=== PATIENT | male | born 1960 | race Caucasian/White ===

== ENCOUNTER 2020-10-23 13:40 | Inpatient (IN) | payer OTHER, SELFPAY ==
[2020-10-23 14:45] VITALS: BP 131/77; PULSE 84; RESP 18; TEMP 36.9; O2SAT 99
[2020-10-23 15:11] VITALS: BMI 52.6
[2020-10-23 16:04] LABS: International Normalized Ratio 1.7; Prothrombin Time (Protime)PT. 19.7 SECONDS (11.7-14.9)
--- NOTE | 2020-10-23 16:30 | PCM.HP.STD ---
Problem List (1) Hypertension Status: Chronic Qualifiers: Hypertension type: essential hypertension Qualified Code(s): I10 - Essential (primary) hypertension (2) HLD (hyperlipidemia) Status: Chronic (3) Super obese Status: Chronic (4) Uncontrolled type II diabetes mellitus Status: Chronic Qualifiers: Glycemic state: with hyperglycemia Qualified Code(s): E11.65 - Type 2 diabetes mellitus with hyperglycemia (5) Prostate disorder Status: Chronic (6) Status post tracheostomy Status: Acute (7) S/P percutaneous endoscopic gastrostomy (PEG) tube placement Status: Acute (8) Gram-negative pneumonia Status: Resolved (9) CAD (coronary artery disease) Status: Chronic (10) Hemorrhagic cerebrovascular accident (CVA) Status: Acute Comment: Posterior left temporal lobe (11) Mastoiditis Status: Acute Qualifiers: Laterality: bilateral Qualified Code(s): H70.93 - Unspecified mastoiditis, bilateral (12) Sinusitis Status: Acute Qualifiers: Sinusitis location: sphenoidal (13) Subarachnoid hemorrhage Status: Acute Comment: Bilateral (14) Deep vein thrombosis (DVT) of left upper extremity Status: Acute (15) Hx of deep venous thrombosis Status: Chronic Comment: was on warfarin at the time of the intracerebral bleed with an INR of 4.2. (16) Cognitive dysfunction Status: Acute (17) Pharyngeal dysphagia Status: Acute Comment: severe. Pt NPO at presentation to the rehab unit (18) Subtherapeutic international normalized ratio (INR) Status: Acute (19) Tobacco dependence in remission Status: Chronic Comment: Quit at 34 years of age and also quit alcohol at the same time. (20) Presence of cerebrospinal fluid drainage device Status: Acute Comment: Right frontal area (21) Seizure disorder as sequela of cerebrovascular accident Status: Acute (22) Delirium Status: Acute (23) Cellulitis Status: Acute Qualifiers: Site of cellulitis of trunk: abdominal wall (24) Acute bronchitis Status: Acute Qualifiers: Bronchitis organism: Streptococcus Qualified Code(s): J20.2 - Acute bronchitis due to streptococcus Comment: Group B strep (25) Infection of PEG site Status: Acute Comment: Pseudomonas aeruginosa History of Present Illness Date of Admission: 10/23/20 Chief Complaint: Post hemorrhagic stroke disability with severe pharyngeal dysphagia, cognitive dysfunction, tracheostomy, PEG tube insertion Daniel Sanchez is a 60 year old M with a past medical history of hypertension, hyperlipidemia, super obesity, coronary artery disease, prostate disorder, recurrent DVTs, chronic anticoagulation with warfarin, uncontrolled diabetes mellitus type 2 and venous insufficiency who presented to [facility] emergency department on 09/22/2020 complaining of difficulty walking and confusion. His stated that he had been complaining of left side pain for [address] brain showed an intracranial hemorrhage and the patient was given vitamin K and transferred to [facility] via med flight. At [facility] he was intubated and started on a Cardene drip for malignant hypertension. INR was 4.2 and he received Kcentra on arrival to [facility]. While at [facility] he had a CSF shunt placed in the right frontal area. He had gram-negative pneumonia and failed extubation on 10/02/2020. He was reintubated on 10/04/2020 and eventually had a tracheostomy. He has mild oral dysphagia and severe pharyngeal dysphagia and aspirated pur?ed food. He has silent aspiration. A PEG tube was inserted. He was started on Keppra for new onset seizures. He received PT/OT/ST at [facility] and when he was ready for discharge he was transferred to [facility] acute inpatient rehab unit on 10/23/2020. He will have greater than 3 hours of therapy daily to restore him at or near his prior level of function. He lives in a private two-story home and his bedroom is on the second floor. There is a full bathroom with a walk-in shower on the first floor and accommodations can be made for him to sleep on the first floor. He has a few steps to enter his house. All paperwork from [facility] was reviewed.] He has never been to [facility] in the past. Past Medical History Past Medical History (Chronic Problems): Chronic Problems Hypertension (Chronic) HLD (hyperlipidemia) (Chronic) Super obese (Chronic) Uncontrolled type II diabetes mellitus (Chronic) Prostate disorder (Chronic) CAD (coronary artery disease) (Chronic) Hx of deep venous thrombosis (Chronic) was on warfarin at the time of the intracerebral bleed with an INR of 4.2. Tobacco dependence in remission (Chronic) Quit at 34 years of age and also quit alcohol at the same time. Allergies No Known Allergies Allergy (Verified 10/23/20 15:12) Home Medications: Ambulatory Orders Medication Instructions Recorded Atorvastatin Calcium [Lipitor] 80 mg GT QHS 10/23/20 Doxazosin Mesylate [Cardura] 2 mg GT DAILY 10/23/20 Hydrochlorothiazide [Hctz] 25 mg PO DAILY 10/23/20 Loperamide [Imodium] 2 mg GT Q4H PRN PRN 10/23/20 Metoprolol Tartrate 50 mg GT BID 10/23/20 Warfarin [Coumadin] 12.5 mg GT DAILY 10/23/20 Warfarin [Coumadin] 15 mg GT DAILY 10/23/20 levETIRAcetam oral solution 1,000 mg GT BID 10/23/20 [Keppra Solution] metFORMIN HCl [Glucophage] 1,000 mg GT BIDCM 10/23/20 Surgical History: - - Tracheostomy, PEG tube insertion Psychiatric History: No pertinent psych hx Lives: Spouse/ Significant Other Smoking Status: Former smoker - quit at the age of 34 and also quit ETOH at the same time Tobacco Use: Cigarettes Alcohol: None Drugs: None - *Family History Maternal History Items: Heart Disease, Renal Disease Paternal History Items: Diabetes, Heart Disease Sibling History Items: Cancer - Review of an H&P done at [facility] states his brother had cancer but does not specify the patient is unable to tell me., Diabetes - Sister and brother, Heart Disease - Brother, - - Positive history of psychosis and his sister Review of Systems HEENT: Reports: Difficulty Swallowing Respiratory: Reports: Shortness of Breath - he said he was SOB but he can lie nearly flat in bed with no tachypnea, no conversational dyspnea, no accessory muscle use and his lungs are clear to auscultation. Gastrointestinal: Reports: - - PEG tube site was examined and is free of discharge or erythema Skin: Denies: Jaundice Neurological: Reports: Confusion, Difficulty swallowing, Seizures. Denies: Tremor Hematologic/ Lymphatic: Reports: Hx of blood clot Unable to obtain accurate/complete ROS d/t: Patient has encephalopathy secondary to recent hemorrhagic CVA VTE Information - Inpt Only VTE Present on Admission: Yes - Left upper extremity VTE Mechan Device Prophylaxis: SCD's VTE Pharm Prophylaxis ordered?: No Reason prophylaxis not ordered:: Treatment Not Indicated - He is on full dose anticoagulation....was on Heparin infusion at [facility] but it ws discontinued so that he could be transferred to rehab. Patient Problems: Active and Suspected Problems Status post tracheostomy (Acute) S/P percutaneous endoscopic gastrostomy (PEG) tube placement (Acute) Hemorrhagic cerebrovascular accident (CVA) (Acute) Posterior left temporal lobe Mastoiditis (Acute) Sinusitis (Acute) Subarachnoid hemorrhage (Acute) Bilateral Deep vein thrombosis (DVT) of left upper extremity (Acute) Cognitive dysfunction (Acute) Pharyngeal dysphagia (Acute) severe. Pt NPO at presentation to the rehab unit Subtherapeutic international normalized ratio (INR) (Acute) Presence of cerebrospinal fluid drainage device (Acute) Right frontal area Seizure disorder as sequela of cerebrovascular accident (Acute) Delirium (Acute) Cellulitis (Acute) Acute bronchitis (Acute) Group B strep Infection of PEG site (Acute) Pseudomonas aeruginosa - Physical Exam Vitals/I&O's: Vital Signs Temp Pulse Resp BP Pulse Ox 98.4 F 84 18 131/77 H 99 10/23/20 14:45 10/23/20 14:45 10/23/20 14:45 10/23/20 14:45 10/23/20 14:45 Oxygen Flow Rate (L/min) 5 Oxygen Delivery Method Trach Collar Weight: 297 lb Body Mass Index (BMI) 52.6 General: Alert, No apparent distress, Well developed, Well nourished, Confused, Disoriented - He told me he was 55 (he is 60) and he had not idea where he was. When I explained that he was in a rehab unit BECAUSE HE HAD A STROKE HE SAID NO WAY. He could not tell me the month or the year., - - I found him sitting at the EOB with his gown off. He had pulled out his Rogers and was sitting on it. The bed was soaked in urine. HEENT: Atraumatic Oral: No Gingival or Mucosal Lesions/ Ulcerations, Dry Mucosa Neck: Supple, Trachea Midline, - - Trachesostimy is in place. It is crusty around the appliance with dried secretions. ?He has a Passy casey valve and he is able to speak Lungs: Rhonchi - Cleared after a cough. Respirations are not labored and he has no conversational dyspnea, tachypnea or accessory muscle use Cardiovascular: Regular rate, Regular Rhythm, Normal S1, Normal S2, No murmurs, No Ectopic Activity, No rub noted, No Gallop, - - heart sounds are distant due to body habitus Abdomen: Bowel Sounds Present, Soft, Obese, - - no guarding with palpation Extremities: No clubbing, No cyanosis Skin: No rashes, No breakdown, - - he has hyperpigmentation of the skin over the distal LE's - suspect due to venous insufficiency and WaRFARIN......there are no open areas Neurological: Cranial nerves II-XII grossly intact Psych/Mental Status: Impulsive - poor safety awareness. Confused and disoriented Laboratory Results 10/23/20 15:45: PT 19.7 H, INR 1.7 Current Medications Atorvastatin Calcium (Atorvastatin Calcium 80 Mg Tablet) 80 mg GT QHS [facility] Bisacodyl (Bisacodyl 10 Mg Suppository) 10 mg RECTAL .PRN X 1 PRN PRN Reason: Constipation Doxazosin Mesylate (Doxazosin 1 Mg Tablet) 2 mg GT DAILY [facility] Hydrochlorothiazide (Hydrochlorothiazide 25 Mg Tablet) 25 mg GT DAILY [facility] Insulin Glargine (Insulin Glargine 100 Units/Ml Pen) 90 units SC BID [facility] Insulin Human Lispro (Insulin Lispro 100 Unit/Ml Insuln.Pen) 0 unit SC [facility]; Protocol Levetiracetam (Levetiracetam Oral Solution 500 Mg/5 Ml) 1,000 mg GT BID [facility] Loperamide HCl (Loperamide 2 Mg Capsule) 2 mg GT Q4H PRN PRN PRN Reason: Diarrhea Magnesium Hydroxide (Magnesium Hydroxide 30 Ml Udc) 30 ml GT .PRN X 1 PRN PRN Reason: Constipation Metformin HCl (Metformin Hcl 1,000 Mg Tablet) [facility] Metoprolol Tartrate (Metoprolol Tartrate 50 Mg Tablet) 50 mg GT BID [facility] Senna/Docusate Sodium (Senna/Docusate Sodium 1 Tablet) 2 tablet PO BID [facility] Warfarin Sodium (Warfarin 1 Mg Tablet) 12.5 mg GT DAILY [facility] Warfarin Sodium (Warfarin 1 Mg Tablet) 15 mg GT DAILY [facility] Assessment/Plan All Active Problems Status post tracheostomy (Acute) S/P percutaneous endoscopic gastrostomy (PEG) tube placement (Acute) Gram-negative pneumonia (Resolved) Hemorrhagic cerebrovascular accident (CVA) (Acute) Mastoiditis (Acute) Sinusitis (Acute) Subarachnoid hemorrhage (Acute) Deep vein thrombosis (DVT) of left upper extremity (Acute) Cognitive dysfunction (Acute) Pharyngeal dysphagia (Acute) Subtherapeutic international normalized ratio (INR) (Acute) Presence of cerebrospinal fluid drainage device (Acute) Seizure disorder as sequela of cerebrovascular accident (Acute) Delirium (Acute) Cellulitis (Acute) Acute bronchitis (Acute) Infection of PEG site (Acute) Impressions 1. 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 2. Encephalopathy secondary to intracerebral bleeds 3. Left upper extremity DVT with history of DVTs in the past 4. Subtherapeutic INR at 1.7-was recently on a heparin drip which was discontinued at transfer. 5. Recent gram-negative pneumonia 6. Status post tracheostomy 7. Mild oral and severe pharyngeal dysphagia-silent aspiration with pur?ed food 8. Status post PEG tube 9. Uncontrolled diabetes mellitus type 2 in obese-hemoglobin A1c was greater than 11 at [facility] 10. Essential hypertension 11. Hyperlipidemia 12. Coronary artery disease 13. Prostate disorder-he had a Rogers in place at presentation to rehab but he pulled it out 14. Bilateral mastoiditis on a CT scan done at [facility] 15. Maxillary and sphenoidal sinusitis [facility] 16. Superobese 17. Tobacco dependence in remission-quit drinking and smoking at the age of 34 18. Status post placement of cerebrospinal fluid drainage device in the right frontal area 19. New onset seizures as sequela I of intracerebral hemorrhage 20. Acute delirium PLAN PT for gait stability OT for ADL's ST for evaluation Analgesics as needed Bowel protocol Fall precautions Assess for Anxiety/Depression GI prophylaxis not necessary at this time as he has no history of peptic ulcer disease and is not on prophylaxis at the time of arrival to the rehab unit DVT prophylaxis not necessary. He will be on warfarin to maintain his INR between 2.2 to 2.8 for recurrent DVT's Follow up - please see the nurses notes AM lab including CMP, CBC, Mag and Phos Accu-Cheks 5 times daily prior to each feeding with a high-dose sliding scale. He must have a lot of insulin resistance as he gets 90 units of Lantus every 12 hours and has been getting as much as 30 units with feedings. He has been seen by the dietitian already who has put feedings in for him. Inpatient E&M: 66106 Init Hosp L3
--- NOTE | 2020-10-23 16:31 | PCM.RU.PYE ---
Admission Information Primary Diagnosis:: Post stroke debility Status Changes from Prescreening?: Medical Actual Problem List:: Infection, Skin Intergrity, Pain, ALteration in Cmfrt, Cognitve Impr/Memory Loss, Mobility Impaired, Self Care Deficit, Ineffective Communication, Know.Dfct/Disease Process, Diabetes, Hyperglycemia, BP, Hypertension, Fluid Change-Dehydration, Alteration-Leisure Activ. Potential Problem List:: DVT, Bleeding, Infection, UTI, Aspiration, Falls, Skin Integrity, Depression Risk of Complications DVT: JOHANNA Ugarte, - - Warfarin Bleeding: Monitor Lab Values, Nursing to Teach Precautions for anti-coagulation therapy., Wound, if applicable, to be assessed every shift., Stroke patients assessed for lethargy or change in status. Infection: Clinical Staff to Monitor for S/S of infection:, S/S of infection include fever, redness, warmth, etc. Urinary Tract Infection: Monitor for frequency, burning, discomfort, or incontinence., Nursing will obtain urine sample for urinalysis and C&S when ordered. Aspiration: Clinical staff will monitor for coughing, drooling, congestion., Speech will evaluate swallowing and dsyphasia., Nursing will monitor patient swallowing during meals. Falls: Patient will be evaluated for Fall Precautions, Patient will be placed on Fall Precautions as indicated per protocol. Skin Breakdown: Nursing will assess skin daily using assessment tool., Nursing will place on Skin Breakdown Precautions as indicated. Pain: Clinical staff will assess patient's pain level per protocol., Medications will be given, if needed, and the pain level reassessed., Other methods: Massage, distraction, decrease stimulus, etc. used PRN. Plan of Care Patient requires physician specializing in physical medicine and rehab oversight to provide close medical supervision of rehab issues including: Pain Management, Sleep Problems, Bowel and Bladder, Medical and co-morbidity Management, DVT prophylaxis, Rehabilitation Leadership, Coordination of treatment team Patient needs Physical Therapy: For a minimum of 1 hour, At least 5 out of 7 days Patient needs Physical Therapy to improve:: Mobility, Mobility, Mobility, Strengthening, Transfers, Stretching, ROM, Endurance, Stairs, Gait, Balance Patient needs Occupational Therapy: For a minimum of 1 hour, At least 5 out of 7 days Patient needs Occupational Therapy to improve ADL's incl.: Eating, Grooming, Bathing, Dressing, Toileting, Toilet transfers, Community Reintegration, Higher functioning activities, Household tasks, Adaptive Equipment, Splinting, Other activities as determined Patient requires speech therapy: For a minimum of 1 hour, At least 5 out of 7 days Patient requires speech therapy for: Swallowing, Cognition, Language Skills, Compensatory Strategies Patient requires 24/ Rehabilitation Nursing for: Pain Issues, Identifying and preventing risk factors, Monitoring and reporting current medical conditions, Assisting with ambulation, transfer, and all ADL's, Teaching patients about disease process and medications, Family teaching, Providing safe environment, Bowel and Bladder Issues, Skin integrity, Medication Management Patient needs Piped Pocket Machine Operator/ Case Management for: Discharge Planning, Arranging Home Equipment or Services, Family Interventions Patient needs Dietary and Nutrition Services for: Adequate Nutrition, Nutritional Supplements, Nutritional Education Goals Patient will remain: free from falls, or injury at time of discharge. Patient will perform bed mobility at: MOD I level of assist. Patient will complete transfers from bed to chair at: MOD I level of assist. Patient will ambulate: 100 feet, with standby assist, with LRD Patient will complete upper body dressing at: MOD I level of assist. Patient will complete lower body dressing at: MOD I level of assist. Patient will complete toileting at: - - Minimal assistance Patient will perform bathing at: MOD I level of assist. Patient will complete grooming at: MOD I level of assist. Patient will achieve: at MOD I assist, - - 6 stairs with 2 handrails Patient will have pain level of: of 3 or less Patient's skin will: remain intact, free from infection. Patient will receive: adequate nutrition. Discharge Planning Pt Prognosis for Sig. Practical Improv. w/in Reasonable Time: Good Estimated Length of stay (days): 28 Anticipated D/C Destination: Home with Outpt Therapy
--- NOTE | 2020-10-23 16:52 | NT.THERAPY_ITS ---
Nutrition Therapy Report - History Nutrition Services has been consulted to:: Manage enteral nutrition Current diet / nutrition support order:: NPO - Anthropometric Measurements Height:: 5 ft 3 in Weight:: 134.717 kg Body Mass Index (BMI):: 52.6 - Relevant Labs Relevant Labs:: PT 19.7 SECONDS (11.7-14.9) H 10/23/20 15:45 - Assessment Food / Nutrition-Related History:: Information gathered from [facility] records. Intubated 09/22/20, extubated 10/02 and reintubated 10/04. Trach/PEG placed 10/08. Noted to have DobHoff placed 10/03 prior to PEG placement. No records of type of enteral nutrition formula provided during acute hospital stay. Noted hx of DM w/ A1C of 11.4% at acute hospital. - Nutrition Intervention Nutrition Prescription:: Will use ASPEN guidelines for critically ill, morbidly obese patients: 2-2.5 g/kg protein IBW (56kg) and 11-14 calories/kg CBW. 1400- 1800 calories, 112-140 g protein per day - Food / Nutrient Delivery Interventions Summary of nutrition intervention:: Will order enteral nutrition to meet >75% of estimated nutritional needs. PROTECTIVE SIGNAL INSTALLER HELPER consulted- no evaluation completed at this time. Nutrition support ordered as / adjusted to:: Vital HP via PEG- 320mL bolus 5x/day w/ 50mL H2O flush before and after each feeding to provide 1600 calories, ~140 g protein, and 1837mL total fluid/day (320 calories, ~28 g protein, and 35 g CHO per bolus). Will adjust tube feeds if able to consume food PO. - MNT Monitoring Further MNT monitoring and evaluation required?: Yes MNT Follow-up in:: 3-5 days
[2020-10-23 16:55] VITALS: BMI 52.6
[2020-10-23 17:10] VITALS: O2SAT 99
[2020-10-23 17:25] VITALS: O2SAT 98
[2020-10-23 18:06] VITALS: BMI 52.6
[2020-10-23 18:30] VITALS: O2SAT 98
[2020-10-23 18:35] LABS: Bedside Glucose 78 mg/dL (70-110)
[2020-10-23] MEDS: metFORMIN HCl 1,000 MG Tablet 1000 MG GT (18:36)
[2020-10-23 19:36] VITALS: BP 137/73; PULSE 90; RESP 20; TEMP 36.8; O2SAT 99
[2020-10-23 22:05] LABS: Bedside Glucose 143 mg/dL (70-110)
[2020-10-23] MEDS: Senna/Docusate Sodium 1 Tablet 2 TABLET PO (23:06)
[2020-10-23 23:07] VITALS: BP 137/73; PULSE 90
[2020-10-23] MEDS: Atorvastatin Calcium 80 MG Tablet GT (23:07)
[2020-10-23] MEDS: Metoprolol Tartrate 50 MG Tablet GT (23:07)
[2020-10-23] MEDS: levETIRAcetam Oral Solution 500 MG/5 ML 1000 MG GT (23:08)
[2020-10-23] MEDS: Nystatin Powder 15gm Bottle 1 APPLIC TOPICAL (23:32)
[2020-10-23] MEDS: Menthol/Lanolin/Calamine/Znox 113 GM Tube 1 APPLIC TOPICAL (23:33)
[2020-10-24 05:47] LABS: Absolute Lymphocyte Count 2.47 X10^3/uL (0.83-4.51); Absolute Neutrophil Count 12.7 X10^3/uL (2.0-7.7); Basophil# 0.05 X10^3/uL; Basophil% 0.3 % (0-1); Eosinophil# 0.21 X10^3/uL; Eosinophils% 1.2 % (0-5); Hemoglobin 10.3 g/dL (13.0-16.5); Lymphocyte # 2.47 X10^3/ul (4.0); Lymphocyte % 14.4 % (19-41); Mean Corp Hgb Conc 31.2 g/dL (32-36); Mean Corpuscular Volume 89.7 fL (80-94); Mean Platelet Vol. 9.2 fl (6.2-12.0); Monocyte# 1.57 X10^3/uL; Monocyte% 9.2 % (0-10); NRBC Flagged by Analyzer 0 % (0-5); Neutrophil # 12.69 X10^3/uL (2.7-7.7); Neutrophil % 74.3 % (47-70); POSITIVE DIFFERENTIAL YES; Platelet Count 341 K/mm3 (150-450); RBC Distribution Width CV 13.6 % (11.6-14.6); RBC Distribution Width SD 44.5 fl (35.1-43.9); Red Blood Count 3.68 M/mm3 (4.6-6.2); White Blood Count 17.1 K/mm3 (4.4-11.0)
[2020-10-24 05:49] LABS: Differential Indicated SCAN CRITERIA MET
[2020-10-24 06:11] LABS: Differential Comment SCANNED
[2020-10-24 06:17] LABS: ALB/GLOB Ratio 0.4 RATIO (0.9-2.4); AST(SGOT) 21 U/L (15-37); Alanine Aminotransfer ALT/SGPT 39 U/L (16-61); Albumin, Serum 2.5 g/dL (3.2-5.0); Alkaline Phosphatase 138 U/L (45-117); Anion Gap 8 (5-15); BUN 36 mg/dL (7-18); BUN/Creat Ratio 44.2 RATIO (10-20); Calcium,Total 9.2 mg/dL (8.5-10.1); Chloride 99 mmol/L (98-107); Creatinine, Serum 0.82 mg/dL (0.70-1.30); EST Glomerular Filtration Rate 102 mL/min (>60); Est Glom Filt Rate - Afr Amer 124 mL/min (>60); Estimated Creatinine Clearance 76.14 ml/min; Globulin 5.8 g/dL (2.2-4.2); Glucose 154 mg/dL (74-106); Magnesium 2.1 mg/dL (1.6-2.6); Potassium 3.7 mmol/L (3.5-5.1); Protein, Total 8.3 g/dL (6.4-8.2); Sodium Level 134 mmol/L (136-145)
[2020-10-24 06:27] LABS: International Normalized Ratio 1.9; Prothrombin Time (Protime)PT. 21.4 SECONDS (11.7-14.9)
[2020-10-24 07:05] LABS: Bedside Glucose 151 mg/dL (70-110)
[2020-10-24 07:28] VITALS: O2SAT 98
[2020-10-24] MEDS: hydroCHLOROthiazide 25 MG Tablet GT (08:03)
[2020-10-24] MEDS: Doxazosin 1 MG Tablet 2 MG GT (08:03)
[2020-10-24] MEDS: Menthol/Lanolin/Calamine/Znox 113 GM Tube 1 APPLIC TOPICAL ×2 (08:03→21:02)
[2020-10-24] MEDS: metFORMIN HCl 1,000 MG Tablet 1000 MG GT (08:04)
[2020-10-24] MEDS: levETIRAcetam Oral Solution 500 MG/5 ML 1000 MG GT ×2 (08:04→20:51)
[2020-10-24 08:05] VITALS: PULSE 80
[2020-10-24] MEDS: Loperamide 2 MG Capsule GT (08:05)
[2020-10-24] MEDS: Nystatin Powder 15gm Bottle 1 APPLIC TOPICAL ×2 (08:05→21:02)
[2020-10-24] MEDS: Metoprolol Tartrate 50 MG Tablet GT ×2 (08:05→20:50)
[2020-10-24] MEDS: Insulin Lispro 100 UNIT/ML INSULN.PEN SC ×4 (08:22→17:01)
[2020-10-24 08:47] VITALS: BP 146/78; PULSE 83; RESP 20; TEMP 36.8; O2SAT 96
[2020-10-24 10:26] LABS: Bedside Glucose 227 mg/dL (70-110)
--- NOTE | 2020-10-24 10:43 | PCM.PN.BLA ---
Progress Note Afebrile VSS Maintaining appropriate oxygen saturation on a trach collar with an FiO2 of 30% No oral intake-being fed through a PEG tube because of severe dysphagia Discussed with nursing -having copious amounts of diarrhea today. Was on intravenous antibiotics for treatment of gram-negative pneumonia while at [facility]. Reviewed the PT/OT/ST notes Medication list reviewed. Sugar record was reviewed. Alert but inappropriate. Having severe diarrhea. Denies abd pain MM are very dry There is jenkins secretions from the trach and he has dried DC which is much better than yesterday around the Trach appliance Lungs -rhonchi, no rales HRRR abd - BS's are not hyperactive, there is erythema and moist greenish drainage around the PEG with an odor no pitting edema of the LE's. He is moving all extremities. Impression 1. Post stroke debility 2. acute delirium 3. Cellulitis around the PEG site 4. Bronchitis vs PNA? He had Gm negative PNA at [facility] 5. diarrhea -4 likely than not secondary to combined effects of tube feed with high-dose Metformin. Cannot exclude C. difficile since he was recently on broad-spectrum antibiotics for gram-negative pneumonia 6. Diabetes mellitus type 2 uncontrolled 7. Subtherapeutic INR 8. History of DVT in the past on chronic anticoagulation with warfarin prior to the stroke DC metformin CDIFF Lomotil 1 dose now until we get CDIFF back add Questran to the drug regimen Send cult of Sputum and the DC around the PEG site Continue Warfarin...INR is 1.9 today and suspect it will be therapeutic in the AM Start an IV to maintain hydration since he has high volume Stool output Cut the TF in half to hopefully slow down the diarrhea. Hold hydrochlorothiazide being given for hypertension Recheck BMP and INR in a.m. Decrease Lantus to 60 units twice daily since we are decreasing tube feed. Continue sliding scale insulin prior to all feedings STROKE Vital Signs/Narrative: Vital Signs Temp Pulse Resp BP Pulse Ox 10/24/20 08:47 98.2 F 83 20 H 146/78 H 96 10/24/20 08:05 80 10/24/20 07:28 98 Inpatient E&M: [id number] Subs Hosp L2
--- NOTE | 2020-10-24 11:01 | RAD_ITS ---
STUDY: X-RAY CHEST REASON FOR EXAM: Male, 60 years old. Pneumonia, purulent secretions from trach. TECHNIQUE: 1 view COMPARISON: None. FINDINGS: Tracheostomy cannula terminates 5.5 cm above the natasha. The lungs are clear and expanded. There is no demonstrated pleural abnormality. Normal size heart. Normal mediastinum and alfredito. Normal visualized pulmonary arteries. Normal visualized aortic arch and descending thoracic aorta. Normal visualized thoracic spine. Normal visualized ribs, clavicles, and shoulders. There is no demonstrated abnormality of the visualized soft tissue structures of the upper abdomen. RAD/Chest 1 View (Portable) IMPRESSION: Tracheostomy cannula terminates above the natasha. Negative for consolidation, focal atelectasis or pleural effusion. Electronically Signed: Raquel Reyes MD at 23:50 EST , Service support ,
[2020-10-24 12:42] LABS: Pathologist Review Reviewed
[2020-10-24] MEDS: Diphenoxylate/Atrop 1 Tablet PO (12:51)
[2020-10-24] MEDS: Cholestyramine/Sucrose 4 GM/PACKET PO ×3 (12:52→22:16)
[2020-10-24 15:15] LABS: Bedside Glucose 159 mg/dL (70-110)
[2020-10-24 17:11] LABS: Bedside Glucose 175 mg/dL (70-110)
[2020-10-24 19:48] VITALS: BP 151/78; PULSE 92; RESP 18; TEMP 36.9; O2SAT 96
[2020-10-24 20:50] VITALS: PULSE 92
[2020-10-24] MEDS: Atorvastatin Calcium 80 MG Tablet GT (20:50)
[2020-10-24 21:40] LABS: Bedside Glucose 118 mg/dL (70-110)
[2020-10-24 22:00] VITALS: PULSE 92; RESP 18; O2SAT 96
[2020-10-25] VITALS (8 sets, daily range): BP systolic 131–135; BP diastolic 73–85; PULSE 86–93; RESP 16–19; TEMP 36.9–37; O2SAT 95–98
--- NOTE | 2020-10-25 00:40 | NURSING ---
Addendum entered by Josey Feldman 10/25/20 00:54: 0047: Dr. Jean notified of pt agitation and c/o pain, he states he will put order in for Haldol. Original Note: Pt becoming increasingly agitated, wanting to get out of here and go home, did call his able to speak with her, asking her for help and cursing over the phone asking her to come get him,finally hung up on her, states he wants to get out of here, explained to pt that he needs to be here for medical care, pt states he's been sick like this for a long time, states I know what happens, they say you'll be here for a few days then you're stuck here. assured pt that he will get therapy and get stronger, pt keeps asking repeatedly for water and states his throat hurts, will page hospitalist. Repositioned in bed for comfort.
[2020-10-25] MEDS: Haloperidol 1 MG Tablet 2 MG PO (01:06)
--- NOTE | 2020-10-25 01:20 | NURSING ---
Pt calming now now, states he will shut her down now and try to rest, hob elevated.
--- NOTE | 2020-10-25 02:15 | NURSING ---
Pt scd machine beeping, in to check, pt sitting up on side of bed, has pulled trach out, called for assistance, RT called to assist. Pt states he doesn't need this thing pointing to trach, no resp distress noted, pox 95% at this time, explained to pt that he needs trach to help with his breathing and recovery. assisted pt back to bed, hob elevated. RT Selvin in and inserted new trach, pt tolerated fair, states he can breath fine, pox 98% DYNAMICS AX SOLUTION ARCHITECT Carrington to sit in room at this time to monitor pt. Nursing psychiatric social worker supervisor aware.
--- NOTE | 2020-10-25 04:15 | CPS ---
RT CALLED TO [id number]. At time of visit, patient sititng in bed with trach removed. Nursing stated that patient pulled trach. Patient complaining of shortness of breath. Nursing obtained bedside trach size 8 cuffed, non disposable inner cannula. Rt using sterile gloves, replaced trach into stoma. no adverse reaction noted. Patient stated that he has no shortness of breath. Nursing informed to notify patients doctor. Patient was 95% on .30 cool mist.
[2020-10-25] MEDS: Cholestyramine/Sucrose 4 GM/PACKET PO ×4 (05:38→23:45)
[2020-10-25 06:39] LABS: International Normalized Ratio 2.1; Prothrombin Time (Protime)PT. 23.1 SECONDS (11.7-14.9)
[2020-10-25 06:42] LABS: Anion Gap 6 (5-15); BUN 26 mg/dL (7-18); Calcium,Total 8.9 mg/dL (8.5-10.1); Chloride 103 mmol/L (98-107); Creatinine, Serum 0.68 mg/dL (0.70-1.30); EST Glomerular Filtration Rate 125 mL/min (>60); Est Glom Filt Rate - Afr Amer 151 mL/min (>60); Estimated Creatinine Clearance 91.81 ml/min; Glucose 109 mg/dL (74-106); Potassium 3.8 mmol/L (3.5-5.1); Sodium Level 135 mmol/L (136-145)
[2020-10-25 06:55] LABS: Bedside Glucose 103 mg/dL (70-110)
--- NOTE | 2020-10-25 08:52 | EKG12_ITS ---
Test Reason : Blood Pressure : / mmHG Vent. Rate : 091 BPM Atrial Rate : 091 BPM P-R Int : 194 ms QRS Dur : 086 ms QT Int : 374 ms P-R-T Axes : 056 045 011 degrees QTc Int : 460 ms Normal sinus rhythm Normal ECG Confirmed by GRACE ARMANDO, JOHNNIE ([id number]), story editor MADI FERRER ([id number]) on 10/30/2020 8:16:24 AM Referred By: MIKAEL Confirmed By:JOHNNIE EDWARDS MD
[2020-10-25] MEDS: Doxazosin 1 MG Tablet 2 MG GT (10:01)
[2020-10-25] MEDS: Ondansetron ODT 4 MG Tablet GT (10:01)
[2020-10-25] MEDS: levETIRAcetam Oral Solution 500 MG/5 ML 1000 MG GT ×2 (10:02→21:09)
[2020-10-25] MEDS: Metoprolol Tartrate 50 MG Tablet GT ×2 (10:02→21:09)
[2020-10-25 10:06] LABS: Bedside Glucose 148 mg/dL (70-110)
[2020-10-25] MEDS: QUEtiapine 25 MG Tablet GT ×2 (11:31→21:08)
[2020-10-25] MEDS: Acetaminophen 650 MG/20 ML UDC 1000 MG GT ×2 (11:31→21:01)
[2020-10-25] MEDS: Menthol/Lanolin/Calamine/Znox 113 GM Tube 1 APPLIC TOPICAL ×2 (11:32→21:17)
[2020-10-25] MEDS: Nystatin Powder 15gm Bottle 1 APPLIC TOPICAL ×2 (11:50→21:09)
[2020-10-25] MEDS: levoFLOXacin 500 MG Tablet GT (14:52)
[2020-10-25 14:56] LABS: Bedside Glucose 161 mg/dL (70-110)
--- NOTE | 2020-10-25 15:46 | NURSING ---
Patient alert x1 and confused and agitated with staff, demanding he needs a camera to see the TV and not making sense. Per pt request, called and patient yelling and cursing at her. 1:1 provided by staff.
[2020-10-25] MEDS: Haloperidol 1 MG Tablet GT ×2 (15:49→21:51)
[2020-10-25 16:01] LABS: Bedside Glucose 171 mg/dL (70-110)
--- NOTE | 2020-10-25 16:16 | NURSING ---
Patient spoke to and became more agitated. Constantly repeating, can someone knock my in the head? 1:1 by staff. Patient confused, telling staff he will pay them if we will let bim go because he needs to get in his car. Consantly yelling out, Help over and over again.
[2020-10-25] MEDS: Insulin Lispro 100 UNIT/ML INSULN.PEN SC (16:30)
[2020-10-25 18:11] LABS: Bedside Glucose 145 mg/dL (70-110)
[2020-10-25] MEDS: Atorvastatin Calcium 80 MG Tablet GT (21:09)
[2020-10-25 21:26] LABS: Bedside Glucose 101 mg/dL (70-110)
--- NOTE | 2020-10-25 23:13 | NURSING ---
This rn taking over as bedside sitter for pt. Pt repositioned in bed.
--- NOTE | 2020-10-25 23:30 | NURSING ---
This rn sitter noted pts trach to be out farther than a trach usually is. This rn had pts primary rn come to bedside to assess trach. Rt called as well to assess pt.
[2020-10-26] VITALS (9 sets, daily range): BP systolic 150–162; BP diastolic 63–82; PULSE 64–103; RESP 16–20; TEMP 36.7–36.8; O2SAT 94–98; BMI 52.6
--- NOTE | 2020-10-26 00:22 | CPS ---
called to RU to come look at 403's trach- it is out about an inch-tried to push back in with no luck- moved pt's head side to side and up and down to try and push trach back in with no movement-hospitalist was called to asses.
--- NOTE | 2020-10-26 00:30 | PCM.PN.BLA ---
Progress Note Patient with intraventricular hemorrhage and malignant hypertension status post brain shunt and Kcentra who because could not be extubated was trached and pegged we eventually was transferred to the hospital and transferred to the hospital for rehab. Reportedly 3 days ago patient pulled his trach because he was agitated. Trach was placed back. Reportedly in a.m. patient was on room air. For comfort via humidification patient was put on trach mask and with 30% oxygenation. Patient's nurse stated was the patient's trach seem to protruding forward. Patient on oxygen of 6L 30% humdifier oxygen sat was 96% Per nurse trach may be to prevent mucous plugging. Discussed case with Dr. Ambrosio Cleaning who advised a 6 cuffless trach. If further trach issues please discuss further with Dr. Ambrosio Cleaning. Consider if patient still needs trach for a long time. STROKE Vital Signs/Narrative: Vital Signs Pulse BP Pulse Ox 10/26/20 00:15 96 10/25/20 21:09 86 131/73 H 10/25/20 21:00 95
--- NOTE | 2020-10-26 00:33 | NURSING ---
DR TAYLOR CHUNG IN REHAB UNIT AND STATES HE WILL BE CONTACTING AN ENT REGARDING PT'S PARTIALLY DISLODGED TRACH TUBE WHICH NURSING AND RESP THERAPY ARE UNABLE TO RETURN TO PROPER PLACEMENT THERE IS RESISTANCE TO TRACH TUBE. PT IS CURRENTLY RESTING QUIETLY WITH EYES CLOSED. PULSE OX IS 96% WITH HUMIDIFICATION. PT WITH OCC COUGHING UP HERNADEZ TO YELLOW SECRETIONS-CURRENTLY THIN. PT IS ABLE TO COUGH SECRETIONS OUT OF TUBE. OCC SECRETIONS GO INTO PT'S MOUTH AND THEY GET SUCTIONED OUT BY STAFF. DR CHUNG SPEAKS WITH DR VINAYAK MARIO WHO ADVISES PT TO HAVE CURRENT TRACH REPLACE WITH A 6 CUFFLESS TRACH BY RESPIRATORY THERAPY STAFF.
--- NOTE | 2020-10-26 00:55 | NURSING ---
RESPIRATORY THERAPISTS ARRIVE TO EXCHANGE PT'S CURRENTLY PARTIALLY DISLODGED CUFFED SHILEY #8 TRACH FOR A SHILEY #6 CUFFLESS. PT TOLERATES PROCEDURE WELL AND CONTINUES WITH HUMIDIFICATION OF AIR IN TRACH COLLAR AND PULSE OX REMAINS 96%. RESP ARE EVEN AND EASY AND PT IS CURRENTLY MORE RELAXED THAN EARLIER THIS SHIFT. PT IS ASKING FOR A PEPSI TO DRINK. INFORMED THAT HE IS TO HAVE NOTHING TO DRINK BY MOUTH.
--- NOTE | 2020-10-26 01:10 | CPS ---
changed trach to [address] Davis-pt uh well-sat's 98% Dr Baugh present
--- NOTE | 2020-10-26 02:36 | NURSING ---
assumed nursing care. pt awake and refusing blood sugar check and assessment at this time
--- NOTE | 2020-10-26 03:03 | NURSING ---
PT BECOMING UNCOOPERATIVE AND KEEPS SAYING HE DOESN'T WANT TO BE HERE AND WANTS TO BE LEFT ALONE. PT'S ATTENDS IS SOAKED WITH URINE-CHANGED. BLOOD SUGAR CHECKED.. PT'S TRACH TUBE IS INTACT.
[2020-10-26 03:06] LABS: Bedside Glucose 104 mg/dL (70-110)
[2020-10-26] MEDS: Haloperidol 1 MG Tablet GT ×3 (03:56→16:02)
[2020-10-26] MEDS: Acetaminophen 650 MG/20 ML UDC 1000 MG GT ×3 (04:00→23:25)
--- NOTE | 2020-10-26 04:23 | NURSING ---
RE: MAR instructions for administering Questran. can give medications either 1 hour before Questran or 4 hours after. therefore, tylenol and vital tube feed bolus of 160ml given at this time as questran is due at 0500
[2020-10-26] MEDS: Cholestyramine/Sucrose 4 GM/PACKET PO ×3 (05:42→16:49)
[2020-10-26 08:06] LABS: Bedside Glucose 140 mg/dL (70-110)
[2020-10-26] MEDS: levoFLOXacin 500 MG Tablet GT (08:30)
[2020-10-26] MEDS: Doxazosin 1 MG Tablet 2 MG GT (08:30)
[2020-10-26] MEDS: levETIRAcetam Oral Solution 500 MG/5 ML 1000 MG GT ×2 (08:31→23:27)
[2020-10-26] MEDS: QUEtiapine 25 MG Tablet GT ×2 (08:31→14:17)
[2020-10-26] MEDS: Metoprolol Tartrate 50 MG Tablet GT ×2 (08:31→23:28)
[2020-10-26] MEDS: Nystatin Powder 15gm Bottle 1 APPLIC TOPICAL ×2 (09:49→23:54)
[2020-10-26] MEDS: Insulin Lispro 100 UNIT/ML INSULN.PEN SC (09:50)
[2020-10-26] MEDS: Menthol/Lanolin/Calamine/Znox 113 GM Tube 1 APPLIC TOPICAL ×2 (09:51→23:27)
[2020-10-26 09:55] LABS: Bedside Glucose 167 mg/dL (70-110)
--- NOTE | 2020-10-26 10:00 | NURSING ---
Agitated, 1:1 by staff continued. Patient pulled out IV to right forearm and this nurse placed new IV to right forearm x1 attempt. Yelling out and unable to orient and reason with patient. Continuous questions of why can't he have water and why can't we let him leave. Pulling at trach collar at times and staff intervenes. Prn haldol given at this time.
--- NOTE | 2020-10-26 11:48 | NURSING ---
Patient has pulled out 2 IV's today that were in right forearm and this nurse attempted again but with patient's agitation this nurse unable to access IV site. Embedded Software Architect made aware.
[2020-10-26 12:41] LABS: Bedside Glucose 122 mg/dL (70-110)
--- NOTE | 2020-10-26 13:20 | NT.THERAPY_ITS ---
Nutrition Therapy Report - History Nutrition Services has been consulted to:: Manage enteral nutrition Current diet / nutrition support order:: NPO; PEG tube- 160mL Vital High Protein 5x/day w/ 50mL flush before and after each bolus to provide 800 calories, 70 g protein, and 1168mL fluid. - Anthropometric Measurements Height:: 5 ft 3 in Weight:: 134.717 kg Body Mass Index (BMI):: 52.6 - Relevant Labs Relevant Labs:: WBC 17.1 K/mm3 (4.4-11.0) H 10/24/20 05:15 RBC 3.68 M/mm3 (4.6-6.2) L 10/24/20 05:15 Hgb 10.3 g/dL (13.0-16.5) L 10/24/20 05:15 Hct 33.0 % (40-54) L 10/24/20 05:15 MCHC 31.2 g/dL (32-36) L 10/24/20 05:15 RDW Std Deviation 44.5 fl (35.1-43.9) H 10/24/20 05:15 Neut % (Auto) 74.3 % (47-70) H 10/24/20 05:15 Lymph % (Auto) 14.4 % (19-41) L 10/24/20 05:15 Absolute Neuts (auto) 12.7 X10^3/uL (2.0-7.7) H 10/24/20 05:15 PT 23.1 SECONDS (11.7-14.9) H 10/25/20 06:00 Sodium 135 mmol/L (136-145) L 10/25/20 06:00 BUN 26 mg/dL (7-18) H 10/25/20 06:00 Creatinine 0.68 mg/dL (0.70-1.30) L 10/25/20 06:00 BUN/Creatinine Ratio 38.0 RATIO (10-20) H 10/25/20 06:00 Glucose 109 mg/dL (74-106) H 10/25/20 06:00 Alkaline Phosphatase 138 U/L (45-117) H 10/24/20 05:15 Total Protein 8.3 g/dL (6.4-8.2) H 10/24/20 05:15 Albumin 2.5 g/dL (3.2-5.0) L 10/24/20 05:15 Globulin 5.8 g/dL (2.2-4.2) H 10/24/20 05:15 Albumin/Globulin Ratio 0.4 RATIO (0.9-2.4) L 10/24/20 05:15 - Assessment Food / Nutrition-Related History:: Tube feeds decreased to 50%- 160mL bolus 5x/day of Vital HP d/t diarrhea. Discussed w/ nursing staff- diarrhea has improved. No new wt to assess. - Food / Nutrient Delivery Interventions Summary of nutrition intervention:: Will increase tube feeds 75% of goal:240mL b olus 5x/day w/ 50mL flush before and after each bolus. Nutrition support ordered as / adjusted to:: Vital HP 240mL bolus 5x/day w/ 50mL flush before and after each bolus. Goal is 320mL bolus 5x/day w/ 50mL H2O flush before and after each feeding to provide 1600 calories, ~140 g protein, and 1837mL total fluid/day (320 calories, ~28 g protein, and 35 g CHO per bolus). - MNT Monitoring Further MNT monitoring and evaluation required?: Yes MNT Follow-up in:: 3-5 days
[2020-10-26 14:11] LABS: Bedside Glucose 99 mg/dL (70-110)
--- NOTE | 2020-10-26 16:08 | NURSING ---
Increased agitation at this time, patient attempted self transfer and getting agitated with staff with interventions. Patient reported his car is outside and he is leaving. Patient not understanding his limitations even though this nurse discussed with him. 1:1 continues. Repositioned in bed.
[2020-10-26 16:46] LABS: Bedside Glucose 128 mg/dL (70-110)
[2020-10-26] MEDS: 0.9% Saline Lock 10 ML Syringe IV (18:54)
--- NOTE | 2020-10-26 20:40 | NURSING ---
SITTER AT ENTRANCE TO ROOM. PT FOUND HOLDING PEG TUBE IN HIS HAND WHICH HE HAS PULLED OUT. SCANT BLEEDING TO ABDOMINAL STOMA. MILD PRESSURE APPLIED TO SITE AND THEN STERILE GAUZE TAPED TO SITE. DR YOUSSEF NOTIFIED. ORDERS GIVEN IF PEG TUBE UNABLE TO BE REINSERTD BY HOSPITALIST. DR TAYLOR MEHTAG TO ROOM TO SEE PT AND THEN TALKS TO DR TEJADA ON THE PHONE.
--- NOTE | 2020-10-26 21:22 | PCM.PN.BLA ---
Progress Note Peg tube dislodgement. Consult General surgery STROKE Vital Signs/Narrative: Vital Signs Temp Pulse Resp BP Pulse Ox 10/26/20 19:23 98.2 F 103 H 20 H 162/82 H 98 10/26/20 19:00 98
--- NOTE | 2020-10-26 21:41 | NURSING ---
DR TEJADA HERE TO SEE PT REGARDING PEG TUBE REPLACEMENT. DR CHUNG IN ROOM WELL.
--- NOTE | 2020-10-26 21:45 | CT_ITS ---
HISTORY: Peg tube replaced. Confirmation needed. 100 mL of oral contrast injected through the G-tube prior to the imaging. 81 images. 2-D reformats. A total of 414 images with to 2-D reformats. Comparison study is a chest x-ray from October 24. Findings: Dependent atelectasis. Minimal cardiomegaly. Coronary artery disease. The Peg tube terminates within the stomach. All of the contrast is present within the stomach and the proximal small bowel. No extravasation of contrast. No free air. The gallbladder is somewhat contracted. The liver, spleen, pancreas, adrenal glands, and kidneys are normal. An IVC filter has its tines terminating outside of the lumen of the IVC. This is a common finding. Severe atherosclerosis within the abdominal aorta without aneurysm. Bowel gas pattern is normal. Degenerative disc disease is present at many levels. Some facet arthropathy. Many bridging anterior enthesophytes. CT/Abdomen WITH ORAL Cont Only IMPRESSION: Adequate position of percutaneous gastrostomy tube without extravasation of injected contrast outside of the lumen of bowel Individualized dose optimization techniques were used for this CT. at 2327 Reported and signed by: Javi Lang MD Electronically Signed: Javi Lang MD at 23:26 EST Tel , Service support ,
--- NOTE | 2020-10-26 21:46 | PCM.PN.BLA ---
Progress Note Pt had accidentally pulled his G tube. site was clean. replacement 22 fr balloon feeding tube placed through tract, good return of air upon entry into stomach. balloon insufflated with 6 ml of water. tube pulled back and bolster tightened to just loosely touching skin. Pt tolerated well. will obtain CT with PO contrast to confirm in stomach before use. Sina Guerra MD STROKE Vital Signs/Narrative: Vital Signs Temp Pulse Resp BP Pulse Ox 10/26/20 19:23 98.2 F 103 H 20 H 162/82 H 98 10/26/20 19:00 98
--- NOTE | 2020-10-26 22:07 | NURSING ---
[address] CONTRAST INSERTED INTO PEG AND THEN FLUSHED WITH 40ML OF STERILE WATER AND PT TO CT VIA CART WITH 2 STAFF MEMBER. ABDOMINAL BINDER ON PT OVER TOP OF STAT LOCK.DR TEJADA HAS PLACED A ENDOVIVE STANDARD BALLOON REPLACEMENT KIT STRAIGHT BOLSTER 22 ESTONIAN (7.3MM).
[2020-10-26 23:16] LABS: Bedside Glucose 102 mg/dL (70-110)
[2020-10-26] MEDS: QUEtiapine 25 MG Tablet 50 MG GT (23:26)
[2020-10-26] MEDS: Atorvastatin Calcium 80 MG Tablet GT (23:27)
[2020-10-27] MEDS: Senna/Docusate Sodium 1 Tablet 2 TABLET PO ×3 (00:41→21:26)
[2020-10-27] MEDS: Cholestyramine/Sucrose 4 GM/PACKET PO ×4 (00:41→17:02)
[2020-10-27] MEDS: Haloperidol 1 MG Tablet GT ×2 (02:20→17:51)
[2020-10-27] MEDS: 0.9% Saline Lock 10 ML Syringe IV ×3 (02:34→21:53)
[2020-10-27] MEDS: Acetaminophen 650 MG/20 ML UDC 1000 MG GT ×3 (04:45→21:24)
[2020-10-27 06:16] LABS: Prothrombin Time (Protime)PT. 30.5 SECONDS (11.7-14.9)
[2020-10-27 06:40] LABS: Bedside Glucose 150 mg/dL (70-110)
[2020-10-27 07:30] VITALS: BP 133/84; PULSE 88; RESP 18; TEMP 37.1; O2SAT 97
[2020-10-27] MEDS: Insulin Lispro 100 UNIT/ML INSULN.PEN SC ×3 (07:47→21:51)
[2020-10-27] MEDS: Nystatin Powder 15gm Bottle 1 APPLIC TOPICAL ×2 (09:10→21:50)
[2020-10-27] MEDS: Menthol/Lanolin/Calamine/Znox 113 GM Tube 1 APPLIC TOPICAL ×2 (09:10→21:50)
--- NOTE | 2020-10-27 09:11 | EKG12_ITS ---
Test Reason : POST MED Blood Pressure : / mmHG Vent. Rate : 085 BPM Atrial Rate : 085 BPM P-R Int : 190 ms QRS Dur : 088 ms QT Int : 386 ms P-R-T Axes : 063 056 037 degrees QTc Int : 459 ms Normal sinus rhythm Normal ECG When compared with ECG of 25-OCT-2020 09:52, MANUAL COMPARISON REQUIRED, DATA IS UNCONFIRMED Confirmed by CLARE ARMANDO, YAMILETH ([id number]), commissioning editor MIAN EASLEY ([id number]) on 11/06/2020 12:30:27 PM Referred By: MIKAEL Confirmed By:EDITH SPARKS MD
[2020-10-27 09:45] VITALS: PULSE 90
[2020-10-27] MEDS: levETIRAcetam Oral Solution 500 MG/5 ML 1000 MG GT ×2 (09:45→21:25)
[2020-10-27] MEDS: levoFLOXacin 500 MG Tablet GT (09:45)
[2020-10-27] MEDS: Doxazosin 1 MG Tablet 2 MG GT (09:45)
[2020-10-27] MEDS: Metoprolol Tartrate 50 MG Tablet GT ×2 (09:45→21:25)
[2020-10-27] MEDS: QUEtiapine 25 MG Tablet 50 MG GT ×2 (09:46→21:27)
[2020-10-27 10:36] LABS: Bedside Glucose 98 mg/dL (70-110)
--- NOTE | 2020-10-27 10:43 | CASEMGMT ---
Social Work IDT met with patient and via conference call for Team meeting. Discussed patient's progress in therapy. Pt is mod-max x1 for bed mobility, mod x2-3 for SPT from bed to chair, totalA for ADLS. ST working with pt on capping trach and using speaking valve. Pt is NOP, has peg tube. consulted Pulmonology to possibly decannulate pt as he is agitated with all of the tubing. Nursing is sitting with him 1:1 for behaviors. Explained [employer] insurance with [employer] 10/27 and continued stay is not guaranteed. The goal is for pt to return home with but unsure if pt will need alt. plan. Pt will need time to recover. IDT will continue to work with pt and hoping behaviors cease with some medication adjustments and decannulation. SW to continue to follow. Will ReTeam next week. Jessie Mendenhall, CHILD HEALTH ASSOCIATE ORGAN TEACHER
--- NOTE | 2020-10-27 12:49 | PN_ITS ---
Patient Problems: Active and Suspected Problems Status post tracheostomy (Acute) S/P percutaneous endoscopic gastrostomy (PEG) tube placement (Acute) Hemorrhagic cerebrovascular accident (CVA) (Acute) Posterior left temporal lobe Mastoiditis (Acute) Sinusitis (Acute) Subarachnoid hemorrhage (Acute) Bilateral Deep vein thrombosis (DVT) of left upper extremity (Acute) Cognitive dysfunction (Acute) Pharyngeal dysphagia (Acute) severe. Pt NPO at presentation to the rehab unit Subtherapeutic international normalized ratio (INR) (Acute) Presence of cerebrospinal fluid drainage device (Acute) Right frontal area Seizure disorder as sequela of cerebrovascular accident (Acute) Delirium (Acute) Cellulitis (Acute) Acute bronchitis (Acute) Group B strep Infection of PEG site (Acute) Pseudomonas aeruginosa Subjective: Day #3 Levaquin for Pseudomonas cellulitis around the PEG tube site Day # 1 Rocephin for acute bronchitis Zay was seen on team rounds today and his Tabatha participated by phone. Afebrile VSS Maintaining appropriate oxygen saturation on RA while awake Oral intake is 0. He is NPO for severe dysphagia.....even with pureed food. Discussed with nursing - he has been a behavior problem all weekend. He pulled his trach out twice and last night he pulled out the PEG and it had to be replaced by Dr. Guerra. Seroquel dose was increased. Reviewed the PT/OT/ST notes Medication list reviewed. EKG today showed NSR with no QT prolongation. No ST elevation and just NS ST and T wave changes Blood sugar record was reviewed and the blood sugars are very well controlled with no hypoglycemia. I expecty the sugars to go up because since the diarrhea HAS resolved we are going to start increasing the TF again. Sputum is growing beta Streptococcus 3+ with 3+ white blood cells and no epithelial cells. INR is 3 today. The PEG site grew Pseudomonas aeruginosa which is pansensitive. CXR showed no infiltrates. He is c/o a IGNACIO and is asking when he is going to be able to eat frequently. Short term memory is poor. He c/o MILLAN. He denies CP. - Physical Exam Vitals/I&O's: Vital Signs Temp Pulse Resp BP Pulse Ox 98.8 F 90 18 133/84 H 97 10/27/20 07:30 10/27/20 09:45 10/27/20 07:30 10/27/20 07:30 10/27/20 07:30 Oxygen Flow Rate (L/min) 4 Oxygen Delivery Method Trach Collar Weight: 297 lb 0.002 oz Body Mass Index (BMI) 52.6 Intake and Output for Last 24 Hours 10/25/20 10/26/20 10/27/20 23:59 23:59 23:59 Intake Total 5050.83 / 5050.83 4093.33 / 4093.33 930 / 930 Output Total 600 / 600 1200 / 1200 Balance 4450.83 / 4450.83 2893.33 / 2893.33 930 / 930 General: Alert, Cooperative - most of the time with me today. He is doing charades today when his is talking....they are related to what he is trying to say. He has been very inappropriate with her on the phone and has called her names when she tells him that she can not take him home. HEENT: Atraumatic, EOMI, Normocephalic, - - Pupils are equal round and reactive to light. Oral: No Gingival or Mucosal Lesions/ Ulcerations, Dry Mucosa Neck: Supple, No Nuchal Rigidity, Trachea Midline, - - there is jenkins thick DC from the trach and it is moist around the appliance. There is a little maceration distal to the trach due to large amount of secretions Lungs: No rhonchi, Wheezes, - - Not tachypneic at rest, no conversational dyspnea, no accessory muscle use. Cardiovascular: Regular rate, Regular Rhythm, Normal S1, Normal S2, No murmurs, No Gallop, - - distant heart sounds -more likely than not secondary to body habitus Abdomen: Bowel Sounds Present, Soft, Non Tender, Obese, - - there is less erythema around the PEG sit and less DC and the DC is no longer green Extremities: No cyanosis, No edema, Capillary Refill Less than 3 Seconds Skin: No rashes, No breakdown Musculoskeletal: No Tenderness to Palpation of Joints or Extremities, No Muscle Wasting Neurological: Cranial nerves II-XII grossly intact, - Psych/Mental Status: Impulsive, - - More appropriate and less agitated than over the weekend. He is calm when he is talking to me and pleasant. Microbiology Past 72 Hours 10/24/20 11:23 Sputum, Expectorated/Coughed Gram Stain - Final 10/24/20 11:23 Sputum, Expectorated/Coughed Respiratory Culture - Preliminary Beta streptococcus 10/24/20 11:23 Other - Open/Non-Healing Wound Miscellaneous Culture - Final Pseudomonas aeroginosa 10/24/20 11:23 Other - Open/Non-Healing Wound Gram Stain - Final 10/24/20 11:23 Stool C. difficile DNA Amplification - Final Laboratory Results 10/26/20 14:01: POC Glucose 99 10/26/20 15:58: POC Glucose 128 H 10/26/20 22:41: POC Glucose 102 10/27/20 05:44: PT 30.5 H, INR 3.0 10/27/20 06:34: POC Glucose 150 H 10/27/20 09:43: POC Glucose 98 Current Medications Acetaminophen (Acetaminophen 650 Mg/20 Ml Udc) 1,000 mg GT Q8 [facility] Last Admin: 10/27/20 04:45 Dose: 1,000 mg Documented by: Atorvastatin Calcium (Atorvastatin Calcium 80 Mg Tablet) 80 mg GT QHS [facility] Last Admin: 10/26/20 23:27 Dose: 80 mg Documented by: Bisacodyl (Bisacodyl 10 Mg Suppository) 10 mg RECTAL .PRN X 1 PRN PRN Reason: Constipation Calamine/Phenol (Menthol/Lanolin/Calamine/Znox 113 Gm Tube) 1 applic TOPICAL BID [facility]; Protocol Last Admin: 10/27/20 09:10 Dose: 1 applicatio Documented by: Cholestyramine Resin (Cholestyramine/Sucrose 4 Gm/Packet) 4 gm PO Q6H [facility] Last Admin: 10/27/20 11:11 Dose: 4 gm Documented by: Doxazosin Mesylate (Doxazosin 1 Mg Tablet) 2 mg GT DAILY [facility] Last Admin: 10/27/20 09:45 Dose: 2 mg Documented by: Enteral Nutritional Formula (Vital High Protein 1,000 Ml Liquid) 240 ml GT 5X/DAY [facility] Last Admin: 10/27/20 09:46 Dose: 240 ml Documented by: Haloperidol (Haloperidol 1 Mg Tablet) 1 mg GT Q6H PRN PRN PRN Reason: AGITATION Last Admin: 10/27/20 02:20 Dose: 1 mg Documented by: Insulin Glargine (Insulin Glargine 100 Units/Ml Pen) 60 units SC BID [facility] Last Admin: 10/27/20 09:45 Dose: 60 u Documented by: Insulin Human Lispro (Insulin Lispro 100 Unit/Ml Insuln.Pen) 0 unit SC ACHS [facility]; Protocol Last Admin: 10/27/20 09:47 Dose: Not Given Documented by: Levetiracetam (Levetiracetam Oral Solution 500 Mg/5 Ml) 1,000 mg GT BID [facility] Last Admin: 10/27/20 09:45 Dose: 1,000 mg Documented by: Levofloxacin (Levofloxacin 500 Mg Tablet) 500 mg GT DAILY [facility] Stop: 10/31/20 10:01 Last Admin: 10/27/20 09:45 Dose: 500 mg Documented by: Loperamide HCl (Loperamide 2 Mg Capsule) 2 mg GT Q4H PRN PRN PRN Reason: Diarrhea Last Admin: 10/24/20 08:05 Dose: 2 mg Documented by: Magnesium Hydroxide (Magnesium Hydroxide 30 Ml Udc) 30 ml GT .PRN X 1 PRN PRN Reason: Constipation Metoprolol Tartrate (Metoprolol Tartrate 50 Mg Tablet) 50 mg GT BID [facility] Last Admin: 10/27/20 09:45 Dose: 50 mg Documented by: Nystatin (Nystatin Powder 15gm Bottle) 1 applic TOPICAL BID [facility]; Protocol Last Admin: 10/27/20 09:10 Dose: 1 applicatio Documented by: Ondansetron HCl (Ondansetron Odt 4 Mg Tablet) 4 mg GT Q6H PRN PRN PRN Reason: NAUSEA Last Admin: 10/25/20 10:01 Dose: 4 mg Documented by: Quetiapine Fumarate (Quetiapine 25 Mg Tablet) 50 mg GT BID [facility] Last Admin: 10/27/20 09:46 Dose: 50 mg Documented by: Senna/Docusate Sodium (Senna/Docusate Sodium 1 Tablet) 2 tablet PO BID [facility] Last Admin: 10/27/20 09:46 Dose: 2 tablet Documented by: Sodium Chloride (0.9% Saline Lock 10 Ml Syringe) 10 - 40 ml IV UD PRN PRN Reason: SALINE FLUSH Last Admin: 10/27/20 02:34 Dose: 10 ml Documented by: Warfarin Sodium (Warfarin 7.5 Mg Tablet) 7.5 mg GT SuMoTuThFrSa@1700 [facility] Last Admin: 10/26/20 16:02 Dose: 7.5 mg Documented by: Warfarin Sodium (Warfarin 5 Mg Tablet) 15 mg GT We@1700 [facility] Warfarin Sodium (Warfarin 5 Mg Tablet) 5 mg GT Marisol@1700 [facility] Last Admin: 10/26/20 16:03 Dose: 5 mg Documented by: Medical Necessity - Tobacco Use Smoking Status: Never smoker Tobacco Use: Non-smoker Assessment/Plan All Active Problems Status post tracheostomy (Acute) S/P percutaneous endoscopic gastrostomy (PEG) tube placement (Acute) Gram-negative pneumonia (Resolved) Hemorrhagic cerebrovascular accident (CVA) (Acute) Mastoiditis (Acute) Sinusitis (Acute) Subarachnoid hemorrhage (Acute) Deep vein thrombosis (DVT) of left upper extremity (Acute) Cognitive dysfunction (Acute) Pharyngeal dysphagia (Acute) Subtherapeutic international normalized ratio (INR) (Acute) Presence of cerebrospinal fluid drainage device (Acute) Seizure disorder as sequela of cerebrovascular accident (Acute) Delirium (Acute) Cellulitis (Acute) Acute bronchitis (Acute) Infection of PEG site (Acute) Impressions 1. 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 2. Encephalopathy secondary to intracerebral bleeds 3. Left upper extremity DVT with history of DVTs in the past 4. Subtherapeutic INR at 1.7-was recently on a heparin drip which was discontinued at transfer. 5. Recent gram-negative pneumonia 6. Status post tracheostomy 7. Mild oral and severe pharyngeal dysphagia-silent aspiration with pur?ed food 8. Status post PEG tube 9. Uncontrolled diabetes mellitus type 2 in obese-hemoglobin A1c was greater than 11 at [facility] 10. Essential hypertension 11. Hyperlipidemia 12. Coronary artery disease 13. Prostate disorder-he had a Rogers in place at presentation to rehab but he pulled it out 14. Bilateral mastoiditis on a CT scan done at [place] 15. Maxillary and sphenoidal sinusitis [facility] 16. Superobese 17. Tobacco dependence in remission-quit drinking and smoking at the age of 34 18. Status post placement of cerebrospinal fluid drainage device in the right frontal area 19. New onset seizures as sequela I of intracerebral hemorrhage 20. Acute delirium -improving with addition of Seroquel and as needed Haldol to his drug regimen 21. Pseudomonas aeruginosa cellulitis around the PEG site 22. Acute bronchitis secondary to beta Streptococcus 23. Diarrhea-secondary to tube feed plus large dose Metformin. Metformin has been discontinued and his tells me that he discontinued Metformin prior to the stroke due to diarrhea. RT to deep suction Start Rocephin 2 GM Q 24H Check a lactic acid and a procalcitonin check CBC with diff, BMP now daily PT/INR x 4 since he is on Seroquel, Levaquin and Warfarin. Hold the Warfarin today DC IV fluids. Increase the TF by 1/2 and then if diarrhea go back up to the goal rate in the next 24-48 H Continue therapy start Duonebs Q 6H ATC hold off on ST trials for swallowing for a few days until the trach secretions decrease Inpatient E&M: 48704 Subs Hosp L2
[2020-10-27 13:05] LABS: Anion Gap 4 (5-15); BUN 14 mg/dL (7-18); BUN/Creat Ratio 23.8 RATIO (10-20); Calcium,Total 8.9 mg/dL (8.5-10.1); Chloride 109 mmol/L (98-107); Creatinine, Serum 0.59 mg/dL (0.70-1.30); EST Glomerular Filtration Rate 149 mL/min (>60); Est Glom Filt Rate - Afr Amer 180 mL/min (>60); Estimated Creatinine Clearance 105.82 ml/min; Glucose 135 mg/dL (74-106); Sodium Level 139 mmol/L (136-145)
[2020-10-27 13:13] LABS: Absolute Lymphocyte Count 2.69 X10^3/uL (0.83-4.51); Absolute Neutrophil Count 8.9 X10^3/uL (2.0-7.7); Basophil# 0.05 X10^3/uL; Basophil% 0.4 % (0-1); Eosinophil# 0.26 X10^3/uL; Eosinophils% 1.9 % (0-5); Hematocrit 31.2 % (40-54); Lymphocyte # 2.69 X10^3/ul (4.0); Mean Corp Hgb Conc 32.1 g/dL (32-36); Mean Corpuscular Hgb 28.9 pg (27.0-32.0); Mean Corpuscular Volume 90.2 fL (80-94); Mean Platelet Vol. 10.2 fl (6.2-12.0); Monocyte# 1.45 X10^3/uL; Monocyte% 10.8 % (0-10); NRBC Flagged by Analyzer 0 % (0-5); Neutrophil # 8.91 X10^3/uL (2.7-7.7); Neutrophil % 66.5 % (47-70); Platelet Count 256 K/mm3 (150-450); RBC Distribution Width CV 13.4 % (11.6-14.6); RBC Distribution Width SD 43.9 fl (35.1-43.9); Red Blood Count 3.46 M/mm3 (4.6-6.2); White Blood Count 13.4 K/mm3 (4.4-11.0)
[2020-10-27 13:15] LABS: Procalcitonin 0.11 ng/mL (0.00-0.09)
[2020-10-27 13:47] LABS: Lactic Acid 0.8 mmol/L (0.4-1.9)
[2020-10-27 15:25] LABS: Bedside Glucose 115 mg/dL (70-110)
[2020-10-27] MEDS: 0.9% NaCl IVPB Med Flush (250 mL) 15 ML IV (15:29)
--- NOTE | 2020-10-27 15:30 | NURSING ---
Was asked to see patient for trach wound. patient has a comfeel clear dressing under the trach collar that appears to have been in place for quite some time. pt c/o discomfort with removal of the dressing. unable to get a good view of the skin under the trach collar. just appears to be moist from all the secretions. dried area as best as possible and placed an Allevyn trach dressing. these dressings absorb the drainage better. will still need changed as needed for drainage. pt appears to have quite a bit of secretions. according to nursing, patient has pulled trach twice and pulled the PEG tube out once. will monitor as needed, but does not appear to be a wound at this time.
[2020-10-27 17:48] LABS: M R Staph aureus DNA By PCR Negative (Negative); Probe Check PASS; Specimen Processing Control PASS
[2020-10-27] MEDS: Magnesium Hydroxide 30 ML UDC GT (18:30)
--- NOTE | 2020-10-27 18:31 | NURSING ---
pt continues to be restless, attempting to sit on side of bed, even after this nurse educated him on safety concerns and risk of injury. Attempted distractions and continue 1:1 supervision.
[2020-10-27 18:35] LABS: Bedside Glucose 158 mg/dL (70-110)
[2020-10-27 19:57] VITALS: PULSE 92
[2020-10-27 20:01] VITALS: BP 151/80; PULSE 92; RESP 20; TEMP 37.6; O2SAT 93
[2020-10-27 21:25] VITALS: BP 151/80; PULSE 92
[2020-10-27] MEDS: Atorvastatin Calcium 80 MG Tablet GT (21:27)
[2020-10-27 22:10] LABS: Bedside Glucose 163 mg/dL (70-110)
[2020-10-28] VITALS (8 sets, daily range): BP systolic 152–163; BP diastolic 75–91; PULSE 75–94; RESP 16–22; TEMP 36.4–36.8; O2SAT 92–96
[2020-10-28] MEDS: Cholestyramine/Sucrose 4 GM/PACKET PO ×4 (04:30→22:30)
[2020-10-28 05:46] LABS: International Normalized Ratio 2.7; Prothrombin Time (Protime)PT. 28.2 SECONDS (11.7-14.9)
[2020-10-28] MEDS: Acetaminophen 650 MG/20 ML UDC 1000 MG GT ×3 (06:06→22:33)
[2020-10-28] MEDS: Ipratropium/Albuterol Sulfate 3 ML AMPUL.NEB INHALATION ×3 (06:45→19:40)
[2020-10-28 06:46] LABS: Bedside Glucose 110 mg/dL (70-110)
[2020-10-28] MEDS: levoFLOXacin 500 MG Tablet GT (10:15)
[2020-10-28] MEDS: QUEtiapine 25 MG Tablet 50 MG GT ×2 (10:15→22:28)
[2020-10-28] MEDS: Metoprolol Tartrate 50 MG Tablet GT ×2 (10:15→22:28)
[2020-10-28] MEDS: Doxazosin 1 MG Tablet 2 MG GT (10:16)
[2020-10-28] MEDS: 0.9% Saline Lock 10 ML Syringe IV ×2 (10:16→20:24)
[2020-10-28] MEDS: levETIRAcetam Oral Solution 500 MG/5 ML 1000 MG GT ×2 (10:16→22:28)
[2020-10-28] MEDS: Menthol/Lanolin/Calamine/Znox 113 GM Tube 1 APPLIC TOPICAL ×2 (10:21→22:29)
[2020-10-28] MEDS: Nystatin Powder 15gm Bottle 1 APPLIC TOPICAL ×2 (10:21→22:29)
--- NOTE | 2020-10-28 10:29 | PCM.PN.BLA ---
Progress Note Day #4 Levaquin Day #2 Rocephin Afebrile VSS-blood pressures have been mildly elevated over the past 72 hours. They range from 151/82 163/91. Maintaining appropriate oxygen saturation on RA while awake. He is on an 8 L flow at night via trach collar while sleeping. Remains n.p.o. Had 1 BM yesterday when the TF was increased and has had 2 already today. No seizures He is incontinent of urine Has not been getting aerosols ordered every 6 hours......will clarify with RT Discussed with nursing - He slept OK last night. Reviewed the PT/OT/ST notes Medication list reviewed. He got Haldol twice yesterday for agitation once at 2 AM and the second time at 6 PM. He has not had any Haldol today. Blood sugars are well controlled with no hypoglycemia. He received a total of 9 units of Humalog yesterday on sliding scale INR is 2.7 today. Coumadin was held yesterday for an INR of 3. Would like to keep the INR between 2.2 and 2.8. I reviewed the results of the CT abdomen done prior to replacing the PEG tube. He has an IVC filter and severe atherosclerosis within the abdominal aorta without aneurysm. There is degenerative disc disease at many levels and some facet arthropathy. There are many bridging anterior enthesophytes. Zay denies pain today. He also denies SOB, nausea, abd pain. The secretions from the trach are less and they are yellow/jenkins. He is sleepy at time but is easily arousable. Lungs - CTA upper lobes posteriorly. BS's are diminished in the bases with a few crackles. He is no longer having coughing paroxysms when I ask him to take deep breaths. HRRR, no gallop, distant heart sounds. no calf pain PEG site is dry and barely any erythema today He is making inappropriate sexual remarks to the female staff. He is able to follow simple commands. Has poor short term memory. Can not retain information day to day and needs frequent cuing. He ambulated 10 feet X 2 today with OT a WW and WC follow Did better with stand and pivot. The OT did mention that when he was going from sitting to standing he grimaced but could not articulate that he had pain. I suspect he has chronic back pain. Impressions 1. post stroke debility 2. severe cognitive deficit 3. delirium - likely due to cognitive deficit from the stroke and infection 4. Chronic anticoagulation with warfarin 5. Diabetes mellitus type 2 6. Hypertension 7. Severe dysphagia Suspected chronic back pain due to multilevel degenerative disc disease and facet arthropathy in the lumbar spine 8. Cellulitis secondary to Pseudomonas aeruginosa around the PEG tube 9. Acute bronchitis secondary to beta Streptococcus 10. Behavior issues are improved. Continue acetaminophen 1000 mg every 8 hours for chronic back pain Continue Levaquin and Rocephin Change the Seroquel to 25 mg p.o. every morning and 50 mg at at bedtime. EKG does not show QT prolongation. Continue DuoNeb aerosols every 6 hours for the next 24 hours and then if his lungs remain clear and free of wheezing will change to as needed. Continue current antihypertensives Discontinue senna/docusate I met with the speech therapist and told her that we can go forward with trial of ice chips Change the warfarin to 7.5 mg daily since he is on Levaquin and Seroquel and both have interactions with warfarin. Follow daily INR until he is off antibiotics and on a stable dose of Seroquel. Change Rocephin to 1 g IV every 24 hours Continue sliding insulin scale Awaiting the sensitivities on Beta strep to change to an oral antibiotic via the PEG. I spoke with Zay's Tabatha on the phone and updated her on Zay's progress. When he is off antibiotics and delirium has completely resolved will allow her to come in for a visit for emotional support. STROKE Vital Signs/Narrative: Vital Signs Temp Pulse Resp BP Pulse Ox 10/28/20 10:15 94 10/28/20 08:45 98.2 F 93 20 H 163/91 H 92 10/28/20 06:45 75 20 H 96 Inpatient E&M: 78683 Subs Hosp L2
[2020-10-28 10:41] LABS: Bedside Glucose 135 mg/dL (70-110)
--- NOTE | 2020-10-28 12:25 | NURSING ---
received call form Neuro surgeon pt has appt on 10/30. Office made aware that pt does not have transportation appt will need to be rescheduled. F/U appt and CT scan was canceled at this time. Nurse will talk with and call us with an updated appt
[2020-10-28] MEDS: Haloperidol 1 MG Tablet GT (14:18)
[2020-10-28] MEDS: Insulin Lispro 100 UNIT/ML INSULN.PEN SC ×3 (15:00→22:23)
[2020-10-28 15:01] LABS: Bedside Glucose 175 mg/dL (70-110)
[2020-10-28 18:25] LABS: Bedside Glucose 207 mg/dL (70-110)
[2020-10-28] MEDS: Atorvastatin Calcium 80 MG Tablet GT (22:28)
[2020-10-28 22:45] LABS: Bedside Glucose 169 mg/dL (70-110)
[2020-10-29] MEDS: Haloperidol 1 MG Tablet GT ×3 (01:53→22:26)
--- NOTE | 2020-10-29 04:45 | NURSING ---
Pt became anxious after midnight and escalated into hallucinations and despair about being unable to work to pay bills. Pt secretions were suctioned and trach care provided several times throughout shift. RT came to suction pt at 01:45 and pt really became irrational and required PRN Haldol. Pt insisted he should get out of bed and that he was at home, not [facility]. Pt became more agitated when reoriented. Sitter attempted to calm pt and pt made several lewd comments.
[2020-10-29] MEDS: Cholestyramine/Sucrose 4 GM/PACKET PO ×4 (05:45→22:25)
[2020-10-29] MEDS: Acetaminophen 650 MG/20 ML UDC 1000 MG GT ×3 (06:31→22:22)
[2020-10-29] MEDS: QUEtiapine 25 MG Tablet GT (06:38)
[2020-10-29 06:40] LABS: Bedside Glucose 148 mg/dL (70-110)
[2020-10-29 06:56] LABS: International Normalized Ratio 2.4; Prothrombin Time (Protime)PT. 25.7 SECONDS (11.7-14.9)
[2020-10-29 07:30] VITALS: BP 156/78; PULSE 88; PULSE 89; RESP 18; TEMP 36.6; O2SAT 97
[2020-10-29] MEDS: Ipratropium/Albuterol Sulfate 3 ML AMPUL.NEB INHALATION ×3 (07:30→18:40)
[2020-10-29] MEDS: Doxazosin 1 MG Tablet 2 MG GT (10:50)
[2020-10-29] MEDS: levETIRAcetam Oral Solution 500 MG/5 ML 1000 MG GT ×2 (10:50→22:22)
[2020-10-29] MEDS: levoFLOXacin 500 MG Tablet GT (10:51)
[2020-10-29 10:52] VITALS: PULSE 92
[2020-10-29] MEDS: Metoprolol Tartrate 50 MG Tablet GT ×2 (10:52→22:21)
[2020-10-29] MEDS: Nystatin Powder 15gm Bottle 1 APPLIC TOPICAL ×2 (10:55→22:19)
[2020-10-29] MEDS: Menthol/Lanolin/Calamine/Znox 113 GM Tube 1 APPLIC TOPICAL ×2 (10:56→22:19)
[2020-10-29] MEDS: Insulin Lispro 100 UNIT/ML INSULN.PEN SC ×4 (10:56→21:27)
[2020-10-29] MEDS: Ceftriaxone 1 GM/50 ML BAG IV (11:00)
[2020-10-29] MEDS: 0.9% NaCl IVPB Med Flush (250 mL) 15 ML IV (11:05)
[2020-10-29] MEDS: 0.9% Saline Lock 10 ML Syringe IV ×2 (11:05→21:21)
[2020-10-29 12:06] LABS: Bedside Glucose 239 mg/dL (70-110)
[2020-10-29 13:30] VITALS: PULSE 66; RESP 18; O2SAT 98
[2020-10-29 15:20] LABS: Bedside Glucose 199 mg/dL (70-110)
[2020-10-29 18:26] LABS: Bedside Glucose 212 mg/dL (70-110)
[2020-10-29 18:40] VITALS: PULSE 84; RESP 18
[2020-10-29 20:30] VITALS: BP 116/69; PULSE 91; RESP 16; TEMP 36.6; O2SAT 96
--- NOTE | 2020-10-29 21:14 | NURSING ---
Trach care and suctioning provided for pt. Peg site cleaned and pt tolerated well.
[2020-10-29 22:21] VITALS: PULSE 84
[2020-10-29] MEDS: Atorvastatin Calcium 80 MG Tablet GT (22:24)
[2020-10-29] MEDS: QUEtiapine 25 MG Tablet 50 MG GT (22:24)
[2020-10-29 23:25] LABS: Bedside Glucose 168 mg/dL (70-110)
--- NOTE | 2020-10-29 23:52 | NURSING ---
1:1 sitter at bedside. Pt's mood is escalating and making unreasonable demands. Pt c/o not being able to eat or drink. Sitter in room and pt unsettled with any suggestion made to pacify and provide comfort. Pt given Haldol d/t agitation toward staff and being unable to redirect pt. Much time spent with various needs and demands.
[2020-10-30] VITALS (8 sets, daily range): BP systolic 126–146; BP diastolic 78; PULSE 80–97; RESP 16–18; TEMP 36.7–36.8; O2SAT 94–99
[2020-10-30] MEDS: Ipratropium/Albuterol Sulfate 3 ML AMPUL.NEB INHALATION ×3 (00:05→19:20)
--- NOTE | 2020-10-30 04:08 | NURSING ---
Pt still awake and asking to give him the keys to my car. Pt encouraged to try to relax and rest. Staff reminds pt of early schedule but pt replies that he is on his own schedule.
[2020-10-30] MEDS: Cholestyramine/Sucrose 4 GM/PACKET PO ×3 (05:38→17:20)
[2020-10-30] MEDS: Acetaminophen 650 MG/20 ML UDC 1000 MG GT ×3 (06:00→22:07)
[2020-10-30] MEDS: QUEtiapine 25 MG Tablet GT (06:04)
[2020-10-30 06:50] LABS: Bedside Glucose 132 mg/dL (70-110)
[2020-10-30 07:38] LABS: International Normalized Ratio 1.9; Prothrombin Time (Protime)PT. 21.5 SECONDS (11.7-14.9)
[2020-10-30] MEDS: Albuterol 2.5 MG/3 ML VIAL.NEB. INHALATION (09:20)
[2020-10-30] MEDS: Insulin Lispro 100 UNIT/ML INSULN.PEN SC ×6 (09:36→22:19)
[2020-10-30] MEDS: Doxazosin 1 MG Tablet 2 MG GT (09:37)
[2020-10-30] MEDS: levoFLOXacin 500 MG Tablet GT (09:38)
[2020-10-30] MEDS: Metoprolol Tartrate 50 MG Tablet GT ×2 (09:38→22:15)
[2020-10-30] MEDS: levETIRAcetam Oral Solution 500 MG/5 ML 1000 MG GT ×2 (09:38→22:09)
[2020-10-30] MEDS: Menthol/Lanolin/Calamine/Znox 113 GM Tube 1 APPLIC TOPICAL ×2 (09:57→22:09)
[2020-10-30] MEDS: Nystatin Powder 15gm Bottle 1 APPLIC TOPICAL ×2 (09:58→22:16)
[2020-10-30 10:05] LABS: Bedside Glucose 227 mg/dL (70-110)
[2020-10-30] MEDS: Ceftriaxone 1 GM/50 ML BAG IV (11:00)
--- NOTE | 2020-10-30 11:26 | PCM.PN.BLA ---
Progress Note Levaquin day #6 Rocephin day #3 Afebrile VSS Maintaining appropriate oxygen saturation on RA Continues to be n.p.o. except for ice chips with the speech therapist He had 2 bowel movements yesterday. Discussed with nursing - he became very agitated this AM and was trying to get out of bed.....I was on the floor and saw him immediately. He was lying flat in bed and his face was red.....he was tachypneic and c/o SOB. We got him into a sitting position and he calmed down a bit. He had diminished BS's throughout and tight wheezing........worst over the trach site. Nursing suctioned him and cleaned the trach and he had a large mucous plug. He was given a Albuterol aerosol and improved significantly.....enough to do his therapy. Agitation was due to air hunger and not a behavior issue. He is still requiring a sitter. He did not sleep well last night. Reviewed the PT/OT/ST notes Medication list reviewed. Sputum culture was positive for Streptococcus Constellatus. Mixed normal respiratory karmen. Streptococcus constellatus is part of the normal karmen of the oropharynx however the sputum was obtained from the tracheostomy. Blood sugar record was reviewed. But sugars have increased now that he is back up to goal on his tube feed. When he does not get any coverage the next blood sugar is always high. INR is low toady at 1.9...... warfarin was held for 1 day for a INR of 3 and then restarted at a lower dose yesterday. examination post albuterol aerosol and post suctioning and trach cleaning: Alert, appropriate, not tachypneic, states his breathing is much improved Lungs are clear to auscultation but have egophony in the right upper lobe anteriorly and posteriorly. No wheezing, no accessory muscle use and no conversational dyspnea No pitting edema peripherally in the lower extremities No calf pain Heart-regular rate and rhythm Impressions 1. Agitation secondary to inability to breathe due to mucous plugging with diffuse wheezing. 2. Behavioral disturbance secondary to recent hemorrhagic CVA-this has improved since admission. 3. Subtherapeutic INR today at 1.9 4. Post stroke debility-he was able to ambulate from his room to the therapy room with a wheeled walker today at [facility] 5. Severe dysphagia-still n.p.o. 6. Diabetes mellitus type 2 with uncontrolled blood sugars 7. Acute bronchitis/possible pneumonia due to Streptococcus constellatus. WBC has decreased since the Levaquin and Rocephin were started. Increase the Warfarin to 9 mg daily Continue the daily PT/INR Increase the Seroquel at HS to 75 mg to help with insomnia and hopefully help with behavior at night so we can discontinue the sitter Add PRN Albuterol aerosols to the drug regimen 3 units of Lispro with each feeding and continue the sliding insulin scale Continue Rocephin for Streptococcus constellatus Continue the Duonebs STROKE Vital Signs/Narrative: Vital Signs Temp Pulse Resp BP Pulse Ox 10/30/20 09:38 97 10/30/20 08:15 98.0 F 94 16 126/78 H 94 Inpatient E&M: 11072 Subs Hosp L2
[2020-10-30] MEDS: Haloperidol 1 MG Tablet GT (11:46)
--- NOTE | 2020-10-30 12:40 | RAD_ITS ---
STUDY: X-RAY CHEST REASON FOR EXAM: Male, 60 years old. PNA, AEGOPHONY IN RUL ANTERIOR AND POSTERIOR TECHNIQUE: 2 views COMPARISON: Prior chest radiograph of 10/24/2020 FINDINGS: Tracheostomy tube terminates 5.4 cm above the natasha. The lungs are clear and expanded. There is no demonstrated pleural abnormality. Normal size heart. Normal mediastinum and alfredito. Normal visualized pulmonary arteries. Normal visualized aortic arch and descending thoracic aorta. There are diffuse degenerative changes of the visualized thoracic spine. Normal visualized ribs, clavicles, and shoulders. There is no demonstrated abnormality of the visualized soft tissue structures of the upper abdomen. RAD/Chest PA and Lateral IMPRESSION: No acute cardiopulmonary findings or changes. Negative for new consolidation, infiltrates, atelectasis or pleural effusion. Stable cardiac size. Electronically Signed: Raquel Reyes MD at 23:11 EST , Service support ,
[2020-10-30 14:21] LABS: Bedside Glucose 151 mg/dL (70-110)
[2020-10-30 19:16] LABS: Bedside Glucose 136 mg/dL (70-110)
[2020-10-30 21:26] LABS: Bedside Glucose 182 mg/dL (70-110)
[2020-10-30] MEDS: Atorvastatin Calcium 80 MG Tablet GT (22:09)
[2020-10-30] MEDS: QUEtiapine 25 MG Tablet 75 MG GT (22:09)
[2020-10-31] VITALS (8 sets, daily range): BP systolic 137; BP diastolic 76–81; PULSE 89–97; RESP 18–20; TEMP 36.8–37.2; O2SAT 94–97
[2020-10-31] MEDS: Ipratropium/Albuterol Sulfate 3 ML AMPUL.NEB INHALATION ×4 (00:30→19:25)
--- NOTE | 2020-10-31 00:30 | NURSING ---
THIS RN WAS CALLED INTO PT ROOM WHEN FIRE SUPPRESSION CAPTAIN NOTED LABORED BREATHING AND DECREASED SPO2 (85%). REPOSITIONED IN BED. ENC DEEP BREATHING. PT NOTED TO HAVE WHEEZES T/O ANT LOBES. PT RECOVERED WITHIN A FEW MINUTES. CPS NOTIFIED FOR BREATHING TX. PT NOW STABLE WITH SPO2 WNL.
--- NOTE | 2020-10-31 01:00 | NURSING ---
PT EXHIBITING LABORED BREATHING. SPO2 WNL. RESPRS 24, OTHERWISE, VS WNL. PT IS EXPRESSING CONCERNS ABOUT HIS BREATHING AND STATING HE FEELS ANXIOUS. REASSURANCE AND CONVERSATION PROVIDED BY THIS RN AND MOBILE SALES EXPERT IN ROOM.
[2020-10-31] MEDS: Cholestyramine/Sucrose 4 GM/PACKET PO ×3 (04:47→16:53)
--- NOTE | 2020-10-31 05:08 | PCS.PANDOC ---
PANDEMIC DOCUMENTATION INITIATED: Date: Time: EMERGENCY DOCUMENTATION 10/20/2020 2412
[2020-10-31 06:30] LABS: Bedside Glucose 117 mg/dL (70-110)
[2020-10-31 06:54] LABS: International Normalized Ratio 1.8; Prothrombin Time (Protime)PT. 20.1 SECONDS (11.7-14.9)
[2020-10-31] MEDS: Insulin Lispro 100 UNIT/ML INSULN.PEN SC ×5 (06:57→21:58)
[2020-10-31] MEDS: Acetaminophen 650 MG/20 ML UDC 1000 MG GT ×3 (07:01→21:28)
[2020-10-31] MEDS: QUEtiapine 25 MG Tablet GT (07:09)
[2020-10-31] MEDS: Doxazosin 1 MG Tablet 2 MG GT (08:46)
[2020-10-31] MEDS: levETIRAcetam Oral Solution 500 MG/5 ML 1000 MG GT ×2 (08:46→21:34)
[2020-10-31] MEDS: Menthol/Lanolin/Calamine/Znox 113 GM Tube 1 APPLIC TOPICAL ×2 (08:47→21:35)
[2020-10-31] MEDS: Nystatin Powder 15gm Bottle 1 APPLIC TOPICAL ×2 (08:48→21:30)
[2020-10-31] MEDS: Metoprolol Tartrate 50 MG Tablet GT ×2 (08:48→21:30)
[2020-10-31 09:35] LABS: Bedside Glucose 176 mg/dL (70-110)
--- NOTE | 2020-10-31 10:52 | PN_ITS ---
Progress Note Day #7 Levaquin day #4 Rocephin Afebrile VSS-blood pressures are better controlled Maintaining appropriate oxygen saturation on RA Will start the Allison water protocol today with ST Discussed with nursing - he did not fall asleep until 6 AM this morning ....even with the increase in the Seroquel to 75 mg. He only needed 1 dose of Haldol 1 mg for agitation yesterday. Reviewed the PT/OT/ST notes Medication list reviewed. He is sleepy today but, he walked from his room to the therapy room today and he is currently working with the OT. His breathing was not labored while walking. He only needed 1 PRN Albuterol aerosol yesterday and that is when he had the mucous plug. Drowsy.....doing OT with his eyes closed but he is doing the therapy. He is appropriate when I am talking with him Lungs-diminished but clear to auscultation Heart-regular rate and rhythm, no ectopy, distant heart sounds secondary to body habitus, no gallop Abdomen-obese, soft, nontender, PEG site is without erythema or discharge No calf pain, no rashes, no skin breakdown Strength is improving and he is now able to ambulate to and from the therapy room with a wheeled walker at [facility] Impressions 1. Post stroke debility 2. Acute delirium/encephalopathy-secondary to CVA 3. Behavioral disturbance putting him and staff at risk-using Seroquel for chemical restraint and patient has a sitter. EKG on Seroquel is without QT prolongation 4. Cellulitis around the PEG tube site-resolved 5. Acute bronchitis secondary to Streptococcus Constellatus -on a 7-day course of Rocephin 6. Severe dysphagia requiring PEG tube placement 7. Insomnia despite 75 mg of Seroquel at night 8. Sleep disordered breathing-on oxygen supplementation at night Add Ambien 5 mg at HS Continue therapy COntinue the sitter I spoke to his on the phone last night and updated her about his progress. STROKE Vital Signs/Narrative: Vital Signs Temp Pulse Resp BP Pulse Ox 10/31/20 09:33 99 F 97 18 137/76 H 95 10/31/20 08:48 97 Inpatient E&M: 27118 Subs Hosp L2
[2020-10-31] MEDS: levoFLOXacin 500 MG Tablet GT (11:05)
[2020-10-31] MEDS: Ceftriaxone 1 GM/50 ML BAG IV (13:22)
[2020-10-31] MEDS: 0.9% Saline Lock 10 ML Syringe IV (13:26)
[2020-10-31 13:40] LABS: Bedside Glucose 138 mg/dL (70-110)
[2020-10-31 18:15] LABS: Bedside Glucose 120 mg/dL (70-110)
[2020-10-31] MEDS: QUEtiapine 25 MG Tablet 75 MG GT (21:29)
[2020-10-31] MEDS: MELATONIN 3 MG TABLET PO (21:30)
[2020-10-31] MEDS: Atorvastatin Calcium 80 MG Tablet GT (21:31)
[2020-10-31 22:11] LABS: Bedside Glucose 128 mg/dL (70-110)
[2020-11-01] VITALS (8 sets, daily range): BP systolic 141–142; BP diastolic 70–81; PULSE 66–94; RESP 16–18; TEMP 36.7–36.9; O2SAT 95–98
[2020-11-01] MEDS: Cholestyramine/Sucrose 4 GM/PACKET PO ×4 (00:34→20:03)
[2020-11-01] MEDS: Acetaminophen 650 MG/20 ML UDC 1000 MG GT ×3 (06:50→20:43)
[2020-11-01] MEDS: Insulin Lispro 100 UNIT/ML INSULN.PEN SC ×8 (06:50→20:22)
[2020-11-01] MEDS: QUEtiapine 25 MG Tablet GT (06:53)
[2020-11-01 06:56] LABS: Bedside Glucose 105 mg/dL (70-110)
[2020-11-01] MEDS: Ipratropium/Albuterol Sulfate 3 ML AMPUL.NEB INHALATION ×3 (07:15→19:40)
[2020-11-01] MEDS: levETIRAcetam Oral Solution 500 MG/5 ML 1000 MG GT ×2 (08:19→20:09)
[2020-11-01] MEDS: Doxazosin 1 MG Tablet 2 MG GT (08:20)
[2020-11-01] MEDS: Metoprolol Tartrate 50 MG Tablet GT ×2 (08:20→20:06)
[2020-11-01] MEDS: Menthol/Lanolin/Calamine/Znox 113 GM Tube 1 APPLIC TOPICAL ×2 (08:21→20:07)
[2020-11-01 08:25] LABS: International Normalized Ratio 1.7; Prothrombin Time (Protime)PT. 19.5 SECONDS (11.7-14.9)
[2020-11-01] MEDS: Nystatin Powder 15gm Bottle 1 APPLIC TOPICAL ×2 (08:26→20:06)
[2020-11-01 09:46] LABS: Bedside Glucose 190 mg/dL (70-110)
--- NOTE | 2020-11-01 09:48 | PN_ITS ---
Progress Note Patient finished a 7-day course of Levaquin yesterday Rocephin-day #5 Afebrile VSS-systolic is mildly above goal of 135-no need to treat at this time Maintaining appropriate oxygen saturation on RA while awake. He was 95% on room air this morning. He was approved for ice chips from nursing. Speech therapy is doing the [facility] protocol with him. Diarrhea has resolved. Last bowel movement was today and it was large and formed. Prior to that he had no bowel movement since the . He has been urinating into the urinal most of the time. No urinary incontinence reported for 10/31/2020. He wears an Attends since he was incontinent prior to 10/31/20. Discussed with nursing - no problems that need addressed. He slept well last night with Seroquel 75 mg and 3 mg of melatonin. He did not have to have Ambien last night which is ordered as needed for insomnia. He still has a sitter but, he has not required any Haldol since the and if this continues will likely discontinue the sitter on Tuesday. Reviewed the PT/OT/ST notes. He ambulated 130 feet with a wheeled walker at contact-guard assist to minimal assist on 10/31/2020. He also a ascended and descended 5 steps, 2 sets, and a step to step fashion on 10/31/2020. Still requiring total assistance for lower body dressing, toileting, toilet transfer. Medication list reviewed. Sugar record was reviewed. He did not require any sliding scale insulin on 10/31/2020. INR is low at 1.7 today....... he received 12 mg of warfarin yesterday. Levaquin has been discontinued so the warfarin dosage will need to be increased. He says his breathing is labored ......when I ask him he tells me with coughing paroxysms which are infrequent now. Tolerating the PMSV well today and he has a strong voice that is projecting well. Lungs-diminished in the bases but clear to auscultation after a cough Heart-regular rate and rhythm, distant heart sounds Abdomen-soft, no guarding with palpation, bowel sounds present, the PEG site is clean without erythema or purulent discharge His legs are in Manny wraps and he denies calf pain No skin breakdown and no rashes his thinking is organized today and he has the same question - when can I eat? I explained once again that he needs to further strengthen the muscles of swallowing prior to eating and having liquids other than the FFWP. He will likely need to have another MBS prior to advance in diet because he is a silent aspirator. Impressions 1. post hemorrhagic CVA debility 2. severe dysphagia with silent aspiration 3. DVT left upper extremity in a patient with a history of DVTs and an IVC filter present 4. Chronic anticoagulation with warfarin-INR is subtherapeutic today 5. Delirium -much improved. Behavior is much better on Seroquel 25 mg in the a.m. and 75 mg at at bedtime. 6. Insomnia-slept well last night with 75 mg of Seroquel and 3 mg of melatonin. Ambien 5 mg is ordered nightly as needed insomnia 7. Sleep disordered breathing 8. Cellulitis of the PEG site-resolved 9. Acute bronchitis secondary to Streptococcus Constellatus-day #5 Rocephin 10. Diabetes mellitus type 2-blood sugars coming under much better control Decrease cholestyramine to 4 g 3 times daily DC Rocephin and start cefdinir suspension 300 mg every 12 hours x6 doses. Continue to adjust insulin as needed Continue therapy STROKE Vital Signs/Narrative: Vital Signs Temp Pulse Resp BP Pulse Ox 11/01/20 08:42 98.1 F 94 18 141/81 H 95 11/01/20 08:20 66 11/01/20 07:15 93 16 97 Inpatient E&M: 88813 Subs Hosp L2
[2020-11-01] MEDS: Cefdinir Susp 125 MG/5 ML PO.SYRINGE 300 MG PO ×2 (11:20→20:04)
[2020-11-01 13:36] LABS: Bedside Glucose 163 mg/dL (70-110)
[2020-11-01 17:01] LABS: Bedside Glucose 161 mg/dL (70-110)
[2020-11-01] MEDS: QUEtiapine 25 MG Tablet 75 MG GT (20:02)
[2020-11-01] MEDS: MELATONIN 3 MG TABLET PO (20:06)
[2020-11-01] MEDS: Atorvastatin Calcium 80 MG Tablet GT (20:07)
[2020-11-01 20:50] LABS: Bedside Glucose 161 mg/dL (70-110)
[2020-11-02] VITALS (8 sets, daily range): BP systolic 113–142; BP diastolic 70–94; PULSE 78–92; RESP 16–20; TEMP 36.7–37.1; O2SAT 92–99
[2020-11-02] MEDS: Acetaminophen 650 MG/20 ML UDC 1000 MG GT ×3 (06:21→20:45)
[2020-11-02] MEDS: Cholestyramine/Sucrose 4 GM/PACKET PO ×3 (06:21→20:14)
[2020-11-02 06:22] LABS: Prothrombin Time (Protime)PT. 22.1 SECONDS (11.7-14.9)
[2020-11-02] MEDS: QUEtiapine 25 MG Tablet GT (06:28)
[2020-11-02] MEDS: Insulin Lispro 100 UNIT/ML INSULN.PEN SC ×7 (06:31→20:32)
[2020-11-02] MEDS: Ipratropium/Albuterol Sulfate 3 ML AMPUL.NEB INHALATION ×2 (06:43→19:10)
[2020-11-02 06:56] LABS: Bedside Glucose 106 mg/dL (70-110)
[2020-11-02] MEDS: Metoprolol Tartrate 50 MG Tablet GT ×2 (10:28→20:12)
[2020-11-02] MEDS: Doxazosin 1 MG Tablet 2 MG GT (10:28)
[2020-11-02] MEDS: levETIRAcetam Oral Solution 500 MG/5 ML 1000 MG GT ×2 (10:29→20:12)
[2020-11-02 10:46] LABS: Bedside Glucose 154 mg/dL (70-110)
[2020-11-02] MEDS: Nystatin Powder 15gm Bottle 1 APPLIC TOPICAL ×2 (10:58→20:13)
[2020-11-02] MEDS: Menthol/Lanolin/Calamine/Znox 113 GM Tube 1 APPLIC TOPICAL ×2 (10:58→20:10)
[2020-11-02] MEDS: Cefdinir Susp 125 MG/5 ML PO.SYRINGE 300 MG PO ×2 (13:47→20:16)
[2020-11-02 13:55] LABS: Bedside Glucose 132 mg/dL (70-110)
[2020-11-02 17:51] LABS: Bedside Glucose 152 mg/dL (70-110)
[2020-11-02] MEDS: Zolpidem Tartrate 5 MG Tablet PO (20:08)
[2020-11-02] MEDS: Atorvastatin Calcium 80 MG Tablet GT (20:12)
[2020-11-02] MEDS: MELATONIN 3 MG TABLET PO (20:13)
[2020-11-02] MEDS: QUEtiapine 25 MG Tablet 75 MG GT (20:14)
[2020-11-02 21:41] LABS: Bedside Glucose 118 mg/dL (70-110)
[2020-11-03] VITALS (8 sets, daily range): BP systolic 141–169; BP diastolic 73–77; PULSE 63–95; RESP 16–18; TEMP 36.6; O2SAT 93–97
--- NOTE | 2020-11-03 00:25 | NURSING ---
Pt yelling out for help periodically because he finds himself in his room alone, no sitter. Pt has been tearful and reiterates that he wants to go home. Pt more restless this hs than last night at this time. Loss of income is repeatedly the topic of conversation. Pt not resting comfortably. Pt asking to get up in the chair and draw. When reminded that it is midnight and time for rest, pt just lowers his eyes. Pt using fowl language toward PROSTHODONTIST/EDUCATOR. Staff has toileted, repositioned, provided reassurance, to no avail. Will continue to monitor.
--- NOTE | 2020-11-03 00:57 | NURSING ---
Pt can be heard at the nurses station yelling for help. This RN answered his plea. Pt claimed he was in distress. This RN did not witness distress. Pt was reclined in bed and pulse ox was at 98% with 20 RR. Pt was not coughing, gasping, or choking, just reclining. This RN reassured pt and assisted with repositioning needs.
[2020-11-03 05:47] LABS: Hematocrit 31.9 % (40-54); Hemoglobin 9.9 g/dL (13.0-16.5); Mean Corpuscular Volume 90.1 fL (80-94); Mean Platelet Vol. 8.9 fl (6.2-12.0); Platelet Count 348 K/mm3 (150-450); RBC Distribution Width CV 13.3 % (11.6-14.6); Red Blood Count 3.54 M/mm3 (4.6-6.2); White Blood Count 12.2 K/mm3 (4.4-11.0)
[2020-11-03 06:09] LABS: Anion Gap 5 (5-15); BUN 17 mg/dL (7-18); BUN/Creat Ratio 32.8 RATIO (10-20); Calcium,Total 8.8 mg/dL (8.5-10.1); Chloride 104 mmol/L (98-107); Creatinine, Serum 0.52 mg/dL (0.70-1.30); EST Glomerular Filtration Rate 172 mL/min (>60); Est Glom Filt Rate - Afr Amer 208 mL/min (>60); Estimated Creatinine Clearance 120.06 ml/min; Glucose 89 mg/dL (74-106); Sodium Level 139 mmol/L (136-145)
[2020-11-03] MEDS: Acetaminophen 650 MG/20 ML UDC 1000 MG GT ×3 (06:27→21:10)
[2020-11-03] MEDS: QUEtiapine 25 MG Tablet GT (06:27)
[2020-11-03] MEDS: Cholestyramine/Sucrose 4 GM/PACKET PO ×3 (06:27→20:58)
[2020-11-03] MEDS: Insulin Lispro 100 UNIT/ML INSULN.PEN SC ×6 (06:31→21:10)
[2020-11-03 06:45] LABS: Bedside Glucose 83 mg/dL (70-110)
[2020-11-03] MEDS: Ipratropium/Albuterol Sulfate 3 ML AMPUL.NEB INHALATION ×3 (06:52→20:15)
--- NOTE | 2020-11-03 07:14 | CPS ---
This SUPERVISOR STENO [employer]OL talked with dayshift RN to go ahead and trial pt on room air during the day and cool humidity at night. Talked with pt and he states his secretions are minimal. Pt states he just coughs and clears them in the morning and is fine the rest of the day.
--- NOTE | 2020-11-03 08:58 | PCM.PROGNOTE ---
Patient Problems: Active and Suspected Problems Status post tracheostomy (Acute) S/P percutaneous endoscopic gastrostomy (PEG) tube placement (Acute) Hemorrhagic cerebrovascular accident (CVA) (Acute) Posterior left temporal lobe Mastoiditis (Acute) Sinusitis (Acute) Subarachnoid hemorrhage (Acute) Bilateral Deep vein thrombosis (DVT) of left upper extremity (Acute) Cognitive dysfunction (Acute) Pharyngeal dysphagia (Acute) severe. Pt NPO at presentation to the rehab unit Subtherapeutic international normalized ratio (INR) (Acute) Presence of cerebrospinal fluid drainage device (Acute) Right frontal area Seizure disorder as sequela of cerebrovascular accident (Acute) Delirium (Acute) Cellulitis (Acute) Acute bronchitis (Acute) Group B strep Infection of PEG site (Acute) Pseudomonas aeruginosa Objective: Zay was seen on team rounds today. His Tabatha anticipated by phone. Afebrile VSS Maintaining appropriate oxygen saturation on RA Remains n.p.o. except ice chips and White water protocol His weight is down 5 pounds since admission Discussed with nursing - no problems that need addressed Reviewed the PT/OT/ST notes Medication list reviewed. All lab was personally reviewed. The white blood cell count continues to come down and is 12.2 today. Hemoglobin is stable at 9.9. Platelets are within normal limits. INR yesterday was 2.0. Creatinine continues to improve and is down to 0.52 from 0.82 at admission. Potassium is 4 and the sodium is 139. Calcium is within normal limits. Blood sugar record was reviewed. Blood sugars are under good control..... Fasting is a little low today at 83 Zay tells me he slept well last night but, nursing states he did not. He has been doing more in therapy and has improved on TUG, 30 sec bicep curl and the sit to processor inspector 30 sec. He is ambulating with PT and OT 130 ft to and from his room to the therapy room. Denies pain, lightheadedness, CP. continues to complain about not being able to eat and wanting to go home. He always complains of labored breathing. but he is not tachypneic, he has less cough and sputum production and he has no conversational dyspnea. He tolerated the PMSV all afternoon yesterday. We got the records from Dr. 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 Alert and appropriate today. Requesting his call jeancarlos to talk when he is done with therapy for the day. He is very witty and is getting back to his baseline cognitively. No sitter needed since yesterday morning. If this continues will DC the AM Seroquel first. Lungs - diminished but CTA HRRR, no ectopy and no gallop no calf tenderness No rashes There is what appears to be an erosion from the Peg appliance pulled tightly against the abd wall. It stays moist in this area due to leakage around the tube. No sign of infection. No odor. May benefit from some stoma adhesive? Will consult the wound/ostomy nurse. Impressions 1. post hemorrhagic CVA debility - INR was supratherapeutic at the time at 4.2 2. severe dysphagia with silent aspiration 3. DVT left upper extremity in a patient with a history of DVTs and an IVC filter present 4. Chronic anticoagulation with warfarin 5. Delirium -much improved. Behavior is much better on Seroquel 25 mg in the a.m. and 75 mg at at bedtime. 6. Insomnia-did not sleep well again last night. Will amadou the Ambien 5 mg at night. 7. Sleep disordered breathing/RAMU - needs a titration study to be placed on CPAP or BIPAP. For now will use supplemental O2 anytime he is sleeping. 8. Cellulitis of the PEG site-resolved 9. Acute bronchitis secondary to Streptococcus Constellatus-day #7 Rocephin 10. Diabetes mellitus type 2-blood sugars controlled 11. erosion at the site of the PEG due to the appliance being tight up against the abd wall. Will have wound/ostomy nurse see him continue therapy. Check an INR again in the AM. Decrease the p.m. Lantus to 58 units nightly. Continue scheduled 3 units of Humalog with each feeding. Titration study for CPAP post DC. I think he would also benefit from PFT's.....I suspect he has restrictive lung disease. May suggest that he follow up with Dr. Vo or Dr. Grayson - Physical Exam Vitals/I&O's: Vital Signs Temp Pulse Resp BP Pulse Ox 97.9 F 84 16 169/73 H 97 11/03/20 08:19 11/03/20 08:19 11/03/20 08:19 11/03/20 08:19 11/03/20 08:19 Oxygen Flow Rate (L/min) 8 Oxygen Delivery Method Room Air Weight: 292 lb Body Mass Index (BMI) 52.6 Intake and Output for Last 24 Hours 11/01/20 11/02/20 11/03/20 23:59 23:59 23:59 Intake Total 3360 / 3360 3330 / 3330 200 / 200 Output Total 2650 / 2650 2600 / 2600 800 / 800 Balance 710 / 710 730 / 730 -600 / -600 Laboratory Results 11/02/20 10:33: POC Glucose 154 H 11/02/20 13:46: POC Glucose 132 H 11/02/20 17:28: POC Glucose 152 H 11/02/20 20:29: POC Glucose 118 H 11/03/20 05:20: WBC 12.2 H, RBC 3.54 L, Hgb 9.9 L, Hct 31.9 L, MCV 90.1, MCH 28.0, MCHC 31.0 L, RDW Std Deviation 44.0 H, RDW Coeff of Bruce 13.3, Plt Count 348, MPV 8.9 11/03/20 05:20: Sodium 139, Potassium 4.0, Chloride 104, Carbon Dioxide 30.0, Anion Gap 5, BUN 17, Creatinine 0.52 L, Estim Creat Clear Calc 120.06, Est GFR (MDRD) Af Amer 208, Est GFR (MDRD) Non-Af 172, BUN/Creatinine Ratio 32.8 H, Glucose 89, Calcium 8.8 11/03/20 06:30: POC Glucose 83 Current Medications Acetaminophen (Acetaminophen 650 Mg/20 Ml Udc) 1,000 mg GT Q8 AMADOU Last Admin: 11/03/20 06:27 Dose: 1,000 mg Documented by: Albuterol Sulfate (Albuterol 2.5 Mg/3 Ml Vial.Neb.) 2.5 mg INHALATION Q2H PRN PRN PRN Reason: WHEEZING Last Admin: 10/30/20 09:20 Dose: 2.5 mg Documented by: Albuterol/Ipratropium (Ipratropium/Albuterol Sulfate 3 Ml Ampul.Neb) 3 ml INHALATION Q6H.RT [facility]AD[facility] Last Admin: 11/03/20 06:52 Dose: 3 ml Documented by: Atorvastatin Calcium (Atorvastatin Calcium 80 Mg Tablet) 80 mg GT QHS [facility] Last Admin: 11/02/20 20:12 Dose: 80 mg Documented by: Bisacodyl (Bisacodyl 10 Mg Suppository) 10 mg RECTAL .PRN X 1 PRN PRN Reason: Constipation Calamine/Phenol (Menthol/Lanolin/Calamine/Znox 113 Gm Tube) 1 applic TOPICAL BID [facility]; Protocol Last Admin: 11/02/20 20:10 Dose: 1 applicatio Documented by: Cefdinir (Cefdinir Susp 125 Mg/5 Ml Po.Syringe) 300 mg PO Q12 [facility] Stop: 11/03/20 22:01 Last Admin: 11/02/20 20:16 Dose: 300 mg Documented by: Cholestyramine Resin (Cholestyramine/Sucrose 4 Gm/Packet) 4 gm PO TID [facility] Last Admin: 11/03/20 06:27 Dose: 4 gm Documented by: Docusate Sodium (Docusate Sodium 100 Mg/10 Ml Udc) 100 mg GT DAILY [facility] Doxazosin Mesylate (Doxazosin 1 Mg Tablet) 2 mg GT DAILY [facility] Last Admin: 11/02/20 10:28 Dose: 2 mg Documented by: Enteral Nutritional Formula (Vital High Protein 1,000 Ml Liquid) 320 ml GT 5X/DAY [facility] Last Admin: 11/03/20 06:33 Dose: 320 ml Documented by: Haloperidol (Haloperidol 1 Mg Tablet) 1 mg GT Q6H PRN PRN PRN Reason: AGITATION Last Admin: 10/30/20 11:46 Dose: 1 mg Documented by: Sodium Chloride () 250 mls @ 15 mls/hr IV .[id number] PRN PRN Reason: SALINE FLUSH Last Infusion: 10/29/20 11:59 Dose: 0 mls/hr Documented by: Insulin Glargine (Insulin Glargine 100 Units/Ml Pen) 60 units SC BID [facility] Last Admin: 11/02/20 20:33 Dose: 60 u Documented by: Insulin Human Lispro (Insulin Lispro 100 Unit/Ml Insuln.Pen) 0 unit SC ACHS [facility]; Protocol Last Admin: 11/03/20 06:30 Dose: Not Given Documented by: Insulin Human Lispro (Insulin Lispro 100 Unit/Ml Insuln.Pen) 3 unit SC 5X/DAY [facility] Last Admin: 11/03/20 06:31 Dose: 3 u Documented by: Lactobacillus Acidophilus (Lactobacillus Acidophilus) 2 tablet GT BID [facility] Last Admin: 11/02/20 20:09 Dose: 2 tablet Documented by: Levetiracetam (Levetiracetam Oral Solution 500 Mg/5 Ml) 1,000 mg GT BID [facility] Last Admin: 11/02/20 20:12 Dose: 1,000 mg Documented by: Loperamide HCl (Loperamide 2 Mg Capsule) 2 mg GT Q4H PRN PRN PRN Reason: Diarrhea Last Admin: 10/24/20 08:05 Dose: 2 mg Documented by: Magnesium Hydroxide (Magnesium Hydroxide 30 Ml Udc) 30 ml GT .PRN X 1 PRN PRN Reason: Constipation Last Admin: 10/27/20 18:30 Dose: 30 ml Documented by: Melatonin (Melatonin 3 Mg Tablet) 3 mg PO QHS [facility] Last Admin: 11/02/20 20:13 Dose: 3 mg Documented by: Metoprolol Tartrate (Metoprolol Tartrate 50 Mg Tablet) 50 mg GT BID [facility] Last Admin: 11/02/20 20:12 Dose: 50 mg Documented by: Nystatin (Nystatin Powder 15gm Bottle) 1 applic TOPICAL BID [facility]; Protocol Last Admin: 11/02/20 20:13 Dose: 1 applicatio Documented by: Ondansetron HCl (Ondansetron Odt 4 Mg Tablet) 4 mg GT Q6H PRN PRN PRN Reason: NAUSEA Last Admin: 10/25/20 10:01 Dose: 4 mg Documented by: Quetiapine Fumarate (Quetiapine 25 Mg Tablet) 25 mg GT 0700 [facility] Last Admin: 11/03/20 06:27 Dose: 25 mg Documented by: Quetiapine Fumarate (Quetiapine 25 Mg Tablet) 75 mg GT QHS [facility] Last Admin: 11/02/20 20:14 Dose: 75 mg Documented by: Sodium Chloride (0.9% Saline Lock 10 Ml Syringe) 10 - 40 ml IV UD PRN PRN Reason: SALINE FLUSH Last Admin: 10/31/20 13:26 Dose: 10 ml Documented by: Warfarin Sodium (Warfarin 7.5 Mg Tablet) 7.5 mg GT DAILY@1700 [facility] Last Admin: 11/02/20 17:25 Dose: 7.5 mg Documented by: Warfarin Sodium (Warfarin 5 Mg Tablet) 5 mg PO DAILY@1700 [facility] Last Admin: 11/02/20 17:25 Dose: 5 mg Documented by: Zolpidem Tartrate (Zolpidem Tartrate 5 Mg Tablet) 5 mg PO QHS PRN PRN PRN Reason: SLEEP Medical Necessity - Tobacco Use Smoking Status: Never smoker Tobacco Use: Non-smoker Assessment/Plan All Active Problems Status post tracheostomy (Acute) S/P percutaneous endoscopic gastrostomy (PEG) tube placement (Acute) Gram-negative pneumonia (Resolved) Hemorrhagic cerebrovascular accident (CVA) (Acute) Mastoiditis (Acute) Sinusitis (Acute) Subarachnoid hemorrhage (Acute) Deep vein thrombosis (DVT) of left upper extremity (Acute) Cognitive dysfunction (Acute) Pharyngeal dysphagia (Acute) Subtherapeutic international normalized ratio (INR) (Acute) Presence of cerebrospinal fluid drainage device (Acute) Seizure disorder as sequela of cerebrovascular accident (Acute) Delirium (Acute) Cellulitis (Acute) Acute bronchitis (Acute) Infection of PEG site (Acute) Inpatient E&M: 09298 Subs Hosp L2
--- NOTE | 2020-11-03 09:55 | CASEMGMT ---
Social Work IDT met with patient and via conference call for Team meeting. Discussed patient's progress in therapy. Pt is CGA-[place] for tx, ambulating 130ft with FWW at CGA, completed 3-5 steps with 2HR CGA. Pt is mod for bathing, min for UE and LE dressing, mod for toileting. St working on trailing speaking valve and pt is tolerating well. Trailing ice chips, FFWP and to strengthen swallowing. Pt is having trouble sleeping and adjusting meds. Pt still has trach and peg, trialing RA during the day, but suspected sleep apnea so O2 at night with humidification. Explained [employer] insurance with [employer] 11/04 and continued stay is not guaranteed. Will ReTeam next week. Pt continues to make good progress. Will continue to follow. Jessie Mendenhall, STRADDLE CARRIER OPERATOR CUSTODIAL SERVICES MANAGER
[2020-11-03] MEDS: Metoprolol Tartrate 50 MG Tablet GT ×2 (10:10→20:55)
[2020-11-03] MEDS: Docusate Sodium 100 MG/10 ML UDC GT (10:10)
[2020-11-03] MEDS: levETIRAcetam Oral Solution 500 MG/5 ML 1000 MG GT ×2 (10:10→20:50)
[2020-11-03] MEDS: Cefdinir Susp 125 MG/5 ML PO.SYRINGE 300 MG PO ×2 (10:10→20:55)
[2020-11-03] MEDS: Doxazosin 1 MG Tablet 2 MG GT (10:10)
[2020-11-03] MEDS: Menthol/Lanolin/Calamine/Znox 113 GM Tube 1 APPLIC TOPICAL ×2 (10:12→20:50)
[2020-11-03] MEDS: Nystatin Powder 15gm Bottle 1 APPLIC TOPICAL ×2 (10:12→20:57)
[2020-11-03 10:36] LABS: Bedside Glucose 157 mg/dL (70-110)
[2020-11-03 14:45] LABS: Bedside Glucose 126 mg/dL (70-110)
[2020-11-03 18:16] LABS: Bedside Glucose 126 mg/dL (70-110)
[2020-11-03] MEDS: Zolpidem Tartrate 5 MG Tablet PO ×2 (20:48→23:16)
--- NOTE | 2020-11-03 20:51 | CPS ---
cool aerosol at 28% hooked up to trach collar for night
[2020-11-03] MEDS: MELATONIN 3 MG TABLET PO (20:55)
[2020-11-03] MEDS: Atorvastatin Calcium 80 MG Tablet GT (20:56)
[2020-11-03] MEDS: QUEtiapine 25 MG Tablet 75 MG GT (20:58)
[2020-11-03 22:16] LABS: Bedside Glucose 142 mg/dL (70-110)
[2020-11-03] MEDS: Haloperidol 1 MG Tablet GT (23:18)
--- NOTE | 2020-11-04 00:45 | NURSING ---
23:30 Pt becoming aggressive and agitated. Pt awakened from dozing and calling for help repeatedly from staff as soon as staff departs room even though staff tries to meet all needs before leaving. Pt wanting to get into a chair and sit for awhile. Pt stating that he feels stuffed in the bed and has been repositioned several times to alleviate his discomfort. BURLAP SPREADER attempted to make pt comfortable but pt anxiety was elevating. @nd dose of Ambien and Haldol PRN was administered. Trach site checked for clogs since pt felt he was struggling to breath. SpO2 was 98% when RN checked pulse ox. Staff reassured pt that everything we could do was being done and pt may relax with some relaxation methods such as deep and controlled breathing, closing eyes and having pleasant thoughts, concentrating on relaxing from head to toe with eyes closed. Call light is in pt's hand & staff will continue to monitor.
--- NOTE | 2020-11-04 04:39 | NURSING ---
Pt calling out intermittently for help. Pt dozed off/on and awakened in panic a few times.
[2020-11-04 05:35] LABS: International Normalized Ratio 2.2; Prothrombin Time (Protime)PT. 23.7 SECONDS (11.7-14.9)
[2020-11-04 06:31] LABS: Bedside Glucose 79 mg/dL (70-110)
[2020-11-04] MEDS: Cholestyramine/Sucrose 4 GM/PACKET PO ×2 (06:44→22:33)
[2020-11-04] MEDS: Acetaminophen 650 MG/20 ML UDC 1000 MG GT ×3 (06:44→20:55)
[2020-11-04] MEDS: QUEtiapine 25 MG Tablet GT (06:52)
[2020-11-04 06:53] VITALS: PULSE 72; RESP 20
[2020-11-04] MEDS: Ipratropium/Albuterol Sulfate 3 ML AMPUL.NEB INHALATION ×2 (06:53→15:00)
--- NOTE | 2020-11-04 07:08 | NURSING ---
Hospitalist, Dr Tineo, was paged d/t low BS level. Dr Tineo ordered to hold 3 units [employer] for pt BS of 79.
[2020-11-04 08:07] VITALS: BP 125/70; PULSE 76; RESP 18; TEMP 36.8; O2SAT 94
[2020-11-04 10:43] VITALS: BP 125/70; PULSE 76
[2020-11-04] MEDS: levETIRAcetam Oral Solution 500 MG/5 ML 1000 MG GT ×2 (10:43→20:57)
[2020-11-04] MEDS: Docusate Sodium 100 MG/10 ML UDC GT (10:43)
[2020-11-04] MEDS: Doxazosin 1 MG Tablet 2 MG GT (10:43)
[2020-11-04] MEDS: Metoprolol Tartrate 50 MG Tablet GT ×2 (10:43→20:57)
[2020-11-04] MEDS: Menthol/Lanolin/Calamine/Znox 113 GM Tube 1 APPLIC TOPICAL ×2 (10:44→21:01)
[2020-11-04] MEDS: Nystatin Powder 15gm Bottle 1 APPLIC TOPICAL ×2 (10:44→21:01)
[2020-11-04] MEDS: Insulin Lispro 100 UNIT/ML INSULN.PEN SC ×3 (10:52→21:07)
[2020-11-04] MEDS: Magnesium Hydroxide 30 ML UDC GT (11:02)
--- NOTE | 2020-11-04 11:10 | PCM.PN.BLA ---
Progress Note Afebrile Blood pressures well controlled Maintaining appropriate oxygen saturation on room air when awake. He was able to take 500 and cc orally yesterday on the White water protocol. He is tolerating the Passy-Alesia speaking valve for longer periods of time. Having only occasional urinary incontinence now. Last bowel movement was 11/02/2020 INR is therapeutic today at 2.2. Blood sugar this a.m. was 79....even with the decrease in the Lantus in the evening He received Haldol X 1 dose yesterday but had not had to have Haldol since the prior to that. He is c/o constipation. Denies shortness of breath, lightheadedness, chest pain. alert and appropriate with me today. Lungs-diminished but clear to auscultation Heart-regular rate and rhythm, diminished heart sounds due to body habitus Abdomen-obese, soft, nontender No peripheral edema, no calf tenderness Impressions 1. Post hemorrhagic stroke debility 2. Delirium-resolved 3. Diabetes mellitus type 2- 4. Dysphagia-improved 5. Constipation-likely related to Questran which we used for diarrhea related to tube feed Check a PT/INR on 11/06/20 and an HH Decrease the Lantus in the evening to 56 units and do not give 3 units of Humalog Lispro with the last feeding at night. Continue the current dose of Warfarin Continue the current doses of Seroquel Continue therapy Decrease the Questran to 4 GM BID STROKE Vital Signs/Narrative: Vital Signs Temp Pulse Resp BP Pulse Ox 11/04/20 10:43 76 125/70 H 11/04/20 08:07 98.3 F 76 18 125/70 H 94 Inpatient E&M: 70595 Subs Hosp L1
[2020-11-04 11:16] LABS: Bedside Glucose 129 mg/dL (70-110)
[2020-11-04 15:00] VITALS: PULSE 72; RESP 20
[2020-11-04 15:00] LABS: Bedside Glucose 155 mg/dL (70-110)
--- NOTE | 2020-11-04 15:06 | NURSING ---
Was asked to assess the PEG tube site. Dr Joshi had discussed patient with this nurse yesterday. stated the bumper was very tight against the skin. had loosened the bumper yesterday. there is still some redness noted to the left lateral side of the PEG tube insertion site that measures approx 1cm x 1cm. there was a mod amount of serosanguineous drainage noted on the old dressing. no odor noted. applied a new dry split gauze dressing. will monitor as needed.
[2020-11-04 19:09] VITALS: BP 127/80; PULSE 88; RESP 18; TEMP 36.4; O2SAT 96
[2020-11-04 19:21] LABS: Bedside Glucose 148 mg/dL (70-110)
[2020-11-04 20:55] LABS: Bedside Glucose 212 mg/dL (70-110)
[2020-11-04] MEDS: Zolpidem Tartrate 5 MG Tablet PO (20:55)
[2020-11-04] MEDS: QUEtiapine 25 MG Tablet 75 MG GT (20:56)
[2020-11-04 20:57] VITALS: BP 127/80; PULSE 88
[2020-11-04] MEDS: MELATONIN 3 MG TABLET PO (20:57)
[2020-11-04] MEDS: Atorvastatin Calcium 80 MG Tablet GT (20:59)
[2020-11-05] VITALS (7 sets, daily range): BP systolic 124–131; BP diastolic 70–84; PULSE 83–88; RESP 16–18; TEMP 36.9–37; O2SAT 93–100
[2020-11-05] MEDS: Acetaminophen 650 MG/20 ML UDC 1000 MG GT ×3 (06:00→22:10)
[2020-11-05 06:40] LABS: Bedside Glucose 119 mg/dL (70-110)
[2020-11-05] MEDS: Ipratropium/Albuterol Sulfate 3 ML AMPUL.NEB INHALATION ×2 (06:52→15:02)
[2020-11-05] MEDS: levETIRAcetam Oral Solution 500 MG/5 ML 1000 MG GT ×2 (09:01→22:13)
[2020-11-05] MEDS: Docusate Sodium 100 MG/10 ML UDC GT (09:01)
[2020-11-05] MEDS: Cholestyramine/Sucrose 4 GM/PACKET PO (09:01)
[2020-11-05] MEDS: Metoprolol Tartrate 50 MG Tablet GT ×2 (09:01→22:12)
[2020-11-05] MEDS: Doxazosin 1 MG Tablet 2 MG GT (09:02)
[2020-11-05] MEDS: Menthol/Lanolin/Calamine/Znox 113 GM Tube 1 APPLIC TOPICAL ×2 (09:03→22:14)
[2020-11-05] MEDS: Insulin Lispro 100 UNIT/ML INSULN.PEN SC ×5 (10:05→18:32)
[2020-11-05] MEDS: Nystatin Powder 15gm Bottle 1 APPLIC TOPICAL ×2 (10:07→22:28)
[2020-11-05 10:36] LABS: Bedside Glucose 215 mg/dL (70-110)
[2020-11-05 15:21] LABS: Bedside Glucose 112 mg/dL (70-110)
--- NOTE | 2020-11-05 17:31 | PCM.PN.BLA ---
Progress Note Afebrile VSS Maintaining appropriate oxygen saturation on RA Remains n.p.o. Discussed with nursing - no problems that need addressed. He slept well last night and is very appropriate, pleasant and cooperative today Reviewed the PT/OT/ST notes. D/W ST and they are going to try and get a MBS tomorrow. Medication list reviewed. The blood sugar record was reviewed. Somehow the orders got misinterpreted between what I wrote and what pharmacy instituted. He has not been receiving scheduled 3 units with each tube feed except for the at bedtime tube feed and has just been getting sliding scale insulin. This was straightened out today. Zay denies chest pain, shortness of breath, cephalgia, lightheadedness, abdominal pain, nausea, dysuria. He is still having some secretions from the trach when the PMSV is not in. He tolerated the PMSV all day yesterday and we are removing it at night. alert, oriented X 3. Appropriate today and able to hold a conversation with me and reason. no aggressive behavior. Lungs are diminished but clear to auscultation. I reviewed the RT notes and he occasionally has rhonchi and wheezing. He is still receiving DuoNeb aerosols. Secretions are sometimes thick. Heart-regular rate and rhythm, no gallop, no rub, no murmur appreciated. Heart sounds are distant, likely secondary to body habitus No calf tenderness, no rashes, no skin breakdown PEG tube site has a little redness laterally with no purulent discharge and no increased warmth to touch. No evidence of infection. I reviewed the note from the ostomy nurse. 1. post hemorrhagic CVA debility - INR was supratherapeutic at the time at 4.2 2. severe dysphagia with silent aspiration.....even aspirated pureed food. 3. DVT left upper extremity in a patient with a history of DVTs and an IVC filter present 4. Chronic anticoagulation with warfarin - INR was 2.2 on 11/04 5. Delirium -much improved. Behavior is much better on Seroquel 25 mg in the a.m. and 75 mg at at bedtime. 6. Insomnia- on Melatonin, Seroquel and ambien at night. He has RAMU and needs a study to titrate. Will continue Oxygen supplementation at night and any time during the day when he is sleeping for now. 7. Sleep disordered breathing/RAMU - needs a titration study to be placed on CPAP or BIPAP. For now will use supplemental O2 anytime he is sleeping. 8. Cellulitis of the PEG site-resolved 9. Acute bronchitis secondary to Streptococcus Constellatus- resolved 10. Diabetes mellitus type 2-blood sugars controlled 11. Normochromic normocytic anemia-stable Discontinue the a.m. dose of Seroquel and continue 75 mg nightly. Will wean the at bedtime Seroquel as tolerated according to symptoms. PT/INR in the a.m. Modified barium swallow tomorrow Continue therapy STROKE Vital Signs/Narrative: Vital Signs Pulse Resp 11/05/20 15:02 84 18 Inpatient E&M: 12948 Subs Hosp L2
--- NOTE | 2020-11-05 17:45 | CHAPLAIN ---
Type of Pastoral Visit ___ Initial Visit ___ Follow-up Visit ___ On-call Visit _x__ General Patient Visit ___ Spiritual Assessment ___ Family Conference ___ Bereavement ___ Rapid Response ___ Code Blue ___ Other (describe below) Pastoral Care Referral From ___ Patient ___ Family ___ Nurse ___ Physician ___ Cobbler Apprentice ___ Suspension Cord Tier _x__ Other (describe below) Sacrament/Intervention __x_ Active listening ___ Anointing ___ Pentecostal ___ Bereavement ___ Communion ___ Maria [place] Carmen exploration ___ ___ Life review ___ Prayer ___ Reconciliation ___ Sacrament of Sick ___ Supportive presence ___ Wedding ___ Other (describe below) Pastoral Comments
[2020-11-05 18:46] LABS: Bedside Glucose 172 mg/dL (70-110)
[2020-11-05] MEDS: Albuterol 2.5 MG/3 ML VIAL.NEB. INHALATION (20:14)
--- NOTE | 2020-11-05 20:15 | CPS ---
removed pt speaking valve and pt placed on 28% cool aerosol for night after aero tx
[2020-11-05] MEDS: QUEtiapine 25 MG Tablet 75 MG GT (22:11)
[2020-11-05] MEDS: MELATONIN 3 MG TABLET PO (22:12)
[2020-11-05] MEDS: Atorvastatin Calcium 80 MG Tablet GT (22:15)
[2020-11-05 23:26] LABS: Bedside Glucose 170 mg/dL (70-110)
[2020-11-06] VITALS (7 sets, daily range): BP systolic 112–132; BP diastolic 69–76; PULSE 76–87; RESP 16–18; TEMP 36.7–36.8; O2SAT 86–95
[2020-11-06] MEDS: Insulin Lispro 100 UNIT/ML INSULN.PEN SC ×6 (05:26→21:11)
[2020-11-06] MEDS: Acetaminophen 650 MG/20 ML UDC 1000 MG GT ×3 (05:27→21:12)
[2020-11-06 05:37] LABS: International Normalized Ratio 2.3; Prothrombin Time (Protime)PT. 24.8 SECONDS (11.7-14.9)
[2020-11-06 07:10] LABS: Bedside Glucose 145 mg/dL (70-110)
--- NOTE | 2020-11-06 09:45 | ST.MBS ---
Modified Barium Swallow - Patient Information Study Date: 11/06/20 Study Time: 09:45 Direct Billable Minutes: 135 Total Minutes procedure & reportin Diagnosis: Dysphagia Referring Physician: Karen Joshi Reason for Referral: Objective assessment of swallow function under fluoroscopy to assess appropriateness for diet advancement, identify areas of deficits and determine necessary compensatory strategies/therapeutic techniques to implement w/ continued dysphagia intervention Medical History: Daniel Sanchez is a 60 year old M with PMH of HTN, HLD, super obesity, CAD, prostate disorder, recurrent DVTs, NE, chronic anticoagulation with warfarin, uncontrolled diabetes mellitus type 2 and venous insufficiency who presented to [facility] emergency department on 09/22/2020 complaining of difficulty walking and confusion. His stated that he had been complaining of left side pain for [address] brain showed an ICH and the patient was given vitamin K and transferred to [facility] via med flight. At [facility], he was intubated and had a CSF shunt placed in the right frontal area. He had gram-negative pneumonia and failed extubation on 10/02/2020. He was reintubated on 10/04/2020 and eventually had a tracheostomy. He has mild oral dysphagia and severe pharyngeal dysphagia and aspirated pur?ed food. He has silent aspiration. A PEG tube was inserted. He was started on Keppra for new onset seizures. He received PT/OT/ST at [facility] and when he was ready for discharge he was transferred to [facility] acute inpatient rehab unit on 10/23/2020. He will have greater than 3 hours of therapy daily to restore him at or near his prior level of function. Pt referred for speech evaluation to address severe dysphagia and severe cognitive-communication impairment. Pt currently has a trach (Kev #8). He has a speaking valve that has been utilized when awake and with full supervision of trained hospital staff as of 10/15/2020. He had been tolerating valve for [address] progress note on 10/15/2020. RN, Josefa, reported pt had had speaking valve on, but that it is currently off due to copious secretions from trach at this time. FEES completed on 10/15/2020. Pt aspirated all liquid consistencies likely before/during the swallow. Majority of episodes of aspiration observed during assessment occurred without cough response. When pt did produce cough when cued by PROFESSIONAL FEE CODER, he was unable to clear aspirate. He requires repeated swallows and suction to partially clear boluses, which had frequent misdirection into the airway. Current Diet Ordered: NPO w/ PEG, Allison Free Water Protocol Dentition: Natural Teeth, Missing Teeth - missing some molars Mental Status: WNL - sufficient for participation in MBS Respiratory Status: Oxygenating on Room Air - Shiley #8 trach w/ PMSV in place - Penetration-Aspiration Scale Score Thin Liquid via teaspoon Result: 1= does not enter airway Comment: *unable to confirm/rule out penetration/aspiration of contrast w/in pyriform sinuses post deglutition resulting from retrograde bolus flow of contrast w/in the esophagus through the PES and into the pyriforms; see impression for additional details Thin Liquid via teaspoon Trial 2 Result: 1= does not enter airway Thin Liquid via small single sip from cup Result: 1= does not enter airway Thin Liquid via large single sip from cup Result: 2= enter airway/above vocal folds/ejected Thin Liquid via single sip from straw Result: 1= does not enter airway Pudding Result: 1= does not enter airway Pudding Trial 2 Comment: view for esophageal clearance, see impression for additional details Thin Liquid via small single sip from cup Trial 2 Result: 1= does not enter airway Cookie Result: 1= does not enter airway - Oral Phase Labial Seal: No Labial Escape Tongue Control During Bolus Hold: Cohesive bolus between tongue to palatal seal Bolus Preparation/Mastication: Timely and efficient chewing and mashing Bolus Transport/Lingual Motion: Delayed initiation of tongue motion Oral Residue: Residue collection on oral structures - Pharyngeal Phase Initiation of Pharyngeal Swallow: Bolus head at posterior laryngeal surgace of epiglottis Soft Palate Elevation: No bolus between soft palate and pharyngeal wall Laryngeal Elevation: Partial superior movement thyroid cart/partial apprx aryt-epig petiole Anterior Hyoid Excursion: Partial anterior movement Epiglottic Movement: Complete inversion Laryngeal Vestibule Closure at Height of Swallow: Complete; no air/contrast in laryngeal vestibule Pharyngeal Stripping Wave: Present - complete Pharyngoesophageal Segment Opening: Complete distension and complete duration; no obstruction of flow Tongue Base Retraction: Narrow column of contrast between tongue base & post. pharyngeal wall Pharyngeal Residue: Collection of residue within or on pharyngeal structures - Esophageal Phase Esophageal Clearance: Esophageal retention w/ retrograde flow through pharyngoesophageal seg - Treatment Strategies Effects of treatment strategies attemped:: Multiple Swallows - Effective to reduce residue accumulation in pyriform sinuses d/t retrograde bolus flow from the esophagus/through the PES/into the pyriform sinuses, therefore reducing the risk of pyriform residue spilling into the airway post deglutition - Diagnosis/Impression Diagnosis: Oropharyngeal Dysphagia Impression: This patient presents w/ mild to moderate oropharyngeal dysphagia and mild pharyngoesophageal dysphagia. The oral phase is marked by: adequate mastication despite some missing molars mild oral holding/delayed initiation of lingual for bolus transfer - most prominent w/ pudding (patient reports an aversion to pudding) trace contrast lining the tongue surface The pharyngeal phase is characterized by: reduced base of tongue retraction w/ the posterior pharyngeal wall compensating, BOT residue retention post deglutition suboptimal bolus location upon swallow onset adequate arytenoid to epiglottic petiole contact and epiglottic inversion despite reduced anterior hyoid movement and thyroid cartilage elevation pharyngeal residue lined the base of tongue, valleculae and aryepiglottic folds post deglutition, able to reduce w/ noted darkening of the anterior wall of the laryngeal vestibule prior to initiating PO trials under fluoroscopy, the visible darkening did not represent laryngeal vestibule contrast penetration transient penetration evident w/ a large volume thin liquid bolus w/ contrast barely entering the laryngeal vestibule before being ejected w/ swallow completion adequate pharyngoesophageal segment (PES) distention/duration w/ complete bolus clearance The esophageal phase is characterized by: incomplete esophageal clearance w/ visible esophageal contrast retention, further assessment of esophageal function should be considered as retention was similar in appearance to a small Zenker's diverticulum retrograde flow from the esophagus through the PES consistently noted across trials, resulting in contrast accumulation w/in the pyriform sinuses post deglutition increased risk for posterior laryngeal vestibule penetration of pyriform contrast d/t retrograde bolus flow given close proximity to the airway, although assessment was complicated by the patient's body habitus and fluoroscopy suite limitations use of additional dry swallows was effective facilitate improved pyriform clearance and reduce the risk for aspiration - Recommendations Diet: Regular Textures, Thin Liquids Comment: soft and bite sized Compensatory Strategies: Small Bites, Small Sips, Slow Rate, Multiple Swallows, Sitting upright, Remain sitting upright for 30 minutes after PO intake, Assist with verbal cues to use recommended strategies Supervision: 1:1 Close Supervision Recommend Repeat Modified Barium Swallow: TBD Need for Skilled Speech Therapy Services: Yes - assess diet tolerance w/use of compensatory strats Recommended Referrals: GI Consult - see esophageal phase impression Education Completed: 1. Described result of evaluation., 2. Pt understands evaluation & agrees with goals and treatment plan. Comment: Images were reviewed w/ the patient immediately following MBS completions to improve patient understanding and buy in re: diet, supervision, compensatory strategies and precautions recommended. Pt reports a history of GERD and reports that even prior to this hospitalization food didn't always go down the first time and that he'd have to swallow a few times to get it to go down, which is consistent w/ pharyngoesophageal findings. Education well received w/ the patient voicing understanding, agreement and appreciation. Anticipate the need for ongoing education d/t cognitive limitations at present. - Image Count: 2,[phone] - Status Active ST Patient: Active - Contact Information [facility] Speech Therapy:: Alcira Berry M.A., [facility]-[employer]ESSION[employer] FEE CODER Speech-Language Pathologist [phone]
[2020-11-06] MEDS: Cholestyramine/Sucrose 4 GM/PACKET PO ×3 (10:31→21:08)
[2020-11-06] MEDS: levETIRAcetam Oral Solution 500 MG/5 ML 1000 MG GT ×2 (10:31→21:10)
[2020-11-06] MEDS: Docusate Sodium 100 MG/10 ML UDC GT (10:31)
[2020-11-06] MEDS: Doxazosin 1 MG Tablet 2 MG GT (10:32)
[2020-11-06] MEDS: Metoprolol Tartrate 50 MG Tablet GT ×2 (10:33→21:09)
[2020-11-06] MEDS: Nystatin Powder 15gm Bottle 1 APPLIC TOPICAL ×2 (10:52→21:08)
[2020-11-06] MEDS: Menthol/Lanolin/Calamine/Znox 113 GM Tube 1 APPLIC TOPICAL ×2 (10:53→21:12)
[2020-11-06 11:00] LABS: Bedside Glucose 155 mg/dL (70-110)
[2020-11-06] MEDS: Albuterol 2.5 MG/3 ML VIAL.NEB. INHALATION ×2 (11:00→18:55)
[2020-11-06 17:21] LABS: Bedside Glucose 153 mg/dL (70-110)
[2020-11-06 20:56] LABS: Bedside Glucose 201 mg/dL (70-110)
[2020-11-06] MEDS: QUEtiapine 25 MG Tablet 75 MG GT (21:08)
[2020-11-06] MEDS: Atorvastatin Calcium 80 MG Tablet GT (21:09)
[2020-11-06] MEDS: MELATONIN 3 MG TABLET PO (21:09)
[2020-11-06] MEDS: Zolpidem Tartrate 5 MG Tablet PO (21:15)
[2020-11-07] MEDS: Acetaminophen 650 MG/20 ML UDC 1000 MG GT ×3 (06:18→20:17)
[2020-11-07] MEDS: Insulin Lispro 100 UNIT/ML INSULN.PEN SC ×5 (06:24→17:18)
[2020-11-07 06:32] VITALS: PULSE 85; RESP 20; O2SAT 94
[2020-11-07] MEDS: Albuterol 2.5 MG/3 ML VIAL.NEB. INHALATION ×2 (06:32→11:27)
[2020-11-07 06:55] LABS: Bedside Glucose 109 mg/dL (70-110)
[2020-11-07 08:27] VITALS: PULSE 79
[2020-11-07] MEDS: levETIRAcetam Oral Solution 500 MG/5 ML 1000 MG GT ×2 (08:27→20:16)
[2020-11-07] MEDS: Metoprolol Tartrate 50 MG Tablet GT ×2 (08:27→20:14)
[2020-11-07] MEDS: Docusate Sodium 100 MG/10 ML UDC GT (08:27)
[2020-11-07] MEDS: Nystatin Powder 15gm Bottle 1 APPLIC TOPICAL ×2 (08:29→22:51)
[2020-11-07] MEDS: Doxazosin 1 MG Tablet 2 MG GT (08:29)
[2020-11-07] MEDS: Menthol/Lanolin/Calamine/Znox 113 GM Tube 1 APPLIC TOPICAL ×2 (08:38→22:52)
[2020-11-07 08:59] VITALS: BP 138/72; PULSE 78; RESP 18; TEMP 36.9; O2SAT 94
[2020-11-07] MEDS: Cholestyramine/Sucrose 4 GM/PACKET PO ×2 (10:04→20:14)
[2020-11-07 11:26] LABS: Bedside Glucose 168 mg/dL (70-110)
[2020-11-07 11:28] VITALS: PULSE 80; RESP 16; O2SAT 92
[2020-11-07 17:26] LABS: Bedside Glucose 174 mg/dL (70-110)
[2020-11-07 20:14] VITALS: BP 123/73; PULSE 81
[2020-11-07] MEDS: MELATONIN 3 MG TABLET PO (20:14)
[2020-11-07] MEDS: Atorvastatin Calcium 80 MG Tablet GT (20:15)
[2020-11-07] MEDS: QUEtiapine 25 MG Tablet 75 MG GT (20:16)
[2020-11-07] MEDS: Zolpidem Tartrate 5 MG Tablet PO (20:43)
[2020-11-07 21:16] LABS: Bedside Glucose 213 mg/dL (70-110)
[2020-11-07 22:00] VITALS: BP 123/73; PULSE 81; RESP 15; RESP 18; TEMP 36.8; O2SAT 98
[2020-11-08] MEDS: Acetaminophen 650 MG/20 ML UDC 1000 MG GT (05:21)
[2020-11-08 06:30] LABS: Bedside Glucose 133 mg/dL (70-110)
[2020-11-08] MEDS: Insulin Lispro 100 UNIT/ML INSULN.PEN SC ×5 (07:03→20:45)
[2020-11-08] MEDS: Docusate Sodium 100 MG/10 ML UDC GT (08:09)
[2020-11-08] MEDS: Doxazosin 1 MG Tablet 2 MG GT (08:09)
[2020-11-08 08:10] VITALS: PULSE 74
[2020-11-08] MEDS: levETIRAcetam Oral Solution 500 MG/5 ML 1000 MG GT (08:10)
[2020-11-08] MEDS: Metoprolol Tartrate 50 MG Tablet GT (08:10)
[2020-11-08] MEDS: Menthol/Lanolin/Calamine/Znox 113 GM Tube 1 APPLIC TOPICAL ×2 (08:15→20:45)
[2020-11-08] MEDS: Nystatin Powder 15gm Bottle 1 APPLIC TOPICAL ×2 (08:15→20:44)
[2020-11-08 08:43] VITALS: BP 128/79; PULSE 74; RESP 16; TEMP 37; O2SAT 97
[2020-11-08 12:10] LABS: Bedside Glucose 149 mg/dL (70-110)
[2020-11-08] MEDS: Acetaminophen 500 MG Tablet 1000 MG PO ×2 (14:21→20:50)
[2020-11-08 17:31] LABS: Bedside Glucose 178 mg/dL (70-110)
[2020-11-08 19:29] VITALS: BP 135/76; PULSE 86; RESP 16; TEMP 36.7; O2SAT 98
[2020-11-08] MEDS: Bisacodyl 10 MG Suppository RECTAL (20:25)
[2020-11-08] MEDS: QUEtiapine 25 MG Tablet 75 MG PO (20:42)
[2020-11-08 20:43] VITALS: PULSE 86
[2020-11-08] MEDS: Atorvastatin Calcium 80 MG Tablet PO (20:43)
[2020-11-08] MEDS: Metoprolol Tartrate 50 MG Tablet PO (20:43)
[2020-11-08] MEDS: Zolpidem Tartrate 5 MG Tablet PO (20:44)
[2020-11-08] MEDS: levETIRAcetam 1,000 MG Tablet 1000 MG PO (20:44)
[2020-11-08] MEDS: Docusate Sodium 100 MG Capsule PO (20:44)
[2020-11-08] MEDS: Cholestyramine/Sucrose 4 GM/PACKET PO (20:46)
[2020-11-08 20:51] LABS: Bedside Glucose 218 mg/dL (70-110)
[2020-11-08] MEDS: MELATONIN 3 MG TABLET PO (20:55)
[2020-11-09 06:40] LABS: Bedside Glucose 159 mg/dL (70-110)
[2020-11-09] MEDS: Insulin Lispro 100 UNIT/ML INSULN.PEN SC ×6 (07:21→16:46)
[2020-11-09 07:39] VITALS: BP 138/90; PULSE 83; RESP 16; TEMP 36.8; O2SAT 95
[2020-11-09] MEDS: Docusate Sodium 100 MG Capsule PO (09:26)
[2020-11-09] MEDS: levETIRAcetam 1,000 MG Tablet 1000 MG PO ×2 (09:26→20:15)
[2020-11-09] MEDS: Doxazosin 1 MG Tablet 2 MG PO (09:26)
[2020-11-09] MEDS: Menthol/Lanolin/Calamine/Znox 113 GM Tube 1 APPLIC TOPICAL (09:27)
[2020-11-09 10:43] VITALS: PULSE 80
[2020-11-09] MEDS: Metoprolol Tartrate 50 MG Tablet PO ×2 (10:43→20:14)
--- NOTE | 2020-11-09 11:32 | NURSING ---
Patient has been a x1 assist min assist/stand by level for nursing. Gait steady with walker. Pleasant. Continues to have some confusion with impulsiveness but minimal and needs cues still. Appetite good, lungs have been clear, follows guidelines for swallowing correctly. Denies sob. Trach care done with no issues.
[2020-11-09 12:15] LABS: Bedside Glucose 170 mg/dL (70-110)
[2020-11-09] MEDS: Acetaminophen 500 MG Tablet 1000 MG PO ×2 (12:47→20:15)
[2020-11-09 16:26] LABS: Bedside Glucose 211 mg/dL (70-110)
[2020-11-09 19:23] VITALS: BP 128/75; PULSE 71; RESP 17; TEMP 37.2; O2SAT 96
[2020-11-09 20:14] VITALS: PULSE 71
[2020-11-09] MEDS: Senna/Docusate Sodium 1 Tablet 2 TABLET PO (20:15)
[2020-11-09] MEDS: Atorvastatin Calcium 80 MG Tablet PO (20:16)
[2020-11-09] MEDS: QUEtiapine 25 MG Tablet 75 MG PO (20:16)
[2020-11-09] MEDS: Zolpidem Tartrate 5 MG Tablet PO (20:16)
[2020-11-09] MEDS: MELATONIN 3 MG TABLET PO (20:17)
[2020-11-09 20:35] LABS: Bedside Glucose 145 mg/dL (70-110)
[2020-11-10 05:24] LABS: Hematocrit 32.3 % (40-54); Hemoglobin 10.1 g/dL (13.0-16.5); Mean Corp Hgb Conc 31.3 g/dL (32-36); Mean Corpuscular Hgb 28.1 pg (27.0-32.0); Mean Corpuscular Volume 89.7 fL (80-94); Mean Platelet Vol. 8.9 fl (6.2-12.0); Platelet Count 375 K/mm3 (150-450); RBC Distribution Width CV 14.1 % (11.6-14.6); RBC Distribution Width SD 46.5 fl (35.1-43.9); White Blood Count 10.6 K/mm3 (4.4-11.0)
[2020-11-10 05:35] LABS: Prothrombin Time (Protime)PT. 36.4 SECONDS (11.7-14.9)
[2020-11-10 05:38] LABS: International Normalized Ratio 3.7
[2020-11-10] MEDS: Insulin Lispro 100 UNIT/ML INSULN.PEN SC ×4 (06:48→21:39)
[2020-11-10] MEDS: Acetaminophen 500 MG Tablet 1000 MG PO ×3 (06:52→21:28)
[2020-11-10 07:01] LABS: Bedside Glucose 102 mg/dL (70-110)
[2020-11-10] MEDS: Doxazosin 1 MG Tablet 2 MG PO (08:17)
[2020-11-10 08:18] VITALS: BP 119/73; PULSE 74
[2020-11-10] MEDS: levETIRAcetam 1,000 MG Tablet 1000 MG PO ×2 (08:18→21:24)
[2020-11-10] MEDS: Metoprolol Tartrate 50 MG Tablet PO ×2 (08:18→21:27)
[2020-11-10] MEDS: Senna/Docusate Sodium 1 Tablet 2 TABLET PO ×2 (08:19→21:28)
--- NOTE | 2020-11-10 09:55 | CASEMGMT ---
Social Work IDT met with patient and via conference call for Team meeting. Discussed patient's progress in therapy. Pt is ambulating 400ft with FWW at CGA on multi surfaces, completing 5 steps with 2HR at CGA, min for bathing, UE/LE dressing, CGA for tx, SBA for toileting tasks. ST completed MBS and upgraded pt to soft, bite sized textures, thin liquids, with 1:1 supervision for cues for alternating bites/sips, and for GERD precautions. ST to complete cognitive assessment this date to determine safety awareness and visual spacial issues. Peg site still has some drainage. Pt will DC home with peg. Order to decannulate pt. Will monitor after decannulation and to see outcome of cognitive assessment, then set DC date. Explained pt will need 24/7 supervision at home. states she will be working from home. Encouraged [facility] paperwork if needed intermittently. Explained [employer] NRD 11/11 and continued stay is not guaranteed. Will continue to follow. Jessie Mendenhall, AMOS TITLE CHECKER
[2020-11-10 10:00] VITALS: BP 119/73; PULSE 74; RESP 16; TEMP 36.8; O2SAT 98
--- NOTE | 2020-11-10 11:33 | PCM.PN.BLA ---
Progress Note Zay was seen on team rounds today. His Tabatha participated by phone. Afebrile VSS Maintaining appropriate oxygen saturation on RA Oral intake is good Discussed with nursing - INR is increased at 3.7 today Reviewed the PT/OT/ST notes Medication list reviewed. He is wanting to go home today. It is difficult to reason with him on this. blood sugars are well controlled. He denies SOB, cough, lightheadedness, CP, N/V/Abd pain Alert, oriented x3, pleasant but complaining of not being able to go home Lungs-diminished, clear to auscultation Heart-distant heart sounds, regular, no ectopy Abdomen-obese, soft, normal bowel sounds, no guarding with palpation No peripheral edema No rashes, no skin breakdown Cranial nerves II through XII are grossly intact, good strength in all extremities Impressions 1. post hemorrhagic stroke debility 2. chronic anticoagulation for recurrent VTE 3. supratherapeutic INR today. 4. RAMU - needs to have a titration study to determine PAP pressures for CPAP or BIPAP 5. morbid obesity 6. S/P trach - ready for decannulation - will consult the RT 7. S/P PEG tube. We are no longer using the PEG tube for feeding BUT, can not remove the PEG until it has been in at least 6 weeks - due to the increased for bleeding. Dr. Guerra put this tube in and Zay can follow up with him for PEG removal toward the end of November. 8. CEllulitis of the PEG site - resolved 9. Acute bronchitis-resolved 10. Acute delirium-resolved 11. Depression/anxiety Hold the warfarin until the INR is less than 3 and then restart at a reduced dose. Daily PT/INR X 2 Consult pulmonary for decannulation - he is tolerating the PMSV all day and we remove at HS. He has scant trach secretions. Not coughing and denies SOB. STROKE Vital Signs/Narrative: Vital Signs Temp Pulse Resp BP Pulse Ox 11/10/20 10:00 98.3 F 74 16 119/73 98 11/10/20 08:18 74 119/73 Inpatient E&M: 45211 Subs Hosp L2
[2020-11-10 11:45] LABS: Bedside Glucose 127 mg/dL (70-110)
[2020-11-10 18:06] LABS: Bedside Glucose 150 mg/dL (70-110)
[2020-11-10 19:30] VITALS: BP 142/74; PULSE 84; RESP 18; TEMP 37.2; O2SAT 98
[2020-11-10 21:27] VITALS: PULSE 89
[2020-11-10] MEDS: Atorvastatin Calcium 80 MG Tablet PO (21:27)
[2020-11-10] MEDS: MELATONIN 3 MG TABLET PO (21:27)
[2020-11-10] MEDS: QUEtiapine 25 MG Tablet 75 MG PO (21:28)
[2020-11-10] MEDS: Zolpidem Tartrate 5 MG Tablet PO (21:32)
[2020-11-10 21:36] LABS: Bedside Glucose 164 mg/dL (70-110)
[2020-11-10 22:00] VITALS: PULSE 65; RESP 16; O2SAT 97
[2020-11-11 05:53] LABS: International Normalized Ratio 3.4; Prothrombin Time (Protime)PT. 34.3 SECONDS (11.7-14.9)
[2020-11-11] MEDS: Insulin Lispro 100 UNIT/ML INSULN.PEN SC ×3 (06:44→22:28)
[2020-11-11] MEDS: Acetaminophen 500 MG Tablet 1000 MG PO ×3 (06:44→22:41)
[2020-11-11 06:56] LABS: Bedside Glucose 125 mg/dL (70-110)
[2020-11-11 08:14] VITALS: PULSE 90
[2020-11-11] MEDS: Doxazosin 1 MG Tablet 2 MG PO (08:14)
[2020-11-11] MEDS: levETIRAcetam 1,000 MG Tablet 1000 MG PO ×2 (08:14→22:25)
[2020-11-11] MEDS: Metoprolol Tartrate 50 MG Tablet PO ×2 (08:14→22:30)
[2020-11-11] MEDS: Senna/Docusate Sodium 1 Tablet 2 TABLET PO ×2 (08:15→22:31)
[2020-11-11 08:26] VITALS: BP 119/68; PULSE 70; RESP 16; TEMP 36.7; O2SAT 91
--- NOTE | 2020-11-11 08:48 | PCM.PN.BLA ---
Progress Note Afebrile VSS Maintaining appropriate oxygen saturation on RA Oral intake is good Last bowel movement was 11/09/2020 Only occasional incontinence now with urine. Discussed with nursing - no problems that need addressed Reviewed the PT/OT/ST notes - ST now going to work on memory, safety awareness, med management. Medication list reviewed. INR is 3.4 today. Blood sugars are well controlled. No seizures. He is martinez and depressed. Wants to go home but, he is not yet ready and safety awareness is very poor. His works at home so she will be there 06/06. I told her I will complete FMLA papers for her if she drops them off. Denies CP, SOB, lightheadedness, N/V/abd pain, dysuria. Alert and oriented X 3, pleasant, not tearful today. He has been decannulated. Lungs - diminished but CTA, not tachypneic, no conversational dyspnea. Heart-regular rate and rhythm, no ectopy, distant heart sounds secondary to body habitus Abdomen-obese, soft, nontender, no guarding with palpation, bowel sounds heard in all quadrants No peripheral edema, no calf tenderness Rashes and no skin breakdown Impressions 1. Post stroke debility. Continues to progress in therapy. Not ready for DC. ST to work on cognition, med management and safety awareness. He is impulsive and thinks he can do more than he can. ST will continue to work with swallowing as well. We have not had to give any Jevity TF since he was placed on a diet. 2. DM II well controlled - getting Lantus at HS and 3 units reg with each meal and at HS. Will add Metformin and DC the scheduled Humalog with meals but, continue the SSI. 3. seizure disorder post stroke - no seizures since admission to rehab 4. Delirium - resolved. We have been able to DC the AM Seroquel. He is sleeping well at night. 5. Dysphagia-much improved and the patient is now on a diet and we no longer are giving TF's. 6. Cellulitis of the PEG site-resolved 7. Acute bronchitis-resolved 8. Sleep disordered breathing/RAMU. He needs to have a titration study to determine pressure requirement on CPAP or BIPAP 9. Chronic anticoagulation with warfarin 10. Supratherapeutic INR-warfarin on hold until the INR is less than 3 and then will restart at 12 mg daily 11. Hyponatremia-resolved 12. Normochromic normocytic anemia-stable 12. anxiety/depression Continue to hold the Warfarin and restart when the INR is less than 3. Restart at 12 mg daily. (3.5 mg/week less than previous dose of 12.5 mg daily) PT/INR in the AM He has tolerated the PMSV for long periods of time. Will have respiratory decannulate. Start Sertraline 50 mg PO daily to help with anxiety and depression BMP, Mag and HH now Decrease the Seroquel at night to 50 mg .....continue to decrease every 5-7 days as tolerated STROKE Vital Signs/Narrative: Vital Signs Temp Pulse Resp BP Pulse Ox 11/11/20 08:26 98.1 F 70 16 119/68 91 11/11/20 08:14 90 Inpatient E&M: 17204 Subs Hosp L2
--- NOTE | 2020-11-11 11:46 | NURSING ---
Pt decannulated at this time by RT. Pt tolerated well with no respiratory distress noted. Will continue to monitor.
--- NOTE | 2020-11-11 11:57 | CPS ---
Mr. Sanchez was decannulated today per Dr. Joshi order. He had no problems with the decannulation a dry dressing was but on for protection of the stoma. Bilateral Breath sounds heard with no stridor. He was told to wear Oxygen at night for questionable sleep apnea and will get evaluated by a sleep study to confirm by Dr. Joshi.
[2020-11-11 12:51] LABS: Bedside Glucose 111 mg/dL (70-110)
[2020-11-11 12:52] LABS: Hematocrit 30.5 % (40-54); Hemoglobin 9.6 g/dL (13.0-16.5)
[2020-11-11 12:58] LABS: Anion Gap 6 (5-15); BUN 12 mg/dL (7-18); BUN/Creat Ratio 16.6 RATIO (10-20); Calcium,Total 8.9 mg/dL (8.5-10.1); Chloride 105 mmol/L (98-107); Creatinine, Serum 0.72 mg/dL (0.70-1.30); EST Glomerular Filtration Rate 117 mL/min (>60); Est Glom Filt Rate - Afr Amer 142 mL/min (>60); Estimated Creatinine Clearance 86.71 ml/min; Glucose 111 mg/dL (74-106); Potassium 3.9 mmol/L (3.5-5.1); Sodium Level 140 mmol/L (136-145)
[2020-11-11] MEDS: Sertraline 50 MG Tablet PO (13:50)
--- NOTE | 2020-11-11 14:46 | CASEMGMT ---
Social Work Insurance issued LCD 11/12, DC 11/13. Spoke with pt and and both agreeable. agreeable to [facility] - referral made for PT/OT/ST/SN. Referral made to [employer] for heavy duty wide FWW and 3L of O2 at night. to transport pt. No other needs. Plan: DC home with 11/13, [facility] PT/OT/ST/SN, [employer] - FWW, O2 at night Jessie Mendenhall, RESOURCE TECHNICIAN CABLE ASSEMBLER AND SWAGER
[2020-11-11 16:56] LABS: Bedside Glucose 131 mg/dL (70-110)
[2020-11-11 19:08] VITALS: BP 131/66; PULSE 64; RESP 17; TEMP 36.5; O2SAT 96
[2020-11-11 22:00] VITALS: PULSE 80; RESP 16; O2SAT 96
[2020-11-11] MEDS: Atorvastatin Calcium 80 MG Tablet PO (22:26)
[2020-11-11 22:30] VITALS: PULSE 66
[2020-11-11] MEDS: MELATONIN 3 MG TABLET PO (22:30)
[2020-11-11] MEDS: QUEtiapine 25 MG Tablet 50 MG PO (22:35)
[2020-11-11] MEDS: Zolpidem Tartrate 5 MG Tablet PO (22:37)
[2020-11-11 23:00] LABS: Bedside Glucose 160 mg/dL (70-110)
[2020-11-12 06:14] LABS: International Normalized Ratio 2.7; Prothrombin Time (Protime)PT. 28.6 SECONDS (11.7-14.9)
[2020-11-12] MEDS: Acetaminophen 500 MG Tablet 1000 MG PO ×3 (06:54→20:25)
[2020-11-12 07:06] LABS: Bedside Glucose 130 mg/dL (70-110)
[2020-11-12 08:25] VITALS: PULSE 72
[2020-11-12] MEDS: Doxazosin 1 MG Tablet 2 MG PO (08:25)
[2020-11-12] MEDS: Metoprolol Tartrate 50 MG Tablet PO ×2 (08:25→20:26)
[2020-11-12] MEDS: levETIRAcetam 1,000 MG Tablet 1000 MG PO ×2 (08:25→20:25)
[2020-11-12] MEDS: Sertraline 50 MG Tablet PO (08:26)
[2020-11-12] MEDS: Senna/Docusate Sodium 1 Tablet 2 TABLET PO ×2 (08:26→20:26)
--- NOTE | 2020-11-12 09:22 | PCM.DC ---
- Discharge Diagnoses Current Active Problems: Current Active and Chronic Problems Hypertension (Chronic) HLD (hyperlipidemia) (Chronic) Super obese (Chronic) Uncontrolled type II diabetes mellitus (Chronic) Prostate disorder (Chronic) Status post tracheostomy (Acute) S/P percutaneous endoscopic gastrostomy (PEG) tube placement (Acute) CAD (coronary artery disease) (Chronic) Hemorrhagic cerebrovascular accident (CVA) (Acute) Posterior left temporal lobe Mastoiditis (Acute) Sinusitis (Acute) Subarachnoid hemorrhage (Acute) Bilateral Deep vein thrombosis (DVT) of left upper extremity (Acute) Hx of deep venous thrombosis (Chronic) was on warfarin at the time of the intracerebral bleed with an INR of 4.2. Cognitive dysfunction (Acute) Pharyngeal dysphagia (Acute) severe. Pt NPO at presentation to the rehab unit Subtherapeutic international normalized ratio (INR) (Acute) Tobacco dependence in remission (Chronic) Quit at 34 years of age and also quit alcohol at the same time. Presence of cerebrospinal fluid drainage device (Acute) Right frontal area Seizure disorder as sequela of cerebrovascular accident (Acute) Delirium (Acute) Cellulitis (Acute) Acute bronchitis (Acute) Group B strep Infection of PEG site (Acute) Pseudomonas aeruginosa You will use the following diet at home:: Calorie/Carbohydrate Controlled (specify 1200, 1400, etc) - low carb with lean meats and non-starchy vegetables. Your food should be the consistency of: Soft (bite-sized & easy to chew/swallow) Your liquids should be the consistency of: Regular/Thin Discharge Activity: May Not Drive, May Shower, - - use a walker or cane for ambulation. Weight Bearing Status: Full weight bearing Call your doctor if you observe: Fever of 101 or Higher, Inability to urinate, Inability to have a bowel movement, Shortness of breath, Dizziness, Fainting spells, Chest pain, Increased palpitations (irregular heartbeat), - - Call your family doctor if any unusual bleeding such as bleeding from the gums, blood from the anus, blood in the urine, nose bleeds, large bruises or bleeding from the vagina if female. Instructions: Intimacy After Stroke, Effects of a Stroke on the Brain and Body, Mood Swings and Depression After a Stroke, Preparing Your Home After Stroke, Stroke: Resources and Support, Continuous Positive Air Pressure (CPAP), Mouthpieces for Sleep Apnea, What Are Snoring and Sleep Apnea? Additional Instructions: 1. You have come a LONG way since you were admitted to the rehab unit. When you first got to rehab you could not even sit up or roll over in bed and now you are walking with a cane and climbing steps. Your swallowing markedly improved and you are now on regular food and thin liquids. You were delirious when you came to us and you pulled out all your IV's and the PEG tube and the trach. We had to sedate you to get you to cooperate with the therapists. I have been weaning the sedatives down and you have remained calm and cooperative. You may be able to come off the Seroquel at night in the next 4-6 weeks. You should be proud of yourself......you worked very hard. 2. ALL strokes really traumatize the brain because there are areas than do no get enough blood flow and oxygen. This causes changes in mood and thought processing. Nerve tissue takes longer than any other tissue in the body to heal.....up to a few years to heal. Be patient and give your self time to heal. You have been through a lot. The INR or bleeding time when you had the stroke was too high at 4.2. My goal is to keep it between 2-3 and no higher. Coumadin (also known as Warfarin) interacts with many different drugs and it is affected by how many vitamin K containing foods that you eat. There are other anticoagulants that you do not have to monitor the bleeding times or alter your diet. These medications include Eliquis (APixaban) and Xarelto (Rivaroxaban). You may want to discuss this with Dr. Alanis. Some insurance companies will not pay for the newer drugs because they are more expensive than Warfarin BUT, you bleed into you head because of a bleeding time that was too high on Warfarin and I think this would warrant them approving one of the newer agents. 3. Your BP and diabetes are very well controlled. I recommend you keep eating a healthy diet and try and lose some weight. 4. You have sleep apnea and you need to have a titration study to figure out what pressure you will need to keep the airways open on a CPAP or BIPAP unit. Untreated sleep apnea is associated with depression, addictions(like food), strokes, HTN, Atrial fibrillation, memory problems, confusion, etc. Dr. Alanis can arrange the titration portion of the sleep study for you. If you would like me to arrange for you to have the study in our sleep lab and have follow up with the cigar making supervisor at the hospital here please let me know and I will do that for you. Until you get the second part of the sleep study you will need to wear oxygen anytime you are sleeping. 5. I have given you a lab slip to have the PT/INR checked this coming Tuesday. The INR on the 11/12 was 2.7 and the Warfarin was restarted at 12 mg daily with supper. 6. Even though we are no longer using the PEG it can not be removed for at least 1 more month because there is a high risk of bleeding. Dr. Guerra is the surgeon who reinserted the PEG after you pulled it out. He can remove it for you in 4-6 weeks and you can get an appt with him to do this. 7. It was a pleasure getting to know you Bill and I really enjoyed your quick wit and sarcastic humor. If you or Tabatha have any questions after you leave rehab please do not hesitate to call me at [phone] (cell). Alternatively you can call the rehab unit at [phone]. Take care of yourself Zay.......you have a second chance at this now. Happy New Year! Allergies/Adverse Reactions: Allergies No Known Allergies Allergy (Verified 10/23/20 15:12) Medications to take at Discharge Acetaminophen [Tylenol] 1,000 mg PO Q8H PRN tab 11/11/20 Atorvastatin Calcium [Lipitor] 80 mg GT QHS #30 tab 11/11/20 Doxazosin Mesylate [Cardura] 2 mg PO DAILY #30 tab 11/11/20 Insulin Glargine [Lantus SoloStar Pen] 56 units SC 2200 #6 pen 11/11/20 Melatonin 3 mg PO QHS #30 tab 11/11/20 Metformin HCl 500 mg PO BID #60 tab 11/11/20 Metoprolol Tartrate 50 mg GT BID #60 tab 11/11/20 Quetiapine Fumarate [Seroquel] 50 mg PO QHS #30 tab 11/11/20 Sertraline HCl [Zoloft] 50 mg PO DAILY #30 tab 11/11/20 Warfarin [Coumadin] 12 mg PO 1700 #60 tab 11/11/20 Zolpidem Tartrate [Ambien] 5 mg PO QHS #7 tab 11/11/20 levETIRAcetam tablet [Keppra tablet] 1,000 mg PO BID #60 tab 11/11/20 Warfarin [Coumadin] 12 mg PO DAILY@1700 #60 tab 11/12/20 The following prescriptions were given: Zolpidem Tartrate [Ambien] 5 mg PO QHS #7 tab Transmission Status: Received by [id number] Doxazosin Mesylate [Cardura] 2 mg PO DAILY #30 tab Transmission Status: Received by [id number] Warfarin [Coumadin] 12 mg PO 1700 #60 tab Transmission Status: Received by [id number] Warfarin [Coumadin] 12 mg PO DAILY@1700 #60 tab Transmission Status: Pending to [facility] levETIRAcetam tablet [Keppra tablet] 1,000 mg PO BID #60 tab Transmission Status: Received by [facility] Insulin Glargine [Lantus SoloStar Pen] 56 units SC 2200 #6 pen Transmission Status: Received by [id number] Atorvastatin Calcium [Lipitor] 80 mg GT QHS #30 tab Transmission Status: Received by [id number] Melatonin 3 mg PO QHS #30 tab Transmission Status: Received by [id number] Metformin HCl 500 mg PO BID #60 tab Transmission Status: Received by [id number] Metoprolol Tartrate 50 mg GT BID #60 tab Transmission Status: Received by [id number] Quetiapine Fumarate [Seroquel] 50 mg PO QHS #30 tab Transmission Status: Received by [id number] Sertraline HCl [Zoloft] 50 mg PO DAILY #30 tab Transmission Status: Received by [id number] Orders to be completed after discharge: Prothrombin Time w/INR Time Frame: 11/17/20, Facility: [facility], Location: Laboratory Test Results: Test results from this visit will be discussed in further detail at your follow-up appointment, if applicable. Please Follow Up With: Dr. Faustino Chow-PCP Please Follow Up With: Neuro Surgery Please Follow Up With: Dr. Guerra When: 4-6 weeks Please Follow Up With: Dr. Vo Proposed Discharge Date: 11/13/20
[2020-11-12 09:27] VITALS: BP 131/80; PULSE 75; RESP 18; TEMP 36.8; O2SAT 93
--- NOTE | 2020-11-12 10:04 | DS.PCM_ITS ---
Discharge Date and Diagnosis - Problem List Patient Problems: Active and Suspected Problems Status post tracheostomy (Acute) S/P percutaneous endoscopic gastrostomy (PEG) tube placement (Acute) Hemorrhagic cerebrovascular accident (CVA) (Acute) Posterior left temporal lobe Subarachnoid hemorrhage (Acute) Bilateral Deep vein thrombosis (DVT) of left upper extremity (Acute) Cognitive dysfunction (Acute) Pharyngeal dysphagia (Acute) severe. Pt NPO at presentation to the rehab unit Presence of cerebrospinal fluid drainage device (Acute) Right frontal area Seizure disorder as sequela of cerebrovascular accident (Acute) Date of Admission: 10/23/20 Date of Discharge: 11/13/20 - Primary Discharge Diagnosis Acute Problems: Active Problems Post stroke Debility Hemorrhagic cerebrovascular accident (CVA) (Acute) Posterior left temporal lobe Subarachnoid hemorrhage (Acute) Bilateral Deep vein thrombosis (DVT) of left upper extremity (Acute) S/P percutaneous endoscopic gastrostomy (PEG) tube placement (Acute)\ Status post tracheostomy (Acute) Cognitive dysfunction (Acute) Pharyngeal dysphagia (Acute) NPO at presentation to the rehab unit but at [facility] on soft and bite size with thin liquids Presence of cerebrospinal fluid drainage device (Acute) Right frontal area Seizure disorder as sequela of cerebrovascular accident (Acute) - no seizures while in rehab Delirium - resolved Encephalopathy likely due to anoxia related to the stroke Hyponatremia-resolved Hypokalemia-resolved Normochromic normocytic anemia-stable Cellulitis at the PEG site secondary to Pseudomonas aeruginosa-resolved Acute bronchitis secondary to Streptococcus Constellatus-resolved Subtherapeutic INR/supratherapeutic INR-resolved - Secondary Discharge Diagnosis Chronic Problems: Chronic Problems Chronic anticoagulation (Chronic)-with warfarin Obstructive sleep apnea (Chronic)-has not had the second part of the sleep study to titrate pressure required for CPAP or BiPAP yet. He gets markedly hypoxic at night and is now on oxygen at 2 to 3 L anytime he is sleeping. Hypertension (Chronic) HLD (hyperlipidemia) (Chronic) Super obese (Chronic) Uncontrolled type II diabetes mellitus (Chronic) Prostate disorder (Chronic) CAD (coronary artery disease) (Chronic) Hx of deep venous thrombosis (Chronic) was on warfarin at the time of the intracerebral bleed with an INR of 4.2. Tobacco dependence in remission (Chronic) Quit at 34 years of age and also quit alcohol at the same time. Hospital Course and Treatment Imaging Results: Clinical Impression(s) from Imaging Studies Chest X-Ray 10/24/20 11:01 IMPRESSION: Tracheostomy cannula terminates above the natasha. Negative for consolidation, focal atelectasis or pleural effusion. Electronically Signed: Raquel Reyes MD at 23:50 EST , Service support , Abdomen CT 10/26/20 21:45 IMPRESSION: Adequate position of percutaneous gastrostomy tube without extravasation of injected contrast outside of the lumen of bowel Individualized dose optimization techniques were used for this CT. at 2327 Reported and signed by: Javi Lang MD Electronically Signed: Javi Lang MD at 23:26 EST Tel , Service support , Chest X-Ray 10/30/20 12:40 IMPRESSION: No acute cardiopulmonary findings or changes. Negative for new consolidation, infiltrates, atelectasis or pleural effusion. Stable cardiac size. Electronically Signed: Raquel Reyes MD at 23:11 EST , Service support , Laboratory Last Values WBC 10.6 K/mm3 (4.4-11.0) 11/10/20 05:15 RBC 3.60 M/mm3 (4.6-6.2) L 11/10/20 05:15 Hgb 9.6 g/dL (13.0-16.5) L 11/11/20 05:27 Hct 30.5 % (40-54) L 11/11/20 05:27 MCV 89.7 fL (80-94) 11/10/20 05:15 MCH 28.1 pg (27.0-32.0) 11/10/20 05:15 MCHC 31.3 g/dL (32-36) L 11/10/20 05:15 RDW Std Deviation 46.5 fl (35.1-43.9) H 11/10/20 05:15 RDW Coeff of Bruce 14.1 % (11.6-14.6) 11/10/20 05:15 Plt Count 375 K/mm3 (150-450) 11/10/20 05:15 MPV 8.9 fl (6.2-12.0) 11/10/20 05:15 Immature Gran % (Auto) 0.400 % (0.0-0.9) 10/27/20 05:44 Neut % (Auto) 66.5 % (47-70) 10/27/20 05:44 Lymph % (Auto) 20.0 % (19-41) 10/27/20 05:44 [place]y % (Auto) 10.8 % (0-10) H 10/27/20 05:44 Eos % (Auto) 1.9 % (0-5) 10/27/20 05:44 Baso % (Auto) 0.4 % (0-1) 10/27/20 05:44 Absolute Neuts (auto) 8.9 X10^3/uL (2.0-7.7) H 10/27/20 05:44 Absolute Lymphs (auto) 2.69 X10^3/uL (0.83-4.51) 10/27/20 05:44 Nucleated RBC % 0 % (0-5) 10/27/20 05:44 Differential Comment SCANNED 10/24/20 05:15 Diff Path Review Reviewed 10/24/20 05:15 PT 28.6 SECONDS (11.7-14.9) H 11/12/20 05:47 INR 2.7 11/12/20 05:47 Sodium 140 mmol/L (136-145) 11/11/20 05:27 Potassium 3.9 mmol/L (3.5-5.1) 11/11/20 05:27 Chloride 105 mmol/L (98-107) 11/11/20 05:27 Carbon Dioxide 29.0 mmol/L (21.0-32.0) 11/11/20 05:27 Anion Gap 6 (5-15) 11/11/20 05:27 BUN 12 mg/dL (7-18) 11/11/20 05:27 Creatinine 0.72 mg/dL (0.70-1.30) 11/11/20 05:27 Estim Creat Clear Calc 86.71 ml/min 11/11/20 05:27 Est GFR (MDRD) Af Amer 142 mL/min (>60) 11/11/20 05:27 Est GFR (MDRD) Non-Af 117 mL/min (>60) 11/11/20 05:27 BUN/Creatinine Ratio 16.6 RATIO (10-20) 11/11/20 05:27 Glucose 111 mg/dL (74-106) H 11/11/20 05:27 Lactic Acid 0.8 mmol/L (0.4-1.9) 10/27/20 13:10 Calcium 8.9 mg/dL (8.5-10.1) 11/11/20 05:27 Phosphorus 4.0 mg/dL (2.5-4.9) 10/24/20 05:15 Magnesium 2.0 mg/dL (1.6-2.6) 11/11/20 05:27 Total Bilirubin 0.40 mg/dL (0.20-1.00) 10/24/20 05:15 AST 21 U/L (15-37) 10/24/20 05:15 ALT 39 U/L (16-61) 10/24/20 05:15 Alkaline Phosphatase 138 U/L (45-117) H 10/24/20 05:15 Total Protein 8.3 g/dL (6.4-8.2) H 10/24/20 05:15 Albumin 2.5 g/dL (3.2-5.0) L 10/24/20 05:15 Globulin 5.8 g/dL (2.2-4.2) H 10/24/20 05:15 Albumin/Globulin Ratio 0.4 RATIO (0.9-2.4) L 10/24/20 05:15 Procalcitonin 0.11 ng/mL (0.00-0.09) H 10/27/20 05:44 MRSA (PCR) Negative (Negative) 10/27/20 14:10 POC Glucose 130 mg/dL (70-110) H 11/12/20 06:53 Microbiology 10/24/20 11:23 Sputum, Expectorated/Coughed Gram Stain - Final 10/24/20 11:23 Sputum, Expectorated/Coughed Respiratory Culture - Final Streptococcus constellatus con 10/24/20 11:23 Other - Open/Non-Healing Wound Miscellaneous Culture - Final Pseudomonas aeroginosa 10/24/20 11:23 Other - Open/Non-Healing Wound Gram Stain - Final 10/24/20 11:23 Stool C. difficile DNA Amplification - Final negative Consultations 11/03/20 10:36 Consult: Onc/Wound/firer bisque kiln Routine Comment: Comments:: PEG site 11/11/2020-consult respiratory therapy for decannulation Operations: None Procedures: Peg tube placement - After the patient pulled his PEG tube out delirious. PEG tube was placed by Dr. Sina Guerra., - - Decannulation of tracheostomy appliance on 11/11/2020. Summary of Care Provided: Daniel Sanchez is a 60 year old M with a past medical history of hyperten ronald, hyperlipidemia, super obesity, coronary artery disease, prostate disorder, recurrent DVTs, chronic anticoagulation with warfarin, uncontrolled diabetes mellitus type 2 and venous insufficiency who presented to [facility] emergency department on 09/22/2020 complaining of difficulty walking and confusion. His stated that he had been complaining of left side pain for [address] brain showed an intracranial hemorrhage and the patient was given vitamin K and transferred to [facility] via med flight. At [place] he was intubated and started on a Cardene drip for malignant hypertension. INR was 4.2 and he received Kcentra on arrival to [place]. While at [place] he had a CSF shunt placed in the right frontal area. He had gram-negative pneumonia and failed extubation on 10/02/2020. He was reintubated on 10/04/2020 and eventually had a tracheostomy. He has mild oral dysphagia and severe pharyngeal dysphagia and aspirated pur?ed food. He has silent aspiration. A PEG tube was inserted. He was started on Keppra for new onset seizures. He received PT/OT/ST at [facility] and when he was ready for discharge he was transferred to [facility] acute inpatient rehab unit on 10/23/2020. He will have greater than 3 hours of therapy daily to restore him at or near his prior level of function. He lives in a private two-story home a nd his bedroom is on the second floor. There is a full bathroom with a walk-in shower on the first floor and accommodations can be made for him to sleep on the first floor. He has a few steps to enter his house. When Bill arrived on the rehab unit he was delirious/agitated and behavior was difficult to control. He pulled out his PEG tube and pulled out his tracheostomy twice. The PEG tube was reinserted by Dr. Guerra. He was started on Seroquel and the dose was adjusted to achieve cooperation from the patient. An EKG was checked when placed on Seroquel and he had no significant QT prolongation. While in the rehab unit he developed a Pseudomonas aeruginosa infection around the PEG tube site and this was treated with Levaquin and resolved. He also developed acute bronchitis secondary to beta Streptococcus and this was treated with Rocephin. Warfarin was adjusted to maintain the INR between 2 and 3. Metformin was discontinued due to severe diarrhea while on TF. Zay gradually improved with therapy and he was eventually started on a diet and the [facility] protocol. By the time he was discharged Zay had been advanced to a soft bite sized diet with thin liquids. Prior to discharge he was able to ambulate 400 feet using a wheeled walker at standby assist. His gait was steady with no loss of balance. He was able to go up and down 5 steps using 2 rails at contact-guard assist. He completed the tug test in 16.4 seconds. He was able to complete upper body and lower body dressing at standby assistance. He was able to complete toilet transfer are at contact-guard assist on and off a lower commode. Zay was discharged home on 11/12/20 and her referral was made by the social insurance adviser to [facility] for PT/OT/ST/SN. Oxygen was obtained for him to wear anytime he is sleeping. A 4 wheeled walker was also ordered. He should have the second portion of his sleep study to titrate pressure needed for CPAP to BIPAP to keep the airways open. He will need to follow-up with Dr. Guerra in another month or so to remove the PEG tube. He is going to follow-up with his primary care physician, Dr. Alanis, in 7 to 10 days post discharge. Alert, oriented x3, pleasant and cooperative. Lungs-clear to auscultation but diminished, likely secondary to body habitus He has been decannulated on 11/11/2020. Heart-regular rate and rhythm, no ectopy, heart sounds are distant secondary to body habitus. No gallop and no rub. Abdomen-obese, soft, nontender, nondistended, PEG site has no erythema and no discharge. No guarding with palpation. Bowel sounds are normal No peripheral edema, no calf tenderness No rashes and no skin breakdown This note was generated with [employer] dictation software. It may contain incorrect words, spelling, and punctuation that were not noted in checking the note before signing. Patient Problems: Active and Suspected Problems Status post tracheostomy (Acute) S/P percutaneous endoscopic gastrostomy (PEG) tube placement (Acute) Hemorrhagic cerebrovascular accident (CVA) (Acute) Posterior left temporal lobe Subarachnoid hemorrhage (Acute) Bilateral Deep vein thrombosis (DVT) of left upper extremity (Acute) Cognitive dysfunction (Acute) Pharyngeal dysphagia (Acute) severe. Pt NPO at presentation to the rehab unit Presence of cerebrospinal fluid drainage device (Acute) Right frontal area Seizure disorder as sequela of cerebrovascular accident (Acute) - Physical Exam Vitals/I&O's: Vital Signs Temp Pulse Resp BP Pulse Ox 98.2 F 75 18 131/80 H 93 11/12/20 09:27 11/12/20 09:27 11/12/20 09:27 11/12/20 09:27 11/12/20 09:27 Oxygen Flow Rate (L/min) 8 Oxygen Delivery Method Room Air Weight: 290 lb 5.581 oz Body Mass Index (BMI) 52.6 Intake and Output for Last 24 Hours 11/10/20 11/11/20 11/12/20 23:59 23:59 23:59 Intake Total 2320 / 2320 2040 / 2040 720 / 720 Output Total 2850 / 2850 1700 / 1700 1100 / 1100 Balance -530 / -530 340 / 340 -380 / -380 Laboratory Results 11/11/20 05:27: Hgb 9.6 L, Hct 30.5 L 11/11/20 05:27: Sodium 140, Potassium 3.9, Chloride 105, Carbon Dioxide 29.0, Anion Gap 6, BUN 12, Creatinine 0.72, Estim Creat Clear Calc 86.71, Est GFR (MDRD) Af Amer 142, Est GFR (MDRD) Non-Af 117, BUN/Creatinine Ratio 16.6, Glucose 111 H, Calcium 8.9, Magnesium 2.0 11/11/20 11:38: POC Glucose 111 H 11/11/20 16:50: POC Glucose 131 H 11/11/20 22:22: POC Glucose 160 H 11/12/20 05:47: PT 28.6 H, INR 2.7 11/12/20 06:53: POC Glucose 130 H Current Medications Acetaminophen (Acetaminophen 500 Mg Tablet) 1,000 mg PO Q8 [facility] Last Admin: 11/12/20 06:54 Dose: 1,000 mg Documented by: Albuterol Sulfate (Albuterol 2.5 Mg/3 Ml Vial.Neb.) 2.5 mg INHALATION Q2H PRN PRN PRN Reason: WHEEZING Last Admin: 10/30/20 09:20 Dose: 2.5 mg Documented by: Atorvastatin Calcium (Atorvastatin Calcium 80 Mg Tablet) 80 mg PO QHS [facility] Last Admin: 11/11/20 22:26 Dose: 80 mg Documented by: Bisacodyl (Bisacodyl 10 Mg Suppository) 10 mg RECTAL .PRN X 1 PRN PRN Reason: Constipation Last Admin: 11/08/20 20:25 Dose: 10 mg Documented by: Doxazosin Mesylate (Doxazosin 1 Mg Tablet) 2 mg PO DAILY [facility] Last Admin: 11/12/20 08:25 Dose: 2 mg Documented by: Enteral Nutritional Formula (Vital High Protein 1,000 Ml Liquid) 320 ml GT 0700,1200,1800 [facility] Last Admin: 11/12/20 08:15 Dose: Not Given Documented by: Haloperidol (Haloperidol 1 Mg Tablet) 1 mg GT Q6H PRN PRN PRN Reason: AGITATION Last Admin: 11/03/20 23:18 Dose: 1 mg Documented by: Sodium Chloride () 250 mls @ 15 mls/hr IV .[id number] PRN PRN Reason: SALINE FLUSH Last Infusion: 11/04/20 08:38 Dose: Infused Documented by: Insulin Glargine (Insulin Glargine 100 Units/Ml Pen) 56 units SC 2200 [facility] Last Admin: 11/11/20 22:26 Dose: 56 units Documented by: Insulin Human Lispro (Insulin Lispro 100 Unit/Ml Insuln.Pen) 0 unit SC ACHS [facility]; Protocol Last Admin: 11/12/20 06:55 Dose: Not Given Documented by: Lactobacillus Acidophilus (Lactobacillus Acidophilus) 2 tablet GT BID [facility] Last Admin: 11/12/20 08:25 Dose: 2 tablet Documented by: Levetiracetam (Levetiracetam 1,000 Mg Tablet) 1,000 mg PO BID [facility] Last Admin: 11/12/20 08:25 Dose: 1,000 mg Documented by: Loperamide HCl (Loperamide 2 Mg Capsule) 2 mg GT Q4H PRN PRN PRN Reason: Diarrhea Last Admin: 10/24/20 08:05 Dose: 2 mg Documented by: Magnesium Hydroxide (Magnesium Hydroxide 30 Ml Udc) 30 ml GT .PRN X 1 PRN PRN Reason: Constipation Last Admin: 11/04/20 11:02 Dose: 30 ml Documented by: Melatonin (Melatonin 3 Mg Tablet) 3 mg PO QHS [facility] Last Admin: 11/11/20 22:30 Dose: 3 mg Documented by: Metoprolol Tartrate (Metoprolol Tartrate 50 Mg Tablet) 50 mg PO BID [facility] Last Admin: 11/12/20 08:25 Dose: 50 mg Documented by: Ondansetron HCl (Ondansetron Odt 4 Mg Tablet) 4 mg GT Q6H PRN PRN PRN Reason: NAUSEA Last Admin: 10/25/20 10:01 Dose: 4 mg Documented by: Quetiapine Fumarate (Quetiapine 25 Mg Tablet) 50 mg PO QHS [facility] Last Admin: 11/11/20 22:35 Dose: 50 mg Documented by: Senna/Docusate Sodium (Senna/Docusate Sodium 1 Tablet) 2 tablet PO BID [facility] Last Admin: 11/12/20 08:26 Dose: 2 tablet Documented by: Sertraline HCl (Sertraline 50 Mg Tablet) 50 mg PO DAILY [facility] Last Admin: 11/12/20 08:26 Dose: 50 mg Documented by: Sodium Chloride (0.9% Saline Lock 10 Ml Syringe) 10 - 40 ml IV UD PRN PRN Reason: SALINE FLUSH Last Admin: 10/31/20 13:26 Dose: 10 ml Documented by: Warfarin Sodium (Warfarin 6 Mg Tablet) 12 mg PO DAILY@1700 [facility] Zolpidem Tartrate (Zolpidem Tartrate 5 Mg Tablet) 5 mg PO QHS [facility] Last Admin: 11/11/20 22:37 Dose: 5 mg Documented by: Discharge Activity: May Not Drive, May Shower, - - use a walker or cane for ambulation. Weight Bearing Status: Full weight bearing Call your doctor if you observe: Fever of 101 or Higher, Inability to urinate, Inability to have a bowel movement, Shortness of breath, Dizziness, Fainting spells, Chest pain, Increased palpitations (irregular heartbeat), - - Call your family doctor if any unusual bleeding such as bleeding from the gums, blood from the anus, blood in the urine, nose bleeds, large bruises or bleeding from the vagina if female. Home Medications: Medications to take at Discharge Acetaminophen [Tylenol] 1,000 mg PO Q8H PRN tab 11/11/20 Atorvastatin Calcium [Lipitor] 80 mg GT QHS #30 tab 11/11/20 Doxazosin Mesylate [Cardura] 2 mg PO DAILY #30 tab 11/11/20 Insulin Glargine [Lantus SoloStar Pen] 56 units SC 2200 #6 pen 11/11/20 Melatonin 3 mg PO QHS #30 tab 11/11/20 Metformin HCl 500 mg PO BID #60 tab 11/11/20 Metoprolol Tartrate 50 mg GT BID #60 tab 11/11/20 Quetiapine Fumarate [Seroquel] 50 mg PO QHS #30 tab 11/11/20 Sertraline HCl [Zoloft] 50 mg PO DAILY #30 tab 11/11/20 Warfarin [Coumadin] 12 mg PO 1700 #60 tab 11/11/20 Zolpidem Tartrate [Ambien] 5 mg PO QHS #7 tab 11/11/20 levETIRAcetam tablet [Keppra tablet] 1,000 mg PO BID #60 tab 11/11/20 Warfarin [Coumadin] 12 mg PO DAILY@1700 #60 tab 11/12/20 Ipratropium [place] 0.06% [ATROVENT NASAL SPRAY (g)] 2 spray NASAL BID #1 bottle 11/17/20 Following Prescriptions Were Given to Patient: Zolpidem Tartrate [Ambien] 5 mg PO QHS #7 tab Transmission Status: Received by [facility] SP[facility]GL[facility] Ipratropium [place] 0.06% [ATROVENT NASAL SPRAY (g)] 2 spray NASAL BID #1 bottle Doxazosin Mesylate [Cardura] 2 mg PO DAILY #30 tab Transmission Status: Received by [id number] Warfarin [Coumadin] 12 mg PO 1700 #60 tab Transmission Status: Received by [id number] Warfarin [Coumadin] 12 mg PO DAILY@1700 #60 tab Transmission Status: Received by [id number] levETIRAcetam tablet [Keppra tablet] 1,000 mg PO BID #60 tab Transmission Status: Received by [id number] Insulin Glargine [Lantus SoloStar Pen] 56 units SC 2200 #6 pen Transmission Status: Received by [id number] Atorvastatin Calcium [Lipitor] 80 mg GT QHS #30 tab Transmission Status: Received by [id number] Melatonin 3 mg PO QHS #30 tab Transmission Status: Received by [id number] Metformin HCl 500 mg PO BID #60 tab Transmission Status: Received by [id number] Metoprolol Tartrate 50 mg GT BID #60 tab Transmission Status: Received by [id number] Quetiapine Fumarate [Seroquel] 50 mg PO QHS #30 tab Transmission Status: Received by [id number] Sertraline HCl [Zoloft] 50 mg PO DAILY #30 tab Transmission Status: Received by [id number] Other Amb Orders: Prothrombin Time w/INR Time Frame: 11/17/20, Facility: [facility], Location: Laboratory Please Follow Up With: Dr. Faustino Chow-PCP Please Follow Up With: Neuro Surgery Please Follow Up With: Dr. Guerra When: 4-6 weeks Please Follow Up With: Dr. Vo Patient Instructions: Intimacy After Stroke, Effects of a Stroke on the Brain and Body, Mood Swings and Depression After a Stroke, Preparing Your Home After Stroke, Stroke: Resources and Support, What Are Snoring and Sleep Apnea?, Continuous Positive Air Pressure (CPAP), Mouthpieces for Sleep Apnea Disposition: Home with Home Health Minutes spent on discharge:: 45 Patient Condition:: Good Medical Necessity - Tobacco Use Smoking Status: Never smoker Tobacco Use: Non-smoker Meaningful Use Info Meaningful Use Diagnoses (Choose all that apply): Hemorrhagic CVA - CVA Therapy Assessed for PT,OT and/or ST?: Yes Inpatient E&M: 39096 Disch Hosp
[2020-11-12 12:05] LABS: Bedside Glucose 135 mg/dL (70-110)
[2020-11-12 15:32] VITALS: O2SAT 93
[2020-11-12 17:06] LABS: Bedside Glucose 135 mg/dL (70-110)
[2020-11-12 19:33] VITALS: BP 148/78; PULSE 83; RESP 18; TEMP 37.1; O2SAT 97
[2020-11-12 20:23] VITALS: BP 160/82; PULSE 82
[2020-11-12] MEDS: Atorvastatin Calcium 80 MG Tablet PO (20:25)
[2020-11-12] MEDS: QUEtiapine 25 MG Tablet 50 MG PO (20:25)
[2020-11-12 20:26] VITALS: BP 160/82; PULSE 82
[2020-11-12] MEDS: MELATONIN 3 MG TABLET PO (20:26)
[2020-11-12] MEDS: Zolpidem Tartrate 5 MG Tablet PO (20:27)
[2020-11-12 21:25] LABS: Bedside Glucose 155 mg/dL (70-110)
[2020-11-13 05:47] LABS: International Normalized Ratio 2.4; Prothrombin Time (Protime)PT. 25.8 SECONDS (11.7-14.9)
[2020-11-13] MEDS: Acetaminophen 500 MG Tablet 1000 MG PO (06:37)
[2020-11-13 07:06] LABS: Bedside Glucose 103 mg/dL (70-110)
[2020-11-13 09:15] VITALS: BP 151/79; PULSE 75
[2020-11-13] MEDS: Sertraline 50 MG Tablet PO (09:15)
[2020-11-13] MEDS: levETIRAcetam 1,000 MG Tablet 1000 MG PO (09:15)
[2020-11-13] MEDS: Metoprolol Tartrate 50 MG Tablet PO (09:15)
[2020-11-13] MEDS: Doxazosin 1 MG Tablet 2 MG PO (09:16)
[2020-11-13 09:30] VITALS: BP 151/74; PULSE 75; RESP 16; TEMP 36.6; O2SAT 96
--- NOTE | 2020-11-13 10:16 | NURSING ---
discharged home with . discharge instructions, medications, and appointments reviewed with pt and . denies questions or concerns
[2020-11-13 10:17] VITALS: BP 151/79; PULSE 75; RESP 16; TEMP 36.7; O2SAT 95
== END 2020-11-13 10:19 | disposition home health service (06) | DRG 57 ==
PROVIDERS: Admitting Provider Internal Medicine; Visit Provider Internal Medicine
DX: I69.391 Dysphagia following cerebral infarction (principal); Z68.43 Body mass index [BMI] 50.0-59.9, adult; H70.003 Acute mastoiditis without complications, bilateral; G93.40 Encephalopathy, unspecified; K94.22 Gastrostomy infection; L03.311 Cellulitis of abdominal wall; I69.319 Unspecified symptoms and signs involving cognitive functions following cerebral infarction; R13.13 Dysphagia, pharyngeal phase; I10 Essential (primary) hypertension; E78.5 Hyperlipidemia, unspecified; E11.65 Type 2 diabetes mellitus with hyperglycemia; N42.9 Disorder of prostate, unspecified; I25.10 Atherosclerotic heart disease of native coronary artery without angina pectoris; G40.909 Epilepsy, unspecified, not intractable, without status epilepticus; I69.398 Other sequelae of cerebral infarction; E66.01 Morbid (severe) obesity due to excess calories; I87.2 Venous insufficiency (chronic) (peripheral); R79.1 Abnormal coagulation profile; J32.3 Chronic sphenoidal sinusitis; Z93.0 Tracheostomy status; Z87.891 Personal history of nicotine dependence; Z98.2 Presence of cerebrospinal fluid drainage device; Z86.718 Personal history of other venous thrombosis and embolism; Z87.01 Personal history of pneumonia (recurrent); K94.29 Other complications of gastrostomy; Y83.8 Other surgical procedures as the cause of abnormal reaction of the patient, or of later complication, without mention of misadventure at the time of the procedure; Y92.199 Unspecified place in other specified residential institution as the place of occurrence of the external cause; B96.5 Pseudomonas (aeruginosa) (mallei) (pseudomallei) as the cause of diseases classified elsewhere; J20.2 Acute bronchitis due to streptococcus; G47.33 Obstructive sleep apnea (adult) (pediatric); F32.9 Major depressive disorder, single episode, unspecified; F41.9 Anxiety disorder, unspecified
CPT/HCPCS: 31502; 31720; 36415; 71045; 71046; 74150; 74230; 80048; 80053; 82962; 83605; 83735; 84100; 84145; 85014; 85018; 85025; 85027; 85610; 87070; 87077; 87184; 87186; 87205; 87493; 87641; 92507; 92523; 92526; 92610; 93005; 94640; 97110; 97112; 97116; 97129; 97150; 97162; 97167; 97530; 97535; 97802; 97803; J7030; J7050; A4216; J0696

== ENCOUNTER 2021-01-14 13:40 | Inpatient (IN) | payer OTHER, SELFPAY ==
[2020-10-26 13:22] VITALS: BMI 52.6
[2021-01-14 13:45] VITALS: O2SAT 94
[2021-01-14 14:33] VITALS: BP 151/69; PULSE 80; RESP 18; TEMP 36.3; O2SAT 99; BMI 47.7
[2021-01-14 16:32] VITALS: PULSE 80
[2021-01-14] MEDS: Metoprolol Tartrate 50 MG Tablet GT (16:32)
[2021-01-14] MEDS: levETIRAcetam Oral Solution 500 MG/5 ML 1000 MG GT (16:32)
[2021-01-14] MEDS: Lansoprazole 15 MG Capsule.DR 30 MG GT (16:32)
[2021-01-14] MEDS: hydrOXYzine 10 MG Tablet 25 MG GT (16:32)
[2021-01-14] MEDS: Glycopyrrolate 1 MG TABLET GT (16:32)
[2021-01-14 16:45] LABS: Bedside Glucose 133 mg/dL (70-110)
[2021-01-14 18:41] LABS: International Normalized Ratio 1.9; Prothrombin Time (Protime)PT. 21.3 SECONDS (11.7-14.9)
--- NOTE | 2021-01-14 20:31 | HP.PCM_ITS ---
Problem List (1) Debility Status: Acute (2) Tracheal stenosis Status: Acute (3) Duodenal perforation Status: Acute (4) Hemothorax, right Status: Acute (5) Body mass index (BMI) 35 or more Status: Chronic (6) Diabetes mellitus Status: Chronic (7) Recurrent deep vein thrombosis (DVT) Status: Chronic (8) Dysphagia Status: Chronic (9) Seizure disorder Status: Chronic (10) BPH (benign prostatic hyperplasia) Status: Chronic (11) GERD (gastroesophageal reflux disease) Status: Chronic (12) Behavioral disorder Status: Chronic (13) Hypertension Status: Chronic Qualifiers: (14) HLD (hyperlipidemia) Status: Chronic (15) CAD (coronary artery disease) Status: Chronic (16) Hemorrhagic cerebrovascular accident (CVA) Status: Chronic Comment: Posterior left temporal lobe History of Present Illness Date of Admission: 01/14/21 Chief Complaint: Here for rehabilitation, strengthening, prior to discharge home with . 11/13/2020 The patient is a 60 year old Male discharge home from Rehab Unit after hemorrhagic stroke requiring tracheostomy, PEG tube. 12/16/2020 Admit to [facility]. Tracheal stenosis, failed balloon dilatation, CO2/Laser excision. 12/17/2020 Patient underwent permanent tracheostomy. Hospital course complicated by possible duodenal perforation, Right hemothorax with loculated effusion. Patient suffering cognitive dysfunction, deconditioning, unable to discharge directly home. Discharge with Dobbhoff tube, given suspected duodenal perforation, high risk for PEG placement. Nystatin for thrush. Nexium granules for GERD. ST recommended NPO, Tube feeding via Dobbhoff. Acute encephalopathy resolved. 01/14/2021 Admit to TCU with debility, here for rehabilitation, strengthening, prior to discharge home with . Past Medical History Past Medical History (Chronic Problems): Chronic Problems Body mass index (BMI) 35 or more (Chronic) Diabetes mellitus (Chronic) Recurrent deep vein thrombosis (DVT) (Chronic) Dysphagia (Chronic) Seizure disorder (Chronic) BPH (benign prostatic hyperplasia) (Chronic) GERD (gastroesophageal reflux disease) (Chronic) Behavioral disorder (Chronic) Chronic anticoagulation (Chronic) Obstructive sleep apnea (Chronic) Hypertension (Chronic) HLD (hyperlipidemia) (Chronic) Super obese (Chronic) Uncontrolled type II diabetes mellitus (Chronic) Prostate disorder (Chronic) CAD (coronary artery disease) (Chronic) Hemorrhagic cerebrovascular accident (CVA) (Chronic) Posterior left temporal lobe Hx of deep venous thrombosis (Chronic) was on warfarin at the time of the intracerebral bleed with an INR of 4.2. Tobacco dependence in remission (Chronic) Quit at 34 years of age and also quit alcohol at the same time. Allergies No Known Allergies Allergy (Verified 10/23/20 15:12) Home Medications: Ambulatory Orders Medication Instructions Recorded Acetaminophen [Tylenol] 1,000 mg PO Q8H PRN tab 11/11/20 Metformin HCl 500 mg PO BID #60 tab 11/11/20 Zolpidem Tartrate [Ambien] 5 mg PO QHS #7 tab 11/11/20 Warfarin [Coumadin] 12 mg PO DAILY@1700 #60 tab 11/12/20 Aspirin 81 mg PO 01/14/21 Atorvastatin Calcium [Lipitor] 80 mg NG QHS 01/14/21 Doxazosin Mesylate [Cardura] 2 mg NG DAILY 01/14/21 Enoxaparin [Lovenox] 80 mg SC Q12@0600,1800 01/14/21 Esomeprazole Magnesium [Nexium] 40 mg NG 01/14/21 Glucerna 1.5 01/14/21 Glycopyrrolate 1 mg PO 01/14/21 Hydroxyzine Pamoate 01/14/21 Insulin Glargine [Lantus SoloStar 15 units SC BID 01/14/21 Pen] Insulin Regular, Human [Humulin R] 01/14/21 Ipratropium [place] 0.06% 2 spray NASAL BID 01/14/21 [ATROVENT NASAL SPRAY (g)] Ipratropium/Albuterol Sulfate 3 ml IH 01/14/21 [Iprat-Albut 0.5-3(2.5) mg/3 ml] Melatonin 6 mg NG QHS 01/14/21 Metoprolol Tartrate 50 mg NG BID 01/14/21 Quetiapine Fumarate [Seroquel] 50 mg PO DAILY 01/14/21 Quetiapine Fumarate [Seroquel] 50 mg PO QHS 01/14/21 Sertraline HCl [Zoloft] 50 mg NG DAILY 01/14/21 Warfarin [Coumadin] 12 mg GT 1800 01/14/21 levETIRAcetam tablet [Keppra 1,000 mg NG BID 01/14/21 tablet] levETIRAcetam tablet [Keppra 1,000 mg PO Q12H 01/14/21 tablet] Surgical History: - - Tracheostomy, PEG tube insertion Psychiatric History: No pertinent psych hx Lives: Spouse/ Significant Other Smoking Status: Former smoker - Quit at 34 years old. Tobacco Use: Cigarettes Alcohol: Sober Drugs: None - *Family History Maternal History Items: Heart Disease, Renal Disease Paternal History Items: Diabetes, Heart Disease Sibling History Items: Cancer - Review of an H&P done at [facility] his brother had cancer but does not specify the patient is unable to tell me., Diabetes - Sister and brother, Heart Disease - Brother, - - Positive history of psychosis and his sister Review of Systems Constitutional: Denies: Chills, Fever, Weight Change HEENT: Denies: Head Aches, Sinus Congestion, Sinus Drainage Cardiovascular: Denies: Chest Pain, Palpitations Respiratory: Denies: Cough, Shortness of breath at rest, Sputum production Gastrointestinal: Denies: Abdominal Pain, Nausea, Vomiting Genitourinary: Denies: Dysuria Musculoskeletal: Denies: Joint Pain, Joint Tenderness Skin: Denies: Rash, Wounds Neurological: Denies: Numbness, Tingling, Focal weakness Psychiatric: Denies: Anxiety, Depression, Homicidal Ideations, Suicidal Ideations Hematologic/ Lymphatic: Denies: Easy Bruising, Easy Bleeding VTE Information - Inpt Only VTE Present on Admission: No VTE Mechan Device Prophylaxis: Knee High JOHANNA Hose VTE Pharm Prophylaxis ordered?: No Reason prophylaxis not ordered:: Treatment Not Indicated Patient Problems: Active and Suspected Problems Debility (Acute) Tracheal stenosis (Acute) Duodenal perforation (Acute) Hemothorax, right (Acute) - Physical Exam Vitals/I&O's: Vital Signs Temp Pulse Resp BP Pulse Ox 97.3 F L 80 18 151/69 H 99 01/14/21 14:33 01/14/21 16:32 01/14/21 14:33 01/14/21 14:33 01/14/21 14:33 Oxygen Flow Rate (L/min) 3 Oxygen Delivery Method Trach Collar Weight: 130.181 kg Body Mass Index (BMI) 47.7 General: Alert, Oriented x3, Cooperative HEENT: Atraumatic, PERRLA, EOMI, Normocephalic, - - Dobbhoff tube. Neck: Supple, No JVD, Negative Carotid Bruits, - - Tracheostomy. Lungs: Clear to auscultation, Normal air movement Cardiovascular: Regular rate, No murmurs Abdomen: Bowel Sounds Present, Soft, Non Tender Extremities: No edema, Capillary Refill Less than 3 Seconds Skin: No rashes, No breakdown Musculoskeletal: No Tenderness to Palpation of Joints or Extremities Neurological: Cranial nerves II-XII grossly intact Psych/Mental Status: Normal Affect, Appropriate Laboratory Results 01/14/21 16:34: POC Glucose 133 H 01/14/21 17:20: COVID-19 (EMILIA) Not Detected 01/14/21 18:14: PT 21.3 H, INR 1.9 Current Medications Albuterol/Ipratropium (Ipratropium/Albuterol Sulfate 3 Ml Ampul.Neb) 3 ml INHALATION Q4H PRN PRN Reason: Wheezing or SOB Aspirin (Aspirin 81 Mg Tab.Chew) 81 mg NG BID PRN PRN Reason: Anti-coagulation Atorvastatin Calcium (Atorvastatin Calcium 80 Mg Tablet) 80 mg NG QHS [facility] Calamine/Phenol (Menthol/Lanolin/Calamine/Znox 113 Gm Tube) 1 applic TOPICAL BID [facility]; Protocol Doxazosin Mesylate (Doxazosin 1 Mg Tablet) 2 mg NG DAILY [facility] Enoxaparin Sodium (Enoxaparin 80 Mg/0.8 Ml Syringe) 80 mg SC Q12@0600,1800 [facility] Glycopyrrolate (Glycopyrrolate 1 Mg Tablet) 1 mg GT BID [facility] Last Admin: 01/14/21 16:32 Dose: 1 mg Documented by: Hydroxyzine HCl (Hydroxyzine 10 Mg Tablet) 25 mg GT TID PRN PRN Reason: ANXIETY Last Admin: 01/14/21 16:32 Dose: 25 mg Documented by: Enteral Nutritional Formula (Glucerna 1.5) 1,000 mls @ 50 mls/hr GT .Q20H [facility] Insulin Glargine (Insulin Glargine 100 Units/Ml Pen) 15 units SC BID [facility] Last Admin: 01/14/21 18:49 Dose: Not Given Documented by: Insulin Human Lispro (Insulin Lispro 100 Unit/Ml Insuln.Pen) 15 unit SC Q6 [facility] Last Admin: 01/14/21 18:49 Dose: Not Given Documented by: Lansoprazole (Lansoprazole 15 Mg Capsule.Dr) 30 mg GT Q12 [facility] Last Admin: 01/14/21 16:32 Dose: 30 mg Documented by: Levetiracetam (Levetiracetam Oral Solution 500 Mg/5 Ml) 1,000 mg GT BID [facility] Last Admin: 01/14/21 16:32 Dose: 1,000 mg Documented by: Melatonin (Melatonin 3 Mg Tablet) 6 mg GT QHS [facility] Metoprolol Tartrate (Metoprolol Tartrate 50 Mg Tablet) 50 mg GT BID [facility] Last Admin: 01/14/21 16:32 Dose: 50 mg Documented by: Nystatin (Nystatin Powder 15gm Bottle) 1 applic TOPICAL BID [facility]; Protocol Quetiapine Fumarate (Quetiapine 25 Mg Tablet) 50 mg GT QHS [facility] Sertraline HCl (Sertraline 50 Mg Tablet) 50 mg GT DAILY [facility] Tuberculin PPD (Tuberculin,Purif.Prot.Deriv. 50 Tu/Ml Vial) 5 tu ID X1 ONE Stop: 01/15/21 10:01 Tuberculin PPD (Tuberculin,Purif.Prot.Deriv. 50 Tu/Ml Vial) 5 tu ID X1 ONE Stop: 01/22/21 10:01 Warfarin Sodium (Warfarin 6 Mg Tablet) 12 mg GT DAILY@1700 [facility] Assessment/Plan All Active Problems Debility (Acute) Tracheal stenosis (Acute) Duodenal perforation (Acute) Hemothorax, right (Acute) Anxiety and depression (Acute) Other encephalopathy (Acute) Normochromic normocytic anemia (Acute) Hyponatremia (Resolved) Supratherapeutic INR (Resolved) Status post tracheostomy (Acute) S/P percutaneous endoscopic gastrostomy (PEG) tube placement (Acute) Gram-negative pneumonia (Resolved) Mastoiditis (Resolved) Sinusitis (Resolved) Subarachnoid hemorrhage (Acute) Deep vein thrombosis (DVT) of left upper extremity (Acute) Cognitive dysfunction (Acute) Pharyngeal dysphagia (Acute) Subtherapeutic international normalized ratio (INR) (Resolved) Presence of cerebrospinal fluid drainage device (Acute) Seizure disorder as sequela of cerebrovascular accident (Acute) Delirium (Resolved) Cellulitis (Resolved) Acute bronchitis (Resolved) Infection of PEG site (Resolved) 60 year old male with below past medical history hospitalized for tracheal stenosis, underwent permanent tracheostomy 12/17/2020, complicated by duodenal perforation, right hemothorax with loculated effusion, dysphagia requiring tube feeding, admitted to TCU with debility, here for rehabilitation, strengthening, prior to discharge home with . * Debility - PT/OT. * Dysphagia - ST. * Pain - Tylenol 650MG Q4H PRN pain (1-10). * Bowel - Senna/colace 1 tablet BID PRN, MOM 30ML daily PRN, Dulcolax 10MG ME daily PRN. * Adult immunization - Administer Prevnar 13, Pneumovax 23, Fluzone, COVID19 vaccine as appropriate. * DVT prophylaxis - Not necessary, already anticoagulated. * Hyperlipidemia - Atorvastatin 80MG QHS. * BPH - Doxazosin 2MG daily. * Nutrition - Glucerna 1.5 50ML/HR. * Secretions - Glycopyrrolate 1MG BID. * Anxiety - Lorazepam 0.5MG Q6H PRN anxiety. * Diabetes Mellitus II - Lantus 15 units BID, Humalog 15 units SC Q6H. * Shortness of breath - Duoneb 3ML Q4H PRN. * GERD - Lansoprazole 30MG Q12H. * Seizure disorder - Keppra 1000MG BID. * Insomnia - Melatonin 6MG QHS. * Skin irritation - Calmoseptine topical BID. * Hypertension - Metoprolol 50MG BID. * Tinea Corporis - Nystatin powder topical BID. * Behavioral disorder - Seroquel 50MG QHS, stable chronic senior care use, GDR not recommended. * Depression - Sertraline 50MG QHS. * DVT, recurrent - Warfarin 12MG daily, INR 1.9, monitor INR.
[2021-01-14 21:16] LABS: Bedside Glucose 145 mg/dL (70-110)
[2021-01-14 21:30] VITALS: BP 145/69; PULSE 82; RESP 20; TEMP 36.4; O2SAT 100
[2021-01-14 22:00] VITALS: BMI 47.8
--- NOTE | 2021-01-14 22:01 | RAD_ITS ---
STUDY: X-RAY - ABDOMEN/PELVIS REASON FOR EXAM: Male, 60 years old. nausea, vomiting TECHNIQUE: 1 view upper abdomen. COMPARISON: Prior abdomen and pelvic CT exam. FINDINGS: Enteric tube is present ending in the distal stomach with a nondistended stomach which contains contrast. Unremarkable abdominal bowel gas pattern of the upper abdomen. There is no demonstrated free abdominal air. RAD/Abdomen Single View IMPRESSION: NG tube is present terminating in the distal stomach with contrast in the stomach and nondistended proximal small bowel included in the [id number]. Electronically Signed: Raquel Reyes MD at 23:42 EST , Service support ,
--- NOTE | 2021-01-14 22:04 | NURSING ---
Pt yelling out constantly, c/o nausea, liquid diarrhea x5 at this time, skin pale, diaphoretic, blood sugar 145, had 200ml emesis, bile colored with small amounts of yellow/pink sputum, Dr. Webb notified and new orders received.
[2021-01-14 22:28] LABS: Absolute Lymphocyte Count 1.64 X10^3/uL (0.83-4.51); Basophil# 0.05 X10^3/uL; Basophil% 0.3 % (0-1); Eosinophil# 0.41 X10^3/uL; Eosinophils% 2.5 % (0-5); Hemoglobin 9.7 g/dL (13.0-16.5); Lymphocyte # 1.64 X10^3/ul (4.0); Lymphocyte % 10.1 % (19-41); Mean Corp Hgb Conc 30.3 g/dL (32-36); Mean Corpuscular Hgb 26.2 pg (27.0-32.0); Mean Corpuscular Volume 86.5 fL (80-94); Mean Platelet Vol. 9.1 fl (6.2-12.0); Monocyte# 1.05 X10^3/uL; Monocyte% 6.5 % (0-10); NRBC Flagged by Analyzer 0 % (0-5); Neutrophil # 12.95 X10^3/uL (2.7-7.7); Neutrophil % 79.7 % (47-70); Platelet Count 670 K/mm3 (150-450); RBC Distribution Width CV 14.9 % (11.6-14.6); RBC Distribution Width SD 47.2 fl (35.1-43.9); White Blood Count 16.3 K/mm3 (4.4-11.0)
[2021-01-14 22:47] LABS: ALB/GLOB Ratio 0.4 RATIO (0.9-2.4); AST(SGOT) 37 U/L (15-37); Alanine Aminotransfer ALT/SGPT 55 U/L (16-61); Albumin, Serum 2.2 g/dL (3.2-5.0); Alkaline Phosphatase 170 U/L (45-117); Anion Gap 7 (5-15); BUN 17 mg/dL (7-18); BUN/Creat Ratio 24.3 RATIO (10-20); Calcium,Total 8.9 mg/dL (8.5-10.1); Chloride 101 mmol/L (98-107); EST Glomerular Filtration Rate 121 mL/min (>60); Est Glom Filt Rate - Afr Amer 147 mL/min (>60); Glucose 156 mg/dL (74-106); Potassium 4.1 mmol/L (3.5-5.1); Protein, Total 8.2 g/dL (6.4-8.2); Sodium Level 134 mmol/L (136-145)
[2021-01-14] MEDS: 0.9% Normal Saline 1,000 ML 500 ML IV (22:50)
--- NOTE | 2021-01-14 23:00 | RAD_ITS ---
STUDY: X-RAY CHEST REASON FOR EXAM: Male, 60 years old. crackles/short of breath TECHNIQUE: 2 views COMPARISON: Prior chest radiograph of 10/30/2020 FINDINGS: Tracheostomy cannula remains well above the natasha. Enteric tube extends below the gastroesophageal junction. The distal tip is not included in the [id number]. Left lung remains expanded and clear. There is flattening of the right diaphragm blunting of the costophrenic angle and thickening of the fissures on the right. Stable cardiac size. Normal mediastinum and alfredito. Normal visualized pulmonary arteries. Mild atherosclerotic changes of the thoracic aorta. There are diffuse degenerative changes of the visualized thoracic spine. Normal visualized ribs, clavicles, and shoulders. There is no demonstrated abnormality of the visualized soft tissue structures of the upper abdomen. RAD/Chest PA and Lateral IMPRESSION: Changes on the right include a flattened appearance of the diaphragm blunted costophrenic angle and thickening of the fissures suggesting a pleural effusion with infiltrate and/or atelectasis in the right lower lung zone. Left lung remains expanded and clear. Tracheostomy cannula remains well above the natasha. Enteric tube extends below the gastroesophageal junction. Electronically Signed: Raquel Reyes MD at 23:45 EST , Service support ,
[2021-01-14] MEDS: Ondansetron 4 MG/2 ML Vial IV (23:17)
--- NOTE | 2021-01-14 23:22 | NURSING ---
pt returned from xray, per cloth shrinking supervisor, s pt had several emesis during and not able to tolerate very well, given zofran per iv per order. hob kept elevated.
[2021-01-15] VITALS (7 sets, daily range): BP systolic 111–139; BP diastolic 62–73; PULSE 94–103; RESP 20–22; TEMP 36.3–37.4; O2SAT 87–100; BMI 47.7
[2021-01-15 00:06] LABS: Mucous, Urine 0 SEEN /hpf (<or=2+); Red Blood Cells-Urine 0 SEEN /hpf (0-5); Squamous Epithelial Cells - UA 0 SEEN /hpf (0-5)
[2021-01-15 00:08] LABS: Color, Urine Yellow (Yellow); Glucose, Dipstick Normal (Normal); Ketone-Dipstick Negative (Negative); Leukocyte Esterase-Dipstick 100 /ul (Negative); Nitrite-Dipstick Negative (Negative); Occult Blood-Urine Negative /ul (Negative); Protein-Dipstick 30 mg/dl (Negative); Specific Gravity, Urine 1.015 (1.002-1.030); Urine Bilirubin Dipstick Negative (Negative); Urine Clarity Clear (Clear); Urine Urobilinogen 1 mg/dl (Normal)
[2021-01-15 00:14] LABS: Bacteria RARE /hpf (None Seen); White Blood Cells 5-10 SEEN /hpf (0-5)
[2021-01-15 01:21] LABS: Bedside Glucose 195 mg/dL (70-110)
--- NOTE | 2021-01-15 01:27 | NURSING ---
Multiple attempts to flush Dobhoff, pt states please leave me alone for a minute, I can't have you all hovering over me. Nursing research greenhouse supervisor also assessed and will try to find the correct syringe to be able to connect to tube.
--- NOTE | 2021-01-15 01:55 | NURSING ---
Addendum entered by Josey Feldman 01/15/21 03:30: 0200 report called to NESS Thompson in ED. Addendum entered by Josey Feldman 01/15/21 02:31: Per Dr. Webb, no EKG ordered on unit, pt to have in ED. Original Note: Pt c/o chest pain, states that the middle of his chest hurts, sharp pains, rates 9/10, denies n/t to lt arm, states he feels like he can't get his breath, vitals done, RT called for breathing tx, Dr. Webb notified and order to send to ED for eval.
[2021-01-15] MEDS: Ipratropium/Albuterol Sulfate 3 ML AMPUL.NEB INHALATION (01:56)
[2021-01-15 03:09] LABS: Absolute Lymphocyte Count 0.91 X10^3/uL (0.83-4.51); Absolute Neutrophil Count 19.7 X10^3/uL (2.0-7.7); Basophil# 0.04 X10^3/uL; Basophil% 0.2 % (0-1); Eosinophil# 0.28 X10^3/uL; Eosinophils% 1.3 % (0-5); Hemoglobin 9.9 g/dL (13.0-16.5); Lymphocyte # 0.91 X10^3/ul (4.0); Lymphocyte % 4.1 % (19-41); Mean Corpuscular Hgb 26.4 pg (27.0-32.0); Mean Platelet Vol. 9.1 fl (6.2-12.0); Monocyte# 1.16 X10^3/uL; Monocyte% 5.2 % (0-10); NRBC Flagged by Analyzer 0 % (0-5); Neutrophil # 19.74 X10^3/uL (2.7-7.7); Neutrophil % 88.6 % (47-70); Platelet Count 678 K/mm3 (150-450); RBC Distribution Width CV 14.9 % (11.6-14.6); RBC Distribution Width SD 47.8 fl (35.1-43.9); Red Blood Count 3.75 M/mm3 (4.6-6.2); White Blood Count 22.3 K/mm3 (4.4-11.0)
[2021-01-15 03:24] LABS: Anion Gap 10 (5-15); BUN 20 mg/dL (7-18); Calcium,Total 8.9 mg/dL (8.5-10.1); Chloride 100 mmol/L (98-107); Creatinine, Serum 0.83 mg/dL (0.70-1.30); EST Glomerular Filtration Rate 100 mL/min (>60); Est Glom Filt Rate - Afr Amer 120 mL/min (>60); Glucose 193 mg/dL (74-106); Sodium Level 135 mmol/L (136-145)
--- NOTE | 2021-01-15 07:00 | NURSING ---
Pt returned from ED via bed, pt yelling out help me, help me. Pt reassured, repositioned for comfort, mouth care provided. Report given to dayshift, per Dr. Webb, cinthyaoff needs replaced and he will do it, materials management called for supplies to have at bedside.
--- NOTE | 2021-01-15 08:04 | RAD_ITS ---
STUDY: X-RAY - ABDOMEN/PELVIS REASON FOR EXAM: Male, 60 years old. Dobbhoff Placement TECHNIQUE: Single AP view of the abdomen / pelvis. COMPARISON: None. FINDINGS: The tip of the DOBBHOFF tube is in the second portion of the duodenum. A filter is seen within the inferior vena cava. RAD/Abdomen Single View IMPRESSION: The tip of the DOBBHOFF tube is seen within the second portion of the duodenum. Electronically Signed: Rob Jara MD at 9:37 EST , Service support ,
--- NOTE | 2021-01-15 08:04 | CPS ---
patient is on a 35% cool aerosol trach collar.
--- NOTE | 2021-01-15 08:05 | NURSING ---
Addendum entered by Deena Kat 01/15/21 13:33: Dobhoff Measurement @ 90 not 30. Addendum entered by Deena Kat 01/15/21 10:20: Dobhoff measurement @ 30. Confirmed by x-ray. Original Note: Assisted Dr. Webb in placement of Dobhoff checked placement with a bolus of air and x-ray ordered to confirm placement. Pt handled procedure well.
--- NOTE | 2021-01-15 08:10 | NURSING ---
Pt NPO and Dobhoff was not flushing Dr. Jon wassermaned to hold Insulin and Lantus. will continue to monitor Blood Sugars.
[2021-01-15] MEDS: Doxazosin 1 MG Tablet 2 MG NG (09:13)
[2021-01-15] MEDS: levETIRAcetam Oral Solution 500 MG/5 ML 1000 MG GT ×2 (09:14→17:34)
[2021-01-15] MEDS: Lansoprazole 15 MG Capsule.DR 30 MG GT ×2 (09:14→22:16)
[2021-01-15] MEDS: Metoprolol Tartrate 50 MG Tablet GT ×2 (09:14→17:36)
[2021-01-15] MEDS: Glycopyrrolate 1 MG TABLET GT ×2 (09:20→17:35)
[2021-01-15] MEDS: Sertraline 50 MG Tablet GT (09:20)
[2021-01-15] MEDS: Menthol/Lanolin/Calamine/Znox 113 GM Tube 1 APPLIC TOPICAL ×2 (10:00→17:34)
[2021-01-15] MEDS: Nystatin Powder 15gm Bottle 1 APPLIC TOPICAL ×2 (10:01→17:35)
[2021-01-15 11:00] LABS: Bedside Glucose 185 mg/dL (70-110)
[2021-01-15] MEDS: LORazepam 0.5 MG Tablet NG (11:44)
[2021-01-15] MEDS: Insulin Lispro 100 UNIT/ML INSULN.PEN 15 UNIT SC ×2 (11:45→17:48)
[2021-01-15] MEDS: 0.9% Saline Lock 10 ML Syringe IV (11:45)
--- NOTE | 2021-01-15 12:11 | NURSING ---
ALL CARE PROVIDED IN ROOM D/T CONTACT ISOLATION.
--- NOTE | 2021-01-15 13:05 | NURSING ---
Addendum entered by Deena Kat 01/15/21 13:34: Updated Dr. Webb new order for X-ray to recheck placement. Original Note: R' VERY AGITATED, SCREAMING. José Miguel KAT CALLED DR WEBB. ORDER TO GIVE UNSCHEDULED SEROQUEL. ENTERING THE ROM R' HAD LARGE AMOUNT OF YELLOW FLUID ON GOWN. UNABLE TO AUSCULTATE AIR BOLUS WHEN CHECKING PLACEMENT. José Miguel KAT PAGED DR WEBB.
--- NOTE | 2021-01-15 13:32 | RAD_ITS ---
STUDY: X-RAY - ABDOMEN/PELVIS REASON FOR EXAM: Male, 60 years old. Check Dobbhoff placement TECHNIQUE: Single AP view of the abdomen / pelvis. COMPARISON: Comparison is made with prior examination done earlier today. FINDINGS: The tip of the DOBBHOFF tube in the second portion of the duodenum. A filter is seen within the inferior vena cava. RAD/Abdomen Single View (Portable) IMPRESSION: The tip of the DOBBHOFF tube is within the second portion of the duodenum. Electronically Signed: Rob Jara MD at 14:22 EST , Service support ,
--- NOTE | 2021-01-15 13:45 | NURSING ---
SEIZURE PADS IN PLACE.
--- NOTE | 2021-01-15 13:57 | PCM.NTREPORT ---
Nutrition Therapy Report - History Nutrition Services has been consulted to:: Manage enteral nutrition Current diet / nutrition support order:: NPO, Glucerna 1.5 via Dobhoff at 50 ml/hr with 150 ml H2O flush every 6 hours providing 1800 calories, 99g protein, 1811 ml total free fluid per day- TF held currently. - Anthropometric Measurements Height:: 5 ft 5 in Weight:: 130.181 kg Body Mass Index (BMI):: 47.7 - Relevant Labs Relevant Labs:: WBC 22.3 K/mm3 (4.4-11.0) H 01/15/21 02:55 RBC 3.75 M/mm3 (4.6-6.2) L 01/15/21 02:55 Hgb 9.9 g/dL (13.0-16.5) L 01/15/21 02:55 Hct 33.0 % (40-54) L 01/15/21 02:55 MCH 26.4 pg (27.0-32.0) L 01/15/21 02:55 MCHC 30.0 g/dL (32-36) L 01/15/21 02:55 RDW Std Deviation 47.8 fl (35.1-43.9) H 01/15/21 02:55 RDW Coeff of Bruce 14.9 % (11.6-14.6) H 01/15/21 02:55 Plt Count 678 K/mm3 (150-450) H 01/15/21 02:55 Neut % (Auto) 88.6 % (47-70) H 01/15/21 02:55 Lymph % (Auto) 4.1 % (19-41) L 01/15/21 02:55 Absolute Neuts (auto) 19.7 X10^3/uL (2.0-7.7) H 01/15/21 02:55 PT 21.3 SECONDS (11.7-14.9) H 01/14/21 18:14 Sodium 135 mmol/L (136-145) L 01/15/21 02:55 BUN 20 mg/dL (7-18) H 01/15/21 02:55 BUN/Creatinine Ratio 24.0 RATIO (10-20) H 01/15/21 02:55 Glucose 193 mg/dL (74-106) H 01/15/21 02:55 Alkaline Phosphatase 170 U/L (45-117) H 01/14/21 22:20 Albumin 2.2 g/dL (3.2-5.0) L 01/14/21 22:20 Globulin 6.0 g/dL (2.2-4.2) H 01/14/21 22:20 Albumin/Globulin Ratio 0.4 RATIO (0.9-2.4) L 01/14/21 22:20 - Assessment Food / Nutrition-Related History:: Unable to speak w/ res at this time. Plans for new Dobhoff placement this day. TF unable to be provided since admin. Strict NPO- BUDGET AND POLICY ANALYST consulted. CBW 287#- wt hx per EMR 11/10/20 293.2#, 10/23/20 297#. Pt w/ edema- suspect edema masking some wt loss. Wt loss 3.4% x 2 months (not significant). 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 Dobhoff in place d/t suspected duodenal perforation & high risk for PEG placement. Unable to use dobhoff at this time d/t inability to flush dobhoff last evening- res was having copious amounts diarrhea, vomited bile, c-diff positive. C/o chest pain and not being able to breathe- sent to ED- res has aspiration pneumonia. Hx RU stay October 2020. Res w/ PEG during RU stay-hx of dysphagia w/ silent aspiration. MBS completed in Oct- res was progressed to soft& bite sized diet w/ thin liquids & PEG was no longer being used however could not be removed until end of November 2020- PEG removed. - Nutrition Diagnosis Problem / Etiology / Signs & Symptoms (PES):: Inadequate enteral nutrition infusion RT compromised Dobhoff AEB TF not given d/t inability to be flushed with plans for replacement of Dobhoff this day. Evidence of Malnutrition Exists:: No - Nutrition Intervention Nutrition Prescription:: Calories:[id number], Protein: 140-150g - Food / Nutrient Delivery Interventions Nutrition support ordered as / adjusted to:: Rec Vital HP via dobhoff at goal rate of 75ml/hr with 50mL flush every 4 hours to provide 1800 calories, 157 grams protein, and 1805 mL of free water per day. Would intiate TF at 20 ml per hour and increase by 10 ml every 8 to 12 hours as tolerated until goal rate achieved. Nutrition education provided?: No - MNT Monitoring Further MNT monitoring and evaluation required?: Yes MNT Follow-up in:: 5-7 days
[2021-01-15] MEDS: QUEtiapine 25 MG Tablet 50 MG GT ×2 (14:45→22:25)
--- NOTE | 2021-01-15 14:54 | CASEMGMT ---
Social Work Spoke with and offered compassionate care visit d/t to patient continuously yelling out and being agitated. appreciative but unsure if that would be beneficial since he cannot understand why she can't take him home. She will think about the visit and notify nursing. Jessie Mendenhall, AMOS FELIPEW
[2021-01-15] MEDS: Vital High Protein 1,000 ML 20 ML GT (15:03)
[2021-01-15] MEDS: Tuberculin,Purif.prot.deriv. 50 TU/ML Vial 5 ML ID (15:06)
[2021-01-15 16:27] LABS: International Normalized Ratio 2.1; Prothrombin Time (Protime)PT. 23.2 SECONDS (11.7-14.9)
[2021-01-15 18:06] LABS: Bedside Glucose 185 mg/dL (70-110)
[2021-01-15 21:36] LABS: Bedside Glucose 180 mg/dL (70-110)
[2021-01-15] MEDS: MELATONIN 3 MG TABLET 6 MG GT (22:22)
[2021-01-15] MEDS: Atorvastatin Calcium 80 MG Tablet NG (22:22)
[2021-01-16] VITALS (7 sets, daily range): BP systolic 116–145; BP diastolic 64–69; PULSE 67–89; RESP 16–18; TEMP 35.9–36.6; O2SAT 93–99
[2021-01-16] MEDS: Insulin Lispro 100 UNIT/ML INSULN.PEN 15 UNIT SC ×4 (01:24→17:39)
[2021-01-16 01:36] LABS: Bedside Glucose 175 mg/dL (70-110)
[2021-01-16 06:15] LABS: Bedside Glucose 134 mg/dL (70-110)
[2021-01-16] MEDS: Doxazosin 1 MG Tablet 2 MG NG (06:45)
[2021-01-16] MEDS: Menthol/Lanolin/Calamine/Znox 113 GM Tube 1 APPLIC TOPICAL ×2 (06:45→17:39)
[2021-01-16] MEDS: Nystatin Powder 15gm Bottle 1 APPLIC TOPICAL ×2 (06:46→17:39)
[2021-01-16] MEDS: Metoprolol Tartrate 50 MG Tablet GT ×2 (06:46→17:31)
[2021-01-16] MEDS: Glycopyrrolate 1 MG TABLET GT ×2 (06:47→17:32)
[2021-01-16] MEDS: Sertraline 50 MG Tablet GT (06:47)
[2021-01-16] MEDS: levETIRAcetam Oral Solution 500 MG/5 ML 1000 MG GT ×2 (06:58→17:30)
[2021-01-16 07:36] LABS: Bedside Glucose 187 mg/dL (70-110)
--- NOTE | 2021-01-16 10:40 | NURSING ---
Reports feeling nauseous. Medicated with IV zofran. States he is thirsty. Speech therapy preparing to come in room and states she will trial ice chips on him. Trach dressing changed at this time due to mucous surrounding area. Will continue to monitor.
[2021-01-16 10:51] LABS: Bedside Glucose 123 mg/dL (70-110)
[2021-01-16] MEDS: 0.9% Saline Lock 10 ML Syringe IV (10:55)
[2021-01-16] MEDS: Ondansetron 4 MG/2 ML Vial IV (10:56)
--- NOTE | 2021-01-16 11:20 | PHA.CONS_ITS ---
<Joy Valentine M - Last Filed: 01/16/21 11:20> Progress Note - Pharmacy Subjective: TCU ADMISSION Objective: Allergies No Known Allergies Allergy (Verified 01/15/21 02:17) Current Medications Generic Name Dose Route Start Last Admin Trade Name Freq PRN Reason Stop Dose Admin Acetaminophen 650 mg 01/14/21 20:47 Acetaminophen 650 Mg/20 Ml Udc NG Q4H PRN PRN Pain Score 1-10 Albuterol/Ipratropium 3 ml 01/14/21 15:19 01/15/21 01:56 Ipratropium/Albuterol Sulfate 3 Ml Ampul.Neb INHALATION 3 ml Q4H PRN Administration Wheezing or SOB Atorvastatin Calcium 80 mg 01/14/21 22:00 01/15/21 22:22 Atorvastatin Calcium 80 Mg Tablet NG 80 mg QHS JULIEN Administration Bisacodyl 10 mg 01/14/21 20:57 Bisacodyl 10 Mg Suppository RC DAILY PRN Constipation Calamine/Phenol 1 applic 01/15/21 06:00 01/16/21 06:45 Menthol/Lanolin/Calamine/Znox 113 Gm Tube TOPICAL 1 applicatio BID JULIEN Administration Protocol Doxazosin Mesylate 2 mg 01/15/21 06:00 01/16/21 06:45 Doxazosin 1 Mg Tablet NG 2 mg DAILY JULIEN Administration Famotidine 40 mg 01/16/21 18:00 Famotidine 20 Mg Tablet NG BID JULIEN Glycopyrrolate 1 mg 01/14/21 18:00 01/16/21 06:47 Glycopyrrolate 1 Mg Tablet GT 1 mg BID JULIEN Administration Enteral Nutritional Formula 1,000 mls @ 75 mls/hr 01/15/21 14:15 01/15/21 15:03 Vital High Protein GT 20 mls/hr .[id number] JULIEN Administration Insulin Glargine 15 units 01/14/21 18:00 01/16/21 06:54 Insulin Glargine 100 Units/Ml Pen SC 15 u BID JULIEN Administration Insulin Human Lispro 15 unit 01/14/21 18:00 01/16/21 11:03 Insulin Lispro 100 Unit/Ml Insuln.Pen SC 15 u Q6 JULIEN Administration Levetiracetam 1,000 mg 01/14/21 18:00 01/16/21 06:58 Levetiracetam Oral Solution 500 Mg/5 Ml GT 1,000 mg BID JULIEN Administration Lorazepam 1 mg 01/15/21 19:12 Lorazepam 0.5 Mg Tablet NG Q6H PRN PRN ANXIETY Magnesium Hydroxide 30 ml 01/14/21 20:56 Magnesium Hydroxide 30 Ml Udc NG DAILY PRN Constipation Melatonin 6 mg 01/14/21 22:00 01/15/21 22:22 Melatonin 3 Mg Tablet GT 6 mg QHS JULIEN Administration Metoprolol Tartrate 50 mg 01/14/21 18:00 01/16/21 06:46 Metoprolol Tartrate 50 Mg Tablet GT 50 mg BID JULIEN Administration Nystatin 1 applic 01/15/21 06:00 01/16/21 06:46 Nystatin Powder 15gm Bottle TOPICAL 1 applicatio BID JULIEN Administration Protocol Ondansetron HCl 4 mg 01/14/21 22:03 01/16/21 10:56 Ondansetron 4 Mg/2 Ml Vial IV 4 mg Q6H PRN PRN Administration NAUSEA/VOMITING Quetiapine Fumarate 50 mg 01/14/21 22:00 01/15/21 22:25 Quetiapine 25 Mg Tablet GT 50 mg QHS JULIEN Administration Senna/Docusate Sodium 1 tablet 01/14/21 20:55 Senna/Docusate Sodium 1 Tablet NG BID PRN PRN Constipation Sertraline HCl 50 mg 01/15/21 06:00 01/16/21 06:47 Sertraline 50 Mg Tablet GT 50 mg DAILY JULIEN Administration Sodium Chloride 10 - 40 ml 01/14/21 23:25 01/16/21 10:55 0.9% Saline Lock 10 Ml Syringe IV 20 ml UD PRN Administration SALINE FLUSH Tuberculin PPD 5 tu 01/22/21 10:00 Tuberculin,Purif.Prot.Deriv. 50 Tu/Ml Vial ID 01/22/21 10:01 X1 ONE Vancomycin HCl 125 mg 01/15/21 12:00 01/16/21 06:50 Vancomcyin 125 Mg/5 Ml Susp Po.Syringe NG 01/25/21 12:01 125 mg Q6 JULIEN Administration Warfarin Sodium 12 mg 01/14/21 20:00 01/15/21 17:34 Warfarin 6 Mg Tablet GT 12 mg DAILY@1700 JULIEN Administration Problem List Debility (Chronic) Tracheal stenosis (Acute) Duodenal perforation (Chronic) Hemothorax, right (Acute) Body mass index (BMI) 35 or more (Chronic) Diabetes mellitus (Chronic) Recurrent deep vein thrombosis (DVT) (Chronic) Dysphagia (Chronic) Seizure disorder (Chronic) BPH (benign prostatic hyperplasia) (Chronic) GERD (gastroesophageal reflux disease) (Chronic) Behavioral disorder (Chronic) Hypertension (Chronic) HLD (hyperlipidemia) (Chronic) CAD (coronary artery disease) (Chronic) Hemorrhagic cerebrovascular accident (CVA) (Chronic) Vital Signs Temp Pulse Resp BP Pulse Ox 98 F 89 16 145/69 H 93 01/16/21 07:12 01/16/21 07:12 01/16/21 07:12 01/16/21 07:12 01/16/21 07:13 Oxygen Flow Rate (L/min) 10 Oxygen Delivery Method Trach Collar Weight: 130.181 kg Body Mass Index (BMI) 47.7 Sodium 135 mmol/L (136-145) L 01/15/21 02:55 Potassium 4.0 mmol/L (3.5-5.1) 01/15/21 02:55 Chloride 100 mmol/L (98-107) 01/15/21 02:55 Carbon Dioxide 25.0 mmol/L (21.0-32.0) 01/15/21 02:55 Anion Gap 10 (5-15) 01/15/21 02:55 BUN 20 mg/dL (7-18) H 01/15/21 02:55 Creatinine 0.83 mg/dL (0.70-1.30) 01/15/21 02:55 Est GFR (MDRD) Af Amer 120 mL/min (>60) 01/15/21 02:55 Est GFR (MDRD) Non-Af 100 mL/min (>60) 01/15/21 02:55 BUN/Creatinine Ratio 24.0 RATIO (10-20) H 01/15/21 02:55 Glucose 193 mg/dL (74-106) H 01/15/21 02:55 Assessment/Plan: 1. Pain: Tylenol 650mg GT Q4h PRN Pain 1-10. Please continue to monitor for increased/decreased S/S pain, PRN medication usage. 2. HTN/HLD: Lipitor 80mg NG QHS, Lopressor 50mg GT BID. Please continue to monitor BP, pulse, lipid panel annually or sooner if clinically indicted. 3. Type II Diabetes: Lantus 15 unit SC BID, Humalog 15 unit SC Q6h. Please continue to monitor POC BG (last BG = 193), A1c, S/S hyper/hypoglycemia. 4. Seizure Disorder: Keppra 1000mg GT BID. Please continue to monitor for medication effectiveness, recurring seizures. 5. BPH: Doxazosin 2mg GT BID. Please continue to monitor for improvement in BPH symptoms, BP, pulse. 6. Recurrent DVT: Warfarin 12mg GT Daily. Please continue to monitor INR (last 2.1 on 01/15), S/S bleeding/bruising, or S/S recurrent DVT. 7. (+) C.Diff Infection: Vancomycin 125mg GT Q6 thru 01/25/21. Please continue to monitor for improvement in symptoms, resolution of infection. 8. GERD: Pepcid 40mg GT BID. Please continue to monitor for S/S GERD flare-ups. 9. Excessive secretions: Robinul 1mg GT BID. Please continue to monitor for medication effectiveness, excessive dryness. 10. SOB: Duoneb 3mL INH Q4h PRN SOB/Wheezing. Please continue to monitor for medication effectiveness, PRN medication use. 11. Insomnia: Melatonin 6mg GT QHS. Please continue to monitor for medication effectiveness. 12. Nausea: Zofran 4mg IV Q6h PRN. Please continue to monitor for medication effectiveness, PRN medication usage. Psychotropic Medications: *13. Depression: Zoloft 50mg GT QHS. Please consider a GDR by 07/2021 if clinically indicated, thank you. *14. Anxiety: Lorazepam 1mg GT Q6h PRN Anxiety. Please consider a GDR by 07/2021 if clinically indicated, thank you. 15. Behavioral Disorder: Seroquel 50mg GT QHS. See note in H/P regarding GDR. Unnecessary Medications: Bowel Regimen: Senna/Docusate 1 tab GT BID PRN, Dulcolax 10mg [place] Daily PRN, MOM 30mL GT Daily PRN. Please continue to monitor for S/S constipation, PRN medication usage. Date of Note:: 01/16/21 - Provider Comments Provider responsibility: Provider responsible to enter orders to implement recommendations <Elie Webb Chi - Last Filed: 01/16/21 13:45> Progress Note - Pharmacy Subjective: [] Objective: Allergies No Known Allergies Allergy (Verified 01/15/21 02:17) Current Medications Generic Name Dose Route Start Last Admin Trade Name Freq PRN Reason Stop Dose Admin Acetaminophen 650 mg 01/14/21 20:47 Acetaminophen 650 Mg/20 Ml Udc NG Q4H PRN PRN Pain Score 1-10 Albuterol/Ipratropium 3 ml 01/14/21 15:19 01/15/21 01:56 Ipratropium/Albuterol Sulfate 3 Ml Ampul.Neb INHALATION 3 ml Q4H PRN Administration Wheezing or SOB Atorvastatin Calcium 80 mg 01/14/21 22:00 01/15/21 22:22 Atorvastatin Calcium 80 Mg Tablet NG 80 mg QHS JULIEN Administration Bisacodyl 10 mg 01/14/21 20:57 Bisacodyl 10 Mg Suppository RC DAILY PRN Constipation Calamine/Phenol 1 applic 01/15/21 06:00 01/16/21 06:45 Menthol/Lanolin/Calamine/Znox 113 Gm Tube TOPICAL 1 applicatio BID JULIEN Administration Protocol Doxazosin Mesylate 2 mg 01/15/21 06:00 01/16/21 06:45 Doxazosin 1 Mg Tablet NG 2 mg DAILY JULIEN Administration Famotidine 40 mg 01/16/21 18:00 Famotidine 20 Mg Tablet NG BID JULIEN Glycopyrrolate 1 mg 01/14/21 18:00 01/16/21 06:47 Glycopyrrolate 1 Mg Tablet GT 1 mg BID JULIEN Administration Enteral Nutritional Formula 1,000 mls @ 75 mls/hr 01/15/21 14:15 01/15/21 15:03 Vital High Protein GT 20 mls/hr .[id number] JULIEN Administration Insulin Glargine 15 units 01/14/21 18:00 01/16/21 06:54 Insulin Glargine 100 Units/Ml Pen SC 15 u BID JULIEN Administration Insulin Human Lispro 15 unit 01/14/21 18:00 01/16/21 11:03 Insulin Lispro 100 Unit/Ml Insuln.Pen SC 15 u Q6 JULIEN Administration Levetiracetam 1,000 mg 01/14/21 18:00 01/16/21 06:58 Levetiracetam Oral Solution 500 Mg/5 Ml GT 1,000 mg BID JULIEN Administration Lorazepam 1 mg 01/15/21 19:12 Lorazepam 0.5 Mg Tablet NG Q6H PRN PRN ANXIETY Magnesium Hydroxide 30 ml 01/14/21 20:56 Magnesium Hydroxide 30 Ml Udc NG DAILY PRN Constipation Melatonin 6 mg 01/14/21 22:00 01/15/21 22:22 Melatonin 3 Mg Tablet GT 6 mg QHS JULIEN Administration Metoprolol Tartrate 50 mg 01/14/21 18:00 01/16/21 06:46 Metoprolol Tartrate 50 Mg Tablet GT 50 mg BID JULIEN Administration Nystatin 1 applic 01/15/21 06:00 01/16/21 06:46 Nystatin Powder 15gm Bottle TOPICAL 1 applicatio BID [facility] Administration Protocol Ondansetron HCl 4 mg 01/14/21 22:03 01/16/21 10:56 Ondansetron 4 Mg/2 Ml Vial IV 4 mg Q6H PRN PRN Administration NAUSEA/VOMITING Quetiapine Fumarate 50 mg 01/14/21 22:00 01/15/21 22:25 Quetiapine 25 Mg Tablet GT 50 mg QHS [facility] Administration Senna/Docusate Sodium 1 tablet 01/14/21 20:55 Senna/Docusate Sodium 1 Tablet NG BID PRN PRN Constipation Sertraline HCl 50 mg 01/15/21 06:00 01/16/21 06:47 Sertraline 50 Mg Tablet GT 50 mg DAILY JULIEN Administration Sodium Chloride 10 - 40 ml 01/14/21 23:25 01/16/21 10:55 0.9% Saline Lock 10 Ml Syringe IV 20 ml UD PRN Administration SALINE FLUSH Tuberculin PPD 5 tu 01/22/21 10:00 Tuberculin,Purif.Prot.Deriv. 50 Tu/Ml Vial ID 01/22/21 10:01 X1 ONE Vancomycin HCl 125 mg 01/15/21 12:00 01/16/21 13:10 Vancomcyin 125 Mg/5 Ml Susp Po.Syringe NG 01/25/21 12:01 125 mg Q6 JULIEN Administration Warfarin Sodium 12 mg 01/14/21 20:00 01/15/21 17:34 Warfarin 6 Mg Tablet GT 12 mg DAILY@1700 JULIEN Administration Problem List Debility (Chronic) Tracheal stenosis (Acute) Duodenal perforation (Chronic) Hemothorax, right (Acute) Body mass index (BMI) 35 or more (Chronic) Diabetes mellitus (Chronic) Recurrent deep vein thrombosis (DVT) (Chronic) Dysphagia (Chronic) Seizure disorder (Chronic) BPH (benign prostatic hyperplasia) (Chronic) GERD (gastroesophageal reflux disease) (Chronic) Behavioral disorder (Chronic) Hypertension (Chronic) HLD (hyperlipidemia) (Chronic) CAD (coronary artery disease) (Chronic) Hemorrhagic cerebrovascular accident (CVA) (Chronic) Vital Signs Temp Pulse Resp BP Pulse Ox 98 F 89 16 145/69 H 93 01/16/21 07:12 01/16/21 07:12 01/16/21 07:12 01/16/21 07:12 01/16/21 07:13 Oxygen Flow Rate (L/min) 10 Oxygen Delivery Method Trach Collar Weight: 130.181 kg Body Mass Index (BMI) 47.7 Sodium 135 mmol/L (136-145) L 01/15/21 02:55 Potassium 4.0 mmol/L (3.5-5.1) 01/15/21 02:55 Chloride 100 mmol/L (98-107) 01/15/21 02:55 Carbon Dioxide 25.0 mmol/L (21.0-32.0) 01/15/21 02:55 Anion Gap 10 (5-15) 01/15/21 02:55 BUN 20 mg/dL (7-18) H 01/15/21 02:55 Creatinine 0.83 mg/dL (0.70-1.30) 01/15/21 02:55 Est GFR (MDRD) Af Amer 120 mL/min (>60) 01/15/21 02:55 Est GFR (MDRD) Non-Af 100 mL/min (>60) 01/15/21 02:55 BUN/Creatinine Ratio 24.0 RATIO (10-20) H 01/15/21 02:55 Glucose 193 mg/dL (74-106) H 01/15/21 02:55 Assessment/Plan: Psychotropic Medications: Unnecessary Medications: Bowel Regimen: - Provider Comments Provider responsibility: Provider responsible to enter orders to implement recommendations Provider Comments to Recommendations by Pharmacy: Agree
--- NOTE | 2021-01-16 11:48 | NURSING ---
All care provided in room due to contact precautions.
[2021-01-16 16:21] LABS: Bedside Glucose 141 mg/dL (70-110)
[2021-01-16] MEDS: Famotidine 20 MG Tablet 40 MG NG (17:31)
--- NOTE | 2021-01-16 18:30 | NURSING ---
Trach care done and duoderm added near stoma site for redness and pressure. Suctioned at this time. Resident tolerated ok. Emotional throughout the day and asking for and visitors. Tearful. Emotional support given. Dry dressing to Rt groin area to keep dry and protect from attends.
[2021-01-16] MEDS: Vital High Protein 1,000 ML 75 ML GT ×2 (21:38→22:00)
[2021-01-16] MEDS: Atorvastatin Calcium 80 MG Tablet NG ×2 (23:05→23:08)
[2021-01-16] MEDS: MELATONIN 3 MG TABLET 6 MG GT (23:07)
[2021-01-16] MEDS: QUEtiapine 25 MG Tablet 50 MG GT (23:08)
[2021-01-17 00:21] LABS: Bedside Glucose 138 mg/dL (70-110)
[2021-01-17] MEDS: Insulin Lispro 100 UNIT/ML INSULN.PEN 15 UNIT SC ×5 (00:49→23:25)
--- NOTE | 2021-01-17 01:56 | NURSING ---
Pt calling out for help. Oriented to time as pt is slightly disoriented. One ice chip given per ST orders. Pt tolerated well, no coughing noted. Instructed to call for additional assistance. Call light w/ in reach.
--- NOTE | 2021-01-17 02:20 | NURSING ---
Pt calls out for help verbalizing difficulty breathing. Deep suctioning completed. Moderate amount of thick, white mucous suctioned from trach. Repeatedly asks for water and ice chips. This nurse informed pt more that once during this encounter he is not permitted to consume water and ice chips sparingly per ST orders. Becomes irritated. Thinks he is wet. Brief checked and is dry. Attempted to position for comfort. HOB remains elevated at 45 degrees or greater.
--- NOTE | 2021-01-17 04:45 | NURSING ---
Pt calls out for help. Difficulty verbalizing concerns fully. Deep suctioned for a small amount of thick, white sputum. Pt tolerated well. Reconnected to O2 trach collar. Pt thinks he is wet. brief checked per this nurse and is dry. Denies the need to void. Call light w/ in reach.
[2021-01-17 06:25] LABS: Bedside Glucose 189 mg/dL (70-110)
[2021-01-17] MEDS: Menthol/Lanolin/Calamine/Znox 113 GM Tube 1 APPLIC TOPICAL ×2 (06:29→16:40)
[2021-01-17] MEDS: Doxazosin 1 MG Tablet 2 MG NG (06:30)
[2021-01-17] MEDS: levETIRAcetam Oral Solution 500 MG/5 ML 1000 MG GT ×2 (06:30→16:39)
[2021-01-17] MEDS: Famotidine 20 MG Tablet 40 MG NG ×2 (06:31→16:39)
[2021-01-17] MEDS: Sertraline 50 MG Tablet GT (06:31)
[2021-01-17 06:32] VITALS: BP 126/84; PULSE 83
[2021-01-17] MEDS: Metoprolol Tartrate 50 MG Tablet GT ×2 (06:32→16:39)
[2021-01-17] MEDS: Glycopyrrolate 1 MG TABLET GT (06:32)
[2021-01-17] MEDS: Nystatin Powder 15gm Bottle 1 APPLIC TOPICAL ×2 (06:32→16:40)
[2021-01-17 06:46] VITALS: BP 126/74; PULSE 83; RESP 20; TEMP 37.1; O2SAT 98
[2021-01-17 08:54] LABS: International Normalized Ratio 2.5; Prothrombin Time (Protime)PT. 26.5 SECONDS (11.7-14.9)
--- NOTE | 2021-01-17 08:59 | NURSING ---
Turned Vital tube feeding up to 60cc/hr. will continue to monitor, tolerating thus far. pt resting in bed, HOB elevated. trach collar place back over trach. pt sleeping, resting comfortably with eyes closed. call light in reach. remains in special contact precautions. all care/treatments provided in pt room
[2021-01-17] MEDS: 0.9% Saline Lock 10 ML Syringe IV (09:44)
[2021-01-17] MEDS: Ondansetron 4 MG/2 ML Vial IV (09:44)
[2021-01-17 12:16] LABS: Bedside Glucose 160 mg/dL (70-110)
--- NOTE | 2021-01-17 12:40 | NURSING ---
per manager shift pt too dry, c/o dry mouth, requesting ice chips frequently. DR Webb updated, new order for gladis NG PRN congestion & martine joseph.
[2021-01-17 13:40] VITALS: PULSE 68; RESP 18; O2SAT 97
--- NOTE | 2021-01-17 15:34 | NURSING ---
trach care done, inner cannula cleaned and reinserted. Thick yellowish/white sputum noted. pt had some productive coughing with dressing change expelling thick sputum as well. pt incont liquid yellow/mustard stool x2. incont care provided. repositioned. alfredo and nystatin powder applied after incont. episodes. hob elevated 30 degrees, mouth care provided and ice chips given. pleasant and cooperative.
[2021-01-17 15:42] VITALS: BP 127/72; PULSE 83; RESP 18; TEMP 36.1; O2SAT 95
[2021-01-17] MEDS: Vital High Protein 1,000 ML 75 ML GT (16:37)
[2021-01-17 16:39] VITALS: PULSE 80
[2021-01-17] MEDS: guaiFENesin 10 ML UDC (200MG/10ML) NG ×2 (16:40→17:51)
[2021-01-17 17:50] LABS: Bedside Glucose 207 mg/dL (70-110)
--- NOTE | 2021-01-17 18:01 | NURSING ---
pt with increased secretions, requested to be suctioned. suctioned with very small amt of thick sputum. robitussin given via NG. resting in bed, call light in reach. hob elevated. ice chips given.
[2021-01-17] MEDS: QUEtiapine 25 MG Tablet 50 MG GT (21:02)
[2021-01-17] MEDS: MELATONIN 3 MG TABLET 6 MG GT (21:02)
--- NOTE | 2021-01-17 21:10 | NURSING ---
Resting in bed, watching tv. Mouth care given and ice chip gien per request. Pt tolerated well.
--- NOTE | 2021-01-17 23:32 | NURSING ---
Pt found several times with trach collar removed away from trach, explained importance of o2, pt states he realizes that, c/o of not breathing right, pox 97% suctioned for small amount of thin white /clear sputum. Pt tolerated well.
[2021-01-17 23:36] LABS: Bedside Glucose 159 mg/dL (70-110)
--- NOTE | 2021-01-18 03:18 | NURSING ---
Trach care done. Patient tolerated well. Large amount thick sputum.
[2021-01-18 06:18] VITALS: BP 121/68; PULSE 78; RESP 16; O2SAT 98
[2021-01-18 06:23] VITALS: BP 121/68; PULSE 78
[2021-01-18] MEDS: Doxazosin 1 MG Tablet 2 MG NG (06:23)
[2021-01-18] MEDS: Famotidine 20 MG Tablet 40 MG NG ×2 (06:23→17:03)
[2021-01-18] MEDS: Sertraline 50 MG Tablet GT (06:23)
[2021-01-18] MEDS: Metoprolol Tartrate 50 MG Tablet GT ×2 (06:23→17:03)
[2021-01-18] MEDS: guaiFENesin 10 ML UDC (200MG/10ML) NG ×2 (06:24→13:35)
[2021-01-18] MEDS: levETIRAcetam Oral Solution 500 MG/5 ML 1000 MG GT ×2 (06:24→17:02)
[2021-01-18] MEDS: 0.9% Saline Lock 10 ML Syringe IV (06:24)
[2021-01-18 06:30] LABS: Bedside Glucose 189 mg/dL (70-110)
[2021-01-18] MEDS: Nystatin Powder 15gm Bottle 1 APPLIC TOPICAL ×2 (06:33→17:03)
[2021-01-18] MEDS: Menthol/Lanolin/Calamine/Znox 113 GM Tube 1 APPLIC TOPICAL ×2 (06:33→17:03)
[2021-01-18] MEDS: Insulin Lispro 100 UNIT/ML INSULN.PEN 15 UNIT SC ×2 (06:38→17:04)
[2021-01-18 07:01] VITALS: O2SAT 94
[2021-01-18 07:49] LABS: International Normalized Ratio 2.7; Prothrombin Time (Protime)PT. 27.9 SECONDS (11.7-14.9)
[2021-01-18] MEDS: Vital High Protein 1,000 ML 70 ML GT (09:06)
--- NOTE | 2021-01-18 09:09 | NURSING ---
vital TF increased to 70ml/hr. pt assisted from bed to WC x2 assist. pretty much a standby with walker. pt getting bored sitting around, c/o not being able to see. offered music and pt declined. legs elevated in recliner chair. ice chips given per pt request. trach collar intact. pt cooperative, slightly anxious. clean gown placed on pt. incont small amt of mustard liquid stool. Placed bed [place] under pt and unable to go at this time. false alarm. pt apologizes frequently regarding loose stools. 1:1 support given. pt resting in chair. eyes closed. no resp distress. will continue to monitor.
--- NOTE | 2021-01-18 09:48 | NURSING ---
dr schuster updated on INR 2.7, new order to decrease coumadin 10mg. recheck for INR is 3 tomorrow.
--- NOTE | 2021-01-18 10:20 | NURSING ---
pt was being assisted to transfer from recliner chair to bed and NG tube slid out per pt. pt states it was loose. dr schuster updated, new order to notify RN supervisor compounding and finishing for replacement. RN supervisor compounding and finishing does not insert them, new order to notify surgery. dr Guerra notified and will be in to insert new tube. pt too high risk for PEG placement. pt updated.
[2021-01-18 11:21] LABS: Bedside Glucose 148 mg/dL (70-110)
--- NOTE | 2021-01-18 12:00 | NURSING ---
dr Guerra able to insert dobhoff tube (Dhir Diamondsak) w/out difficulty. awaiting xray results for placement.
--- NOTE | 2021-01-18 12:12 | RAD_ITS ---
STUDY: X-RAY - ABDOMEN/PELVIS REASON FOR EXAM: Male, 60 years old. Dobbhoff placement TECHNIQUE: Limited abdomen x-ray COMPARISON one view: January 15, 2021 FINDINGS: Limited image of the left lower chest and left mid abdomen. There is a feeding tube tip the tip is in the stomach. There is contrast in the colon. RAD/Abdomen Single View (Portable) IMPRESSION: The tip of the Dobbhoff feeding tube is in the stomach. Electronically Signed: Cecy Collier MD at 14:26 EST Tel , Service support ,
--- NOTE | 2021-01-18 12:23 | PN_ITS ---
Progress Note I was contacted due to the patient's feeding tube being dislodged. I replaced a CorPak feeding tube into the left nare without resistance. It was taped at 60 cm and chest x-ray will be obtained. Patient tolerated the procedure well. Sina Guerra MD Pager: [facility] [address] [place] [address] [address] [place] [address] Office:
--- NOTE | 2021-01-18 12:23 | PCM.PN.BLA ---
Progress Note I was contacted due to the patient's feeding tube being dislodged. I replaced a CorPak feeding tube into the left nare without resistance. It was taped at 60 cm and chest x-ray will be obtained. Patient tolerated the procedure well. Sina Guerra MD Pager: [facility] [address] [place] [address] [address] [place] [address] Office:
[2021-01-18] MEDS: LORazepam 0.5 MG Tablet 1 MG NG (13:58)
--- NOTE | 2021-01-18 14:14 | NURSING ---
1345 franko called, confirmed use of NG TUBE @ 60cm. retaped tube with medipore tape for stronger hold in LT nare. restarted vital TF per orders. pt tolerated medications and start of TF. Incont of lg liquid stool, incont care provided. turned on LT side, excoriation to buttocks/periarea. alfredo applied.
[2021-01-18 14:29] VITALS: BP 137/67; PULSE 71; RESP 13; TEMP 36.3; O2SAT 99
--- NOTE | 2021-01-18 15:00 | NURSING ---
inner cannula of trach cleaned and reinserted w/out diff. dressing changed, cleaned around stoma. duoderm intact to prevent rubbing irritation. pt tolerated well after having ativan. trach collar remains at 35%. call light in reach. hob elevated.
[2021-01-18 16:40] LABS: Bedside Glucose 183 mg/dL (70-110)
[2021-01-18 17:03] VITALS: PULSE 71
[2021-01-18 20:29] VITALS: RESP 16
[2021-01-18] MEDS: MELATONIN 3 MG TABLET 6 MG GT (21:26)
[2021-01-18] MEDS: Atorvastatin Calcium 80 MG Tablet NG (21:26)
[2021-01-18] MEDS: QUEtiapine 25 MG Tablet 50 MG GT (21:27)
[2021-01-19] MEDS: Vital High Protein 1,000 ML 75 ML GT ×3 (00:07→17:14)
[2021-01-19] MEDS: Insulin Lispro 100 UNIT/ML INSULN.PEN 15 UNIT SC ×4 (00:17→17:21)
[2021-01-19 00:31] LABS: Bedside Glucose 176 mg/dL (70-110)
--- NOTE | 2021-01-19 03:24 | NURSING ---
Trach care performed. Moderate amount of thick white sputum cleaned from cannula. Patient tolerated well. Cleaned around trach, replaced gauze. Duoderm intact.
[2021-01-19 05:00] VITALS: BP 129/76; PULSE 77; RESP 16
[2021-01-19 05:47] LABS: International Normalized Ratio 2.8
[2021-01-19] MEDS: levETIRAcetam Oral Solution 500 MG/5 ML 1000 MG GT ×2 (05:59→17:23)
[2021-01-19] MEDS: Nystatin Powder 15gm Bottle 1 APPLIC TOPICAL ×2 (06:05→15:21)
[2021-01-19] MEDS: Menthol/Lanolin/Calamine/Znox 113 GM Tube 1 APPLIC TOPICAL ×2 (06:05→15:21)
[2021-01-19 06:06] VITALS: PULSE 77
[2021-01-19] MEDS: Doxazosin 1 MG Tablet 2 MG NG (06:06)
[2021-01-19] MEDS: Metoprolol Tartrate 50 MG Tablet GT ×2 (06:06→17:06)
[2021-01-19] MEDS: Famotidine 20 MG Tablet 40 MG NG ×2 (06:07→17:07)
[2021-01-19] MEDS: Sertraline 50 MG Tablet GT (06:07)
[2021-01-19 06:20] LABS: Bedside Glucose 191 mg/dL (70-110)
[2021-01-19 07:30] VITALS: O2SAT 98
--- NOTE | 2021-01-19 10:53 | NURSING ---
All care preformed in room due to being in contact precautions.
[2021-01-19 11:26] LABS: Bedside Glucose 157 mg/dL (70-110)
[2021-01-19] MEDS: guaiFENesin 10 ML UDC (200MG/10ML) NG (12:27)
[2021-01-19 13:25] VITALS: BP 128/70; PULSE 72; RESP 18; TEMP 36.3; O2SAT 98
--- NOTE | 2021-01-19 14:29 | NURSING ---
Transferred to chair. NG loosed from nose. At 60ml in nares. Advanced slightly and retaped at 75 cm jasmina to Lt nare. Therapy has him up in chair and walks a short ways. Tires easily. And states I dont feel well. Transferred back to chair.
[2021-01-19] MEDS: 0.9% Saline Lock 10 ML Syringe IV (15:21)
--- NOTE | 2021-01-19 15:23 | NURSING ---
Suctioned. Little mucous obtained. Trach care and trach dressing done at this time. Pt tolerated well. Transferred back to the bed and positioned to his Lt side to get off his buttock. Reports them being sore when he was up in a chair.
--- NOTE | 2021-01-19 15:42 | NURSING ---
Traci RN calls and they would like to see Dr Beck ENT for follow up.
--- NOTE | 2021-01-19 16:06 | CHAPLAIN ---
Type of Pastoral Visit _x__ Initial Visit ___ Follow-up Visit ___ On-call Visit ___ General Patient Visit ___ Spiritual Assessment ___ Family Conference ___ Bereavement ___ Rapid Response ___ Code Blue ___ Other (describe below) Pastoral Care Referral From _x__ Patient ___ Family ___ Nurse ___ Physician ___ Certified Ophthalmic Assistant ___ Surveyor Geophysical Prospecting ___ Other (describe below) Sacrament/Intervention _x__ Active listening ___ Anointing ___ Yarsanism ___ Bereavement ___ Communion _x__ Maria Del Carmen exploration ___ _x__ Life review _x__ Prayer ___ Reconciliation ___ Sacrament of Sick _x__ Supportive presence ___ Wedding ___ Other (describe below) Pastoral Comments patient expresses thankfulness to see this supercalender operator helper and to visit with him; pt gives background of his illness and is tearful throughout the encounter; pt is talkative and explains his sadness and anxiety at forced [facility] and sense of grief with his illness and the life changes it is bringing upon him; pt has a dear friend and former performance engineer that he wishes to see; this performance engineer is aged and not in good mental health so he feels an urgency to see him; pt requests prayer and expresses appreciation for this spiritual care and emotional support
[2021-01-19 17:06] VITALS: PULSE 72
[2021-01-19 17:41] LABS: Bedside Glucose 178 mg/dL (70-110)
--- NOTE | 2021-01-19 22:05 | NURSING ---
Pt calls out for help. Was able to partially expectorate some sputum from trach. This nurse used sterile 4x4s to remove a moderate amount of thick, light yellow sputum. Additional sputum on gown inferior to tract site. Offered to clean site and don a new gown but refuses. Ice hip given within recommendations per ST.
[2021-01-19] MEDS: Atorvastatin Calcium 80 MG Tablet NG (22:10)
[2021-01-19] MEDS: MELATONIN 3 MG TABLET 6 MG GT (22:10)
[2021-01-19] MEDS: QUEtiapine 25 MG Tablet 50 MG GT (22:10)
[2021-01-20] MEDS: Insulin Lispro 100 UNIT/ML INSULN.PEN 15 UNIT SC ×5 (00:58→23:44)
[2021-01-20 01:00] LABS: Bedside Glucose 176 mg/dL (70-110)
--- NOTE | 2021-01-20 05:20 | NURSING ---
RT called to assist w/ deep suctioning. Therapist able to suction moderate to large amount of thick, white sputum.
[2021-01-20] MEDS: levETIRAcetam Oral Solution 500 MG/5 ML 1000 MG GT ×2 (05:32→17:54)
[2021-01-20] MEDS: Doxazosin 1 MG Tablet 2 MG NG (05:33)
[2021-01-20] MEDS: Famotidine 20 MG Tablet 40 MG NG ×2 (05:33→17:55)
[2021-01-20] MEDS: Nystatin Powder 15gm Bottle 1 APPLIC TOPICAL ×2 (05:34→17:55)
[2021-01-20] MEDS: Sertraline 50 MG Tablet GT (05:34)
[2021-01-20] MEDS: Menthol/Lanolin/Calamine/Znox 113 GM Tube 1 APPLIC TOPICAL ×2 (05:34→17:54)
[2021-01-20] MEDS: 0.9% Saline Lock 10 ML Syringe IV (05:35)
[2021-01-20 05:39] VITALS: BP 122/72; PULSE 72
[2021-01-20] MEDS: Metoprolol Tartrate 50 MG Tablet GT ×2 (05:39→17:54)
[2021-01-20 05:51] LABS: Bedside Glucose 150 mg/dL (70-110)
--- NOTE | 2021-01-20 08:05 | NURSING ---
pt calls for help. Partially expectorated a moderate amount of light yellow sputum. One ice chip provided per St recommendations.
[2021-01-20] MEDS: Vital High Protein 1,000 ML 75 ML GT ×2 (08:45→23:45)
--- NOTE | 2021-01-20 10:47 | ST.MBS ---
Modified Barium Swallow - Patient Information Study Date: 01/20/21 Study Time: 10:30 Direct Billable Minutes: 120 Total Minutes procedure & reportin Diagnosis: oropharyngeal dysphagia (R13.12) Referring Physician: Elie Webb Chi Reason for Referral: to determine presence/degree of aspiration. Medical History: Pt is a 60/m with pmhx significant for debility, Tracheal stenosis, Duodenal perforation, Hemothorax, right, Body mass index (BMI) 35 or more, Diabetes mellitus, Recurrent deep vein thrombosis (DVT), Dysphagia, Seizure disorder, BPH, GERD, Behavioral disorder, Hypertension, HLD, CAD (coronary artery disease), and Hemorrhagic cerebrovascular accident (CVA) The patient discharged home from Rehab Unit after hemorrhagic stroke requiring tracheostomy, PEG tube. 12/16/2020 Admit to [facility]. Tracheal stenosis, failed balloon dilatation, CO2/Laser excision. 12/17/2020 Patient underwent permanent tracheostomy. Hospital course complicated by possible duodenal perforation, Right hemothorax with loculated effusion. Patient suffering cognitive dysfunction, deconditioning, unable to discharge directly home. Discharge with Dobbhoff tube, given suspected duodenal perforation, high risk for PEG placement. Nystatin for thrush. Nexium granules for GERD. ST recommended NPO, Tube feeding via Dobbhoff. Acute encephalopathy resolved. 01/14/2021 Admit to TCU with debility, here for rehabilitation, strengthening, prior to discharge home with . Chest X-ray 01/14/21: Changes on the right include a flattened appearance of the diaphragm blunted costophrenic angle and thickening of the fissures suggesting a pleural effusion with infiltrate and/or atelectasis in the right lower lung zone. Left lung remains expanded and clear. Tracheostomy cannula remains well above the natasha. Enteric tube extends below the gastroesophageal junction. Pt has history of oropharyngeal phase dysphagia following CVA in 09/2020. Pt required trach and PEG feeding and was seen for 3 weeks of speech therapy in the [facility] inpatient rehab unit for dysphagia and cognitive-linguistic deficits. Pt was discharged for soft and bite sized textures/thin liquids w/ 1:1 supervision, verbal cues to encourage use of strategies, swallow 2-3X per each bite/sip, small bites/sips, slow rate, seated upright 30-60 minutes following meals, remain upright 30-60 minutes following meals. Pt admitted to TCU with NPO status and Dobhoff feeding tube. Dentition: Natural Teeth Respiratory Status: Oxygenating on 4L/M nasal cannula - 8L/min - Study Findings Consistencies: Thin Liquid, [place] Thick Liquid, Honey Thick Liquid, Pudding, Cookie - Penetration-Aspiration Scale Penetration-Aspiration Scale: OBJECTIVE ASSESSMENT OF SWALLOW FUNCTION (QUANTITATIVE ? PER TRIAL): PENETRATION / ASPIRATION SCALE (RAYO): 1 = does not enter airway 2 = enters airway/above vocal folds/ejected 3 = enters airway/above vocal folds/not ejected 4 = enters airway/contacts vocal folds/ejected 5 = enters airway/contacts vocal folds/not ejected 6 = enters airway/below vocal folds/ejected 7 = enters airway/below vocal folds/not ejected despite effort 8 = enters airway/below vocal folds/no effort - Penetration-Aspiration Scale Score Thin Liquid via teaspoon Result: 1= does not enter airway Thin Liquid via teaspoon Trial 2 Result: 1= does not enter airway Thin Liquid via small single sip from cup Result: 1= does not enter airway Thin Liquid via large single sip from cup Result: 1= does not enter airway Thin Liquid via sequential sips from cup Result: 2= enter airway/above vocal folds/ejected [place] Thick Liquid via large single sip from cup Result: 1= does not enter airway Honey Thick Liquid via large single sip from cup Result: 1= does not enter airway Pudding Result: 1= does not enter airway Cookie Result: 1= does not enter airway Thin Liquid via sequential sips from straw Result: 2= enter airway/above vocal folds/ejected - Oral Phase Labial Seal: No Labial Escape Tongue Control During Bolus Hold: Posterior escape of less than half of bolus Bolus Preparation/Mastication: Slow prolonged chewing/mashing with complete recollection Bolus Transport/Lingual Motion: Brisk tongue motion Oral Residue: Trace residue lining oral structures - Pharyngeal Phase Initiation of Pharyngeal Swallow: Bolus head in valleculae Soft Palate Elevation: No bolus between soft palate and pharyngeal wall Laryngeal Elevation: Partial superior movement thyroid cart/partial apprx aryt-epig petiole Anterior Hyoid Excursion: Partial anterior movement Epiglottic Movement: Partial inversion Laryngeal Vestibule Closure at Height of Swallow: Incomplete; narrow column of air/contrast in laryngeal vestibule Pharyngeal Stripping Wave: Present - complete Pharyngoesophageal Segment Opening: Parital distension and partial duration; parital obstruction of flow Tongue Base Retraction: Narrow column of contrast between tongue base & post. pharyngeal wall Pharyngeal Residue: Collection of residue within or on pharyngeal structures - Diagnosis/Impression Diagnosis: mild-moderate oropharyngeal dysphagia (R13.12) Impression: This patient had good participation throughout evaluation. It should be noted that there was darkening of the anterior wall of the laryngeal vestibule prior to initiating PO trials under fluoroscopy. The patient trialed thin liquid vis single sips from cup with suboptimal swallow timing with occasional spillage to the vallecula. The patient demonstrated adequate mastication although reports that kind of stuff is what usually chokes me up when referring to Annalee mora. The patient presented with penetration of thin liquids with ejection when taking with sequential sips from cup and straw. Slightly reduced epiglottic inversion at times, although there was presence of Dobhoff feeding tube. - Recommendations Diet: Mechanical Soft Textures, Thin Liquids Compensatory Strategies: Small Bites, Small Sips, No Straws, Slow Rate, Alternate bites/solids and sips/liquids, Sitting upright, Remain sitting upright for 30 minutes after PO intake, Minimize/decrease distractions Supervision: 1:1 Close Supervision Recommend Repeat Modified Barium Swallow: TBD Need for Skilled Speech Therapy Services: Yes Education Completed: 1. Described result of evaluation., 2. Pt understands evaluation & agrees with goals and treatment plan. - Status Active ST Patient: Active - Contact Information [facility] Speech Therapy:: Rachelle Villela MA, CCC-PURE PAK MACHINE OPERATOR [address] [address] [email or web address]
[2021-01-20 13:11] LABS: Bedside Glucose 255 mg/dL (70-110)
[2021-01-20 14:16] VITALS: BP 122/68; PULSE 13; RESP 18; TEMP 36.4; O2SAT 96
[2021-01-20 16:15] VITALS: O2SAT 95
[2021-01-20 17:54] VITALS: PULSE 73
[2021-01-20] MEDS: QUEtiapine 25 MG Tablet 50 MG GT (20:26)
[2021-01-20] MEDS: Atorvastatin Calcium 80 MG Tablet NG (20:26)
[2021-01-20] MEDS: MELATONIN 3 MG TABLET 6 MG GT (20:26)
[2021-01-20] MEDS: LORazepam 0.5 MG Tablet 1 MG NG (23:45)
[2021-01-20] MEDS: Acetaminophen 650 MG/20 ML UDC NG (23:49)
[2021-01-21 00:06] LABS: Bedside Glucose 233 mg/dL (70-110)
[2021-01-21 05:00] VITALS: BP 151/76; PULSE 77; RESP 18; TEMP 36.8; O2SAT 97
--- NOTE | 2021-01-21 05:13 | NURSING ---
RT provided trach care, this nurse assisted, site is red, sputum is thick, yellowish green and blood tinged. #6 shiley, extra trach kit at bedside, Duoderm under cuff where pressure injury is was replaced. Area is red with moderate serous drainage. Procedure well tolerated with some discomfort. Is resting with eyes closed.
[2021-01-21 06:26] LABS: Bedside Glucose 164 mg/dL (70-110)
[2021-01-21] MEDS: Doxazosin 1 MG Tablet 2 MG NG (06:44)
[2021-01-21] MEDS: Acetaminophen 650 MG/20 ML UDC NG (06:44)
[2021-01-21] MEDS: Famotidine 20 MG Tablet 40 MG NG ×2 (06:44→17:17)
[2021-01-21] MEDS: Sertraline 50 MG Tablet GT (06:44)
[2021-01-21 06:51] VITALS: BP 151/76; PULSE 77
[2021-01-21] MEDS: Metoprolol Tartrate 50 MG Tablet GT ×2 (06:51→17:16)
[2021-01-21] MEDS: Insulin Lispro 100 UNIT/ML INSULN.PEN 15 UNIT SC ×3 (07:04→17:15)
[2021-01-21] MEDS: Nystatin Powder 15gm Bottle 1 APPLIC TOPICAL ×2 (07:09→17:16)
[2021-01-21] MEDS: Menthol/Lanolin/Calamine/Znox 113 GM Tube 1 APPLIC TOPICAL ×2 (07:09→17:14)
--- NOTE | 2021-01-21 07:54 | RAD_ITS ---
STUDY: X-RAY CHEST REASON FOR EXAM: Male, 60 years old. Yellow sputum TECHNIQUE: AP and lateral views of the chest. COMPARISON: 01/14/2021 FINDINGS: Stable tracheostomy tube. There are stable infiltrates at the right middle and lower lobe. The left lung is clear. There is no demonstrated pleural abnormality. Normal size heart. Normal mediastinum and alfredito. Normal visualized pulmonary arteries. Normal visualized aortic arch and descending thoracic aorta. Normal visualized thoracic spine. Normal visualized ribs, clavicles, and shoulders. There is no demonstrated abnormality of the visualized soft tissue structures of the upper abdomen. RAD/Chest PA and Lateral IMPRESSION: Stable infiltrates at the right middle and lower lobe are in keeping with pneumonia. Electronically Signed: Cathie Easley MD at 11:27 EST Tel , Service support ,
[2021-01-21] MEDS: levETIRAcetam Oral Solution 500 MG/5 ML 1000 MG GT ×2 (08:51→17:16)
[2021-01-21] MEDS: levoFLOXacin 750 MG Tablet PO (08:51)
--- NOTE | 2021-01-21 10:14 | NURSING ---
ALL CARE PROVIDED IN ROOM D/T CONTACT PRECAUTIONS.
[2021-01-21 11:21] LABS: Bedside Glucose 186 mg/dL (70-110)
[2021-01-21 13:49] VITALS: BP 102/67; PULSE 75; RESP 18; TEMP 35.9; O2SAT 98
--- NOTE | 2021-01-21 14:15 | CASEMGMT ---
Social Work IDT met with patient and via conference call for care plan meeting. Discussed patient's progress in therapy and nursing. Pt is progressing well and is ready to DC home as soon as possible. needs to be able to care for pt at home. The goal is for pt to have tube feed stopped and on regular diet prior to DC, and have trach removed - if possible - unsure if it is permanent. agreeable to plan. Explained [employer] insurance with [employer] 01/22 and continued stay is not guaranteed and only require one day notice. Will ReTeam. Will continue to follow. Jessie Mendenhall, SHOW CARD WRITER QUALITY ASSURANCE SUPERVISOR
[2021-01-21] MEDS: BACITRACIN 15 GM Tube 1 APPLIC TOPICAL (15:20)
[2021-01-21 16:11] LABS: Bedside Glucose 165 mg/dL (70-110)
[2021-01-21] MEDS: 0.9% Saline Lock 10 ML Syringe IV ×2 (17:14→22:33)
[2021-01-21 17:16] VITALS: PULSE 75
--- NOTE | 2021-01-21 17:35 | CASEMGMT ---
Social Work BIMS and PHQ-9 completed for MDS assessment. Jessie Mendenhall, RACKMAN DIAPER MACHINE TENDER
--- NOTE | 2021-01-21 18:29 | NURSING ---
DR BAUTISTA AWARE OF CXR RESULTS.
[2021-01-21 19:06] VITALS: O2SAT 96
[2021-01-21] MEDS: QUEtiapine 25 MG Tablet 50 MG GT (22:34)
[2021-01-21] MEDS: Atorvastatin Calcium 80 MG Tablet NG (22:34)
[2021-01-21] MEDS: MELATONIN 3 MG TABLET 6 MG GT (22:34)
[2021-01-22] MEDS: Insulin Lispro 100 UNIT/ML INSULN.PEN 15 UNIT SC ×5 (00:45→23:35)
[2021-01-22 00:55] LABS: Bedside Glucose 221 mg/dL (70-110)
[2021-01-22 03:39] VITALS: BP 133/77; PULSE 71; RESP 18; TEMP 36.1; O2SAT 98
[2021-01-22] MEDS: LORazepam 0.5 MG Tablet 1 MG NG ×3 (03:50→23:41)
[2021-01-22 05:55] LABS: Absolute Lymphocyte Count 2.45 X10^3/uL (0.83-4.51); Absolute Neutrophil Count 7.6 X10^3/uL (2.0-7.7); Basophil# 0.06 X10^3/uL; Basophil% 0.5 % (0-1); Eosinophil# 0.35 X10^3/uL; Eosinophils% 2.9 % (0-5); Hematocrit 28.4 % (40-54); Hemoglobin 8.4 g/dL (13.0-16.5); Lymphocyte # 2.45 X10^3/ul (4.0); Lymphocyte % 20.5 % (19-41); Mean Corp Hgb Conc 29.6 g/dL (32-36); Mean Corpuscular Hgb 25.4 pg (27.0-32.0); Mean Corpuscular Volume 85.8 fL (80-94); Mean Platelet Vol. 9.1 fl (6.2-12.0); Monocyte# 1.45 X10^3/uL; Monocyte% 12.1 % (0-10); NRBC Flagged by Analyzer 0 % (0-5); Neutrophil # 7.55 X10^3/uL (2.7-7.7); Neutrophil % 63.3 % (47-70); Platelet Count 354 K/mm3 (150-450); RBC Distribution Width CV 15.3 % (11.6-14.6); RBC Distribution Width SD 48.5 fl (35.1-43.9); Red Blood Count 3.31 M/mm3 (4.6-6.2); White Blood Count 11.9 K/mm3 (4.4-11.0)
[2021-01-22 06:05] LABS: International Normalized Ratio 2.1; Prothrombin Time (Protime)PT. 23.1 SECONDS (11.7-14.9)
[2021-01-22 06:25] LABS: Bedside Glucose 155 mg/dL (70-110)
[2021-01-22 06:25] LABS: Anion Gap 5 (5-15); BUN 29 mg/dL (7-18); BUN/Creat Ratio 33.1 RATIO (10-20); Calcium,Total 8.7 mg/dL (8.5-10.1); Chloride 101 mmol/L (98-107); Creatinine, Serum 0.88 mg/dL (0.70-1.30); EST Glomerular Filtration Rate 94 mL/min (>60); Est Glom Filt Rate - Afr Amer 114 mL/min (>60); Estimated Creatinine Clearance 76.68 ml/min; Glucose 151 mg/dL (74-106); Potassium 3.9 mmol/L (3.5-5.1); Sodium Level 137 mmol/L (136-145)
[2021-01-22 06:43] VITALS: BP 133/77; PULSE 71
[2021-01-22] MEDS: Famotidine 20 MG Tablet 40 MG NG ×2 (06:43→17:45)
[2021-01-22] MEDS: Sertraline 50 MG Tablet GT (06:43)
[2021-01-22] MEDS: Doxazosin 1 MG Tablet 2 MG NG (06:43)
[2021-01-22] MEDS: Metoprolol Tartrate 50 MG Tablet GT ×2 (06:43→17:45)
[2021-01-22] MEDS: Nystatin Powder 15gm Bottle 1 APPLIC TOPICAL ×2 (06:44→17:43)
[2021-01-22] MEDS: levETIRAcetam Oral Solution 500 MG/5 ML 1000 MG GT ×2 (06:44→17:45)
[2021-01-22] MEDS: levoFLOXacin 750 MG Tablet PO (06:44)
[2021-01-22] MEDS: Menthol/Lanolin/Calamine/Znox 113 GM Tube 1 APPLIC TOPICAL ×2 (06:45→17:43)
[2021-01-22 06:57] VITALS: O2SAT 98
--- NOTE | 2021-01-22 06:59 | NURSING ---
1790 pt trach care provided this AM by this RN. duoderm intact around site. pt suctioned and thick jenkins creamy sputum production noticed. pt tolerated procedure well and pt resting in bed at this time
[2021-01-22] MEDS: Tuberculin,Purif.prot.deriv. 50 TU/ML Vial 5 ML ID (11:19)
[2021-01-22 12:26] LABS: Bedside Glucose 152 mg/dL (70-110)
[2021-01-22 14:58] VITALS: BP 125/73; PULSE 87; RESP 18; TEMP 36.8; O2SAT 97
--- NOTE | 2021-01-22 16:04 | NURSING ---
Addendum entered by Luisa Lin 01/22/21 16:06: BACTROBAN OINTMENT APPLIED TO SKIN AROUND TRACH. SKIN SLIGHTLY IRRITATED, NO DRAINAGE NOTED. Original Note: TRACH CARE COMPLETED PER PROTOCOL. SUCTIONED WITH MINIMAL THICK PHLEGM OBTAINED. PT TOLERATED WELL.
[2021-01-22 16:36] LABS: Bedside Glucose 143 mg/dL (70-110)
[2021-01-22] MEDS: BACITRACIN 15 GM Tube 1 APPLIC TOPICAL (17:43)
[2021-01-22 17:45] VITALS: PULSE 87
[2021-01-22 22:00] LABS: Bedside Glucose 140 mg/dL (70-110)
[2021-01-22 22:47] VITALS: O2SAT 98
[2021-01-22] MEDS: Atorvastatin Calcium 80 MG Tablet NG (23:36)
[2021-01-22] MEDS: QUEtiapine 25 MG Tablet 50 MG GT (23:36)
[2021-01-22] MEDS: MELATONIN 3 MG TABLET 6 MG GT (23:42)
--- NOTE | 2021-01-22 23:45 | NURSING ---
In room completing assessment and administering meds. Emotionally labile. Verbalizes his wish to see spouse soon and that he misses his dad. Dad passed in 1999. They worked together, were close, and he becomes tearful. Emotional support, active listening, and reassurance provided. Questions this nurse when he will be dc'ed and hopes he will make it home by July. Informed pt he will not remain on the unit until July but unsure of dc date home dependent on progress made w/ therapy. Starts to become belligerent w/ this nurse and thinks staff are sugar-coating various information provided to him. Informed pt information provided is to the best of staff's knowledge.
[2021-01-23] VITALS (7 sets, daily range): BP systolic 111–124; BP diastolic 60–72; PULSE 65–75; RESP 17–20; TEMP 36.4; O2SAT 94–99
[2021-01-23] MEDS: levETIRAcetam Oral Solution 500 MG/5 ML 1000 MG GT ×2 (05:13→17:16)
[2021-01-23] MEDS: levoFLOXacin 750 MG Tablet PO (05:13)
[2021-01-23] MEDS: Metoprolol Tartrate 50 MG Tablet GT ×2 (05:14→17:16)
[2021-01-23] MEDS: Sertraline 50 MG Tablet GT (05:14)
[2021-01-23] MEDS: Famotidine 20 MG Tablet 40 MG NG ×2 (05:14→17:16)
[2021-01-23] MEDS: Nystatin Powder 15gm Bottle 1 APPLIC TOPICAL ×2 (05:15→17:17)
[2021-01-23] MEDS: Doxazosin 1 MG Tablet 2 MG NG (05:15)
[2021-01-23] MEDS: Menthol/Lanolin/Calamine/Znox 113 GM Tube 1 APPLIC TOPICAL ×2 (05:17→17:19)
[2021-01-23 06:26] LABS: Bedside Glucose 108 mg/dL (70-110)
[2021-01-23] MEDS: proMETHazine 25 MG Tablet PO (09:02)
--- NOTE | 2021-01-23 09:11 | NURSING ---
pt refused brkfst d/t nausea. dr schuster updated, new order phenergan 25mg. given, UA c/s, xray abdoment. pt resting in bed, HOB elevated 30 degrees.
--- NOTE | 2021-01-23 09:50 | RAD_ITS ---
STUDY: X-RAY - ABDOMEN/PELVIS REASON FOR EXAM: Male, 60 years old. Nausea -- NG tube TECHNIQUE: 3 AP supine views of the abdomen and pelvis. COMPARISON: None. FINDINGS: Feeding tube extends to the distal duodenum in the left upper quadrant. There is IVC filter. There is an unremarkable bowel gas pattern. No dilated loops of bowel. There is contrast in the colon. There is no demonstrated free abdominal air. The visualized liver, spleen and kidneys are grossly normal in size and morphology. Normal soft tissue structures. There are diffuse degenerative changes of the visualized lumbar spine. RAD/Abdomen Single View (Portable) IMPRESSION: Feeding tube extends to the distal duodenum. Electronically Signed: Sharad Yanez MD at 10:11 EST , Service support ,
--- NOTE | 2021-01-23 10:31 | NURSING ---
Addendum entered by Karen Hollingsworth 01/23/21 12:06: tube pulled back between 60-65cm. trach stoma care provided, duoderm removed from skin under stoma & will use mepilex instead. skin very red/irritated and painful for patient. will shave area before applying tape. cleansed w/NS and dried. new split gauze placed under trach flange. Original Note: dr schuster notified of KUB results, new order to pull tube back couple inches. was marked at 60cm on tuesday when Dr Guerra here to reinsert new tube.
[2021-01-23 11:00] LABS: Bedside Glucose 163 mg/dL (70-110)
[2021-01-23 12:03] LABS: Bacteria 0 SEEN /hpf (None Seen); Mucous, Urine 0 SEEN /hpf (<or=2+); Red Blood Cells-Urine 0 SEEN /hpf (0-5); Squamous Epithelial Cells - UA 0 SEEN /hpf (0-5); White Blood Cells 0 SEEN /hpf (0-5)
[2021-01-23 12:06] LABS: Color, Urine Yellow (Yellow); Glucose, Dipstick Normal (Normal); Ketone-Dipstick Negative (Negative); Leukocyte Esterase-Dipstick Negative /ul (Negative); Nitrite-Dipstick Negative (Negative); Occult Blood-Urine Negative /ul (Negative); Protein-Dipstick Negative (Negative); Specific Gravity, Urine 1.015 (1.002-1.030); Urine Bilirubin Dipstick Negative (Negative); Urine Clarity Clear (Clear); Urine Urobilinogen Normal (Normal)
[2021-01-23] MEDS: Insulin Lispro 100 UNIT/ML INSULN.PEN 15 UNIT SC ×2 (12:38→17:18)
--- NOTE | 2021-01-23 14:13 | NURSING ---
trach care provided, cleaned inner cannula, pt tolerated well. pleasant & cooperative with care, but can get anxious quickly. denies nausea. mepilex applied under trach flange d/t duoderm staying wet and difficult to remove.
[2021-01-23 16:11] LABS: Bedside Glucose 145 mg/dL (70-110)
[2021-01-23] MEDS: BACITRACIN 15 GM Tube 1 APPLIC TOPICAL (17:17)
[2021-01-23] MEDS: 0.9% Saline Lock 10 ML Syringe IV (17:20)
[2021-01-23 21:31] LABS: Bedside Glucose 81 mg/dL (70-110)
--- NOTE | 2021-01-23 22:52 | NURSING ---
Patient's blood sugar 81 before bolus given, recheck was [address] Webb, verbal order to hold scheduled dose of insulin.
[2021-01-23 22:56] LABS: Bedside Glucose 116 mg/dL (70-110)
[2021-01-23] MEDS: QUEtiapine 25 MG Tablet 50 MG GT (23:01)
[2021-01-23] MEDS: Atorvastatin Calcium 80 MG Tablet NG (23:01)
[2021-01-23] MEDS: MELATONIN 3 MG TABLET 6 MG GT (23:02)
--- NOTE | 2021-01-24 02:53 | NURSING ---
Trach care provided. Cleansed inner cannula, thick white sputum cleaned out. Patient tolerated well. Mepilex intact.
[2021-01-24 05:00] VITALS: BP 148/80; PULSE 71; RESP 14; TEMP 36.3; O2SAT 96
[2021-01-24] MEDS: BACITRACIN 15 GM Tube 1 APPLIC TOPICAL ×2 (05:21→18:04)
[2021-01-24] MEDS: Menthol/Lanolin/Calamine/Znox 113 GM Tube 1 APPLIC TOPICAL ×2 (05:22→18:05)
[2021-01-24] MEDS: Doxazosin 1 MG Tablet 2 MG NG (05:29)
[2021-01-24] MEDS: levETIRAcetam Oral Solution 500 MG/5 ML 1000 MG GT ×2 (05:30→18:01)
[2021-01-24 05:31] VITALS: PULSE 71
[2021-01-24] MEDS: levoFLOXacin 750 MG Tablet PO (05:31)
[2021-01-24] MEDS: Metoprolol Tartrate 50 MG Tablet GT ×2 (05:31→18:01)
[2021-01-24] MEDS: Nystatin Powder 15gm Bottle 1 APPLIC TOPICAL ×2 (05:31→18:05)
[2021-01-24] MEDS: Famotidine 20 MG Tablet 40 MG NG ×2 (05:32→18:01)
[2021-01-24] MEDS: Sertraline 50 MG Tablet GT (05:33)
[2021-01-24 06:26] LABS: Bedside Glucose 141 mg/dL (70-110)
[2021-01-24 07:16] LABS: Hematocrit 29.2 % (40-54); Hemoglobin 8.7 g/dL (13.0-16.5)
[2021-01-24] MEDS: Insulin Lispro 100 UNIT/ML INSULN.PEN SC ×3 (08:16→21:56)
[2021-01-24 10:46] LABS: Bedside Glucose 181 mg/dL (70-110)
[2021-01-24] MEDS: 0.9% Saline Lock 10 ML Syringe IV (13:54)
[2021-01-24 14:40] LABS: Bedside Glucose 157 mg/dL (70-110)
--- NOTE | 2021-01-24 14:45 | NURSING ---
Trach care completed pt handled procedure well. Call light within reach.
--- NOTE | 2021-01-24 15:24 | NURSING ---
ALL CARE PROVIDED IN ROOM D/T CONTACT PRECAUTIONS.
--- NOTE | 2021-01-24 15:26 | NURSING ---
Trach suctioned at this time, small amount of thick sputum, pt tolerated well
[2021-01-24 16:00] VITALS: BP 132/79; PULSE 78; RESP 16; TEMP 36.6; O2SAT 95
[2021-01-24 16:36] LABS: Bedside Glucose 154 mg/dL (70-110)
[2021-01-24 18:01] VITALS: BP 132/79; PULSE 78
[2021-01-24 21:30] LABS: Bedside Glucose 161 mg/dL (70-110)
[2021-01-24] MEDS: QUEtiapine 25 MG Tablet 50 MG GT (21:56)
[2021-01-24] MEDS: MELATONIN 3 MG TABLET 6 MG GT (21:56)
[2021-01-24] MEDS: Atorvastatin Calcium 80 MG Tablet NG (21:56)
[2021-01-25 06:25] LABS: Bedside Glucose 152 mg/dL (70-110)
[2021-01-25] MEDS: levETIRAcetam Oral Solution 500 MG/5 ML 1000 MG GT ×2 (07:14→17:43)
[2021-01-25] MEDS: Doxazosin 1 MG Tablet 2 MG NG (07:14)
[2021-01-25] MEDS: levoFLOXacin 750 MG Tablet PO (07:14)
[2021-01-25] MEDS: Famotidine 20 MG Tablet 40 MG NG ×2 (07:15→17:45)
[2021-01-25] MEDS: Sertraline 50 MG Tablet GT (07:15)
[2021-01-25] MEDS: BACITRACIN 15 GM Tube 1 APPLIC TOPICAL ×2 (07:22→17:44)
[2021-01-25] MEDS: Menthol/Lanolin/Calamine/Znox 113 GM Tube 1 APPLIC TOPICAL ×2 (07:23→17:46)
[2021-01-25 07:24] VITALS: PULSE 66
[2021-01-25] MEDS: Nystatin Powder 15gm Bottle 1 APPLIC TOPICAL ×2 (07:24→17:44)
[2021-01-25] MEDS: Metoprolol Tartrate 50 MG Tablet GT ×2 (07:24→17:45)
[2021-01-25 07:35] VITALS: BP 125/64; PULSE 66; RESP 18; TEMP 36.3; O2SAT 96
[2021-01-25] MEDS: Insulin Lispro 100 UNIT/ML INSULN.PEN SC ×4 (08:14→21:34)
[2021-01-25 10:56] LABS: Bedside Glucose 182 mg/dL (70-110)
--- NOTE | 2021-01-25 12:14 | NURSING ---
ALL CARE PROVIDED IN ROOM D/T CONTACT PRECAUTIONS.
[2021-01-25] MEDS: 0.9% Saline Lock 10 ML Syringe IV (12:28)
[2021-01-25 13:41] VITALS: BP 118/68; PULSE 68; RESP 18; TEMP 35.9; O2SAT 98
--- NOTE | 2021-01-25 14:35 | NURSING ---
Trach care provided. Cleansed inner cannula, thick sputum cleaned out. Patient tolerated well. Mepilex intact.
[2021-01-25 16:20] LABS: Bedside Glucose 204 mg/dL (70-110)
[2021-01-25 17:45] VITALS: BP 118/68; PULSE 68
[2021-01-25] MEDS: MELATONIN 3 MG TABLET 6 MG GT (20:54)
[2021-01-25] MEDS: Atorvastatin Calcium 80 MG Tablet NG (20:55)
[2021-01-25] MEDS: QUEtiapine 25 MG Tablet 50 MG GT (20:55)
[2021-01-25] MEDS: LORazepam 0.5 MG Tablet 1 MG NG (21:00)
[2021-01-25] MEDS: Acetaminophen 650 MG/20 ML UDC NG (21:01)
[2021-01-25 21:41] LABS: Bedside Glucose 192 mg/dL (70-110)
[2021-01-26 05:52] LABS: International Normalized Ratio 2.2
[2021-01-26 06:25] LABS: Bedside Glucose 144 mg/dL (70-110)
[2021-01-26] MEDS: levoFLOXacin 750 MG Tablet PO (06:35)
[2021-01-26] MEDS: Doxazosin 1 MG Tablet 2 MG NG (06:35)
[2021-01-26] MEDS: Sertraline 50 MG Tablet GT (06:35)
[2021-01-26] MEDS: Famotidine 20 MG Tablet 40 MG NG (06:36)
[2021-01-26] MEDS: levETIRAcetam Oral Solution 500 MG/5 ML 1000 MG GT (06:36)
[2021-01-26] MEDS: Nystatin Powder 15gm Bottle 1 APPLIC TOPICAL ×2 (06:36→16:50)
[2021-01-26] MEDS: BACITRACIN 15 GM Tube 1 APPLIC TOPICAL ×2 (06:37→16:50)
[2021-01-26] MEDS: Menthol/Lanolin/Calamine/Znox 113 GM Tube 1 APPLIC TOPICAL ×2 (06:37→16:50)
[2021-01-26 06:38] VITALS: BP 117/73; PULSE 65
[2021-01-26] MEDS: Metoprolol Tartrate 50 MG Tablet GT (06:38)
[2021-01-26 07:03] VITALS: BP 117/73; PULSE 65; RESP 18; TEMP 36.7; O2SAT 99
[2021-01-26 07:23] VITALS: O2SAT 98
[2021-01-26] MEDS: Insulin Lispro 100 UNIT/ML INSULN.PEN SC ×4 (08:32→21:15)
[2021-01-26 11:30] LABS: Bedside Glucose 185 mg/dL (70-110)
--- NOTE | 2021-01-26 12:39 | NURSING ---
All care provided in room due to resident being in contact precautions.
--- NOTE | 2021-01-26 14:05 | MDS.RN ---
Information for the mds was obtained from review of the clinical record, interview of resident, staff, and direct observation of resident's care.
[2021-01-26 14:13] VITALS: BP 122/68; PULSE 68; RESP 18; TEMP 36.7; O2SAT 98
[2021-01-26 16:26] LABS: Bedside Glucose 177 mg/dL (70-110)
[2021-01-26] MEDS: 0.9% Saline Lock 10 ML Syringe IV (16:54)
[2021-01-26] MEDS: levETIRAcetam Oral Solution 500 MG/5 ML 1000 MG PO (16:57)
[2021-01-26 16:59] VITALS: PULSE 68
[2021-01-26] MEDS: Metoprolol Tartrate 50 MG Tablet PO (16:59)
[2021-01-26] MEDS: Famotidine 20 MG Tablet 40 MG PO (16:59)
--- NOTE | 2021-01-26 20:20 | NURSING ---
RESP RIAZ DID TRACH CARE
[2021-01-26] MEDS: Atorvastatin Calcium 80 MG Tablet PO (20:40)
[2021-01-26] MEDS: QUEtiapine 25 MG Tablet 50 MG PO (20:40)
[2021-01-26] MEDS: MELATONIN 3 MG TABLET 6 MG PO (20:40)
[2021-01-26 21:26] LABS: Bedside Glucose 213 mg/dL (70-110)
[2021-01-27] MEDS: proMETHazine 25 MG Tablet PO (04:59)
[2021-01-27 05:43] VITALS: BP 124/73; PULSE 83; RESP 20; TEMP 36.6; O2SAT 92
[2021-01-27] MEDS: levETIRAcetam Oral Solution 500 MG/5 ML 1000 MG PO ×2 (05:46→16:53)
[2021-01-27] MEDS: Famotidine 20 MG Tablet 40 MG PO ×2 (05:46→16:54)
[2021-01-27 05:47] VITALS: BP 124/73; PULSE 83
[2021-01-27] MEDS: Metoprolol Tartrate 50 MG Tablet PO ×2 (05:47→16:53)
[2021-01-27] MEDS: Doxazosin 1 MG Tablet 2 MG PO (05:47)
[2021-01-27] MEDS: Sertraline 50 MG Tablet PO (05:47)
[2021-01-27] MEDS: levoFLOXacin 750 MG Tablet PO (05:48)
[2021-01-27] MEDS: Menthol/Lanolin/Calamine/Znox 113 GM Tube 1 APPLIC TOPICAL ×2 (05:57→16:58)
[2021-01-27] MEDS: BACITRACIN 15 GM Tube 1 APPLIC TOPICAL ×2 (05:58→10:58)
[2021-01-27 06:06] LABS: Bedside Glucose 159 mg/dL (70-110)
[2021-01-27] MEDS: Nystatin Powder 15gm Bottle 1 APPLIC TOPICAL ×2 (06:07→16:58)
[2021-01-27 07:06] VITALS: O2SAT 97
[2021-01-27] MEDS: Insulin Lispro 100 UNIT/ML INSULN.PEN SC ×4 (08:28→23:24)
--- NOTE | 2021-01-27 10:41 | NURSING ---
match marker reported that pt has small pin hole in NG tube. Dr schuster notified, new order to remove NG tube. pt has been eating/drinking well. Cris, urology nurse notified of order.
--- NOTE | 2021-01-27 10:46 | NURSING ---
ALL CARE PROVIDED IN ROOM THIS SHIFT D/T CONTACT PRECAUTIONS.
[2021-01-27 10:55] LABS: Bedside Glucose 156 mg/dL (70-110)
[2021-01-27 13:01] VITALS: BP 132/70; PULSE 72; RESP 20; TEMP 36.4; O2SAT 96
--- NOTE | 2021-01-27 14:59 | NURSING ---
wound photo: right groin
[2021-01-27 16:20] LABS: Bedside Glucose 175 mg/dL (70-110)
[2021-01-27 16:53] VITALS: PULSE 72
[2021-01-27 21:25] LABS: Bedside Glucose 175 mg/dL (70-110)
[2021-01-27] MEDS: Atorvastatin Calcium 80 MG Tablet PO (23:16)
[2021-01-27] MEDS: QUEtiapine 25 MG Tablet 50 MG PO (23:16)
[2021-01-27] MEDS: MELATONIN 3 MG TABLET 6 MG PO (23:17)
[2021-01-27] MEDS: LORazepam 0.5 MG Tablet 1 MG PO (23:18)
[2021-01-28 06:21] LABS: Bedside Glucose 172 mg/dL (70-110)
[2021-01-28 07:00] VITALS: BP 122/69; PULSE 69; RESP 16; TEMP 36.9
[2021-01-28] MEDS: Nystatin Powder 15gm Bottle 1 APPLIC TOPICAL ×2 (07:03→16:58)
[2021-01-28] MEDS: levETIRAcetam Oral Solution 500 MG/5 ML 1000 MG PO ×2 (07:04→16:44)
[2021-01-28] MEDS: Sertraline 50 MG Tablet PO (07:04)
[2021-01-28] MEDS: Doxazosin 1 MG Tablet 2 MG PO (07:05)
[2021-01-28] MEDS: Famotidine 20 MG Tablet 40 MG PO ×2 (07:05→16:46)
[2021-01-28] MEDS: levoFLOXacin 750 MG Tablet PO (07:05)
[2021-01-28 07:06] VITALS: BP 129/79; PULSE 69
[2021-01-28] MEDS: Metoprolol Tartrate 50 MG Tablet PO ×2 (07:06→16:45)
[2021-01-28] MEDS: Menthol/Lanolin/Calamine/Znox 113 GM Tube 1 APPLIC TOPICAL ×2 (07:11→16:56)
[2021-01-28] MEDS: BACITRACIN 15 GM Tube 1 APPLIC TOPICAL ×2 (07:12→16:56)
[2021-01-28] MEDS: Insulin Lispro 100 UNIT/ML INSULN.PEN SC ×4 (08:21→22:17)
[2021-01-28 11:06] LABS: Bedside Glucose 159 mg/dL (70-110)
[2021-01-28 14:25] VITALS: BP 102/63; PULSE 70; RESP 20; TEMP 36.3
--- NOTE | 2021-01-28 15:00 | CHAPLAIN ---
Type of Pastoral Visit ___ Initial Visit _x__ Follow-up Visit ___ On-call Visit ___ General Patient Visit ___ Spiritual Assessment ___ Family Conference ___ Bereavement ___ Rapid Response ___ Code Blue ___ Other (describe below) Pastoral Care Referral From _x__ Patient ___ Family ___ Nurse ___ Physician ___ Solutions Operator ___ Sustainability Engineer ___ Other (describe below) Sacrament/Intervention _x__ Active listening ___ Anointing ___ Protestant ___ Bereavement ___ Communion _x__ Maria Del Carmen exploration ___ _x__ Life review _x__ Prayer ___ Reconciliation ___ Sacrament of Sick _x__ Supportive presence ___ Wedding ___ Other (describe below) Pastoral Comments long discussion with patient as he contemplates how his life will look like in the future; pt is tearful; 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
[2021-01-28 16:30] LABS: Bedside Glucose 183 mg/dL (70-110)
[2021-01-28 16:45] VITALS: PULSE 96
[2021-01-28 21:25] LABS: Bedside Glucose 196 mg/dL (70-110)
[2021-01-28] MEDS: QUEtiapine 25 MG Tablet 50 MG PO (22:11)
[2021-01-28] MEDS: Atorvastatin Calcium 80 MG Tablet PO (22:12)
[2021-01-28] MEDS: MELATONIN 3 MG TABLET 6 MG PO (22:12)
[2021-01-29] MEDS: proMETHazine 25 MG Tablet PO (04:08)
[2021-01-29] MEDS: Menthol/Lanolin/Calamine/Znox 113 GM Tube 1 APPLIC TOPICAL ×2 (04:17→17:10)
[2021-01-29] MEDS: BACITRACIN 15 GM Tube 1 APPLIC TOPICAL ×2 (04:19→17:12)
[2021-01-29 04:27] VITALS: BP 138/80; PULSE 67; RESP 14; TEMP 36.3; O2SAT 99
[2021-01-29 05:47] LABS: Absolute Lymphocyte Count 2.41 X10^3/uL (0.83-4.51); Absolute Neutrophil Count 11.1 X10^3/uL (2.0-7.7); Basophil# 0.09 X10^3/uL; Basophil% 0.6 % (0-1); Eosinophil# 0.15 X10^3/uL; Hematocrit 30.5 % (40-54); Hemoglobin 9.2 g/dL (13.0-16.5); Lymphocyte # 2.41 X10^3/ul (4.0); Lymphocyte % 16.1 % (19-41); Mean Corp Hgb Conc 30.2 g/dL (32-36); Mean Corpuscular Hgb 25.8 pg (27.0-32.0); Mean Corpuscular Volume 85.7 fL (80-94); Mean Platelet Vol. 9.8 fl (6.2-12.0); Monocyte# 1.09 X10^3/uL; Monocyte% 7.3 % (0-10); NRBC Flagged by Analyzer 0 % (0-5); Neutrophil # 11.11 X10^3/uL (2.7-7.7); Neutrophil % 74.3 % (47-70); Platelet Count 311 K/mm3 (150-450); RBC Distribution Width CV 15.2 % (11.6-14.6); RBC Distribution Width SD 47.7 fl (35.1-43.9); Red Blood Count 3.56 M/mm3 (4.6-6.2)
[2021-01-29 06:02] LABS: International Normalized Ratio 2.2; Prothrombin Time (Protime)PT. 24.3 SECONDS (11.7-14.9)
[2021-01-29 06:10] LABS: Anion Gap 7 (5-15); BUN 16 mg/dL (7-18); BUN/Creat Ratio 16.6 RATIO (10-20); Calcium,Total 8.8 mg/dL (8.5-10.1); Chloride 105 mmol/L (98-107); Creatinine, Serum 0.96 mg/dL (0.70-1.30); EST Glomerular Filtration Rate 84 mL/min (>60); Est Glom Filt Rate - Afr Amer 102 mL/min (>60); Estimated Creatinine Clearance 70.29 ml/min; Glucose 150 mg/dL (74-106); Potassium 3.4 mmol/L (3.5-5.1); Sodium Level 138 mmol/L (136-145)
[2021-01-29 06:20] LABS: Bedside Glucose 154 mg/dL (70-110)
[2021-01-29 06:20] LABS: Bedside Glucose 172 mg/dL (70-110)
[2021-01-29] MEDS: levETIRAcetam Oral Solution 500 MG/5 ML 1000 MG PO ×2 (06:33→17:15)
[2021-01-29] MEDS: Doxazosin 1 MG Tablet 2 MG PO (06:34)
[2021-01-29 06:35] VITALS: PULSE 84
[2021-01-29] MEDS: Metoprolol Tartrate 50 MG Tablet PO ×2 (06:35→17:14)
[2021-01-29] MEDS: Famotidine 20 MG Tablet 40 MG PO ×2 (06:37→17:15)
[2021-01-29] MEDS: Nystatin Powder 15gm Bottle 1 APPLIC TOPICAL ×2 (06:38→17:09)
[2021-01-29] MEDS: Sertraline 50 MG Tablet PO (06:38)
--- NOTE | 2021-01-29 06:58 | NURSING ---
Patient yelled out for help around 0445, went into room and found him vomiting yellowish fluid. He was coughing quite a bit after, has strong cough, good at clearing secretions. He had complained of nausea shortly before episode of vomiting and had taken phenergan. Vitals stable. 02 sat 99%. Respiratory therapist in to assess patient. Patient calmed down and was in no distress. Lungs with some coarse crackles heard in bases. Updated Dr. Webb of event, patient's nausea, lungs sounds, vitals. Verbal order for KUB, UA w/ culture, 2 view chest xray. orders placed.
[2021-01-29 07:28] VITALS: O2SAT 95
[2021-01-29] MEDS: Insulin Lispro 100 UNIT/ML INSULN.PEN SC ×3 (08:56→17:08)
[2021-01-29] MEDS: Potassium Chloride Oral Tablet 10 MEQ PO (08:57)
--- NOTE | 2021-01-29 10:15 | RAD_ITS ---
STUDY: X-RAY CHEST REASON FOR EXAM: Male, 60 years old. Vomiting, high aspiration risk TECHNIQUE: PA and lateral views of the chest. COMPARISON: Comparison is made with prior study dated 01/21/2021. FINDINGS: A tracheostomy tube is in situ. The tip is at 4.8 cm proximal to the natasha. Stable increased markings at the right lung base although this has improved as compared to prior study. Blunting of the right costophrenic angle. Normal size heart. Normal mediastinum and alfredito. Normal visualized pulmonary arteries. Normal visualized aortic arch and descending thoracic aorta. Normal visualized thoracic spine. Normal visualized ribs, clavicles, and shoulders. There is no demonstrated abnormality of the visualized soft tissue structures of the upper abdomen. RAD/Chest PA and Lateral IMPRESSION: Persistent increased markings at the right lung base although there has been mild improvement as compared to the prior study. Further follow-up is recommended. Electronically Signed: Rob Jara MD at 13:35 EDT , Service support ,
--- NOTE | 2021-01-29 10:15 | RAD_ITS ---
STUDY: X-RAY - ABDOMEN/PELVIS REASON FOR EXAM: Male, 60 years old. Vomiting/nausea TECHNIQUE: Single AP view of the abdomen / pelvis. COMPARISON: Comparison is made with prior study dated 01/23/2021. FINDINGS: Mild increased markings at the right lung base. There is a moderate amount of colonic fecal material. The previously seen DOBBHOFF tube has been removed. The visualized liver, spleen and kidneys are grossly normal in size and morphology. Normal soft tissue structures. There are diffuse degenerative changes of the visualized lumbar spine. RAD/Abdomen Single View IMPRESSION: Moderate amount of fecal material is seen in the colon. Electronically Signed: Rob Jara MD at 14:49 EDT , Service support ,
[2021-01-29 11:35] LABS: Bedside Glucose 191 mg/dL (70-110)
[2021-01-29 15:37] LABS: Bacteria 0 SEEN /hpf (None Seen); Mucous, Urine 0 SEEN /hpf (<or=2+); Red Blood Cells-Urine 0 SEEN /hpf (0-5)
[2021-01-29 15:40] VITALS: BP 88/54; PULSE 72; RESP 16; TEMP 36.4; O2SAT 97
[2021-01-29 15:50] LABS: Color, Urine Yellow (Yellow); Glucose, Dipstick Normal (Normal); Ketone-Dipstick Negative (Negative); Leukocyte Esterase-Dipstick Negative /ul (Negative); Nitrite-Dipstick Negative (Negative); Occult Blood-Urine Negative /ul (Negative); Protein-Dipstick 15 mg/dl (Negative); Specific Gravity, Urine 1.015 (1.002-1.030); Urine Bilirubin Dipstick Negative (Negative); Urine Clarity Clear (Clear); Urine Urobilinogen Normal (Normal)
[2021-01-29 15:57] LABS: Hyaline Cast 0-5 SEEN /lpf (0-5); Squamous Epithelial Cells - UA 0-5 SEEN /hpf (0-5); White Blood Cells 0-5 SEEN /hpf (0-5)
[2021-01-29 16:31] LABS: Bedside Glucose 166 mg/dL (70-110)
[2021-01-29 17:06] VITALS: BP 118/55; PULSE 84; RESP 18; O2SAT 98
[2021-01-29 17:14] VITALS: BP 118/55; PULSE 84
[2021-01-29 21:41] LABS: Bedside Glucose 192 mg/dL (70-110)
[2021-01-29] MEDS: QUEtiapine 25 MG Tablet 50 MG PO (21:56)
[2021-01-29] MEDS: Atorvastatin Calcium 80 MG Tablet PO (21:57)
[2021-01-29] MEDS: MELATONIN 3 MG TABLET 6 MG PO (21:57)
[2021-01-30 00:51] LABS: Bedside Glucose 180 mg/dL (70-110)
--- NOTE | 2021-01-30 02:35 | NURSING ---
Trach care provided, inner cannula cleaned and replaced. Patient tolerated well.
[2021-01-30 03:11] LABS: Bedside Glucose 163 mg/dL (70-110)
[2021-01-30 04:50] VITALS: BP 126/70; PULSE 63; TEMP 36.5; O2SAT 95
[2021-01-30] MEDS: BACITRACIN 15 GM Tube 1 APPLIC TOPICAL ×2 (04:53→17:04)
[2021-01-30] MEDS: Doxazosin 1 MG Tablet 2 MG PO (04:54)
[2021-01-30] MEDS: Menthol/Lanolin/Calamine/Znox 113 GM Tube 1 APPLIC TOPICAL ×2 (04:54→17:04)
[2021-01-30] MEDS: levETIRAcetam Oral Solution 500 MG/5 ML 1000 MG PO ×2 (04:55→19:40)
[2021-01-30 04:57] VITALS: PULSE 64
[2021-01-30] MEDS: Metoprolol Tartrate 50 MG Tablet PO ×2 (04:57→19:41)
[2021-01-30] MEDS: Famotidine 20 MG Tablet 40 MG PO ×2 (04:57→19:40)
[2021-01-30] MEDS: Nystatin Powder 15gm Bottle 1 APPLIC TOPICAL ×2 (04:58→17:04)
[2021-01-30] MEDS: Sertraline 50 MG Tablet PO (04:58)
[2021-01-30 06:26] LABS: Bedside Glucose 139 mg/dL (70-110)
--- NOTE | 2021-01-30 06:48 | NURSING ---
Gave dose of lantus 01/29 @ 2205 in error. MD notified, order to hold humalog and recheck sugar in a few hours. Sugars stable overnight. Gave 0600 dose lantus as unscheduled to keep patient on regular schedule.
--- NOTE | 2021-01-30 08:53 | NURSING ---
per clinical trials manager report pt could not tolerate mag citrate pt took one sip and could not take any more. dr schuster updated this AM, new order for soap suds enema.
[2021-01-30] MEDS: Potassium Chloride Oral Tablet 10 MEQ PO (09:04)
--- NOTE | 2021-01-30 09:13 | NURSING ---
explained to pt that dr Webb has ordered SSE to help evacuate the stool noted on abd xray lastnight. pt declining at this time. Much 1:1 support given for the reason it is needed. pt stated let me think about it.
--- NOTE | 2021-01-30 10:24 | NURSING ---
ALL CARE PROVIDED IN ROOM THIS SHIFT D/T CONTACT PRECAUTIONS.
[2021-01-30 11:00] LABS: Bedside Glucose 163 mg/dL (70-110)
[2021-01-30] MEDS: Insulin Lispro 100 UNIT/ML INSULN.PEN SC ×3 (11:08→21:43)
[2021-01-30 12:31] VITALS: BP 124/68; PULSE 72; RESP 16; TEMP 36.6; O2SAT 96
[2021-01-30 14:51] VITALS: O2SAT 98
[2021-01-30 16:26] LABS: Bedside Glucose 194 mg/dL (70-110)
[2021-01-30 19:30] VITALS: BP 131/68; PULSE 75; RESP 16; TEMP 37.1; O2SAT 94
[2021-01-30 19:41] VITALS: PULSE 74
[2021-01-30] MEDS: Senna/Docusate Sodium 1 Tablet PO (19:41)
[2021-01-30 21:31] LABS: Bedside Glucose 184 mg/dL (70-110)
[2021-01-30] MEDS: QUEtiapine 25 MG Tablet 50 MG PO (21:41)
[2021-01-30] MEDS: MELATONIN 3 MG TABLET 6 MG PO (21:41)
[2021-01-30] MEDS: Atorvastatin Calcium 80 MG Tablet PO (21:42)
[2021-01-31] MEDS: BACITRACIN 15 GM Tube 1 APPLIC TOPICAL ×2 (06:05→17:41)
[2021-01-31] MEDS: Menthol/Lanolin/Calamine/Znox 113 GM Tube 1 APPLIC TOPICAL ×2 (06:06→17:43)
[2021-01-31] MEDS: Nystatin Powder 15gm Bottle 1 APPLIC TOPICAL ×2 (06:06→17:43)
[2021-01-31 06:21] LABS: Bedside Glucose 142 mg/dL (70-110)
[2021-01-31 07:34] LABS: Absolute Lymphocyte Count 3.25 X10^3/uL (0.83-4.51); Absolute Neutrophil Count 7.5 X10^3/uL (2.0-7.7); Basophil# 0.08 X10^3/uL; Basophil% 0.7 % (0-1); Eosinophil# 0.19 X10^3/uL; Eosinophils% 1.6 % (0-5); Hematocrit 30.5 % (40-54); Hemoglobin 9.3 g/dL (13.0-16.5); Lymphocyte # 3.25 X10^3/ul (4.0); Lymphocyte % 27.1 % (19-41); Mean Corp Hgb Conc 30.5 g/dL (32-36); Mean Corpuscular Hgb 26.1 pg (27.0-32.0); Mean Corpuscular Volume 85.7 fL (80-94); Mean Platelet Vol. 9.8 fl (6.2-12.0); Monocyte# 0.97 X10^3/uL; Monocyte% 8.1 % (0-10); NRBC Flagged by Analyzer 0 % (0-5); Neutrophil # 7.46 X10^3/uL (2.7-7.7); Platelet Count 314 K/mm3 (150-450); RBC Distribution Width CV 15.5 % (11.6-14.6); RBC Distribution Width SD 49.1 fl (35.1-43.9); Red Blood Count 3.56 M/mm3 (4.6-6.2)
[2021-01-31 08:03] LABS: Anion Gap 6 (5-15); BUN 16 mg/dL (7-18); BUN/Creat Ratio 17.5 RATIO (10-20); Chloride 106 mmol/L (98-107); Creatinine, Serum 0.92 mg/dL (0.70-1.30); EST Glomerular Filtration Rate 89 mL/min (>60); Est Glom Filt Rate - Afr Amer 108 mL/min (>60); Estimated Creatinine Clearance 73.35 ml/min; Glucose 145 mg/dL (74-106); Potassium 3.8 mmol/L (3.5-5.1); Sodium Level 139 mmol/L (136-145)
[2021-01-31] MEDS: levETIRAcetam Oral Solution 500 MG/5 ML 1000 MG PO ×2 (08:49→20:30)
[2021-01-31] MEDS: Doxazosin 1 MG Tablet 2 MG PO (08:50)
[2021-01-31] MEDS: Sertraline 50 MG Tablet PO (08:50)
[2021-01-31] MEDS: Potassium Chloride Oral Tablet 10 MEQ PO (08:50)
[2021-01-31 08:51] VITALS: BP 99/58; PULSE 67
[2021-01-31] MEDS: Famotidine 20 MG Tablet 40 MG PO ×2 (08:51→20:28)
[2021-01-31] MEDS: Metoprolol Tartrate 50 MG Tablet PO ×2 (08:51→20:29)
[2021-01-31] MEDS: Senna/Docusate Sodium 1 Tablet PO (08:51)
[2021-01-31] MEDS: Insulin Lispro 100 UNIT/ML INSULN.PEN SC ×4 (08:53→23:27)
[2021-01-31 10:50] LABS: Bedside Glucose 148 mg/dL (70-110)
[2021-01-31 14:15] VITALS: BP 121/67; PULSE 70; RESP 18; TEMP 36; O2SAT 97
--- NOTE | 2021-01-31 15:40 | NURSING ---
Trach care provided per orders, pt tolerated well.
[2021-01-31 16:45] LABS: Bedside Glucose 208 mg/dL (70-110)
[2021-01-31] MEDS: QUEtiapine 25 MG Tablet 50 MG PO (20:28)
[2021-01-31 20:29] VITALS: BP 141/93; PULSE 66
[2021-01-31] MEDS: MELATONIN 3 MG TABLET 6 MG PO (20:29)
[2021-01-31] MEDS: Atorvastatin Calcium 80 MG Tablet PO (20:30)
[2021-01-31 21:56] LABS: Bedside Glucose 159 mg/dL (70-110)
[2021-01-31 23:25] VITALS: O2SAT 97
[2021-02-01 03:04] VITALS: BP 134/73; PULSE 61; RESP 16; TEMP 36.6; O2SAT 95
--- NOTE | 2021-02-01 03:10 | NURSING ---
CARDIOLOGY COORDINATOR reports pt c/o nausea and is drowsy. Vital signs obtained. Pt informs this nurse he feels nauseated. Does not think he will vomit. Offered antiemetic and decline. Question if pt is experiencing difficulty sleeping and denies. Offered mattie felipe and saline crackers and declines.
[2021-02-01 03:45] VITALS: O2SAT 96
[2021-02-01 06:21] LABS: Bedside Glucose 139 mg/dL (70-110)
[2021-02-01] MEDS: BACITRACIN 15 GM Tube 1 APPLIC TOPICAL ×2 (07:11→17:33)
[2021-02-01] MEDS: Menthol/Lanolin/Calamine/Znox 113 GM Tube 1 APPLIC TOPICAL ×2 (07:11→17:33)
[2021-02-01] MEDS: Nystatin Powder 15gm Bottle 1 APPLIC TOPICAL ×2 (07:12→17:33)
[2021-02-01] MEDS: Insulin Lispro 100 UNIT/ML INSULN.PEN SC ×4 (08:53→23:01)
[2021-02-01] MEDS: levETIRAcetam Oral Solution 500 MG/5 ML 1000 MG PO ×2 (08:53→20:43)
[2021-02-01 08:54] VITALS: PULSE 71
[2021-02-01] MEDS: Doxazosin 1 MG Tablet 2 MG PO (08:54)
[2021-02-01] MEDS: Potassium Chloride Oral Tablet 10 MEQ PO (08:54)
[2021-02-01] MEDS: Metoprolol Tartrate 50 MG Tablet PO ×2 (08:54→20:45)
[2021-02-01] MEDS: Senna/Docusate Sodium 1 Tablet PO (08:54)
[2021-02-01] MEDS: Sertraline 50 MG Tablet PO (08:54)
[2021-02-01] MEDS: Famotidine 20 MG Tablet 40 MG PO ×2 (08:54→20:44)
[2021-02-01 11:06] LABS: Bedside Glucose 193 mg/dL (70-110)
[2021-02-01 15:32] VITALS: BP 139/88; PULSE 69; RESP 20; TEMP 36.8; O2SAT 96
[2021-02-01 16:31] LABS: Bedside Glucose 163 mg/dL (70-110)
--- NOTE | 2021-02-01 18:24 | NURSING ---
Trach care and suctioning provided per policy.
[2021-02-01] MEDS: Atorvastatin Calcium 80 MG Tablet PO (20:44)
[2021-02-01 20:45] VITALS: BP 106/52; PULSE 71
[2021-02-01] MEDS: QUEtiapine 25 MG Tablet 50 MG PO (20:45)
[2021-02-01] MEDS: MELATONIN 3 MG TABLET 6 MG PO (20:46)
[2021-02-01 21:36] LABS: Bedside Glucose 220 mg/dL (70-110)
[2021-02-01] MEDS: LORazepam 0.5 MG Tablet 1 MG PO (23:01)
[2021-02-01 23:40] VITALS: O2SAT 98
[2021-02-02 05:48] LABS: Absolute Lymphocyte Count 2.92 X10^3/uL (0.83-4.51); Absolute Neutrophil Count 6.3 X10^3/uL (2.0-7.7); Basophil# 0.09 X10^3/uL; Basophil% 0.9 % (0-1); Eosinophil# 0.25 X10^3/uL; Eosinophils% 2.4 % (0-5); Hematocrit 30.2 % (40-54); Hemoglobin 9.1 g/dL (13.0-16.5); Lymphocyte # 2.92 X10^3/ul (4.0); Lymphocyte % 27.6 % (19-41); Mean Corp Hgb Conc 30.1 g/dL (32-36); Mean Corpuscular Hgb 25.8 pg (27.0-32.0); Mean Corpuscular Volume 85.6 fL (80-94); Mean Platelet Vol. 9.8 fl (6.2-12.0); Monocyte# 1.04 X10^3/uL; Monocyte% 9.8 % (0-10); NRBC Flagged by Analyzer 0 % (0-5); Neutrophil # 6.25 X10^3/uL (2.7-7.7); Platelet Count 302 K/mm3 (150-450); RBC Distribution Width CV 15.7 % (11.6-14.6); RBC Distribution Width SD 49.3 fl (35.1-43.9); Red Blood Count 3.53 M/mm3 (4.6-6.2); White Blood Count 10.6 K/mm3 (4.4-11.0)
[2021-02-02 06:04] LABS: International Normalized Ratio 3.4; Prothrombin Time (Protime)PT. 33.8 SECONDS (11.7-14.9)
[2021-02-02 06:35] LABS: Bedside Glucose 159 mg/dL (70-110)
[2021-02-02] MEDS: Menthol/Lanolin/Calamine/Znox 113 GM Tube 1 APPLIC TOPICAL ×2 (06:44→18:03)
[2021-02-02] MEDS: BACITRACIN 15 GM Tube 1 APPLIC TOPICAL ×2 (06:44→18:02)
[2021-02-02] MEDS: Nystatin Powder 15gm Bottle 1 APPLIC TOPICAL ×2 (06:44→18:02)
[2021-02-02 06:50] VITALS: BP 132/72; PULSE 65; RESP 20; TEMP 36.6; O2SAT 95
[2021-02-02 07:19] VITALS: O2SAT 96
[2021-02-02] MEDS: Senna/Docusate Sodium 1 Tablet PO (09:31)
[2021-02-02] MEDS: Insulin Lispro 100 UNIT/ML INSULN.PEN SC ×4 (09:31→21:50)
[2021-02-02] MEDS: Famotidine 20 MG Tablet 40 MG PO ×2 (09:31→19:46)
[2021-02-02] MEDS: Doxazosin 1 MG Tablet 2 MG PO (09:31)
[2021-02-02] MEDS: Sertraline 50 MG Tablet PO (09:31)
[2021-02-02 09:32] VITALS: PULSE 65
[2021-02-02] MEDS: levETIRAcetam Oral Solution 500 MG/5 ML 1000 MG PO ×2 (09:32→19:47)
[2021-02-02] MEDS: Metoprolol Tartrate 50 MG Tablet PO ×2 (09:32→19:46)
[2021-02-02] MEDS: Potassium Chloride Oral Tablet 10 MEQ PO (09:32)
[2021-02-02 10:56] LABS: Bedside Glucose 164 mg/dL (70-110)
--- NOTE | 2021-02-02 11:25 | NURSING ---
Therapy states that resident didnt fine in therapy without needing any oxygen. Asking if we can leave O2 off while in room as well. Respiratory therapy called and they state that we can trial resident on room air during day but needs the humidity of the air flow at HS and during naps. Will leave O2 off at this time and monitor resident.
--- NOTE | 2021-02-02 11:43 | NURSING ---
Resident up in chair. O2 turned off at this time. Trach cleaned at this time. Speech therapy in room and speaking valve placed over trach. resident tolerates well and oxgyen remains 97% on room air with the speaking valve in place. Speech therapy to supervise resident while eating lunch.
--- NOTE | 2021-02-02 11:47 | PT ---
Pt was on O2 in room. During therapy O2 was removed and pt was on room air. Pt was able to maintain SPO2 above 96% while on room air with all activity and at rest. Reported to RN. Pt returned to O2 when back in room.
--- NOTE | 2021-02-02 13:58 | NURSING ---
wound photo: right groin
[2021-02-02 14:03] VITALS: BP 111/67; PULSE 70; RESP 16; TEMP 36.6; O2SAT 98
[2021-02-02 16:36] LABS: Bedside Glucose 150 mg/dL (70-110)
[2021-02-02 19:46] VITALS: PULSE 70
[2021-02-02] MEDS: Atorvastatin Calcium 80 MG Tablet PO (19:47)
[2021-02-02 21:16] LABS: Bedside Glucose 208 mg/dL (70-110)
[2021-02-02] MEDS: QUEtiapine 25 MG Tablet 50 MG PO (21:51)
[2021-02-02] MEDS: MELATONIN 3 MG TABLET 6 MG PO (21:51)
[2021-02-02 23:30] VITALS: O2SAT 96
[2021-02-03] VITALS (8 sets, daily range): BP systolic 114–150; BP diastolic 59–76; PULSE 64–88; RESP 16–18; TEMP 36.3–36.6; O2SAT 97–98
[2021-02-03] MEDS: BACITRACIN 15 GM Tube 1 APPLIC TOPICAL ×2 (06:13→17:08)
[2021-02-03] MEDS: Menthol/Lanolin/Calamine/Znox 113 GM Tube 1 APPLIC TOPICAL ×2 (06:14→17:11)
[2021-02-03] MEDS: Nystatin Powder 15gm Bottle 1 APPLIC TOPICAL ×2 (06:14→17:10)
[2021-02-03 06:16] LABS: Bedside Glucose 129 mg/dL (70-110)
--- NOTE | 2021-02-03 06:56 | NURSING ---
0630 pts trach stoma cleaned and bacitracin ointment applied. trach inner canula cleaned at this time as well with NS and hydrogen peroxide mixture, pt had mucous production and was suctioned at this time, with scant amount of cloudy, yellow mucous production. pt tolerated both procedures well, humidified oxygen back in place, pt denies additional needs at this time [address] groin cleaned and new drsg applied at this time. wound bed is yellow with red surrounding. drsg is dated. pt tolerated well and denies pain.
[2021-02-03] MEDS: Insulin Lispro 100 UNIT/ML INSULN.PEN SC ×4 (08:20→21:48)
[2021-02-03] MEDS: Famotidine 20 MG Tablet 40 MG PO ×2 (08:21→20:26)
[2021-02-03] MEDS: Senna/Docusate Sodium 1 Tablet PO ×2 (08:21→20:25)
[2021-02-03] MEDS: Potassium Chloride Oral Tablet 10 MEQ PO (08:22)
[2021-02-03] MEDS: Doxazosin 1 MG Tablet 2 MG PO (08:22)
[2021-02-03] MEDS: levETIRAcetam Oral Solution 500 MG/5 ML 1000 MG PO ×2 (08:23→20:25)
[2021-02-03] MEDS: Metoprolol Tartrate 50 MG Tablet PO ×2 (08:24→20:26)
[2021-02-03] MEDS: Sertraline 50 MG Tablet PO (08:25)
[2021-02-03 11:05] LABS: Bedside Glucose 133 mg/dL (70-110)
--- NOTE | 2021-02-03 12:57 | NURSING ---
R' VERY UPSET YELLING THAT HE WANTS TO GO HOME. STATES THAT DR. BAUTISTA CHECKED IN ON HIM BUT GAVE HIM NO DISCHARGE DATE OR PLAN WHICH MADE HIM VERY UPSET/FRUSTRATED. YELLING AND CURSING THAT HE WANTS TO LEAVE TODAY AND CALLED AND WITH HIS DEMANDS. CALLED THIS NURSE. SPOKE WITH ABOUT PROGRESS R' HAS MADE BUT THIS NURSE HAS NO AUTHORITY TO DETERMINE DISCHARGE DATES. TRANSFERRED TO PATTERN HANDFARHAD. 1:1 GIVEN TO R' WHO STATED, I'VE BEEN HERE 4 MONTHS! I'M READY TO GO HOME! I CAN'T STAY HERE ANY LONGER! R' VERY UPSET, CURSING AND YELLING. PATTERN HAND SPOKE WITH R' AND CAME AND SPOKE WITH R'. PLAN TO GET TRACH SUPPLIES SET UP AND DO TRACH CARE TEACHING WITH . WILLING TO COME IN TOMORROW FOR TEACHING. PATTERN HAND MAKING CALLS REGARDING TRACH SUPPLIES FOR HOME. SHE WILL UPDATE R' T/O DAY WITH HOPE OF DISCHARGE TUESDAY OR TUESDAY. R' RESTING IN BED AT THIS TIME. WILL CONT' TO GIVE SUPPORT AND ENCOURAGEMENT.
--- NOTE | 2021-02-03 14:49 | CASEMGMT ---
Social Work Patient requesting to speak with this social security specialist. This social security specialist meeting with patient in room. Patient requesting to discharge on 02/06/2021. Patient states I need to get out of here. Patient reports I am ready to go home. This social security specialist provided support and active listening. Patient reports to believe that patient is ready to return to home with spouse. Patient does have a new trach that patient spouse will need educated on. This social security specialist collaborating with interdisciplinary team, all agreeable to patient request to discharge on 02/06/2021 to home with spouse. Therapy recommending for physical and occupational therapy. Nursing recommending for patient to have nursing for teaching and wound care/management. Patient with history of home health services and requesting for home health services to be set up through [facility]. Patient also has home oxygen already set up through [facility] [employer] and is agreeable to trach supplies being set up through [facility] [employer]. Patient spouse is also agreeable discharge date and plans to come for teach tomorrow and . Discharge time set for 02/06/2021 @ 10:00am. Patient spouse able to provide transportation to home. Active support and listening provided throughout conversation. Patient signed Notice of Medicare Non-Coverage. Telephone call to [facility], Intake. Referral made for PT, OT, SN. Orders faxed along with clinical information. Will fax discharge instructions when obtained. Telephone call to [facility]. Referral for Trach supplies made. Order faxed. Proposed discharge date: 02/06/2021 Brenda TRINIDAD, MAXINE
--- NOTE | 2021-02-03 16:10 | CASEMGMT ---
Social Work Brief interview for mental status (BIMS) and resident mood assessment (PHQ-9) completed on this day. BIMS score 08/28. PHQ-9 score 04/09. Brenda TRINIDAD, TOMMIES
[2021-02-03 16:26] LABS: Bedside Glucose 165 mg/dL (70-110)
[2021-02-03] MEDS: Atorvastatin Calcium 80 MG Tablet PO (20:26)
--- NOTE | 2021-02-03 20:37 | PCM.DC ---
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 You will use the following diet at home:: No restrictions, Regular Your food should be the consistency of: Regular Your liquids should be the consistency of: Regular/Thin Discharge Activity: Return to Normal Activity, May Shower, Use Walker Weight Bearing Status: Weight bearing as tolerated Call your doctor if you observe: Fever of 101 or Higher, Inability to urinate, Inability to have a bowel movement, Shortness of breath, Chest pain, Uncontrolled pain Allergies/Adverse Reactions: Allergies No Known Allergies Allergy (Verified 01/15/21 02:17) Medications to take at Discharge Atorvastatin Calcium [Lipitor] 80 mg NG QHS 01/14/21 Doxazosin Mesylate [Cardura] 2 mg NG DAILY 01/14/21 Metoprolol Tartrate 50 mg GT BID 01/14/21 levETIRAcetam tablet [Keppra tablet] 1,000 mg GT BID 01/14/21 Bacitracin Ointment 1 applic TOPICAL BID #1 tube 02/03/21 Famotidine [Pepcid] 40 mg PO 0800,1999 #60 tablet 02/03/21 Insulin Glargine [Lantus SoloStar Pen] 15 units SC BID #1 pen 02/03/21 Insulin Lispro [Humalog KwikPen] 5 unit SC ACHS #1 insuln.pen 02/03/21 Melatonin 6 mg PO QHS #30 tablet 02/03/21 Menthol/Lanolin/Calamine/Znox [Calmoseptine Ointment] 1 applic TOPICAL BID tube 02/03/21 Nystatin Powder [Mycostatin Powder] 1 applic TOPICAL BID bottle 02/03/21 Potassium Chloride Oral Tablet [K-Dur] 10 meq PO DAILYCM #30 tablet 02/03/21 Quetiapine Fumarate [Seroquel] 50 mg PO QHS #30 tablet 02/03/21 Sertraline HCl [Zoloft] 50 mg PO DAILY@0800 #30 tablet 02/03/21 Warfarin [Coumadin] 8 mg PO DAILY@1700 #60 tablet 02/03/21 The following prescriptions were given: Bacitracin Ointment 1 applic TOPICAL BID #1 tube Transmission Status: Pending to [facility] Warfarin [Coumadin] 8 mg PO DAILY@1700 #60 tablet Transmission Status: Pending to [facility] Insulin Lispro [Humalog KwikPen] 5 unit SC ACHS #1 insuln.pen Transmission Status: Pending to [facility] Potassium Chloride Oral Tablet [K-Dur] 10 meq PO DAILYCM #30 tablet Transmission Status: Pending to [facility] Insulin Glargine [Lantus SoloStar Pen] 15 units SC BID #1 pen Transmission Status: Pending to [facility] Melatonin 6 mg PO QHS #30 tablet Transmission Status: Pending to [facility] Famotidine [Pepcid] 40 mg PO 0800,2000 #60 tablet Transmission Status: Pending to [facility] Quetiapine Fumarate [Seroquel] 50 mg PO QHS #30 tablet Transmission Status: Pending to [facility] Sertraline HCl [Zoloft] 50 mg PO DAILY@0800 #30 tablet Transmission Status: Pending to [facility] Primary Care Physician: Faustino Chow MD [NON-STAFF] - Please follow up with your Primary Care Physician in: 1 week. Test Results: Test results from this visit will be discussed in further detail at your follow-up appointment, if applicable. Please Follow Up With: Dr Royal Beck MD (Rehabilitation Services Director) Please Follow Up With: Dr. Faustino Chow (PCP) When: 1 week. Proposed Discharge Date: 02/06/21
--- NOTE | 2021-02-03 20:39 | DS.PCM_ITS ---
Discharge Date and Diagnosis - Problem List Patient Problems: Active and Suspected Problems Tracheal stenosis (Acute) Hemothorax, right (Acute) Date of Admission: 01/14/21 Date of Discharge: 02/06/21 - Primary Discharge Diagnosis Acute Problems: Active Problems Tracheal stenosis (Acute) Hemothorax, right (Acute) - Secondary Discharge Diagnosis Chronic Problems: Chronic Problems Debility (Chronic) Duodenal perforation (Chronic) Body mass index (BMI) 35 or more (Chronic) Diabetes mellitus (Chronic) Recurrent deep vein thrombosis (DVT) (Chronic) Dysphagia (Chronic) Seizure disorder (Chronic) BPH (benign prostatic hyperplasia) (Chronic) GERD (gastroesophageal reflux disease) (Chronic) Behavioral disorder (Chronic) Anxiety and depression (Chronic) Chronic anticoagulation (Chronic) Obstructive sleep apnea (Chronic) Hypertension (Chronic) HLD (hyperlipidemia) (Chronic) Super obese (Chronic) Uncontrolled type II diabetes mellitus (Chronic) Prostate disorder (Chronic) CAD (coronary artery disease) (Chronic) Hemorrhagic cerebrovascular accident (CVA) (Chronic) Posterior left temporal lobe Deep vein thrombosis (DVT) of left upper extremity (Chronic) Hx of deep venous thrombosis (Chronic) was on warfarin at the time of the intracerebral bleed with an INR of 4.2. Cognitive dysfunction (Chronic) Tobacco dependence in remission (Chronic) Quit at 34 years of age and also quit alcohol at the same time. Hospital Course and Treatment Imaging Results: 01/20/21 11:59 Diet: Regular - General Food consistency:: Soft & Bite Sized Liquid Consistency:: Regular/Thin Type of Dietary Supplement:: Ensure Enlive Is pt able to select menu?: No Diet Comments: 1:1 supervised meals, NO STRAWS; 120 ml ensure enlive w/ meals Clinical Impression(s) from Imaging Studies Chest X-Ray 01/29/21 10:15 IMPRESSION: Persistent increased markings at the right lung base although there has been mild improvement as compared to the prior study. Further follow-up is recommended. Electronically Signed: Rob Jara MD at 13:35 EDT , Service support , KUB X-Ray 01/29/21 10:15 IMPRESSION: Moderate amount of fecal material is seen in the colon. Electronically Signed: Rob Jara MD at 14:49 EDT , Service support , Labs (Last 48 Hours) 02/01/21 02/02/21 02/02/21 21:29 05:25 05:25 WBC 10.6 RBC 3.53 L Hgb 9.1 L Hct 30.2 L MCV 85.6 MCH 25.8 L MCHC 30.1 L RDW Std Deviation 49.3 H RDW Coeff of Bruce 15.7 H Plt Count 302 MPV 9.8 Immature Gran % (Auto) 0.300 Neut % (Auto) 59.0 Lymph % (Auto) 27.6 [place] % (Auto) 9.8 Eos % (Auto) 2.4 Baso % (Auto) 0.9 Absolute Neuts (auto) 6.3 Absolute Lymphs (auto) 2.92 Nucleated RBC % 0 PT 33.8 H INR 3.4 POC Glucose 220 H 02/02/21 02/02/21 02/02/21 06:28 10:46 16:26 WBC RBC Hgb Hct MCV MCH MCHC RDW Std Deviation RDW Coeff of Bruce Plt Count MPV Immature Gran % (Auto) Neut % (Auto) Lymph % (Auto) [place] % (Auto) Eos % (Auto) Baso % (Auto) Absolute Neuts (auto) Absolute Lymphs (auto) Nucleated RBC % PT INR POC Glucose 159 H 164 H 150 H 02/02/21 02/03/21 02/03/21 21:03 06:06 10:57 WBC RBC Hgb Hct MCV MCH MCHC RDW Std Deviation RDW Coeff of Bruce Plt Count MPV Immature Gran % (Auto) Neut % (Auto) Lymph % (Auto) [place] % (Auto) Eos % (Auto) Baso % (Auto) Absolute Neuts (auto) Absolute Lymphs (auto) Nucleated RBC % PT INR POC Glucose 208 H 129 H 133 H 02/03/21 16:17 WBC RBC Hgb Hct MCV MCH MCHC RDW Std Deviation RDW Coeff of Bruce Plt Count MPV Immature Gran % (Auto) Neut % (Auto) Lymph % (Auto) [place] % (Auto) Eos % (Auto) Baso % (Auto) Absolute Neuts (auto) Absolute Lymphs (auto) Nucleated RBC % PT INR POC Glucose 165 H Consultations 01/24/21 01:14 Consult: Onc/Wound/fire hose curer Routine Comment: wound in rt groin Operations: None Procedures: None Summary of Care Provided: The patient is a 60 year old Male with below past medical history hospitalized for tracheal stenosis, underwent permanent tracheostomy 12/17/2020, complicated by duodenal perforation, right hemothorax with loculated effusion, dysphagia requiring tube feeding, admitted to TCU with debility, here for rehabilitation, strengthening, prior to discharge home with . On TCU, Dobbhoff tube pulled, diet advanced. Resident treated for C. Diff colitis with full course of oral vancomycin. Resident treated for right lower lobe aspiration pneumonia with Levaquin. He is doing well, ready for discharge. Discharge home with , [facility] PT/OT/SN. Follow INR for coumadin for recurrent DVT. Patient Problems: Active and Suspected Problems Tracheal stenosis (Acute) Hemothorax, right (Acute) - Physical Exam Vitals/I&O's: Vital Signs Temp Pulse Resp BP Pulse Ox 97.8 F 88 18 132/73 H 97 02/03/21 13:38 02/03/21 20:26 02/03/21 13:38 02/03/21 20:26 02/03/21 14:21 Oxygen Flow Rate (L/min) 5 Oxygen Delivery Method Room Air Weight: 118.473 kg Body Mass Index (BMI) 47.7 Intake and Output for Last 24 Hours 02/01/21 02/02/21 02/03/21 23:59 23:59 23:59 Intake Total 600 / 600 480 / 480 360 / 360 Output Total 1000 / 1000 Balance 600 / 600 480 / 480 -640 / -640 Microbiology Past 72 Hours 01/29/21 15:30 Urine, Clean Catch Urine Culture - Final Culture exhibits no growth. Laboratory Results 02/02/21 21:03: POC Glucose 208 H 02/03/21 06:06: POC Glucose 129 H 02/03/21 10:57: POC Glucose 133 H 02/03/21 16:17: POC Glucose 165 H Current Medications Acetaminophen (Acetaminophen 650 Mg/20 Ml Udc) 650 mg PO Q4H PRN PRN PRN Reason: Pain Score 1-10 Albuterol/Ipratropium (Ipratropium/Albuterol Sulfate 3 Ml Ampul.Neb) 3 ml INHALATION Q4H PRN PRN Reason: Wheezing or SOB Last Admin: 01/15/21 01:56 Dose: 3 ml Documented by: Atorvastatin Calcium (Atorvastatin Calcium 80 Mg Tablet) 80 mg PO QHS [facility] Last Admin: 02/03/21 20:26 Dose: 80 mg Documented by: Bacitracin (Bacitracin 15 Gm Tube) 1 applic TOPICAL BID [facility], [facility]; Protocol Last Admin: 02/03/21 17:08 Dose: 1 applicatio Documented by: Bisacodyl (Bisacodyl 10 Mg Suppository) 10 mg RC DAILY PRN PRN Reason: Constipation Calamine/Phenol (Menthol/Lanolin/Calamine/Znox 113 Gm Tube) 1 applic TOPICAL BID [facility], [facility]; Protocol Last Admin: 02/03/21 17:11 Dose: 1 applicatio Documented by: Doxazosin Mesylate (Doxazosin 1 Mg Tablet) 2 mg PO DAILY@0800 [facility], [facility]1983 Last Admin: 02/03/21 08:22 Dose: 2 mg Documented by: Famotidine (Famotidine 20 Mg Tablet) 40 mg PO [facility] Last Admin: 02/03/21 20:26 Dose: 40 mg Documented by: Glucagon (Glucagon 1 Mg/Ml Syringe) 1 mg IM X1 PRN PRN Reason: low blood sugar Guaifenesin (Guaifenesin 10 Ml Udc (200mg/10ml)) 10 ml PO Q6H PRN PRN PRN Reason: CONGESTION Sodium Chloride () 250 mls @ 15 mls/hr IV .[id number] PRN PRN Reason: Saline Flush Sodium Chloride () 250 mls @ 15 mls/hr IV .[id number] PRN PRN Reason: Additional IVPB Infusion Insulin Glargine (Insulin Glargine 100 Units/Ml Pen) 15 units SC BID [facility] Last Admin: 02/03/21 17:10 Dose: 15 u Documented by: Insulin Human Lispro (Insulin Lispro 100 Unit/Ml Insuln.Pen) 5 unit SC ACHS [facility], [facility] Last Admin: 02/03/21 17:09 Dose: 5 units Documented by: Levetiracetam (Levetiracetam Oral Solution 500 Mg/5 Ml) 1,000 mg PO 799,1999 [facility] Last Admin: 02/03/21 20:25 Dose: 1,000 mg Documented by: Lorazepam (Lorazepam 0.5 Mg Tablet) 1 mg PO Q6H PRN PRN PRN Reason: ANXIETY Last Admin: 02/01/21 23:01 Dose: 1 mg Documented by: Magnesium Hydroxide (Magnesium Hydroxide 30 Ml Udc) 30 ml PO DAILY PRN PRN Reason: Constipation Melatonin (Melatonin 3 Mg Tablet) 6 mg PO QHS [facility] Last Admin: 02/02/21 21:51 Dose: 6 mg Documented by: Metoprolol Tartrate (Metoprolol Tartrate 50 Mg Tablet) 50 mg PO 799,1999 [facility] Last Admin: 02/03/21 20:26 Dose: 50 mg Documented by: Nystatin (Nystatin Powder 15gm Bottle) 1 applic TOPICAL BID [facility], [facility]; Protocol Last Admin: 02/03/21 17:10 Dose: 1 applicatio Documented by: Potassium Chloride (Potassium Chloride Oral Tablet 10 Meq) [facility] Stop: 02/06/21 08:01 Last Admin: 02/03/21 08:22 Dose: 10 meq Documented by: Promethazine HCl (Promethazine 25 Mg Tablet) 25 mg PO Q6H PRN PRN PRN Reason: NAUSEA/VOMITING Last Admin: 01/29/21 04:08 Dose: 25 mg Documented by: Quetiapine Fumarate (Quetiapine 25 Mg Tablet) 50 mg PO QHS [facility] Last Admin: 02/02/21 21:51 Dose: 50 mg Documented by: Senna/Docusate Sodium (Senna/Docusate Sodium 1 Tablet) 1 tablet PO 799,1999 [facility] Last Admin: 02/03/21 20:25 Dose: 1 tablet Documented by: Sertraline HCl (Sertraline 50 Mg Tablet) 50 mg PO DAILY@0800 [facility] Last Admin: 02/03/21 08:25 Dose: 50 mg Documented by: Sodium Chloride (0.9% Saline Lock 10 Ml Syringe) 10 - 40 ml IV UD PRN PRN Reason: SALINE FLUSH Last Admin: 01/26/21 16:54 Dose: 10 ml Documented by: Sodium Chloride (0.9% Saline Lock 10 Ml Syringe) 10 - 40 ml IV UD PRN PRN Reason: SALINE FLUSH Warfarin Sodium (Warfarin 4 Mg Tablet) 8 mg PO DAILY@1700 [facility] Last Admin: 02/03/21 17:10 Dose: 8 mg Documented by: Discharge Diet: No Restrictions Discharge Activity: Return to Normal Activity, May Shower, Use Walker Weight Bearing Status: Weight bearing as tolerated Call your doctor if you observe: Fever of 101 or Higher, Inability to urinate, Inability to have a bowel movement, Shortness of breath, Chest pain, Uncontrolled pain Home Medications: Medications to take at Discharge Atorvastatin Calcium [Lipitor] 80 mg NG QHS 01/14/21 Doxazosin Mesylate [Cardura] 2 mg NG DAILY 01/14/21 Metoprolol Tartrate 50 mg GT BID 01/14/21 levETIRAcetam tablet [Keppra tablet] 1,000 mg GT BID 01/14/21 Bacitracin Ointment 1 applic TOPICAL BID #1 tube 02/03/21 Famotidine [Pepcid] 40 mg PO 0800,2000 #60 tablet 02/03/21 Insulin Glargine [Lantus SoloStar Pen] 15 units SC BID #1 pen 02/03/21 Insulin Lispro [Humalog KwikPen] 5 unit SC ACHS #1 insuln.pen 02/03/21 Melatonin 6 mg PO QHS #30 tablet 02/03/21 Menthol/Lanolin/Calamine/Znox [Calmoseptine Ointment] 1 applic TOPICAL BID tube 02/03/21 Nystatin Powder [Mycostatin Powder] 1 applic TOPICAL BID bottle 02/03/21 Potassium Chloride Oral Tablet [K-Dur] 10 meq PO DAILYCM #30 tablet 02/03/21 Quetiapine Fumarate [Seroquel] 50 mg PO QHS #30 tablet 02/03/21 Sertraline HCl [Zoloft] 50 mg PO DAILY@0800 #30 tablet 02/03/21 Warfarin [Coumadin] 8 mg PO DAILY@1700 #60 tablet 02/03/21 Following Prescriptions Were Given to Patient: Bacitracin Ointment 1 applic TOPICAL BID #1 tube Transmission Status: Pending to [facility] Warfarin [Coumadin] 8 mg PO DAILY@1700 #60 tablet Transmission Status: Pending to [facility] Insulin Lispro [Humalog KwikPen] 5 unit SC ACHS #1 insuln.pen Transmission Status: Pending to [facility] Potassium Chloride Oral Tablet [K-Dur] 10 meq PO DAILYCM #30 tablet Transmission Status: Pending to [facility] Insulin Glargine [Lantus SoloStar Pen] 15 units SC BID #1 pen Transmission Status: Pending to [facility] Melatonin 6 mg PO QHS #30 tablet Transmission Status: Pending to [facility] Famotidine [Pepcid] 40 mg PO 0800,2000 #60 tablet Transmission Status: Pending to [facility] Quetiapine Fumarate [Seroquel] 50 mg PO QHS #30 tablet Transmission Status: Pending to [facility] Sertraline HCl [Zoloft] 50 mg PO DAILY@0800 #30 tablet Transmission Status: Pending to [facility] Primary Care Physician: Faustino Chow MD [NON-STAFF] - Please follow up with your Primary Care Physician in: 1 week. Please Follow Up With: Dr Royal Beck MD (Machine Hoop Maker) Please Follow Up With: Dr. Faustino Chow (PCP) When: 1 week. Disposition: Home with Home Health Minutes spent on discharge:: 35 Patient Condition:: Stable Medical Necessity - Tobacco Use Smoking Status: Former smoker Tobacco Use: Cigarettes Meaningful Use Info Meaningful Use Diagnoses (Choose all that apply): None applicable
[2021-02-03 21:15] LABS: Bedside Glucose 175 mg/dL (70-110)
[2021-02-03] MEDS: MELATONIN 3 MG TABLET 6 MG PO (21:20)
[2021-02-03] MEDS: QUEtiapine 25 MG Tablet 50 MG PO (21:21)
[2021-02-04] VITALS (7 sets, daily range): BP systolic 118–136; BP diastolic 68–73; PULSE 64–78; RESP 14–17; TEMP 36.2–36.6; O2SAT 96–98
[2021-02-04] MEDS: Nystatin Powder 15gm Bottle 1 APPLIC TOPICAL ×2 (03:43→17:14)
[2021-02-04] MEDS: Menthol/Lanolin/Calamine/Znox 113 GM Tube 1 APPLIC TOPICAL ×2 (03:43→17:13)
[2021-02-04] MEDS: BACITRACIN 15 GM Tube 1 APPLIC TOPICAL ×2 (03:43→17:13)
--- NOTE | 2021-02-04 04:29 | NURSING ---
Trach care provided. Inner cannula cleaned and replaced. Applied bacitracin around trach site and applied new split gauze. Patient tolerated fine, slept through most of procedure. Dressing to right groin changed. Cleansed area with NS and applied new sterile gauze, secured with tape. No drainage or signs infection.
[2021-02-04 06:20] LABS: Bedside Glucose 151 mg/dL (70-110)
[2021-02-04] MEDS: Insulin Lispro 100 UNIT/ML INSULN.PEN SC ×4 (08:14→21:43)
[2021-02-04] MEDS: Senna/Docusate Sodium 1 Tablet PO ×2 (08:15→20:38)
[2021-02-04] MEDS: Famotidine 20 MG Tablet 40 MG PO ×2 (08:15→20:37)
[2021-02-04] MEDS: Doxazosin 1 MG Tablet 2 MG PO (08:15)
[2021-02-04] MEDS: levETIRAcetam Oral Solution 500 MG/5 ML 1000 MG PO ×2 (08:15→20:36)
[2021-02-04] MEDS: Potassium Chloride Oral Tablet 10 MEQ PO (08:15)
[2021-02-04] MEDS: Sertraline 50 MG Tablet PO (08:15)
[2021-02-04] MEDS: Metoprolol Tartrate 50 MG Tablet PO ×2 (08:16→20:36)
--- NOTE | 2021-02-04 08:25 | CASEMGMT ---
Social Work Discharge instructions faxed to [facility]. Proposed discharge date: 02/06/2021 Brenda TRINIDAD, TOMMIES
[2021-02-04 11:10] LABS: Bedside Glucose 167 mg/dL (70-110)
--- NOTE | 2021-02-04 11:31 | CASEMGMT ---
Social Work Speech therapy also recommending for patient to continue with services in the community. Telephone call to [facility], Speech therapy added to referral. Updated order faxed. Proposed discharge date: 02/06/2021 Brenda TRINIDAD, MAXINE
--- NOTE | 2021-02-04 16:06 | NURSING ---
Trach care provided per policy. Spouse educated on procedure. Asked and answered questions.
[2021-02-04 16:21] LABS: Bedside Glucose 144 mg/dL (70-110)
[2021-02-04 18:19] LABS: International Normalized Ratio 3.3; Prothrombin Time (Protime)PT. 32.5 SECONDS (11.7-14.9)
[2021-02-04 21:21] LABS: Bedside Glucose 206 mg/dL (70-110)
[2021-02-04] MEDS: QUEtiapine 25 MG Tablet 50 MG PO (21:45)
[2021-02-04] MEDS: Atorvastatin Calcium 80 MG Tablet PO (21:45)
[2021-02-04] MEDS: MELATONIN 3 MG TABLET 6 MG PO (21:45)
[2021-02-05] VITALS (8 sets, daily range): BP systolic 121–142; BP diastolic 66–69; PULSE 60–72; RESP 16–22; TEMP 36–37; O2SAT 95–98
[2021-02-05] MEDS: BACITRACIN 15 GM Tube 1 APPLIC TOPICAL ×2 (03:58→17:47)
[2021-02-05] MEDS: Menthol/Lanolin/Calamine/Znox 113 GM Tube 1 APPLIC TOPICAL ×2 (03:59→17:48)
[2021-02-05] MEDS: Nystatin Powder 15gm Bottle 1 APPLIC TOPICAL ×2 (03:59→17:48)
--- NOTE | 2021-02-05 04:03 | NURSING ---
Trach care provided by respiratory therapist around midnight, inner cannula replaced.
[2021-02-05 05:50] LABS: Absolute Lymphocyte Count 3.44 X10^3/uL (0.83-4.51); Absolute Neutrophil Count 5.1 X10^3/uL (2.0-7.7); Basophil# 0.07 X10^3/uL; Basophil% 0.7 % (0-1); Eosinophil# 0.23 X10^3/uL; Eosinophils% 2.3 % (0-5); Hemoglobin 9.1 g/dL (13.0-16.5); Lymphocyte # 3.44 X10^3/ul (4.0); Lymphocyte % 34.8 % (19-41); Mean Corp Hgb Conc 30.3 g/dL (32-36); Mean Corpuscular Hgb 25.6 pg (27.0-32.0); Mean Corpuscular Volume 84.5 fL (80-94); Mean Platelet Vol. 9.2 fl (6.2-12.0); Monocyte# 1.05 X10^3/uL; Monocyte% 10.6 % (0-10); NRBC Flagged by Analyzer 0 % (0-5); Neutrophil # 5.05 X10^3/uL (2.7-7.7); Neutrophil % 51.2 % (47-70); Platelet Count 312 K/mm3 (150-450); RBC Distribution Width CV 15.7 % (11.6-14.6); Red Blood Count 3.55 M/mm3 (4.6-6.2); White Blood Count 9.9 K/mm3 (4.4-11.0)
[2021-02-05 06:35] LABS: Bedside Glucose 142 mg/dL (70-110)
[2021-02-05 06:37] LABS: Anion Gap 6 (5-15); BUN 14 mg/dL (7-18); Calcium,Total 8.6 mg/dL (8.5-10.1); Chloride 107 mmol/L (98-107); Creatinine, Serum 0.74 mg/dL (0.70-1.30); EST Glomerular Filtration Rate 115 mL/min (>60); Est Glom Filt Rate - Afr Amer 139 mL/min (>60); Estimated Creatinine Clearance 91.19 ml/min; Glucose 141 mg/dL (74-106); Potassium 3.7 mmol/L (3.5-5.1); Sodium Level 140 mmol/L (136-145)
[2021-02-05] MEDS: Senna/Docusate Sodium 1 Tablet PO ×2 (07:45→21:53)
[2021-02-05] MEDS: Potassium Chloride Oral Tablet 10 MEQ PO (07:45)
[2021-02-05] MEDS: levETIRAcetam Oral Solution 500 MG/5 ML 1000 MG PO ×2 (07:45→21:51)
[2021-02-05] MEDS: Metoprolol Tartrate 50 MG Tablet PO ×2 (07:45→22:01)
[2021-02-05] MEDS: Famotidine 20 MG Tablet 40 MG PO ×2 (07:45→21:52)
[2021-02-05] MEDS: Doxazosin 1 MG Tablet 2 MG PO (07:46)
[2021-02-05] MEDS: Insulin Lispro 100 UNIT/ML INSULN.PEN SC ×4 (07:46→21:56)
[2021-02-05] MEDS: Sertraline 50 MG Tablet PO (07:53)
[2021-02-05 11:16] LABS: Bedside Glucose 155 mg/dL (70-110)
--- NOTE | 2021-02-05 13:48 | NURSING ---
Trach care provided per policy.
--- NOTE | 2021-02-05 14:16 | MDS.RN ---
Pain interview for sandoval 02/06/21 completed.
[2021-02-05 16:25] LABS: Bedside Glucose 188 mg/dL (70-110)
[2021-02-05 21:40] LABS: Bedside Glucose 152 mg/dL (70-110)
[2021-02-05] MEDS: MELATONIN 3 MG TABLET 6 MG PO (21:52)
[2021-02-05] MEDS: Atorvastatin Calcium 80 MG Tablet PO (21:52)
[2021-02-05] MEDS: QUEtiapine 25 MG Tablet 50 MG PO (21:55)
[2021-02-05] MEDS: LORazepam 0.5 MG Tablet 1 MG PO (21:59)
[2021-02-06 01:58] VITALS: O2SAT 95
[2021-02-06 05:00] VITALS: BP 124/75; PULSE 69; RESP 20; TEMP 36.3; O2SAT 100
[2021-02-06] MEDS: BACITRACIN 15 GM Tube 1 APPLIC TOPICAL (05:53)
[2021-02-06] MEDS: Nystatin Powder 15gm Bottle 1 APPLIC TOPICAL (05:54)
[2021-02-06] MEDS: Menthol/Lanolin/Calamine/Znox 113 GM Tube 1 APPLIC TOPICAL (05:54)
[2021-02-06 06:20] LABS: Bedside Glucose 146 mg/dL (70-110)
[2021-02-06] MEDS: Insulin Lispro 100 UNIT/ML INSULN.PEN SC (07:49)
[2021-02-06] MEDS: Sertraline 50 MG Tablet PO (07:50)
[2021-02-06] MEDS: Senna/Docusate Sodium 1 Tablet PO (07:50)
[2021-02-06] MEDS: Famotidine 20 MG Tablet 40 MG PO (07:50)
[2021-02-06 07:51] VITALS: BP 129/69; PULSE 63
[2021-02-06] MEDS: Doxazosin 1 MG Tablet 2 MG PO (07:51)
[2021-02-06] MEDS: Metoprolol Tartrate 50 MG Tablet PO (07:51)
[2021-02-06] MEDS: levETIRAcetam Oral Solution 500 MG/5 ML 1000 MG PO (07:51)
[2021-02-06] MEDS: Potassium Chloride Oral Tablet 10 MEQ PO (07:52)
[2021-02-06 08:48] LABS: International Normalized Ratio 2.2; Prothrombin Time (Protime)PT. 23.6 SECONDS (11.7-14.9)
[2021-02-06 09:12] VITALS: PULSE 64; RESP 20
[2021-02-06 11:06] LABS: Bedside Glucose 143 mg/dL (70-110)
== END 2021-02-06 11:30 | disposition home health service (06) | DRG 202 ==
PROVIDERS: Admitting Provider Family Medicine Geriatric Medicine; Visit Provider Family Medicine Geriatric Medicine
DX: J39.8 Other specified diseases of upper respiratory tract (principal); J69.0 Pneumonitis due to inhalation of food and vomit; Z43.1 Encounter for attention to gastrostomy; A04.72 Enterocolitis due to Clostridium difficile, not specified as recurrent; J94.2 Hemothorax; E11.9 Type 2 diabetes mellitus without complications; K21.9 Gastro-esophageal reflux disease without esophagitis; I10 Essential (primary) hypertension; I25.10 Atherosclerotic heart disease of native coronary artery without angina pectoris; E78.5 Hyperlipidemia, unspecified; F41.9 Anxiety disorder, unspecified; N40.0 Benign prostatic hyperplasia without lower urinary tract symptoms; B35.4 Tinea corporis; F32.9 Major depressive disorder, single episode, unspecified; G40.909 Epilepsy, unspecified, not intractable, without status epilepticus; R13.13 Dysphagia, pharyngeal phase; B37.9 Candidiasis, unspecified; Z87.891 Personal history of nicotine dependence; Z79.01 Long term (current) use of anticoagulants; Z79.899 Other long term (current) drug therapy; Z79.82 Long term (current) use of aspirin; Z86.718 Personal history of other venous thrombosis and embolism; Z79.4 Long term (current) use of insulin
CPT/HCPCS: 31720; 36415; 71046; 74018; 74230; 80048; 80053; 81001; 82962; 85014; 85018; 85025; 85610; 87070; 87077; 87086; 87186; 87205; 87493; 87635; 92507; 92523; 92526; 92610; 92611; 94640; 97110; 97116; 97162; 97166; 97530; 97535; 97802; 97803; J7030; A4216; J2405; U0002

== ENCOUNTER 2021-01-15 02:15 | Emergency (ER) | payer OTHER, SELFPAY ==
[2021-01-14 14:33] VITALS: BMI 47.7
[2021-01-15 02:17] VITALS: BP 120/68; PULSE 96; RESP 14; TEMP 36.1; O2SAT 99; BMI 43.6
--- NOTE | 2021-01-15 02:31 | EKG12_ITS ---
Test Reason : REPEAT CP Blood Pressure : / mmHG Vent. Rate : 102 BPM Atrial Rate : 102 BPM P-R Int : 170 ms QRS Dur : 078 ms QT Int : 374 ms P-R-T Axes : 066 094 066 degrees QTc Int : 487 ms Sinus tachycardia Low voltage QRS (Limb Leads) Rightward axis Possible Anterior infarct , age undetermined Abnormal ECG Confirmed by GRACE ARMANDO, JOHNNIE ([id number]), mapping editor EITAN MCNAMARA ([id number]) on 01/19/2021 2:36:42 PM Referred By: OSMEL Confirmed By:JOHNNIE EDWARDS MD
--- NOTE | 2021-01-15 02:41 | ED.DCSUM_ITS ---
History of Present Illness Chief Complaint: Chest Pain Informant: Patient Narrative: 60-year-old male who currently resides at the TCU for intermittent sharp chest pain. He denies shortness of breath. He denies fever, chills. He has a slight cough. Patient currently anticoagulated on Coumadin for DVT. He has past medical history of hypertension, hyperlipidemia, diabetes, seizure disorder. Patient had labs drawn from the TCU and a chest x-ray which showed a right lower lobe infiltrate. Patient has a tracheostomy as well as an NG tube feeds from. - Past Medical History (1) Anxiety and depression Status: Chronic (2) Cognitive dysfunction Status: Chronic (3) Debility Status: Chronic (4) Deep vein thrombosis (DVT) of left upper extremity Status: Chronic (5) Duodenal perforation Status: Chronic Past Medical History - Allergies and Home Meds Allergies/Adverse Reactions: Allergies No Known Allergies Allergy (Verified 01/15/21 02:17) Primary Care Physician: lEie Webb Chi, MD [COURTESY STAFF PHYSICIAN] - Past Medical History: None Surgical History: - - Tracheostomy, PEG tube insertion Lives: Alone, Spouse/ Significant Other Smoking Status: Former smoker Alcohol: None Drugs: None - Family History Maternal Family History: Reports: Heart Disease, Renal Disease Paternal Family History: Reports: Diabetes, Heart Disease Sibling Family History: Reports: Cancer - Review of an H&P done at [facility] his brother had cancer but does not specify the patient is unable to tell me., Diabetes - Sister and brother, Heart Disease - Brother, - - Positive history of psychosis and his sister Review of Systems General: Denies: Chills, Fever Eyes: Denies: Visual changes - bilaterally, Diplopia ENT: Denies: Rhinorrhea, Sore throat Cardiovascular: Reports: Chest pain. Denies: Palpitations, Heart racing Respiratory: Denies: Dyspnea, Cough Gastrointestinal: Denies: Abdominal pain, Nausea, Vomiting Genitourinary: Denies: Dysuria, Hematuria Musculoskeletal: Denies: Myalgias, Arthralgias Neurological: Denies: Headache, Weakness, Parasthesia Psych: Denies: Depression, Anxiety Physical Exam Vital Signs/Narrative: Vital Signs Temp Pulse Resp BP Pulse Ox 01/15/21 02:17 97.0 F L 96 14 120/68 99 Inital Vital Signs reviewed: Yes General: Obese, No Acute Distress Head: Normocephalic, Atraumatic Eyes: Perrl, EOMI ENT: Moist mucous membranes, No rhinorrhea Cardiovascular: Regular rate, Regular rhythm Respiratory: No distress, CTA bilaterally Abdomen: Soft, Nontender, Nondistended Extremities: Nontender, No edema Skin: Normal color, No rash Neurological: Alert, Cranial nerves II-XII grossly intact Psychological: Agitated Diagnostic/Tx/Re-eval Laboratory Data 01/15/21 01/15/21 01/15/21 02:55 02:55 06:00 Troponin I < 0.015 < 0.015 B-Natriuretic Peptide 21.4 - Medical Decision Making Patient presenting for intermittent chest pain which is sharp in nature. His heart score is 3 for risk factors and for age. His initial EKG is sinus rhythm at 96 bpm without signs of ischemic changes. His story does not sound cardiac in nature. Patient also states he had a recent cardiac work-up before he came to [place] and it was normal. Patient lab work was reviewed from the TCU. It appears that his white blood cell count is gone up to 22.3 from 16 earlier in the evening. His hemoglobin is stable at 9.9 platelets of 78. INR is 1.9. GFR is 100, glucose is 193 with an anion gap. Troponin is negative. BNP is negative and patient had a negative Covid prior to coming. His chest x-ray shows right lower lobe infiltrate as interpreted by myself and radiology does agree. Given his white blood cell count and his history of swallowing issues I do suspect this is a aspiration pneumonia, however with recent hospitalization he will be covered for hospital-acquired pneumonia with vancomycin and Zosyn. Patient was discussed with the hospitalist who felt that the patient could go to TCU and get IV antibiotics there. He has stable vital signs and does not appear to be septic. This was discussed with Dr. Webb and he is amenable to giving IV antibiotics at the TCU. Patient did have delta troponin which was negative. His EKG is still sinus rhythm without signs of ischemia. There is no interval changes. I feel he is safe to be discharged back to TCU. Impression: 1. Right lower lobe pneumonia 2. Chest pain ED Disposition - Plan for ED Patient: Disposition: Home or Assisted Living Referrals: Elie Webb Chi, MD [COURTESY STAFF PHYSICIAN] -
[2021-01-15 03:31] LABS: BNP,B-Type NATRIURETIC PEPTIDE 21.4 pg/mL (0-100)
[2021-01-15 04:05] VITALS: BP 112/70; PULSE 109; RESP 23; O2SAT 95
--- NOTE | 2021-01-15 05:41 | EKG12_ITS ---
Test Reason : CP Blood Pressure : / mmHG Vent. Rate : 096 BPM Atrial Rate : 096 BPM P-R Int : 176 ms QRS Dur : 084 ms QT Int : 386 ms P-R-T Axes : 056 077 061 degrees QTc Int : 487 ms Normal sinus rhythm Low voltage QRS (Limb Leads) Possible Anterior infarct , age undetermined Abnormal ECG Confirmed by GRACE ARMANDO, JOHNNIE ([id number]), assistant editor EITAN MCNAMARA ([id number]) on 01/19/2021 2:36:21 PM Referred By: NOE Confirmed By:JOHNNIE EDWARDS MD
[2021-01-15 06:05] VITALS: BP 108/73; PULSE 89; RESP 22; O2SAT 95
[2021-01-15 06:39] VITALS: BP 123/82; PULSE 85; RESP 17; O2SAT 99
== END 2021-01-15 06:57 | disposition home or self-care (01) ==
PROVIDERS: Emergency Provider Student in an Organized Health Care Education/Training Program; PCP Family Medicine Geriatric Medicine
DX: J18.9 Pneumonia, unspecified organism (principal); I82.722 Chronic embolism and thrombosis of deep veins of left upper extremity; G40.909 Epilepsy, unspecified, not intractable, without status epilepticus; I10 Essential (primary) hypertension; E11.9 Type 2 diabetes mellitus without complications; E78.5 Hyperlipidemia, unspecified; F32.9 Major depressive disorder, single episode, unspecified; F41.9 Anxiety disorder, unspecified; E66.9 Obesity, unspecified; Z79.01 Long term (current) use of anticoagulants; Z79.82 Long term (current) use of aspirin; Z79.4 Long term (current) use of insulin; Z79.899 Other long term (current) drug therapy; Z93.0 Tracheostomy status; Z87.891 Personal history of nicotine dependence
CPT/HCPCS: 83880; 84484; 93005; 96365; 96367; 99284; J7040; J7050; A4216

== ENCOUNTER 2023-03-15 08:19 | Day surgery (SDC) | payer OTHER, SELFPAY ==
[2023-03-15 08:41] VITALS: BP 161/75; PULSE 74; RESP 18; TEMP 36.3; O2SAT 98; BMI 49.8
[2023-03-15] MEDS: Lactated Ringers 1,000 ML 15 ML IV (08:47)
--- NOTE | 2023-03-15 08:55 | PCM.HP.BLA ---
History and Physical Date of Admission: 03/15/23 Intake Vital Signs ? 03/07/2308:44 BP 120/71 Blood Pressure Location Rt brachial Position Sitting Respiration 17 Pulse 82 Pulse Source Monitor Pulse Oximetry (%) 95 Oxygen Delivery Method room air Intake Visit Reasons:?Port Placement Chief Complaint: port placement Allergies clindamycin Adverse Reaction (Intermediate, Verified 03/07/23 08:44) RashACE Inhibitors Adverse Reaction (Mild, Verified 03/07/23 08:44) Other Medications atorvastatin 80 mg tablet 80 mg NG QHS Check with primary doctor 01/14/21 [History Confirmed 03/07/23] doxazosin 2 mg tablet 2 mg NG DAILY Check with primary doctor 01/14/21 [History Confirmed 03/07/23] metoprolol tartrate 50 mg tablet 50 mg G-tube BID BP 01/14/21 [History Confirmed 03/07/23] famotidine 20 mg tablet 40 mg PO 0800,1999 #60 tabs 02/03/21 [Rx Confirmed 03/07/23] insulin glargine 100 unit/mL (3 mL) subcutaneous pen 15 units (0.15 mL) subcut BID #1 pen 02/03/21 [Rx Confirmed 03/07/23] insulin lispro 100 unit/mL subcutaneous pen 5 unit (0.05 mL) subcut ACHS ##1 02/03/21 [Rx Confirmed 03/07/23] potassium chloride 10 mEq tablet,extended release(part/cryst) 10 meq PO DAILYCM #30 tabs 02/03/21 [Rx Confirmed 03/07/23] sertraline 50 mg tablet 50 mg PO DAILY@0800 #30 tabs 02/03/21 [Rx Confirmed 03/07/23] apixaban 2.5 mg tablet (Eliquis) 2.5 mg PO BID 03/03/23 [History Confirmed 03/07/23] dulaglutide 1.5 mg/0.5 mL subcutaneous pen injector (Trulicity) 1.5 mg subcut QWEEK 03/03/23 [History Confirmed 03/07/23] [facility] Medical History? Acute bronchitis Anemia due to chronic blood loss Anxiety and depression Body mass index (BMI) 35 or more BPH (benign prostatic hyperplasia) Cellulitis Chronic anticoagulation Colon cancer Debility Duodenal perforation DVT (deep venous thrombosis) Dysphagia GERD (gastroesophageal reflux disease) Hemothorax on right HLD (hyperlipidemia) HTN (hypertension) RAMU (obstructive sleep apnea) Pharyngeal dysphagia Pneumonia Prostate disorder Regional lymph node metastasis present Seizure disorder as sequela of cerebrovascular accident Subarachnoid hemorrhage Super obese Tracheal stenosis Surgical History? History of bowel resection History of tracheostomy S/P percutaneous endoscopic gastrostomy (PEG) tube placement Social History? Smoking Status:? Former smoker how long ago did patient quit smoking:? 1993 HPI HPI HPI: Patient is a 62-year-old male being treated for rectal cancer and needs port for treatment.? Patient has no complaints at this time. ROS General General: Yes fatigue and colon cancer; No weight change, appetite, breast cancer or weakness HEENT HEENT: No difficulty swallowing, eye injury, eye surgery, swollen glands or hoarseness Endo Endocrine: Yes diabetes mellitus; No thyroid disease, thyroid cancer, Hair loss, heat intolerance or cold intolerance Skin Skin: No rash or changing moles Musc Musculoskeletal: Yes back problems; No arthritis, rheumatoid arthritis, gout or joint pain Cardio Cardiovascular: Yes heart attack; No murmur, pacemaker, heart disease, atrial fibrillation, high blood pressure, heart stent, palpitations, shortness of breat with exertion or chest pain Psych Psychiatric: No depression, anxiety or hearing voices Resp Respiratory: Yes shortness of breath, No sleep apnea, No cough, No COPD, No asthma, No emphysema and No wheezing Gastro Gastrointestinal: No abdominal pain, Yes nausea or vomiting, Yes diarrhea, Yes constipation, No blood in stool, No acid reflux, No hemorrhoids, No ulcers, No gallbladder problem and No black,tarry stools [place] Hematologic: Yes blood thinners, No blood disorders, No bleeding, No anemia and Yes blood clots Neuro Neurologic: No system reviewed and no additional complaints, except as documented, No as per HPI, No abnormal gait, No abnormal hearing, No abnormal movements, No abnormal speech, No behavioral changes, No burning sensations, No confusion, No convulsions, No disequilibrium, No dizziness, No localized weakness, No frequent falls, No headache(s), No lack of coordination, No loss of vision, No memory loss, Yes numbness, No other visual disturbances, No radicular pain, No restless legs, No sensory deficit, No syncope, Yes tingling, No tremor(s), No weakness and No other Exam Const General: cooperative Orientation: alert and oriented x3 HENMT Head: normal to inspection Neck Neck: normal visual inspection and full ROM Chest Chest palpation & inspection: normal inspection of the chest Resp Effort & Inspection: normal respiratory effort Auscultation: clear to auscultation bilaterally Cardio Rate: regular rate Rhythm: regular rhythm GI Inspection: non-distended Palpation: soft and nontender Skin General: no rashes or lesions noted Neuro General: patient alert and patient oriented x3 Extrem General: full ROM Psych Appearance: grossly normal Mental Status: mental status grossly normal Assessment and Plan Assessment and Plan (1) Colon cancer: ?Status:?Acute (2) Encounter for adjustment and management of vascular access device: ?Status:?Acute Plan Patient has colorectal cancer and requires port for treatment.? I discussed right chest port placement with the patient in detail.? I discussed the risks including but not limited to bleeding, infection, pneumothorax, line infection or DVT.? Patient understands all the risks.? He will hold his Eliquis for 3 days prior to the procedure. Sina Guerra MD Pager: [facility] [address] [place] [address], [address] [place] [address] Office: I have examined the patient and the H&P has been reviewed. There are no clinical changes since date of exam.
[2023-03-15] MEDS: Cefazolin 2 GM in 0.9% Normal Saline 100 ML IV (09:06)
[2023-03-15 09:10] LABS: Bedside Glucose 176 mg/dL (74-106)
[2023-03-15] MEDS: Bupivacaine Mpf 0.5% 30 ML VIAL (09:24)
[2023-03-15] MEDS: Lidocaine 1% (30 ml sdv) 30 ML Vial (09:24)
[2023-03-15 09:50] VITALS: BP 110/50; BP 161/75; PULSE 74; RESP 18; TEMP 37.1; O2SAT 20
--- NOTE | 2023-03-15 09:54 | OP.PCM_ITS ---
Report of Operation Date of Procedure: 03/15/23 Pre-Operative Diagnosis: Need for vascular assess for chemotherapy Post-Operative Diagnosis: Same Surgery/Procedure Performed:: Ultrasound and fluoroscopy guided right chest port placement utilizing right IJ Description of Procedure: After obtaining informed consent patient was brought back to the operating room MAC anesthesia was induced and the [] chest and neck were prepped in normal st erile fashion. Ultrasound was used to evaluate both IJs and the [] IJ was selected. Next, using a needle, the [] IJ was accessed and a guidewire was passed on into the superior vena cava under fluoroscopy guidance. A small incision was made over the puncture site and the dilator introducer was placed over the guidewire. Next this was capped and the pocket was made for the port. 1% lidocaine with epinephrine was injected in the proposed port site. An incision was made with scalpel. Electrocautery was used to make a pocket under the skin and subcutaneous tissue. Hemostasis was obtained. Next, the catheter was tunneled up to the neck incision site and placed through the introducer. The peel-away introducer was removed and the position of the catheter was confirmed on fluoroscopy. Next, the catheter was trimmed and attached to the port with the locking device. Interrupted 2-0 Vicryl sutures were used to anchor the port to the chest wall and then the port was placed inside the pocket. The pocket was then flushed with saline and the port irrigated with saline. There was good blood return and the port flushed easily. Next, heparin was injected into the port. The skin was closed with subcutaneous interrupted 3-0 Vicryl sutures. A single 3-0 Vicryl sutures placed under the skin at the neck incision site. Steri-Strips were placed as well as op sites. Patient tolerated procedure well, was taken to PACU in stable condition. Chest x-ray will be obtained. Grafts/Implants Used: 8 [employer]ian PowerPort Admit VTE Documentation VTE Mechan Device Prophylaxis: SCD's
[2023-03-15 09:55] VITALS: BP 161/75; BP 95/48; PULSE 72; RESP 16; O2SAT 94
--- NOTE | 2023-03-15 09:55 | DCINST_ITS ---
Discharge Instructions Procedure Port-A-Cath Diet Discharge Diet: Light diet - advance as tolerated (Pain medication may cause nausea. You should typically eat light foods as you take your pain medication.) Activity Discharge Activity: Return to Normal Activity and May Shower (with your bandage in place in 1-2 days after surgery. DO NOT SHOWER WHEN YOUR PORT IS ACCESSED.) Dressing / Incision Call your doctor if your incision/area has: Continuous Slow Oozing, Sudden Increased Bleeding, Increased Pain/ Swelling, Increased Redness and Foul Smelling Discharge Call your doctor if you observe: Fever of 101 or Higher Remove Dressing in: 2 days Cleanse incision/area with: Soap & Water Follow Up Care Please Follow Up With: Sina Guerra MD When: as needed [phone] Test Results: Test results from this visit will be discussed in further detail at your follow- up appointment, if applicable. Discharge Plan Admission Attending Provider: Sina Guerra Primary Care Provider: Faustino Chow Discharge Orders/Prescriptions Prescriptions: No Action Eliquis 2.5 mg tablet 5 mg PO BID Trulicity 1.5 mg/0.5 mL pen injector 1.5 mg subcut QWEEK ondansetron 8 mg tablet,disintegrating 8 mg PO Q8H PRN (Reason: nausea and vomiting) Qty: 30 2RF lidocaine-prilocaine 2.5-2.5 % cream 1 applic topical ONCE PRN (Reason: port access) 30 Days Qty: 30 2RF atorvastatin 80 MG tablet 80 mg NG QHS metoprolol tartrate 50 MG tablet 50 mg PO BID doxazosin 2 MG tablet 2 mg NG DAILY famotidine 20 MG tablet 40 mg PO 0800,2000 Qty: 60 0RF sertraline 50 MG tablet 50 mg PO DAILY@0800 Qty: 30 0RF potassium chloride 10 MEQ tablet 10 meq PO DAILYCM Qty: 30 0RF omeprazole 40 mg Capsule,Delayed Release(Dr/Ec) 40 mg PO DAILY furosemide 80 mg Tablet 80 mg PO BID fluticasone propionate [Flovent HFA] 110 mcg/actuation Hfa Aerosol Inhaler 1 puff INHALATION TID insulin aspart U-100 [Novolog FlexPen U-100 Insulin] 100 unit/mL (3 mL) Insulin Pen 24 unit SUBCUT BID insulin aspart U-100 [Novolog FlexPen U-100 Insulin] 100 unit/mL (3 mL) Insulin Pen 20 unit SUBCUT BID insulin glargine [Basaglar KwikPen U-100 Insulin] 100 unit/mL (3 mL) insulin pen 60 unit SUBCUT BID Label Comments: INJECT 60 UNITS SUBCUTANEOUSLY TWICE DAILY Referrals / Follow Up: Faustino Chow MD [Primary Care Provider] - Disposition Disposition (needs filled in before D/C Order can be placed): Home, Self Care
--- NOTE | 2023-03-15 09:55 | RAD_ITS ---
STUDY: X-RAY CHEST REASON FOR EXAM: Male, 62 years old. Line placement -- in pacu TECHNIQUE: Single AP portable view of the chest. COMPARISON: Comparison is made with prior examination dated January 29, 2021. FINDINGS: A right-sided portacatheter has been placed. The tip is in the midportion of the superior vena cava. Hyperinflation. The lungs are clear. There is no demonstrated pleural abnormality. There is mild cardiac enlargement. Normal mediastinum and alfredito. Normal visualized pulmonary arteries. Normal visualized aortic arch and descending thoracic aorta. There are diffuse degenerative changes of the visualized thoracic spine. Normal visualized ribs, clavicles, and shoulders. There is no demonstrated abnormality of the visualized soft tissue structures of the upper abdomen. RAD/CXR for Line Placement IMPRESSION: The tip of the right-sided portacatheter is in the midportion of the superior vena cava. Hyperinflation. The lungs are clear. Electronically Signed: Rob Jara MD at 10:56 EDT ,
[2023-03-15 10:00] VITALS: BP 161/75; BP 95/54; PULSE 71; RESP 16; O2SAT 93
[2023-03-15 10:05] VITALS: BP 161/75; BP 94/51; PULSE 69; RESP 16; TEMP 36.9; O2SAT 92
[2023-03-15 10:40] LABS: Bedside Glucose 155 mg/dL (74-106)
[2023-03-15 11:10] VITALS: BP 100/61; BP 161/75; PULSE 73; RESP 16; TEMP 36.6; O2SAT 96
== END 2023-03-15 11:15 | disposition home or self-care (01) ==
LOC: SDC 08:20 → AC 08:20
PROVIDERS: PCP Family Medicine; Referring Provider Surgery; Visit Provider Surgery
PROC: (CPT 36561; principal; 2023-03-15 09:10)
DX: Z45.2 Encounter for adjustment and management of vascular access device (principal); C20 Malignant neoplasm of rectum; C18.9 Malignant neoplasm of colon, unspecified; C77.9 Secondary and unspecified malignant neoplasm of lymph node, unspecified; I69.998 Other sequelae following unspecified cerebrovascular disease; G40.909 Epilepsy, unspecified, not intractable, without status epilepticus; J44.9 Chronic obstructive pulmonary disease, unspecified; I10 Essential (primary) hypertension; E78.5 Hyperlipidemia, unspecified; K21.9 Gastro-esophageal reflux disease without esophagitis; G47.33 Obstructive sleep apnea (adult) (pediatric); Z79.4 Long term (current) use of insulin; Z79.01 Long term (current) use of anticoagulants; Z79.899 Other long term (current) drug therapy; Z87.891 Personal history of nicotine dependence
CPT/HCPCS: 36561; 71045; 77001; 82962; J7120; C1788

== ENCOUNTER → 2023-06-24 | Outpatient (CLI) | payer OTHER, SELFPAY ==
--- NOTE | 2023-06-24 15:27 | US_ITS ---
INDICATION: Pain in L testicle EXAMINATION: Ultrasound US Scrotum (Contents) TECHNIQUE: Realtime ultrasound of the testicles was performed with grayscale, Color Doppler and spectral Doppler analysis. COMPARISON: None. FINDINGS: RIGHT: TESTIS: Right testicle measures 3.9 x 1.8 x 2.6 cm. Normal in size and echotexture, without focal lesion. COLOR DOPPLER: Normal arterial flow present in the testicle with monophasic waveforms. EPIDIDYMIS: Normal in size and echotexture, without focal lesion. [Normal color Doppler flow pattern in the epididymis. HYDROCELE: Small right hydrocele. VARICOCELE: None. LEFT: TESTIS: Left testicle measures 3.7 x 2 x 2.6 cm. Normal in size and echotexture, without focal lesion. COLOR DOPPLER: Normal arterial flow present in the testicle with monophasic waveforms. EPIDIDYMIS: Normal in size and echotexture, without focal lesion. [Normal color Doppler flow pattern in the epididymis. HYDROCELE: Small left hydrocele. VARICOCELE: None. US/Testicular with Arterial Flow IMPRESSION: Small bilateral hydroceles with unremarkable testicles. Electronically Signed: Ernst Braun MD at 0:46 EDT ,
== END | disposition home or self-care (01) ==
LOC: US 15:26
PROVIDERS: PCP Family Medicine; Referring Provider Internal Medicine Hematology & Oncology; Visit Provider Internal Medicine Hematology & Oncology
DX: N43.3 Hydrocele, unspecified (principal)
CPT/HCPCS: 76870; 93976

== ENCOUNTER 2023-08-09 09:00 | Outpatient (RCR) | payer OTHER, SELFPAY ==
[2023-07-26 08:16] VITALS: BP 117/68; PULSE 94; RESP 20; TEMP 36.6; BMI 50.2
--- NOTE | 2023-07-26 09:13 | HP.PCM_ITS ---
History of Present Illness Date of Service: 07/26/23 Chief Complaint: Non-pressure ulceration of the left posterior ankle; swelling and edema of the lower extremities bilaterally History of Wound: This is a 63-year-old morbidly obese diabetic male who presents with an ulceration on the left posterior ankle. The ulceration has been present for approximately 3 weeks. It initially occurred as a result of superficial trauma when impacting against his car door. Patient has been using Neosporin topically. He has a long history of lower extremity swelling and edema. The swelling and edema typically occur late each day. He is morbidly obese, and sits for long periods each day with limited activity. Ambulation is required by the use of a cane, due to balance instability. Patient has a history of right lower extremity deep vein thrombosis, and he is on long-term systemic anticoagulation with Eliquis. The patient sleeps in a relatively flat position, with his head slightly elevated to assist with breathing. Patient has a recent history of stage III adenocarcinoma of the ascending colon, for which he underwent laparoscopic right hemicolectomy at the [facility] on February 02, 2023. He has multiple pre-existing medical problems, which are listed herein. Hemoglobin A1c was obtained yesterday, and was 9. Laboratory results from July 19, 2023, are as follows: White blood count 15.3, hemoglobin 11.1, hematocrit 35.2, platelets 195,000, sodium 137, potassium 3.9, chloride 106, BUN 16, creatinine 1.18, glucose 201, calcium 8.7, magnesium 2.1, total bilirubin 0.50, AST 20, ALT 29, alkaline phosphatase 122, total protein 6.7, albumin 2.8. The patient suffered a hemorrhagic cerebrovascular accident in 2019, and required the placement of a PEG tube and tracheostomy, both of which have since been removed. [facility] Medical History Acute bronchitis Anxiety and depression BiPAP (biphasic positive airway pressure) dependence Body mass index (BMI) 35 or more Body mass index (BMI) greater than 50 BPH (benign prostatic hyperplasia) Cancer Cellulitis Chronic anticoagulation Chronic anticoagulation CINV (chemotherapy-induced nausea and vomiting) Colon cancer COPD (chronic obstructive pulmonary disease) Debility Diabetes mellitus Duodenal perforation DVT (deep venous thrombosis) Dysphagia Dysuria Edema of left lower extremity Edema of right lower extremity Encounter for chemotherapy management Encounter for education Former smoker GERD (gastroesophageal reflux disease) [place] filter in place Hemothorax on right High cholesterol History of Clostridium difficile infection History of colon cancer History of echocardiogram History of edema History of heart attack (~1993) History of stress test HLD (hyperlipidemia) HTN (hypertension) Iron deficiency anemia due to chronic blood loss Leg wound, left Lipodermatosclerosis of right lower extremity Low iron Non-pressure chronic ulcer of left ankle limited to breakdown of skin RAMU (obstructive sleep apnea) Pharyngeal dysphagia Pneumonia Prostate disorder Regional lymph node metastasis present Seizure disorder as sequela of cerebrovascular accident Shortness of breath on exertion Sleep apnea Stroke/cerebrovascular accident (~09/2021) Subarachnoid hemorrhage Super obese Swelling of left lower extremity Swelling of right lower extremity Tracheal stenosis UTI (urinary tract infection) Wears glasses Home Medications atorvastatin 80 mg tablet 80 mg NG QHS Check with primary doctor 01/14/21 [History Last Taken Unknown] metoprolol tartrate 50 mg tablet 50 mg PO BID BP 01/14/21 [History Last Taken 03/15/23] famotidine 20 mg tablet 40 mg (2 x 20 mg) PO 08,1999 #60 tabs 02/03/21 [Rx Last Taken 03/15/23] sertraline 50 mg tablet 50 mg PO DAILY@0800 #30 tabs 02/03/21 [Rx Last Taken Unknown] apixaban 2.5 mg tablet (Eliquis) 5 mg PO BID 03/03/23 [History Last Taken Unknown] dulaglutide 1.5 mg/0.5 mL subcutaneous pen injector (Trulicity) 1.5 mg subcut QWEEK 03/03/23 [History Last Taken Unknown] ondansetron 8 mg disintegrating tablet 8 mg PO Q8H PRN nausea and vomiting #30 tabs 03/07/23 [Rx Last Taken Unknown] fluticasone propionate 110 mcg/actuation HFA aerosol inhaler (Flovent HFA) 1 puff inhalation TID 03/08/23 [History Last Taken Unknown] furosemide 80 mg tablet 80 mg PO BID 03/08/23 [History Last Taken Unknown] omeprazole 40 mg capsule,delayed release 40 mg PO DAILY 03/08/23 [History Last Taken 03/15/23] insulin aspart U-100 100 unit/mL (3 mL) subcutaneous pen (Novolog FlexPen U-100 Insulin aspart) 20 unit subcut BID 03/15/23 [History Last Taken 03/15/23 10 units] insulin aspart U-100 100 unit/mL (3 mL) subcutaneous pen (Novolog FlexPen U-100 Insulin aspart) 24 unit subcut BID 03/15/23 [History Last Taken Unknown] insulin glargine 100 unit/mL (3 mL) subcutaneous pen (Basaglar KwikPen U-100 Insulin) 60 unit subcut BID 03/15/23 [History Last Taken Unknown] potassium chloride 10 mEq tablet,extended release(part/cryst) 20 meq PO DAILYCM 04/25/23 [History Last Taken Unknown] Allergy/AdvReac Type Severity Reaction Status Date / Time clindamycin AdvReac Intermediate Rash Verified 07/19/23 08:08 GRADY Inhibitors AdvReac Mild Other Verified 07/19/23 08:08 Surgical History History of bowel resection History of right hemicolectomy History of tracheostomy S/P percutaneous endoscopic gastrostomy (PEG) tube placement Social History Smoking Status: Former smoker how long ago did patient quit smokin Vital Signs Vital Signs Vital Signs: 07/26/23 08:16 Temperature 98 F Temperature Source Temporal Pulse Rate 94 Respiratory Rate 20 H Blood Pressure 117/68 Blood Pressure Mean 84 Blood Pressure Source Monitor Weight Weight: 330 lb 8.407 oz Body Mass Index (BMI) 50.2 Physical Exam Const alert, oriented x3, no apparent distress and well nourished Constitutional Narrative: The patient is morbidly obese, with a BMI of 50.2. General Appearance: cooperative, comfortable, well kempt and well developed Orientation / Consciousness: awake, oriented to person, oriented to place and oriented to time Exam Limitations: no limitations HEENT normocephalic, head/scalp atraumatic and hearing grossly normal bilaterally Head and Scalp: normal to inspection, normocephalic and atraumatic External Ear: external ears normal Eyes PERRL, EOMs intact bilaterally and conjunctivae normal General Eye: normal appearance of both eyes Neck full ROM Resp normal respiratory effort, normal air movement, no retractions and no use of accessory muscles Effort and Inspection: able to speak in complete sentences Extremity no calf tenderness General Extremity: Negative for clubbing or cyanosis Skin Wound Narrative: Swelling and edema are noted bilaterally in the patient's lower extremities. Mild lipodermatosclerosis is noted in the right gaiter area. A superficial u lceration is noted on the left posterior ankle. There is no sign of infection or cellulitis. Dimensions are documented elsewhere. The ulceration extends into the dermal layers only. There is a small amount of bioburden. Neuro oriented x3, CN's II-XII intact bilaterally and moves all extremities Sensorium / Orientation: awake, alert, oriented to person, oriented to place and oriented to time Psych Appearance: grossly normal and appropriate Attitude: calm Activity / Motor Behavior: appropriate eye contact Speech: normal speech Mood & Affect: euthymic mood Thought Process: normal thought process Thought Content: normal thought content Attention / Concentration: attention grossly intact Debridement Note Debridement Note Wound debrided: Left posterior ankle Laterality: Left Type of Debridement: Selective debridement Anesthesia Used: 5% Lidocaine Gel Depth: Down to and including healthy tissue Percentage of wound debrided: 100 Instrument Used: 5mm curette Tissue Removed: Bioburden and sloughing epidermis Severity: Limited To Skin Breakdown Amount of bleeding with debridement: None Patient tolerated procedure: Patient tolerated procedure well Post-Debridement Measurements and Additional Note: Post-Debridement Measurements/Treatment - Nurse 1 - General Ulcer Assessment Start: 07/26/23 08:15 Freq: Status: Active Protocol: AMRIT Activity Type Activity Date Activity User E-sign Co-sign Detail Recorded Client Recorded Date Recorded By Document 07/26/23 08:16 DL [id number] 07/26/23 08:39 DL 07/26/23 08:16 - Today's Visit Information Type of service Initial Visit Arrival Mode Ambulatory Transfer Assistance None Patient Identification Verified (Name & Yes ) Patient Requires Transmission-Based No Precautions Height and Weight Height 5 ft 8 in Weight 330 lb 8.407 oz Weight in Pounds 330.5 lbs Body Mass Index (BMI) 50.2 BMI Classification Obese BSA - [place] 2.53 Vital Signs Temperature (97.8 F-99.1 F) 98 F Temperature Source Temporal Pulse Rate (60-100) 94 Pulse Location Monitor Respiratory Rate (12-18) 20 H Respiratory rate source Observation Blood Pressure (90/60-120/80) 117/68 Blood Pressure Mean 84 Source Monitor History Since Last Visit- (Skip if this is Patient's initial visit) Left Footwear Slipper Right Footwear Regular Shoe Pain Scale: 0-10 Numeric Is Patient Pain Free? Yes Lower Extremity Assessment/ Foot Assessment/ Toe Nail Assessment Left -Popliteal Doppler Monophasic -Posterior Tibial Palpable Yes -Posterior Tibial Doppler Multiphasic -Dorsalis Pedis Palpable Yes -Extremity Color Hyperpigmented, Hemosiderin -Hair Growth on Legs No -Hair Growth on Toes No -Temperature of Extremity Warm -Capillary Refill Greater than 3 Seconds -Dependent Rubor No -Blanched when Elevated No -Lipodermatosclerosis No -Other Deformity No -Prior Foot Ulcer No -Charcot Joint No -Prior Amputation No -Thick No -Discolored Yes -Deformed No -Improper Length & Hygeine No Right -Posterior Tibial Palpable Yes -Posterior Tibial Doppler Multiphasic -Dorsalis Pedis Palpable Yes -Dorsalis Pedis Doppler Monophasic -Extremity Color Hyperpigmented, Hemosiderin -Hair Growth on Legs No -Hair Growth on Toes No -Temperature of Extremity Warm -Capillary Refill Greater than 3 Seconds -Dependent Rubor No -Blanched when Elevated No -Lipodermatosclerosis No -Other Deformity No -Prior Foot Ulcer No -Charcot Joint No -Prior Amputation No -Thick No -Discolored Yes -Deformed No -Improper Length & Hygeine No Neuropathy Assessment Feet - Top Side and Bottom <Entered> (a) Communication Assessment Preferred language Maori Able to Read Yes Able to Write Yes Right Hearing Abillity Normal Left Hearing Abillity Normal Visual Assistive Devices Glasses Teaching Assessment Preferences Verbal,Written, Demonstration Barriers to Learning None Readiness To Learn Good Willingness to Engage in Self Management Med Activies Readiness to Engage in Self Management Med Activities Anxiety Level Calm Cooperation Cooperative Perception Coherent Interest in Health Problem Asks Questions Education Importance Acknowledges Need Does Patient Smoke tobacco or other No substances Smoking Status Former smoker Is Patient Diabetic Yes Functional Assessment Recent Decline in Ability to Perform Denies Any Declines 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 Band Aid Machine Operator to contact place of bahai No Teaching: Wound Center Dressing Your Wound -Person Taught Patient *Welcome to the Wound Center -Person Taught Patient (a) 1 - _ 2 - + WC - Nurse 1 - General Ulcer Measurement Start: 07/26/23 08:15 Freq: Status: Active Protocol: Activity Type Activity Date Activity User E-sign Co-sign Detail Recorded Client Recorded Date Recorded By Document 07/26/23 08:16 DL [id number] 07/26/23 08:39 DL 07/26/23 08:16 Wound Center Nurse 1 #1 LLE Post -Current Size (cm) - Length 3 -Current Size (cm) - Width 1.8 -Current Size (cm) - Depth 0.1 -Total Square Cm 5.4 -Photo Taken Yes -Classification - Thickness Full Thickness without Exposed Support Structure -Exudate Amt Medium -Exudate Type Serosanguineous -Wound Margin Distinct, Outline Attached -Granulation Amt Large (67-100%) -Granulation Quality [place] -Necrosis Amt Small (1-33%) -Necrotic Tissue Type Adherent Slough -Structure Exposed N/A -Texture (Karen-wound Skin Appearance) Localized Edema ,Scarring -Moisture (Karen-wound Skin Appearance) Dry/Scaly -Color (Karen-wound Skin Appearance) Hemosiderin Staining -Temperature (Karen-wound Skin No Abnormality Appearance) (Pt Warm) -Tenderness on Palpation (Karen-wound No Skin Appearance) -Ulcer Cleansing Soap and Water -Foul Odor after Cleansing No -Anesthetic Used 5% Lidocaine Gel Right Calf (cm) 51 Right Ankle (cm) 31.5 Left Calf (cm) 47.5 Left Ankle (cm) 31 Assessment/Plan Assessment/Plan (1) Non-pressure chronic ulcer of left ankle limited to breakdown of skin: CODE(S): L97.321 - Non-pressure chronic ulcer of left ankle limited to breakdown of skin (2) Leg wound, left: CODE(S): S81.802A - Unspecified open wound, left lower leg, initial encounter QUALIFIERS: Encounter type: initial encounter Qualified Code(s): S81.802A - Unspecified open wound, left lower leg, initial encounter (3) Swelling of right lower extremity: CODE(S): M79.89 - Other specified soft tissue disorders (4) Swelling of left lower extremity: CODE(S): M79.89 - Other specified soft tissue disorders (5) Edema of right lower extremity: CODE(S): R60.0 - Localized edema (6) Edema of left lower extremity: CODE(S): R60.0 - Localized edema (7) Diabetes mellitus: CODE(S): E11.9 - Type 2 diabetes mellitus without complications (8) Hypertension: CODE(S): I10 - Essential (primary) hypertension (9) HLD (hyperlipidemia): CODE(S): E78.5 - Hyperlipidemia, unspecified (10) Super obese: CODE(S): E66.9 - Obesity, unspecified (11) Uncontrolled type II diabetes mellitus: CODE(S): E11.65 - Type 2 diabetes mellitus with hyperglycemia QUALIFIERS: Glycemic state: with hyperglycemia Qualified Code(s): E11.65 - Type 2 diabetes mellitus with hyperglycemia (12) Status post tracheostomy: CODE(S): Z93.0 - Tracheostomy status (13) S/P percutaneous endoscopic gastrostomy (PEG) tube placement: CODE(S): Z93.1 - Gastrostomy status (14) CAD (coronary artery disease): CODE(S): I25.10 - Atherosclerotic heart disease of [place] coronary artery without angina pectoris (15) Hemorrhagic cerebrovascular accident (CVA): CODE(S): I61.9 - Nontraumatic intracerebral hemorrhage, unspecified (16) Subarachnoid hemorrhage: CODE(S): I60.9 - Nontraumatic subarachnoid hemorrhage, unspecified (17) Hx of deep venous thrombosis: CODE(S): Z86.718 - Personal history of other venous thrombosis and embolism (18) Tobacco dependence in remission: CODE(S): F17.201 - Nicotine dependence, unspecified, in remission (19) Obstructive sleep apnea: CODE(S): G47.33 - Obstructive sleep apnea (adult) (pediatric) (20) Chronic anticoagulation: CODE(S): 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 (21) Debility: CODE(S): R53.81 - Other malaise (22) Tracheal stenosis: CODE(S): J39.8 - Other specified diseases of upper respiratory tract (23) Body mass index (BMI) greater than 50: (24) Seizure disorder: CODE(S): G40.909 - Epilepsy, unspecified, not intractable, without status epilepticus (25) BPH (benign prostatic hyperplasia): CODE(S): N40.0 - Benign prostatic hyperplasia without lower urinary tract symptoms (26) GERD (gastroesophageal reflux disease): CODE(S): K21.9 - Gastro-esophageal reflux disease without esophagitis (27) History of colon cancer: CODE(S): Z85.038 - Personal history of other malignant neoplasm of large intestine (28) History of right hemicolectomy: CODE(S): Z90.49 - Acquired absence of other specified parts of digestive tract (29) Lipodermatosclerosis of right lower extremity: CODE(S): I83.11 - Varicose veins of right lower extremity with in flammation PLAN: Plan This is a 63-year-old morbidly obese diabetic male who presents with a traumatic ulceration on the left posterior ankle. The ulceration has been present for approximately 3 weeks. We are to implement conservative treatment measures relative to the patient's chronic lower extremity swelling and edema. These measures have been discussed with the patient thoroughly. He is to continue sleeping on a flat mattress at night. Legs are to be elevated even during daytime hours. Elevation is to be to heart level, or higher. This is to be implemented as much as possible. Prolonged idle sitting has been discouraged. Activity has been encouraged. Weight loss has been recommended. The patient is not currently a smoker. The patient has been advised to optimize his nutritional intake, and to optimize his glycemic control. Management of the ulceration is to begin by using Promogran topically at the ulcer site, and compression to both lower extremities by means of a 3M 2 layer compression wrap. The compression wrap will be administered today, and will be changed twice weekly. The patient is to return in 1 week for reassessment. Ultimately, transition will be considered to the use of graduated compression stockings or Velcro compression garments of at least 20 to 30 mmHg, for long-term use. Total time: 55 minutes
[2023-07-29 09:11] VITALS: BP 118/53; PULSE 75; RESP 20; TEMP 36; BMI 50.2
[2023-08-02 09:13] VITALS: RESP 18; TEMP 36.1; BMI 50.2
--- NOTE | 2023-08-02 10:00 | PCM.WC.HP ---
History of Present Illness Date of Service: 08/02/23 Chief Complaint: Non-pressure ulceration of the left posterior ankle; swelling and edema of the lower extremities bilaterally History of Wound: This is a 63-year-old morbidly obese diabetic male who presented with an ulceration on the left posterior ankle. The ulceration had been present for approximately 3 weeks. It initially occurred as a result of superficial trauma when impacting against his car door. The patient had been using Neosporin topically. He has a long history of lower extremity swelling and edema. The swelling and edema typically occur late each day. He is morbidly obese, and sits for long periods each day with limited activity. Ambulation is required by the use of a cane, due to balance instability. The patient has a history of right lower extremity deep vein thrombosis, and he is on long-term systemic anticoagulation with Eliquis. The patient sleeps in a relatively flat position, with his head slightly elevated to assist with breathing. Patient has a recent history of stage III adenocarcinoma of the ascending colon, for which he underwent laparoscopic right hemicolectomy at the [facility] on February 02, 2023. He has multiple pre-existing medical problems, which are listed herein. Hemoglobin A1c was obtained yesterday, and was 9. Laboratory results from July 19, 2023, are as follows: White blood count 15.3, hemoglobin 11.1, hematocrit 35.2, platelets 195,000, sodium 137, potassium 3.9, chloride 106, BUN 16, creatinine 1.18, glucose 201, calcium 8.7, magnesium 2.1, total bilirubin 0.50, AST 20, ALT 29, alkaline phosphatase 122, total protein 6.7, albumin 2.8. The patient suffered a hemorrhagic cerebrovascular accident in 2019, and required the placement of a PEG tube and tracheostomy, both of which have since been removed. [facility] Medical History Acute bronchitis Anxiety and depression BiPAP (biphasic positive airway pressure) dependence Body mass index (BMI) 35 or more Body mass index (BMI) greater than 50 BPH (benign prostatic hyperplasia) Cancer Cellulitis Chronic anticoagulation Chronic anticoagulation CINV (chemotherapy-induced nausea and vomiting) Colon cancer COPD (chronic obstructive pulmonary disease) Debility Diabetes mellitus Duodenal perforation DVT (deep venous thrombosis) Dysphagia Dysuria Edema of left lower extremity Edema of right lower extremity Encounter for chemotherapy management Encounter for education Former smoker GERD (gastroesophageal reflux disease) [place] filter in place Hemothorax on right High cholesterol History of Clostridium difficile infection History of colon cancer History of echocardiogram History of edema History of heart attack (~1993) History of stress test HLD (hyperlipidemia) HTN (hypertension) Iron deficiency anemia due to chronic blood loss Leg wound, left Lipodermatosclerosis of right lower extremity Low iron Non-pressure chronic ulcer of left ankle limited to breakdown of skin RAMU (obstructive sleep apnea) Pharyngeal dysphagia Pneumonia Prostate disorder Regional lymph node metastasis present Seizure disorder as sequela of cerebrovascular accident Shortness of breath on exertion Sleep apnea Stroke/cerebrovascular accident (~09/2021) Subarachnoid hemorrhage Super obese Swelling of left lower extremity Swelling of right lower extremity Tracheal stenosis UTI (urinary tract infection) Wears glasses Home Medications atorvastatin 80 mg tablet 80 mg NG QHS Check with primary doctor 01/14/21 [History Last Taken Unknown] metoprolol tartrate 50 mg tablet 50 mg PO BID BP 01/14/21 [History Last Taken 03/15/23] famotidine 20 mg tablet 40 mg (2 x 20 mg) PO 0800,1999 #60 tabs 02/03/21 [Rx Last Taken 03/15/23] sertraline 50 mg tablet 50 mg PO DAILY@0800 #30 tabs 02/03/21 [Rx Last Taken Unknown] apixaban 2.5 mg tablet (Eliquis) 5 mg PO BID 03/03/23 [History Last Taken Unknown] dulaglutide 1.5 mg/0.5 mL subcutaneous pen injector (Trulicity) 1.5 mg subcut QWEEK 03/03/23 [History Last Taken Unknown] ondansetron 8 mg disintegrating tablet 8 mg PO Q8H PRN nausea and vomiting #30 tabs 03/07/23 [Rx Last Taken Unknown] fluticasone propionate 110 mcg/actuation HFA aerosol inhaler (Flovent HFA) 1 puff inhalation TID 03/08/23 [History Last Taken Unknown] furosemide 80 mg tablet 80 mg PO BID 03/08/23 [History Last Taken Unknown] omeprazole 40 mg capsule,delayed release 40 mg PO DAILY 03/08/23 [History Last Taken 03/15/23] insulin glargine 100 unit/mL (3 mL) subcutaneous pen (Basaglar KwikPen U-100 Insulin) 60 unit subcut BID 03/15/23 [History Last Taken Unknown] potassium chloride 10 mEq tablet,extended release(part/cryst) 20 meq PO DAILYCM 04/25/23 [History Last Taken Unknown] insulin aspart U-100 100 unit/mL (3 mL) subcutaneous pen (Novolog FlexPen U-100 Insulin aspart) 26 unit subcut .QID 08/01/23 [History Last Taken Unknown] Allergy/AdvReac Type Severity Reaction Status Date / Time clindamycin AdvReac Intermediate Rash Verified 08/01/23 11:35 GRADY Inhibitors AdvReac Mild Other Verified 08/01/23 11:35 Surgical History History of bowel resection History of right hemicolectomy History of tracheostomy S/P percutaneous endoscopic gastrostomy (PEG) tube placement Social History Smoking Status: Former smoker how long ago did patient quit smokin Vital Signs Vital Signs Vital Signs: 08/02/23 09:13 Temperature 97.0 F L Temperature Source Temporal Respiratory Rate 18 Weight Weight: 330 lb 8.407 oz Body Mass Index (BMI) 50.2 Physical Exam Const alert, oriented x3, no apparent distress and well nourished Constitutional Narrative: The patient is morbidly obese, with a BMI of 50.2. General Appearance: cooperative, comfortable, well kempt and well developed Orientation / Consciousness: awake, oriented to person, oriented to place and oriented to time Exam Limitations: no limitations HEENT normocephalic, head/scalp atraumatic and hearing grossly normal bilaterally Head and Scalp: normal to inspection, normocephalic and atraumatic External Ear: external ears normal Eyes PERRL, EOMs intact bilaterally and conjunctivae normal General Eye: normal appearance of both eyes Neck full ROM Resp normal respiratory effort, normal air movement, no retractions and no use of accessory muscles Effort and Inspection: able to speak in complete sentences Extremity no calf tenderness General Extremity: Negative for clubbing or cyanosis Skin Wound Narrative: Swelling and edema are noted bilaterally in the patient's lower extremities. Mild lipodermatosclerosis is noted in the right gaiter area. A superficial ulceration is noted on the left posterior ankle. It appears to have diminished slightly in size. There is no sign of infection or cellulitis. Dimensions are documented elsewhere. The ulceration extends into the dermal layers only. There is a small amount of bioburden. Neuro oriented x3, CN's II-XII intact bilaterally, moves all extremities and no focal motor deficits Sensorium / Orientation: awake, alert, oriented to person, oriented to place and oriented to time Psych Appearance: grossly normal and appropriate Attitude: calm Activity / Motor Behavior: appropriate eye contact Speech: normal speech Mood & Affect: euthymic mood Thought Process: normal thought process Thought Content: normal thought content Attention / Concentration: attention grossly intact Debridement Note Debridement Note Wound debrided: Left posterior ankle Laterality: Left Type of Debridement: Selective debridement Anesthesia Used: 5% Lidocaine Gel Depth: Down to and including healthy tissue Percentage of wound debrided: 100 Instrument Used: 5mm curette Tissue Removed: Bioburden and sloughing epidermis Severity: Limited To Skin Breakdown Amount of bleeding with debridement: None Patient tolerated procedure: Patient tolerated procedure well Post-Debridement Measurements and Additional Note: Post-Debridement Measurements/Treatment [facility] Nurse 1 - General Ulcer Assessment Start: 07/26/23 08:15 Freq: Status: Active Protocol: RUDOLPH.JOCELYN Activity Type Activity Date Activity User E-sign Co-sign Detail Recorded Client Recorded Date Recorded By Document 07/26/23 08:16 [id number] 07/26/23 08:39 DL Document 07/29/23 09:11 [id number] 07/29/23 09:27 DL Document 08/02/23 09:13 Desktop 08/02/23 09:25 07/26/23 07/29/23 08/02/23 08:16 09:11 09:13 - Today's Visit Information Type of service Initial Visit Nurse-only Follow-up Visit Visit (Physician/HEEL SEAT FITTER ) Arrival Mode Ambulatory Ambulatory Ambulatory Transfer Assistance None None Maura Lift Patient Identification Verified (Name & Yes Yes Yes ) Patient Requires Transmission-Based No No No Precautions Finger Stick Blood Sugar(mg/dl) (if 243 198 indicated): Blood Sugar Stated by Stated by Patient Patient Height and Weight Height 5 ft 8 in Weight 330 lb 8.407 oz Weight in Pounds 330.5 lbs Body Mass Index (BMI) 50.2 50.2 50.2 BMI Classification Obese Obese Obese BSA - [place] 2.53 Vital Signs Temperature (97.8 F-99.1 F) 98 F 96.8 F L 97.0 F L Temperature Source Temporal Temporal Temporal Pulse Rate (60-100) 94 75 Pulse Location Monitor Monitor Respiratory Rate (12-18) 20 H 20 H 18 Respiratory rate source Observation Observation Observation Blood Pressure (90/60-120/80) 117/68 118/53 L Blood Pressure Mean 84 74 Source Monitor Monitor History Since Last Visit- (Skip if this is Patient's initial visit) Have you changed medications since your No No last visit? Any new allergies or adverse reactions No No Had a fall/change in ADL's that may No No increase risk of falls Signs or symptoms of abuse and/or No No neglect since last visit Have you been in the hospital since your No No last visit? Has dressing in place as prescribed Yes Yes Has compression in place as prescribed Yes Yes Has offloadiing in place as prescribed N/A N/A Experienced any changes in pain level or No No management Left Footwear Slipper Regular Shoe Right Footwear Regular Shoe Regular Shoe Pain Scale: 0-10 Numeric Is Patient Pain Free? Yes Yes Yes Lower Extremity Assessment/ Foot Assessment/ Toe Nail Assessment Left -Popliteal Doppler Monophasic -Posterior Tibial Palpable Yes -Posterior Tibial Doppler Multiphasic -Dorsalis Pedis Palpable Yes -Extremity Color Hyperpigmented, Hemosiderin -Hair Growth on Legs No -Hair Growth on Toes No -Temperature of Extremity Warm -Capillary Refill Greater than 3 Seconds -Dependent Rubor No -Blanched when Elevated No -Lipodermatosclerosis No -Other Deformity No -Prior Foot Ulcer No -Charcot Joint No -Prior Amputation No -Thick No -Discolored Yes -Deformed No -Improper Length & Hygeine No Right -Posterior Tibial Palpable Yes -Posterior Tibial Doppler Multiphasic -Dorsalis Pedis Palpable Yes -Dorsalis Pedis Doppler Monophasic -Extremity Color Hyperpigmented, Hemosiderin -Hair Growth on Legs No -Hair Growth on Toes No -Temperature of Extremity Warm -Capillary Refill Greater than 3 Seconds -Dependent Rubor No -Blanched when Elevated No -Lipodermatosclerosis No -Other Deformity No -Prior Foot Ulcer No -Charcot Joint No -Prior Amputation No -Thick No -Discolored Yes -Deformed No -Improper Length & Hygeine No Neuropathy Assessment Feet - Top Side and Bottom <Entered> (a) Communication Assessment Preferred language Turkmen Able to Read Yes Able to Write Yes Right Hearing Abillity Normal Left Hearing Abillity Normal Visual Assistive Devices Glasses Teaching Assessment Preferences Verbal,Written, Demonstration Barriers to Learning None Readiness To Learn Good Willingness to Engage in Self Management Med Activies Readiness to Engage in Self Management Med Activities Anxiety Level Calm Cooperation Cooperative Perception Coherent Interest in Health Problem Asks Questions Education Importance Acknowledges Need Does Patient Smoke tobacco or other No substances Smoking Status Former smoker Is Patient Diabetic Yes Functional Assessment Recent Decline in Ability to Perform Denies Any Declines 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 Debridging Machine Operator to contact place of gnosticism No Teaching: Wound Center Dressing Your Wound -Person Taught Patient *Welcome to the Wound Center -Person Taught Patient (a) 1 - _ 2 - + WC - Nurse 1 - General Ulcer Measurement Start: 07/26/23 08:15 Freq: Status: Active Protocol: Activity Type Activity Date Activity User E-sign Co-sign Detail Recorded Client Recorded Date Recorded By Document 07/26/23 08:16 DL [id number] 07/26/23 08:39 DL Document 07/29/23 09:11 DL [id number] 07/29/23 09:27 DL Document 08/02/23 09:13 Desktop 08/02/23 09:25 07/26/23 07/29/23 08/02/23 08:16 09:11 09:13 Wound Center Nurse 1 #1 LLE Post -Combined with other wound No -Current Size (cm) - Length 3 2.2 -Current Size (cm) - Width 1.8 1.0 -Current Size (cm) - Depth 0.1 0.1 -Total Square Cm 5.4 2.20 -Photo Taken Yes No -Epithelialization Large 67-100% -Tunneling No -Undermining/Tunneling No -Circular Undermining No -Classification - Thickness Full Thickness without Exposed Support Structure -Exudate Amt Medium Small None Present -Exudate Type Serosanguineous Serosanguineous -Wound Margin Distinct, Indistinct, Non Flat & Intact Outline -Visible Attached -Granulation Amt Large (67-100%) Small (1-33%) Large (67-100%) -Granulation Quality [place] -Slough/Fibrin Yes -Necrosis Amt Small (1-33%) Small (1-33%) Small (1-33%) -Necrotic Tissue Type Adherent Slough Adherent Slough Adherent Slough -Structure Exposed N/A N/A N/A -Texture (Karen-wound Skin Appearance) Localized Edema Scarring Assessed, ,Scarring Localized Edema ,Scarring -Moisture (Karen-wound Skin Appearance) Dry/Scaly No Abnormality Assessed,Dry/ Scaly -Color (Karen-wound Skin Appearance) Hemosiderin No Abnormality Assessed Staining -Temperature (Karen-wound Skin No Abnormality No Abnormality No Abnormality Appearance) (Pt Warm) (Pt Warm) (Pt Warm) -Tenderness on Palpation (Karen-wound No No No Skin Appearance) -Ulcer Cleansing Soap and Water Soap and Water Wound Cleanser -Foul Odor after Cleansing No No -Anesthetic Used 5% Lidocaine 5% Lidocaine Gel Gel,Cetacaine Lower Limb Edema Present Yes Right Calf (cm) 51 48.5 48.9 Right Ankle (cm) 31.5 29.8 29.5 Left Calf (cm) 47.5 44.8 44.4 Left Ankle (cm) 31 28.5 27.8 WC - Nurse 2 - General Ulcer CM Notes Start: 07/26/23 08:15 Freq: Status: Active Protocol: Activity Type Activity Date Activity User E-sign Co-sign Detail Recorded Client Recorded Date Recorded By Document 07/26/23 13:26 MIKE [id number] 07/26/23 13:28 PL 07/26/23 13:26 Wound Center Nurse 2 #1 LLE Post -Time 08:54 -Correct Patient Yes -Correct Side, Site, Position Yes -Correct Procedure Yes -Procedure Performed Yes -Type of Procedure Debridement -Clinical Debridement Subcutaneous -Tissue Removed Subcutaneous -Post Debridement (cm) - Length 3.1 -Post Debridement (cm) - Width 1.8 -Post Debridement (cm) - Depth 0.1 -Total Square (Post) (cm) 5.58 -Area of Debridement (cm) - Length 3.1 -Area of Debridement (cm) - Width 1.8 -Total Square (Area) (cm) 5.58 -Tunneling No -Undermining/Tunneling No -Circular Undermining No -Wound/Ulcer Outcome Not Healed -Ulcer Cleansing Rinsed/ Irrigated with Saline -Foul Odor after Cleansing No -Bioengineered Tissue No -Bleeding Controlled with Pressure -Treatment Response Procedure Tolerated Well -Debridement - Subq, 1st 20sq cm Yes Pain Scale: 0-10 Numeric Is Patient Pain Free? Yes WC - Nurse 3 - General Ulcer D/C NN Start: 07/26/23 08:15 Freq: Status: Active Protocol: Activity Type Activity Date Activity User E-sign Co-sign Detail Recorded Client Recorded Date Recorded By Document 07/26/23 13:26 PL [id number] 07/26/23 13:28 PL Document 07/29/23 09:11 DL [id number] 07/29/23 09:27 DL Edit Result 07/29/23 09:11 DL (1) [id number] 07/29/23 09:33 DL (1) #1 LLE Post - Ulcer Cleansing => Soap and Water - Foul Odor after Cleansing => No - Other Dressing => promogran - Primary Dressing Covered/Secured with => Dry Gauze Bilateral - Multi-Layered Wrap Application => Multi-Layer Comp - => Bilat ($) Discharge Condition => Stable Ambulatory Status => Ambulatory Transportation => Private Auto 07/26/23 07/29/23 13:26 09:11 Pain Scale: 0-10 Numeric Is Patient Pain Free? Yes Yes Wound Care Center Nurse 3 #1 LLE Post -Ulcer Cleansing Rinsed/ Soap and Water Irrigated with Saline -Foul Odor after Cleansing No No -Primary Dressing Applied Promogran -Other Dressing promogran -Primary Dressing Covered/Secured with Dry Gauze Dry Gauze -Promogran 1 Bilateral -Multi-Layered Wrap Application Multi-Layer Multi-Layer Comp - Bilat ($ Comp - Bilat ($ ) ) Vital Signs Temperature (97.8 F-99.1 F) 96.8 F L Temperature Source Temporal Pulse Rate (60-100) 75 Pulse Location Monitor Respiratory Rate (12-18) 20 H Respiratory rate source Observation Blood Pressure (90/60-120/80) 118/53 L Blood Pressure Mean 74 Source Monitor WC - Visit Discharge Discharge Condition Stable Stable Ambulatory Status Ambulatory Ambulatory Transportation Private Auto Private Auto Assessment/Plan Assessment/Plan (1) Non-pressure chronic ulcer of left ankle limited to breakdown of skin: CODE(S): L97.321 - Non-pressure chronic ulcer of left ankle limited to breakdown of skin (2) Leg wound, left: CODE(S): S81.802A - Unspecified open wound, left lower leg, initial encounter QUALIFIERS: Encounter type: subsequent encounter Qualified Code(s): S81.802D - Unspecified open wound, left lower leg, subsequent encounter (3) Swelling of right lower extremity: CODE(S): M79.89 - Other specified soft tissue disorders (4) Swelling of left lower extremity: CODE(S): M79.89 - Other specified soft tissue disorders (5) Edema of right lower extremity: CODE(S): R60.0 - Localized edema (6) Edema of left lower extremity: CODE(S): R60.0 - Localized edema (7) Diabetes mellitus: CODE(S): E11.9 - Type 2 diabetes mellitus without complications (8) Hypertension: CODE(S): I10 - Essential (primary) hypertension (9) HLD (hyperlipidemia): CODE(S): E78.5 - Hyperlipidemia, unspecified (10) Super obese: CODE(S): E66.9 - Obesity, unspecified (11) Uncontrolled type II diabetes mellitus: CODE(S): E11.65 - Type 2 diabetes mellitus with hyperglycemia QUALIFIERS: Glycemic state: with hyperglycemia Qualified Code(s): E11.65 - Type 2 diabetes mellitus with hyperglycemia (12) Status post tracheostomy: CODE(S): Z93.0 - Tracheostomy status (13) S/P percutaneous endoscopic gastrostomy (PEG) tube placement: CODE(S): Z93.1 - Gastrostomy status (14) CAD (coronary artery disease): CODE(S): I25.10 - Atherosclerotic heart disease of [place] coronary artery without angina pectoris (15) Hemorrhagic cerebrovascular accident (CVA): CODE(S): I61.9 - Nontraumatic intracerebral hemorrhage, unspecified (16) Subarachnoid hemorrhage: CODE(S): I60.9 - Nontraumatic subarachnoid hemorrhage, unspecified (17) Hx of deep venous thrombosis: CODE(S): Z86.718 - Personal history of other venous thrombosis and embolism (18) Tobacco dependence in remission: CODE(S): F17.201 - Nicotine dependence, unspecified, in remission (19) Obstructive sleep apnea: CODE(S): G47.33 - Obstructive sleep apnea (adult) (pediatric) (20) Chronic anticoagulation: CODE(S): 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 (21) Debility: CODE(S): R53.81 - Other malaise (22) Tracheal stenosis: CODE(S): J39.8 - Other specified diseases of upper respiratory tract (23) Body mass index (BMI) greater than 50: (24) Seizure disorder: CODE(S): G40.909 - Epilepsy, unspecified, not intractable, without status epilepticus (25) BPH (benign prostatic hyperplasia): CODE(S): N40.0 - Benign prostatic hyperplasia without lower urinary tract symptoms (26) GERD (gastroesophageal reflux disease): CODE(S): K21.9 - Gastro-esophageal reflux disease without esophagitis (27) History of colon cancer: CODE(S): Z85.038 - Personal history of other malignant neoplasm of large intestine (28) History of right hemicolectomy: CODE(S): Z90.49 - Acquired absence of other specified parts of digestive tract (29) Lipodermatosclerosis of right lower extremity: CODE(S): I83.11 - Varicose veins of right lower extremity with inflammation PLAN: Plan This is a 63-year-old morbidly obese diabetic male who presents with a traumatic ulceration on the left posterior ankle. The ulceration had been present for approximately 3 weeks. We are to continue conservative treatment measures relative to the patient's chronic lower extremity swelling and edema. These measures have been discussed with the patient thoroughly. He is to continue sleeping on a flat mattress at night. Legs are to be elevated even during daytime hours. Elevation is to be to heart level, or higher. This is to be implemented as much as possible. Prolonged idle sitting has been discouraged. Activity has been encouraged. Weight loss has been recommended. The patient is not currently a smoker. The patient has been advised to optimize his nutritional intake, and to optimize his glycemic control. Collagen hydrogel is to be used topically on the ulceration on a daily basis. The patient has been instructed in the appropriate means of application. The patient is to require compression as well. However, he is having difficulty in tolerating compression, even up to 15 to 20 mmHg compression. Therefore, we are to implement a lower degree of compression by means of Tubigrip's, which the patient can tolerate. We are to obtain a noninvasive lower extremity arterial study to assure that arterial insufficiency is not a cause for his intolerance to compression. A lack of adequate compression may compromise the patient's wound healing and management of his lower extremity swelling and edema. Attempts will be made to address this issue once his arterial study results are known. The patient is to return in 1 week for reassessment. Ultimately, it is hoped that we will be able to transition to the use of graduated compression stockings or Velcro compression garments of at least 20 to 30 mmHg, for long-term use. Total time: 28 minutes
--- NOTE | 2023-08-05 10:05 | ART_ITS ---
Reason For Study: Wound Procedure A bilateral lower extremity continuous wave Doppler with analog waveform analysis,segmental pressures,and ankle brachial indexes without exercise. Left Segmental Pressures Left brachial= 129mmHg. Left digit = 145 mmHg. Right Segmental Pressures Right brachial= 140mmHg. Right digit = 132 mmHg. Indices The right digital-brachial index is 0.94. The left digital-brachial index is 1.04. VL/Lower Ext Art Exam w/o Exercis Interpretation Summary Triphasic Doppler waveforms are noted at ankle level bilaterally. Pulse-volume recordings appear satisfactory at all levels bilaterally. Resting ankle-brachial indices were not obtained due to painful legs. Digital-brachial indices are normal bilaterally. There is no evidence of significant arterial occlusive disease in the lower ext remities bilaterally. Ordering Physician: Tino Pennington Referring Physician: Faustino Chow Performed By: Jyo Monahan RDCS/RVT
[2023-08-09 08:57] VITALS: BP 106/47; PULSE 84; RESP 18; TEMP 36.1; BMI 50.2
--- NOTE | 2023-08-09 13:01 | HP.PCM_ITS ---
History of Present Illness Date of Service: 08/09/23 Chief Complaint: Non-pressure ulceration of the left posterior ankle; swelling and edema of the lower extremities bilaterally History of Wound: This is a 63-year-old morbidly obese diabetic male who presented with an ulceration on the left posterior ankle. The ulceration had been present for approximately 3 weeks. It initially occurred as a result of superficial trauma when impacting against his car door. The patient had been using Neosporin topically. He has a long history of lower extremity swelling and edema. The swelling and edema typically occur late each day. He is morbidly obese, and sits for long periods each day with limited activity. Ambulation is required by the use of a cane, due to balance instability. The patient has a history of right lower extremity deep vein thrombosis, and he is on long-term systemic anticoagulation with Eliquis. The patient sleeps in a relatively flat position, with his head slightly elevated to assist with breathing. Patient has a recent history of stage III adenocarcinoma of the ascending colon, for which he underwent laparoscopic right hemicolectomy at the [facility] on February 02, 2023. He has multiple pre-existing medical problems, which are listed herein. Hemoglobin A1c was obtained yesterday, and was 9. Laboratory results from July 19, 2023, are as follows: White blood count 15.3, hemoglobin 11.1, hematocrit 35.2, platelets 195,000, sodium 137, potassium 3.9, chloride 106, BUN 16, creatinine 1.18, glucose 201, calcium 8.7, magnesium 2.1, total bilirubin 0.50, AST 20, ALT 29, alkaline phosphatase 122, total protein 6.7, albumin 2.8. The patient suffered a hemorrhagic cerebrovascular accident in 2019, and required the placement of a PEG tube and tracheostomy, both of which have since been removed. [facility] Medical History Acute bronchitis Anxiety and depression BiPAP (biphasic positive airway pressure) dependence Body mass index (BMI) 35 or more Body mass index (BMI) greater than 50 BPH (benign prostatic hyperplasia) Cancer Cellulitis Chronic anticoagulation Chronic anticoagulation CINV (chemotherapy-induced nausea and vomiting) Colon cancer COPD (chronic obstructive pulmonary disease) Debility Diabetes mellitus Duodenal perforation DVT (deep venous thrombosis) Dysphagia Dysuria Edema of left lower extremity Edema of right lower extremity Encounter for chemotherapy management Encounter for education Former smoker GERD (gastroesophageal reflux disease) [place] filter in place Hemothorax on right High cholesterol History of Clostridium difficile infection History of colon cancer History of echocardiogram History of edema History of heart attack (~1993) History of stress test HLD (hyperlipidemia) HTN (hypertension) Iron deficiency anemia due to chronic blood loss Leg wound, left Lipodermatosclerosis of right lower extremity Low iron Non-pressure chronic ulcer of left ankle limited to breakdown of skin RAMU (obstructive sleep apnea) Pharyngeal dysphagia Pneumonia Prostate disorder Regional lymph node metastasis present Seizure disorder as sequela of cerebrovascular accident Shortness of breath on exertion Sleep apnea Stroke/cerebrovascular accident (~09/2021) Subarachnoid hemorrhage Super obese Swelling of left lower extremity Swelling of right lower extremity Tracheal stenosis UTI (urinary tract infection) Wears glasses Home Medications atorvastatin 80 mg tablet 80 mg NG QHS Check with primary doctor 01/14/21 [History Last Taken Unknown] metoprolol tartrate 50 mg tablet 50 mg PO BID BP 01/14/21 [History Last Taken 03/15/23] famotidine 20 mg tablet 40 mg (2 x 20 mg) PO 0800,1999 #60 tabs 02/03/21 [Rx Last Taken 03/15/23] sertraline 50 mg tablet 50 mg PO DAILY@0800 #30 tabs 02/03/21 [Rx Last Taken Unknown] apixaban 2.5 mg tablet (Eliquis) 5 mg PO BID 03/03/23 [History Last Taken Unknown] dulaglutide 1.5 mg/0.5 mL subcutaneous pen injector (Trulicity) 1.5 mg subcut Q WEEK 03/03/23 [History Last Taken Unknown] ondansetron 8 mg disintegrating tablet 8 mg PO Q8H PRN nausea and vomiting #30 tabs 03/07/23 [Rx Last Taken Unknown] fluticasone propionate 110 mcg/actuation HFA aerosol inhaler (Flovent HFA) 1 puff inhalation TID 03/08/23 [History Last Taken Unknown] furosemide 80 mg tablet 80 mg PO BID 03/08/23 [History Last Taken Unknown] omeprazole 40 mg capsule,delayed release 40 mg PO DAILY 03/08/23 [History Last Taken 03/15/23] insulin glargine 100 unit/mL (3 mL) subcutaneous pen (Rebeccaaglar NatPen U-100 Insulin) 60 unit subcut BID 03/15/23 [History Last Taken Unknown] potassium chloride 10 mEq tablet,extended release(part/cryst) 20 meq PO DAILYCM 04/25/23 [History Last Taken Unknown] insulin aspart U-100 100 unit/mL (3 mL) subcutaneous pen (Novolog FlexPen U-100 Insulin aspart) 26 unit subcut .QID 08/01/23 [History Last Taken Unknown] Allergy/AdvReac Type Severity Reaction Status Date / Time clindamycin AdvReac Intermediate Rash Verified 08/01/23 11:35 GRADY Inhibitors AdvReac Mild Other Verified 08/01/23 11:35 Surgical History History of bowel resection History of right hemicolectomy History of tracheostomy S/P percutaneous endoscopic gastrostomy (PEG) tube placement Social History Smoking Status: Former smoker how long ago did patient quit smokin Vital Signs Vital Signs Vital Signs: 08/09/23 08:57 Temperature 97 F L Temperature Source Temporal Pulse Rate 84 Respiratory Rate 18 Blood Pressure 106/47 L Blood Pressure Mean 66 Blood Pressure Source Monitor Blood Pressure Position Sitting Blood Pressure Location Left Arm Oxygen Delivery Method Room Air Weight Weight: 330 lb 8.407 oz Body Mass Index (BMI) 50.2 Physical Exam Const alert, oriented x3, no apparent distress and well nourished Constitutional Narrative: The patient is morbidly obese, with a BMI of 50.2. General Appearance: cooperative, comfortable, well kempt and well developed Orientation / Consciousness: awake, oriented to person, oriented to place and oriented to time Exam Limitations: no limitations HEENT normocephalic, head/scalp atraumatic and hearing grossly normal bilaterally Head and Scalp: normal to inspection, normocephalic and atraumatic External Ear: external ears normal Eyes PERRL, EOMs intact bilaterally and conjunctivae normal General Eye: normal appearance of both eyes Neck full ROM Resp normal respiratory effort, normal air movement, no retractions and no use of accessory muscles Effort and Inspection: able to speak in complete sentences Extremity no calf tenderness General Extremity: Negative for clubbing or cyanosis Skin Wound Narrative: Swelling and pitting edema are noted bilaterally in the patient's lower extremities. Lipodermatosclerosis is noted in the right gaiter area. A superficial ulceration is noted on the left posterior calf. It is small in size, and a ruptured blister is noted just inferior to the ulceration. There is no sign of infection or cellulitis. Dimensions are documented elsewhere. There is a small amount of bioburden. Neuro oriented x3, CN's II-XII intact bilaterally, moves all extremities and no focal motor deficits Sensorium / Orientation: awake, alert, oriented to person, oriented to place and oriented to time Psych Appearance: grossly normal and appropriate Attitude: calm Activity / Motor Behavior: appropriate eye contact Speech: normal speech Mood & Affect: euthymic mood Thought Process: normal thought process Thought Content: normal thought content Attention / Concentration: attention grossly intact Debridement Note Debridement Note Wound debrided: Left posterior calf Laterality: Left Type of Debridement: Selective debridement Anesthesia Used: 5% Lidocaine Gel Depth: Down to and including healthy tissue Percentage of wound debrided: 100 Instrument Used: 5mm curette and - (Scissors) Tissue Removed: Bioburden and sloughing epidermis Severity: Limited To Skin Breakdown Amount of bleeding with debridement: None Patient tolerated procedure: Patient tolerated procedure well Post-Debridement Measurements and Additional Note: Post-Debridement Measurements/Treatment - Nurse 1 - General Ulcer Assessment Start: 07/26/23 08:15 Freq: Status: Active Protocol: AMRIT Activity Type Activity Date Activity User E-sign Co-sign Detail Recorded Client Recorded Date Recorded By Document 07/26/23 08:16 DL [id number] 07/26/23 08:39 DL Document 07/29/23 09:11 [id number] 07/29/23 09:27 Document 08/02/23 09:13 Desktop 08/02/23 09:25 Document 08/09/23 08:57 [facility] Desktop 08/09/23 09:04 [facility] 07/26/23 07/29/23 08/02/23 08:16 09:11 09:13 - Today's Visit Information Type of service Initial Visit Nurse-only Follow-up Visit Visit (Physician/SONAR SUBSYSTEM EQUIPMENT OPERATOR ) Arrival Mode Ambulatory Ambulatory Ambulatory Transfer Assistance None None Maura Lift Patient Identification Verified (Name & Yes Yes Yes ) Patient Requires Transmission-Based No No No Precautions Finger Stick Blood Sugar(mg/dl) (if 243 198 indicated): Blood Sugar Stated by Stated by Patient Patient Height and Weight Height 5 ft 8 in Weight 330 lb 8.407 oz Weight in Pounds 330.5 lbs Body Mass Index (BMI) 50.2 50.2 50.2 BMI Classification Obese Obese Obese BSA - Solis 2.53 Vital Signs Temperature (97.8 F-99.1 F) 98 F 96.8 F L 97.0 F L Temperature Source Temporal Temporal Temporal Pulse Rate (60-100) 94 75 Pulse Location Monitor Monitor Respiratory Rate (12-18) 20 H 20 H 18 Respiratory rate source Observation Observation Observation Oxygen Delivery Method Blood Pressure (90/60-120/80) 117/68 118/53 L Blood Pressure Mean 84 74 Source Monitor Monitor Position Blood Pressure Location History Since Last Visit- (Skip if this is Patient's initial visit) Have you changed medications since your No No last visit? Any new allergies or adverse reactions No No Had a fall/change in ADL's that may No No increase risk of falls Signs or symptoms of abuse and/or No No neglect since last visit Have you been in the hospital since your No No last visit? Has dressing in place as prescribed Yes Yes Has compression in place as prescribed Yes Yes Has offloadiing in place as prescribed N/A N/A Experienced any changes in pain level or No No management Left Footwear Slipper Regular Shoe Right Footwear Regular Shoe Regular Shoe Pain Scale: 0-10 Numeric Is Patient Pain Free? Yes Yes Yes Lower Extremity Assessment/ Foot Assessment/ Toe Nail Assessment Left -Popliteal Doppler Monophasic -Posterior Tibial Palpable Yes -Posterior Tibial Doppler Multiphasic -Dorsalis Pedis Palpable Yes -Extremity Color Hyperpigmented, Hemosiderin -Hair Growth on Legs No -Hair Growth on Toes No -Temperature of Extremity Warm -Capillary Refill Greater than 3 Seconds -Dependent Rubor No -Blanched when Elevated No -Lipodermatosclerosis No -Other Deformity No -Prior Foot Ulcer No -Charcot Joint No -Prior Amputation No -Thick No -Discolored Yes -Deformed No -Improper Length & Hygeine No Right -Posterior Tibial Palpable Yes -Posterior Tibial Doppler Multiphasic -Dorsalis Pedis Palpable Yes -Dorsalis Pedis Doppler Monophasic -Extremity Color Hyperpigmented, Hemosiderin -Hair Growth on Legs No -Hair Growth on Toes No -Temperature of Extremity Warm -Capillary Refill Greater than 3 Seconds -Dependent Rubor No -Blanched when Elevated No -Lipodermatosclerosis No -Other Deformity No -Prior Foot Ulcer No -Charcot Joint No -Prior Amputation No -Thick No -Discolored Yes -Deformed No -Improper Length & Hygeine No Neuropathy Assessment Feet - Top Side and Bottom <Entered> (a) Communication Assessment Preferred language [place] Able to Read Yes Able to Write Yes Right Hearing Abillity Normal Left Hearing Abillity Normal Visual Assistive Devices Glasses Teaching Assessment Preferences Verbal,Written, Demonstration Barriers to Learning None Readiness To Learn Good Willingness to Engage in Self Management Med Activies Readiness to Engage in Self Management Med Activities Anxiety Level Calm Cooperation Cooperative Perception Coherent Interest in Health Problem Asks Questions Education Importance Acknowledges Need Does Patient Smoke tobacco or other No substances Smoking Status Former smoker Is Patient Diabetic Yes Functional Assessment Recent Decline in Ability to Perform Denies Any Declines Culture/Hinduism/Hvac Operations Technician Cultural/Hinduism Needs that may affect No Treatment Plan Would you allow our [facility] to No meet you for the purpose of spiritual/ emotional support? Hvac Operations Technician to contact place of evangelical No Teaching: Wound Center Dressing Your Wound -Person Taught Patient *Welcome to the Wound Center -Person Taught Patient 08/09/23 08:57 WC - Today's Visit Information Type of service Follow-up Visit (Physician/SONAR SUBSYSTEM EQUIPMENT OPERATOR ) Arrival Mode Ambulatory,Cane Transfer Assistance None Patient Identification Verified (Name & Yes ) Patient Requires Transmission-Based No Precautions Finger Stick Blood Sugar(mg/dl) (if 190 indicated): Blood Sugar Stated by Patient Height and Weight Height Weight Weight in Pounds Body Mass Index (BMI) 50.2 BMI Classification Obese BSA - Solis Vital Signs Temperature (97.8 F-99.1 F) 97 F L Temperature Source Temporal Pulse Rate (60-100) 84 Pulse Location Monitor Respiratory Rate (12-18) 18 Respiratory rate source Observation Oxygen Delivery Method Room Air Blood Pressure (90/60-120/80) 106/47 L Blood Pressure Mean 66 Source Monitor Position Sitting Blood Pressure Location Left Arm History Since Last Visit- (Skip if this is Patient's initial visit) Have you changed medications since your No last visit? Any new allergies or adverse reactions No Had a fall/change in ADL's that may No increase risk of falls Signs or symptoms of abuse and/or No neglect since last visit Have you been in the hospital since your No last visit? Has dressing in place as prescribed Yes Has compression in place as prescribed Yes Has offloadiing in place as prescribed N/A Experienced any changes in pain level or No management Left Footwear Regular Shoe Right Footwear Regular Shoe Pain Scale: 0-10 Numeric Is Patient Pain Free? Yes Lower Extremity Assessment/ Foot Assessment/ Toe Nail Assessment Left -Popliteal Doppler -Posterior Tibial Palpable -Posterior Tibial Doppler -Dorsalis Pedis Palpable -Extremity Color -Hair Growth on Legs -Hair Growth on Toes -Temperature of Extremity -Capillary Refill -Dependent Rubor -Blanched when Elevated -Lipodermatosclerosis -Other Deformity -Prior Foot Ulcer -Charcot Joint -Prior Amputation -Thick -Discolored -Deformed -Improper Length & Hygeine Right -Posterior Tibial Palpable -Posterior Tibial Doppler -Dorsalis Pedis Palpable -Dorsalis Pedis Doppler -Extremity Color -Hair Growth on Legs -Hair Growth on Toes -Temperature of Extremity -Capillary Refill -Dependent Rubor -Blanched when Elevated -Lipodermatosclerosis -Other Deformity -Prior Foot Ulcer -Charcot Joint -Prior Amputation -Thick -Discolored -Deformed -Improper Length & Hygeine Neuropathy Assessment Feet - Top Side and Bottom Communication Assessment Preferred language Able to Read Able to Write Right Hearing Abillity Left Hearing Abillity Visual Assistive Devices Teaching Assessment Preferences Barriers to Learning Readiness To Learn Willingness to Engage in Self Management Activies Readiness to Engage in Self Management Activities Anxiety Level Cooperation Perception Interest in Health Problem Education Importance Does Patient Smoke tobacco or other substances Smoking Status Is Patient Diabetic Functional Assessment Recent Decline in Ability to Perform Culture/Hinduism/Hvac Operations Technician Cultural/Hinduism Needs that may affect Treatment Plan Would you allow our [facility] to meet you for the purpose of spiritual/ emotional support? Hvac Operations Technician to contact place of evangelical Teaching: Wound Center Dressing Your Wound -Person Taught *Welcome to the Wound Center -Person Taught (a) 1 - _ 2 - + WC - Nurse 1 - General Ulcer Measurement Start: 07/26/23 08:15 Freq: Status: Active Protocol: Activity Type Activity Date Activity User E-sign Co-sign Detail Recorded Client Recorded Date Recorded By Document 07/26/23 08:16 DL [id number] 07/26/23 08:39 DL Document 07/29/23 09:11 DL [id number] 07/29/23 09:27 DL Document 08/02/23 09:13 JF Desktop 08/02/23 09:25 JF Document 08/09/23 08:57 [facility] Desktop 08/09/23 09:04 BMF 07/26/23 07/29/23 08/02/23 08:16 09:11 09:13 Wound Center Nurse 1 #1 LLE Post -Combined with other wound No -Current Size (cm) - Length 3 2.2 -Current Size (cm) - Width 1.8 1.0 -Current Size (cm) - Depth 0.1 0.1 -Total Square Cm 5.4 2.20 -Date of Last Picture (Recall this field) -Photo Taken Yes No -Epithelialization Large 67-100% -Tunneling No -Undermining/Tunneling No -Circular Undermining No -Classification - Thickness Full Thickness without Exposed Support Structure -Exudate Amt Medium Small None Present -Exudate Type Serosanguineous Serosanguineous -Wound Margin Distinct, Indistinct, Non Flat & Intact Outline -Visible Attached -Granulation Amt Large (67-100%) Small (1-33%) Large (67-100%) -Granulation Quality Schulenburg Schulenburg Red -Slough/Fibrin Yes -Necrosis Amt Small (1-33%) Small (1-33%) Small (1-33%) -Necrotic Tissue Type Adherent Slough Adherent Slough Adherent Slough -Structure Exposed N/A N/A N/A -Texture (Karen-wound Skin Appearance) Localized Edema Scarring Assessed, ,Scarring Localized Edema ,Scarring -Moisture (Karen-wound Skin Appearance) Dry/Scaly No Abnormality Assessed,Dry/ Scaly -Color (Karen-wound Skin Appearance) Hemosiderin No Abnormality Assessed Staining -Temperature (Karen-wound Skin No Abnormality No Abnormality No Abnormality Appearance) (Pt Warm) (Pt Warm) (Pt Warm) -Tenderness on Palpation (Karen-wound No No No Skin Appearance) -Ulcer Cleansing Soap and Water Soap and Water Wound Cleanser -Foul Odor after Cleansing No No -Anesthetic Used 5% Lidocaine 5% Lidocaine Gel Gel,Cetacaine Lower Limb Edema Present Yes Right Calf (cm) 51 48.5 48.9 Right Ankle (cm) 31.5 29.8 29.5 Left Calf (cm) 47.5 44.8 44.4 Left Ankle (cm) 31 28.5 27.8 08/09/23 08:57 Wound Center Nurse 1 #1 LLE Post -Combined with other wound No -Current Size (cm) - Length 0.7 -Current Size (cm) - Width 1.2 -Current Size (cm) - Depth 0.1 -Total Square Cm 0.84 -Date of Last Picture (Recall this 08/09/23 field) -Photo Taken Yes -Epithelialization Medium 34-66% -Tunneling No -Undermining/Tunneling No -Circular Undermining No -Classification - Thickness -Exudate Amt Small -Exudate Type Serosanguineous -Wound Margin Flat & Intact -Granulation Amt Large (67-100%) -Granulation Quality Schulenburg -Slough/Fibrin Yes -Necrosis Amt Small (1-33%) -Necrotic Tissue Type Adherent Slough -Structure Exposed -Texture (Karen-wound Skin Appearance) Assessed, Scarring -Moisture (Karen-wound Skin Appearance) Assessed -Color (Karen-wound Skin Appearance) Assessed -Temperature (Karen-wound Skin No Abnormality Appearance) (Pt Warm) -Tenderness on Palpation (Karen-wound No Skin Appearance) -Ulcer Cleansing Rinsed/ Irrigated with Saline -Foul Odor after Cleansing No -Anesthetic Used 5% Lidocaine Gel Lower Limb Edema Present Yes Right Calf (cm) 50.3 Right Ankle (cm) 30.5 Left Calf (cm) 48.5 Left Ankle (cm) 30.5 WC - Nurse 2 - General Ulcer CM Notes Start: 07/26/23 08:15 Freq: Status: Active Protocol: Activity Type Activity Date Activity User E-sign Co-sign Detail Recorded Client Recorded Date Recorded By Document 07/26/23 13:26 PL [id number] 07/26/23 13:28 PL Document 08/02/23 13:09 PL [id number] 08/02/23 13:10 PL Document 08/09/23 12:00 PL [id number] 08/09/23 12:01 PL 07/26/23 08/02/23 08/09/23 13:26 13:09 12:00 Wound Center Nurse 2 #1 LLE Post -Time 08:54 09:29 09:09 -Correct Patient Yes Yes Yes -Correct Side, Site, Position Yes Yes Yes -Correct Procedure Yes Yes Yes -Procedure Performed Yes Yes Yes -Type of Procedure Debridement Debridement Debridement -Clinical Debridement Subcutaneous Subcutaneous Subcutaneous -Tissue Removed Subcutaneous Subcutaneous Subcutaneous -Post Debridement (cm) - Length 3.1 2.2 0.8 -Post Debridement (cm) - Width 1.8 1.0 1.3 -Post Debridement (cm) - Depth 0.1 0.1 0.1 -Total Square (Post) (cm) 5.58 2.20 1.04 -Area of Debridement (cm) - Length 3.1 2.2 0.8 -Area of Debridement (cm) - Width 1.8 1.0 1.3 -Total Square (Area) (cm) 5.58 2.20 1.04 -Tunneling No No No -Undermining/Tunneling No No No -Circular Undermining No No No -Wound/Ulcer Outcome Not Healed Not Healed Not Healed -Ulcer Cleansing Rinsed/ Rinsed/ Rinsed/ Irrigated with Irrigated with Irrigated with Saline Saline Saline -Foul Odor after Cleansing No No No -Bioengineered Tissue No No No -Bleeding Controlled with Pressure Pressure Pressure -Treatment Response Procedure Procedure Procedure Tolerated Well Tolerated Well Tolerated Well -Debridement - Subq, 1st 20sq cm Yes Yes Yes Pain Scale: 0-10 Numeric Is Patient Pain Free? Yes Yes Yes - Nurse 3 - General Ulcer D/C NN Start: 07/26/23 08:15 Freq: Status: Active Protocol: Activity Type Activity Date Activity User E-sign Co-sign Detail Recorded Client Recorded Date Recorded By Document 07/26/23 13:26 PL [id number] 07/26/23 13:28 PL Document 07/29/23 09:11 DL [id number] 07/29/23 09:27 DL Edit Result 07/29/23 09:11 DL (1) [id number] 07/29/23 09:33 DL Document 08/02/23 13:10 PL [id number] 08/02/23 13:12 PL Document 08/09/23 09:22 BMF Desktop 08/09/23 09:22 BMF (1) #1 LLE Post - Ulcer Cleansing => Soap and Water - Foul Odor after Cleansing => No - Other Dressing => promogran - Primary Dressing Covered/Secured with => Dry Gauze Bilateral - Multi-Layered Wrap Application => Multi-Layer Comp - => Bilat ($) Discharge Condition => Stable Ambulatory Status => Ambulatory Transportation => [employer] 07/26/23 07/29/23 08/02/23 13:26 09:11 13:10 Pain Scale: 0-10 Numeric Is Patient Pain Free? Yes Yes Yes Wound Care Center Nurse 3 #1 LLE Post -Ulcer Cleansing Rinsed/ Soap and Water Rinsed/ Irrigated with Irrigated with Saline Saline -Foul Odor after Cleansing No No No -Primary Dressing Applied Promogran C Hydrogel ($), Mepilex Border -Other Dressing promogran -Primary Dressing Covered/Secured with Dry Gauze Dry Gauze -Mepilex Border 2 -Promogran 1 Bilateral -Multi-Layered Wrap Application Multi-Layer Multi-Layer Comp - Bilat ($ Comp - Bilat ($ ) ) -Tubular Bandage Single Layer -Size of Tubigrip Used Size D -Size D ($) 4 -Size F ($) Treatment Response Vital Signs Temperature (97.8 F-99.1 F) 96.8 F L Temperature Source Temporal Pulse Rate (60-100) 75 Pulse Location Monitor Respiratory Rate (12-18) 20 H Respiratory rate source Observation Blood Pressure (90/60-120/80) 118/53 L Blood Pressure Mean 74 Source Monitor WC - Visit Discharge Discharge Condition Stable Stable Stable Ambulatory Status Ambulatory Ambulatory Wheelchair Transportation Just Above Cost 08/09/23 09:22 Pain Scale: 0-10 Numeric Is Patient Pain Free? Yes Wound Care Center Nurse 3 #1 LLE Post -Ulcer Cleansing Rinsed/ Irrigated with Saline -Foul Odor after Cleansing No -Primary Dressing Applied Mepilex Border, Promogran -Other Dressing -Primary Dressing Covered/Secured with -Mepilex Border 1 -Promogran 1 Bilateral -Multi-Layered Wrap Application -Tubular Bandage Single Layer -Size of Tubigrip Used Size F -Size D ($) -Size F ($) 2 Treatment Response Procedure Tolerated Well Vital Signs Temperature (97.8 F-99.1 F) Temperature Source Pulse Rate (60-100) Pulse Location Respiratory Rate (12-18) Respiratory rate source Blood Pressure (90/60-120/80) Blood Pressure Mean Source WC - Visit Discharge Discharge Condition Stable Ambulatory Status Ambulatory,Cane Transportation [employer] Assessment/Plan Assessment/Plan (1) Non-pressure chronic ulcer of left ankle limited to breakdown of skin: CODE(S): L97.321 - Non-pressure chronic ulcer of left ankle limited to breakdown of skin (2) Leg wound, left: CODE(S): S81.802A - Unspecified open wound, left lower leg, initial encounter QUALIFIERS: Encounter type: subsequent encounter Qualified Code(s): S81.802D - Unspecified open wound, left lower leg, subsequent encounter (3) Swelling of right lower extremity: CODE(S): M79.89 - Other specified soft tissue disorders (4) Swelling of left lower extremity: CODE(S): M79.89 - Other specified soft tissue disorders (5) Edema of right lower extremity: CODE(S): R60.0 - Localized edema (6) Edema of left lower extremity: CODE(S): R60.0 - Localized edema (7) Diabetes mellitus: CODE(S): E11.9 - Type 2 diabetes mellitus without complications (8) Hypertension: CODE(S): I10 - Essential (primary) hypertension (9) HLD (hyperlipidemia): CODE(S): E78.5 - Hyperlipidemia, unspecified (10) Super obese: CODE(S): E66.9 - Obesity, unspecified (11) Uncontrolled type II diabetes mellitus: CODE(S): E11.65 - Type 2 diabetes mellitus with hyperglycemia QUALIFIERS: Glycemic state: with hyperglycemia Qualified Code(s): E11.65 - Type 2 diabetes mellitus with hyperglycemia (12) Status post tracheostomy: CODE(S): Z93.0 - Tracheostomy status (13) S/P percutaneous endoscopic gastrostomy (PEG) tube placement: CODE(S): Z93.1 - Gastrostomy status (14) CAD (coronary artery disease): CODE(S): I25.10 - Atherosclerotic heart disease of [place] coronary artery without angina pectoris (15) Hemorrhagic cerebrovascular accident (CVA): CODE(S): I61.9 - Nontraumatic intracerebral hemorrhage, unspecified (16) Subarachnoid hemorrhage: CODE(S): I60.9 - Nontraumatic subarachnoid hemorrhage, unspecified (17) Hx of deep venous thrombosis: CODE(S): Z86.718 - Personal history of other venous thrombosis and embolism (18) Tobacco dependence in remission: CODE(S): F17.201 - Nicotine dependence, unspecified, in remission (19) Obstructive sleep apnea: CODE(S): G47.33 - Obstructive sleep apnea (adult) (pediatric) (20) Chronic anticoagulation: CODE(S): Z79.01 - shelter (current) use of anticoagulants (21) Debility: CODE(S): R53.81 - Other malaise (22) Tracheal stenosis: CODE(S): J39.8 - Other specified diseases of upper respiratory tract (23) Body mass index (BMI) greater than 50: (24) Seizure disorder: CODE(S): G40.909 - Epilepsy, unspecified, not intractable, without status epilepticus (25) BPH (benign prostatic hyperplasia): CODE(S): N40.0 - Benign prostatic hyperplasia without lower urinary tract symptoms (26) GERD (gastroesophageal reflux disease): CODE(S): K21.9 - Gastro-esophageal reflux disease without esophagitis (27) History of colon cancer: CODE(S): Z85.038 - Personal history of other malignant neoplasm of large intestine (28) History of right hemicolectomy: CODE(S): Z90.49 - Acquired absence of other specified parts of digestive tract (29) Lipodermatosclerosis of right lower extremity: CODE(S): I83.11 - Varicose veins of right lower extremity with inflammation PLAN: Plan This is a 63-year-old morbidly obese diabetic male who presents with a traumatic ulceration on the left posterior calf. The ulceration had been present for approximately 3 weeks. We are to continue conservative treatment measures relative to the patient's chronic lower extremity swelling and edema. These measures have been discussed with the patient thoroughly. He is to continue sleeping on a flat mattress at night. Legs are to be elevated even during daytime hours. Elevation is to be to heart level, or higher. This is to be implemented as much as possible. Prolonged idle sitting has been discouraged. Activity has been encouraged. Weight loss has been recommended. The patient is not currently a smoker. The patient has been advised to optimize his nutritional intake, and to optimize his glycemic control. Swelling and edema persist in the patient's left lower extremity, thought to account for the development of a blister near his left posterior calf ulceration. We have once again emphasized the need for conservative treatment measures, including compression and elevation, to minimize the swelling. We are to implement the use of Promogran topically to the ulcerations on the left posterior calf. Promogran will be applied topically on a daily basis. The patient has been instructed in the appropriate means of application. The patient is to require compression as well. However, he has had difficulty in tolerating compression, even up to 15 to 20 mmHg compression. Therefore, we are to implement a lower degree of compression by means of Tubigrip's, which the patient can tolerate. A noninvasive lower extremity arterial study has been performed on August 05, 2023, which revealed no evidence of significant arterial occlusive disease. The patient's intolerance of adequate compression to the lower extremities appears to be some impediment to controlling his lower extremity swelling. Additionally, the patient has recently been restarted on chemotherapy and treatment for his colon cancer. As has been discussed with the patient, the chemotherapeutic agents may adversely affect ulcer healing potential. The patient is to return in 1 week for reassessment. Ultimately, it is hoped that we will be able to transition to the use of graduated compression stockings or Velcro compression garments of at least 20 to 30 mmHg, for long-term use. Total time: 28 minutes
== END 2023-08-13 23:59 | disposition home or self-care (01) ==
LOC: WC 09:00
PROVIDERS: PCP Family Medicine; Referring Provider Nurse Practitioner Family; Visit Provider Surgery
DX: E11.622 Type 2 diabetes mellitus with other skin ulcer (principal); L97.321 Non-pressure chronic ulcer of left ankle limited to breakdown of skin; E11.65 Type 2 diabetes mellitus with hyperglycemia; Z68.43 Body mass index [BMI] 50.0-59.9, adult; E66.01 Morbid (severe) obesity due to excess calories; G40.909 Epilepsy, unspecified, not intractable, without status epilepticus; Z79.4 Long term (current) use of insulin; I69.998 Other sequelae following unspecified cerebrovascular disease; I25.10 Atherosclerotic heart disease of native coronary artery without angina pectoris; F17.201 Nicotine dependence, unspecified, in remission; N40.0 Benign prostatic hyperplasia without lower urinary tract symptoms; E78.5 Hyperlipidemia, unspecified; G47.33 Obstructive sleep apnea (adult) (pediatric); I83.11 Varicose veins of right lower extremity with inflammation; K21.9 Gastro-esophageal reflux disease without esophagitis; I10 Essential (primary) hypertension; J39.8 Other specified diseases of upper respiratory tract; M79.89 Other specified soft tissue disorders; R60.0 Localized edema; R53.81 Other malaise; Z79.01 Long term (current) use of anticoagulants; Z79.899 Other long term (current) drug therapy; Z86.73 Personal history of transient ischemic attack (TIA), and cerebral infarction without residual deficits; Z86.718 Personal history of other venous thrombosis and embolism; Z85.038 Personal history of other malignant neoplasm of large intestine; Z90.49 Acquired absence of other specified parts of digestive tract
CPT/HCPCS: 11042; 29581; 93923; 99213; G0463

== ENCOUNTER 2023-08-16 09:13 | Outpatient (RCR) | payer OTHER, SELFPAY ==
[2023-08-14 00:27] VITALS: BP 106/47; PULSE 84; RESP 18; TEMP 36.1; BMI 50.2
[2023-08-16 09:21] VITALS: BP 142/75; PULSE 82; TEMP 36.7; BMI 50.2
--- NOTE | 2023-08-16 10:02 | HP.PCM_ITS ---
History of Present Illness Date of Service: 08/16/23 Chief Complaint: Non-pressure ulceration of the left posterior ankle; swelling and edema of the lower extremities bilaterally History of Wound: This is a 63-year-old morbidly obese diabetic male who presented with an ulceration on the left posterior ankle. The ulceration had been present for approximately 3 weeks. It initially occurred as a result of superficial trauma when impacting against his car door. The patient had been using Neosporin topically. He has a long history of lower extremity swelling and edema. The swelling and edema typically occur late each day. He is morbidly obese, and sits for long periods each day with limited activity. Ambulation is required by the use of a cane, due to balance instability. The patient has a history of right lower extremity deep vein thrombosis, and he is on long-term systemic anticoagulation with Eliquis. The patient sleeps in a relatively flat position, with his head slightly elevated to assist with breathing. Patient has a recent history of stage III adenocarcinoma of the ascending colon, for which he underwent laparoscopic right hemicolectomy at the [facility] on February 02, 2023. He has multiple pre-existing medical problems, which are listed herein. Hemoglobin A1c was obtained yesterday, and was 9. Laboratory results from July 19, 2023, are as follows: White blood count 15.3, hemoglobin 11.1, hematocrit 35.2, platelets 195,000, sodium 137, potassium 3.9, chloride 106, BUN 16, creatinine 1.18, glucose 201, calcium 8.7, magnesium 2.1, total bilirubin 0.50, AST 20, ALT 29, alkaline phosphatase 122, total protein 6.7, albumin 2.8. The patient suffered a hemorrhagic cerebrovascular accident in 2019, and required the placement of a PEG tube and tracheostomy, both of which have since been removed. [facility] Medical History Acute bronchitis Anxiety and depression BiPAP (biphasic positive airway pressure) dependence Body mass index (BMI) 35 or more Body mass index (BMI) greater than 50 BPH (benign prostatic hyperplasia) Cancer Cellulitis Chronic anticoagulation Chronic anticoagulation CINV (chemotherapy-induced nausea and vomiting) Colon cancer COPD (chronic obstructive pulmonary disease) Debility Diabetes mellitus Duodenal perforation DVT (deep venous thrombosis) Dysphagia Dysuria Edema of left lower extremity Edema of right lower extremity Encounter for chemotherapy management Encounter for education Former smoker GERD (gastroesophageal reflux disease) [place] filter in place Hemothorax on right High cholesterol History of Clostridium difficile infection History of colon cancer History of echocardiogram History of edema History of heart attack (~1993) History of stress test HLD (hyperlipidemia) HTN (hypertension) Iron deficiency anemia due to chronic blood loss Leg wound, left Lipodermatosclerosis of right lower extremity Low iron Non-pressure chronic ulcer of left ankle limited to breakdown of skin RAMU (obstructive sleep apnea) Pharyngeal dysphagia Pneumonia Prostate disorder Regional lymph node metastasis present Seizure disorder as sequela of cerebrovascular accident Shortness of breath on exertion Sleep apnea Stroke/cerebrovascular accident (~09/2021) Subarachnoid hemorrhage Super obese Swelling of left lower extremity Swelling of right lower extremity Tracheal stenosis UTI (urinary tract infection) Wears glasses Home Medications atorvastatin 80 mg tablet 80 mg NG QHS Check with primary doctor 01/14/21 [History Last Taken Unknown] metoprolol tartrate 50 mg tablet 50 mg PO BID BP 01/14/21 [History Last Taken 03/15/23] famotidine 20 mg tablet 40 mg (2 x 20 mg) PO 0800,1999 #60 tabs 02/03/21 [Rx Last Taken 03/15/23] sertraline 50 mg tablet 50 mg PO DAILY@0800 #30 tabs 02/03/21 [Rx Last Taken Unknown] apixaban 2.5 mg tablet (Eliquis) 5 mg PO BID 03/03/23 [History Last Taken Unknown] dulaglutide 1.5 mg/0.5 mL subcutaneous pen injector (Trulicity) 1.5 mg subcut Q WEEK 03/03/23 [History Last Taken Unknown] ondansetron 8 mg disintegrating tablet 8 mg PO Q8H PRN nausea and vomiting #30 tabs 03/07/23 [Rx Last Taken Unknown] fluticasone propionate 110 mcg/actuation HFA aerosol inhaler (Flovent HFA) 1 puff inhalation TID 03/08/23 [History Last Taken Unknown] furosemide 80 mg tablet 80 mg PO BID 03/08/23 [History Last Taken Unknown] omeprazole 40 mg capsule,delayed release 40 mg PO DAILY 03/08/23 [History Last Taken 03/15/23] insulin glargine 100 unit/mL (3 mL) subcutaneous pen (Rebeccaaglar NatPen U-100 Insulin) 60 unit subcut BID 03/15/23 [History Last Taken Unknown] potassium chloride 10 mEq tablet,extended release(part/cryst) 20 meq PO DAILYCM 04/25/23 [History Last Taken Unknown] insulin aspart U-100 100 unit/mL (3 mL) subcutaneous pen (Novolog FlexPen U-100 Insulin aspart) 26 unit subcut .QID 08/01/23 [History Last Taken Unknown] Allergy/AdvReac Type Severity Reaction Status Date / Time clindamycin AdvReac Intermediate Rash Verified 08/15/23 09:15 GRADY Inhibitors AdvReac Mild Other Verified 08/15/23 09:15 Surgical History History of bowel resection History of right hemicolectomy History of tracheostomy S/P percutaneous endoscopic gastrostomy (PEG) tube placement Social History Smoking Status: Former smoker how long ago did patient quit smokin Vital Signs Vital Signs Vital Signs: 08/16/23 09:21 Temperature 98.1 F Temperature Source Temporal Pulse Rate 82 Blood Pressure 142/75 H Blood Pressure Mean 97 Blood Pressure Source Monitor Blood Pressure Position Sitting Blood Pressure Location Right Arm Oxygen Delivery Method Room Air Weight Weight: 330 lb 8.407 oz Body Mass Index (BMI) 50.2 Physical Exam Narrative The patient is morbidly obese Const alert, oriented x3 and no apparent distress General Appearance: cooperative, comfortable, well kempt and well developed Orientation / Consciousness: awake, oriented to person, oriented to place and oriented to time Nutritional Appearance: morbidly obese HEENT normocephalic HEENT Narrative: A large, healing laceration is noted on the right parietal scalp Face and Sinus: normal facial exam Eyes PERRL and EOMs intact bilaterally General Eye: normal appearance of both eyes Neck full ROM and no JVD Chest Chest: vascular access Resp normal respiratory effort, normal air movement, no retractions and no use of accessory muscles Cardio Jugular Venous Distention: Negative for JVD Extremity Extremity Narrative: BLE wrapped with thick layer of rgady wrap. Specific attention paid to LLE- no drainage or erythema above the grady wrap noted General Extremity: Negative for clubbing or cyanosis Skin Wound Narrative: The patient's left posterior ankle ulceration is completely healed and epithelialized. Mild swelling and edema persist in the patient's lower extremities bilaterally. Neuro oriented x3, CN's II-XII intact bilaterally, moves all extremities and no focal motor deficits Sensorium / Orientation: awake, alert, oriented to person, oriented to place and oriented to time Speech: speech normal Gait (Neuro): assistive device used cane Psych mental status grossly normal Debridement Note Debridement Note No debridement was completed: No debridement was completed today Post-Debridement Measurements and Additional Note: Post-Debridement Measurements/Treatment WC - Nurse 1 - General Ulcer Assessment Start: 08/16/23 09:21 Freq: Status: Active Protocol: AMRIT Activity Type Activity Date Activity User E-sign Co-sign Detail Recorded Client Recorded Date Recorded By Document 08/16/23 09:21 GM Desktop 08/16/23 09:26 GM 08/16/23 09:21 WC - Today's Visit Information Type of service Follow-up Visit (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 Any new allergies or adverse reactions No Had a fall/change in ADL's that may Yes increase risk of falls Signs or symptoms of abuse and/or No neglect since last visit Have you been in the hospital since your No last visit? Has dressing in place as prescribed Yes Has compression in place as prescribed Yes Left Footwear Regular Shoe Right Footwear Regular Shoe Pain Scale: 0-10 Numeric Is Patient Pain Free? Yes - Nurse 1 - General Ulcer Measurement Start: 08/16/23 09:21 Freq: Status: Active Protocol: Activity Type Activity Date Activity User E-sign Co-sign Detail Recorded Client Recorded Date Recorded By Document 08/16/23 09:21 GM Desktop 08/16/23 09:26 GM Edit Result 08/16/23 09:21 GM (1) [id number] 08/16/23 09:36 GM (1) #1 LLE Post - Undermining/Tunneling => No - Circular Undermining => No - Exudate Amt => None Present - Ulcer Cleansing => Soap and Water 08/16/23 09:21 Wound Center Nurse 1 #1 LLE Post -Current Size (cm) - Length 3.0 -Current Size (cm) - Width 0.3 -Current Size (cm) - Depth 0.1 -Total Square Cm 0.90 -Photo Taken No -Undermining/Tunneling No -Circular Undermining No -Exudate Amt None Present -Ulcer Cleansing Soap and Water Lower Limb Edema Present Yes Right Calf (cm) 51 Right Ankle (cm) 32 Left Calf (cm) 41 Left Ankle (cm) 31 Assessment/Plan Assessment/Plan (1) Non-pressure chronic ulcer of left ankle limited to breakdown of skin: CODE(S): L97.321 - Non-pressure chronic ulcer of left ankle limited to breakdown of skin (2) Leg wound, left: CODE(S): S81.802A - Unspecified open wound, left lower leg, initial encounter QUALIFIERS: Encounter type: subsequent encounter Qualified Code(s): S81.802D - Unspecified open wound, left lower leg, subsequent encounter (3) Swelling of right lower extremity: CODE(S): M79.89 - Other specified soft tissue disorders (4) Swelling of left lower extremity: CODE(S): M79.89 - Other specified soft tissue disorders (5) Edema of right lower extremity: CODE(S): R60.0 - Localized edema (6) Edema of left lower extremity: CODE(S): R60.0 - Localized edema (7) Diabetes mellitus: CODE(S): E11.9 - Type 2 diabetes mellitus without complications (8) Hypertension: CODE(S): I10 - Essential (primary) hypertension (9) HLD (hyperlipidemia): CODE(S): E78.5 - Hyperlipidemia, unspecified (10) Super obese: CODE(S): E66.9 - Obesity, unspecified (11) Uncontrolled type II diabetes mellitus: CODE(S): E11.65 - Type 2 diabetes mellitus with hyperglycemia QUALIFIERS: Glycemic state: with hyperglycemia Qualified Code(s): E11.65 - Type 2 diabetes mellitus with hyperglycemia (12) Status post tracheostomy: CODE(S): Z93.0 - Tracheostomy status (13) S/P percutaneous endoscopic gastrostomy (PEG) tube placement: CODE(S): Z93.1 - Gastrostomy status (14) CAD (coronary artery disease): CODE(S): I25.10 - Atherosclerotic heart disease of [place] coronary artery without angina pectoris (15) Hemorrhagic cerebrovascular accident (CVA): CODE(S): I61.9 - Nontraumatic intracerebral hemorrhage, unspecified (16) Subarachnoid hemorrhage: CODE(S): I60.9 - Nontraumatic subarachnoid hemorrhage, unspecified (17) Hx of deep venous thrombosis: CODE(S): Z86.718 - Personal history of other venous thrombosis and embolism (18) Tobacco dependence in remission: CODE(S): F17.201 - Nicotine dependence, unspecified, in remission (19) Obstructive sleep apnea: CODE(S): G47.33 - Obstructive sleep apnea (adult) (pediatric) (20) Chronic anticoagulation: CODE(S): Z79.01 - care home (current) use of anticoagulants (21) Debility: CODE(S): R53.81 - Other malaise (22) Tracheal stenosis: CODE(S): J39.8 - Other specified diseases of upper respiratory tract (23) Body mass index (BMI) greater than 50: (24) Seizure disorder: CODE(S): G40.909 - Epilepsy, unspecified, not intractable, without status epilepticus (25) BPH (benign prostatic hyperplasia): CODE(S): N40.0 - Benign prostatic hyperplasia without lower urinary tract symptoms (26) GERD (gastroesophageal reflux disease): CODE(S): K21.9 - Gastro-esophageal reflux disease without esophagitis (27) History of colon cancer: CODE(S): Z85.038 - Personal history of other malignant neoplasm of large intestine (28) History of right hemicolectomy: CODE(S): Z90.49 - Acquired absence of other specified parts of digestive tract (29) Lipodermatosclerosis of right lower extremity: CODE(S): I83.11 - Varicose veins of right lower extremity with inflammation PLAN: Plan This is a 63-year-old morbidly obese diabetic male who presents with a traumatic ulceration on the left posterior calf. The ulceration had been present for approximately 3 weeks. The ulceration is now completely healed and epithelialized. As result, the patient is to be discharged, and will follow-up henceforth on an as-needed basis. Tubigrip's will be applied today, and will be worn until the patient is able to procure a pair of graduated compression stockings of 10 to 15 mmHg compression. A prescription has been provided. We may consider a higher degree of compression, but the patient's sensitivity precludes a higher degree of compression. We are to continue current conservative treatment measures relative to the patient's chronic lower extremity swelling and edema. These measures have been discussed with the patient thoroughly. He is to continue sleeping on a flat mattress at night. Legs are to be elevated even during daytime hours. Elevation is to be to heart level, or higher. This is to be implemented as much as possible. Prolonged idle sitting has been discouraged. Activity has been encouraged. Weight loss has been recommended. The patient is not currently a smoker. The patient has been advised to optimize his nutritional intake, and to optimize his glycemic control. A noninvasive lower extremity arterial study has been performed on August 05, 2023, which revealed no evidence of significant arterial occlusive disease. The patient's intolerance of adequate compression to the lower extremities appears to be some impediment to controlling his lower extremity swelling. The patient has recently been restarted on chemotherapy and treatment for his colon cancer. A fall by the patient approximately 5 days ago has resulted in a laceration to the right parietal scalp. At this juncture, a dry eschar remains, though the wound appears to be healing uneventfully. There is no sign of infection or cellulitis. We are to allow the healing process to take its course. The patient and his have been advised to seek medical attention should the healing process not occur as expected. Total time: 28 minutes
== END 2023-08-16 14:19 | disposition home or self-care (01) ==
LOC: WC 09:13
PROVIDERS: PCP Family Medicine; Referring Provider Nurse Practitioner Family; Visit Provider Surgery
DX: Z09 Encounter for follow-up examination after completed treatment for conditions other than malignant neoplasm (principal); E11.65 Type 2 diabetes mellitus with hyperglycemia; E66.01 Morbid (severe) obesity due to excess calories; Z68.43 Body mass index [BMI] 50.0-59.9, adult; G40.909 Epilepsy, unspecified, not intractable, without status epilepticus; Z79.4 Long term (current) use of insulin; R60.0 Localized edema; K21.9 Gastro-esophageal reflux disease without esophagitis; R53.81 Other malaise; I25.10 Atherosclerotic heart disease of native coronary artery without angina pectoris; Z79.01 Long term (current) use of anticoagulants; E78.5 Hyperlipidemia, unspecified; N40.0 Benign prostatic hyperplasia without lower urinary tract symptoms; I10 Essential (primary) hypertension; G47.33 Obstructive sleep apnea (adult) (pediatric); F17.201 Nicotine dependence, unspecified, in remission; Z79.85 Long-term (current) use of injectable non-insulin antidiabetic drugs; M79.89 Other specified soft tissue disorders; Z86.718 Personal history of other venous thrombosis and embolism; Z86.73 Personal history of transient ischemic attack (TIA), and cerebral infarction without residual deficits
CPT/HCPCS: 99213; G0463

== ENCOUNTER → 2023-09-09 | Outpatient (CLI) | payer OTHER, SELFPAY ==
--- NOTE | 2023-09-09 14:34 | CT_ITS ---
STUDY: CT CHEST, ABDOMEN T PELVIS WITH CONTRAST REASON FOR EXAM: Male, 63 years old. Colon ca, R hemicolectomy; compare to [facility] 11/23/2022 and 12/24/22 RADIATION DOSAGE (If Supplied By Facility): CTDIvol = ( 23.65 ) mGy, DLP = ( 3861.50 ) mGycm TECHNIQUE: Transaxial imaging was performed following intravenous administration of Oral and amp;amp; IV Redi-CAT and amp;amp; 100mL Isovue-300. Multiplanar coronal and sagittal images were reformatted. Individualized dose optimization techniques were used for this CT. COMPARISON: Comparison is made with prior study dated December 24, 2022. Comparison is made with prior CT scan abdomen and pelvis dated December 24, 2022. FINDINGS: CHEST A right-sided portacatheter is seen with the tip in the superior vena cava. Small benign-appearing bilateral axillary lymph nodes. Stable mild increased markings in the posterior medial segment of the right lower lobe suggestive of scarring. There is no demonstrated pleural abnormality. There are calcifications of the coronary arteries. There are small lymph nodes within the mediastinum, which are normal in size and morphology most compatible with reactive lymph hyperplasia. Normal hilar regions. Normal unenhanced pulmonary arteries. Normal aorta arch and descending thoracic aorta. There are multi-level degenerative changes of the thoracic spine. Fatty infiltration of the liver. ABDOMEN There is decreased attenuation of the liver consistent with steatosis. Normal gallbladder and extrahepatic biliary system. Normal spleen. Normal pancreas. Normal bilateral adrenal glands. Normal right kidney. Normal left kidney. Normal visualized stomach. Normal small intestine. The patient is status post right hemicolectomy. There is non-visualization of the appendix. There is diffuse atherosclerotic calcification of the abdominal aorta, without a demonstrated aneurysm. There is an IVC filter in place. Normal retroperitoneum. Normal abdominal wall. There are degenerative changes of the visualized lumbar spine. PELVIS Normal urinary bladder. Central prostatic calcification. There is no pelvic fluid. There is no pelvic lymphadenopathy or mass lesion. There is diffuse atherosclerotic calcification of the pelvic arteries. CT/CT Chest, Abd, Pel w/Contrast IMPRESSION: Status post right hemicolectomy. Fatty infiltration of the liver. Stable examination. Electronically Signed: Rob Jara MD at 14:01 EDT ,
[2023-09-09] MEDS: 0.9 % NaCl (Sterile) Posiflush 10 mL IV (14:45)
== END | disposition home or self-care (01) ==
LOC: CT 14:33
PROVIDERS: PCP Family Medicine; Referring Provider Internal Medicine Hematology & Oncology; Visit Provider Internal Medicine Hematology & Oncology
DX: C18.9 Malignant neoplasm of colon, unspecified (principal)
CPT/HCPCS: 71260; 74177; Q9967; A4216

== ENCOUNTER → 2023-10-24 | Outpatient (CLI) | payer OTHER, SELFPAY ==
[2023-10-24] VITALS (14 sets, daily range): BP systolic 91–133; BP diastolic 40–78; PULSE 68–72; RESP 14–18; TEMP 36.4; O2SAT 90–99; BMI 50.1
--- NOTE | 2023-10-24 | IMM_PTH ---
PATIENT: SAMPLE,IRENE FINE LOC: CT U#:[id number] AGE/SX: 63/M ROOM: RE10/24/[address]: Dr. Henrietta Garrett MD : 1960 BED: DIS: 10/24/2023 SPEC #: [id number] RECD: 10/25/23 10:53 STATUS: ANUJ REQ #: [id number] KODY: 10/24/23 00:[address]: Henrietta Garrett DEPT: IMMUNOHISTOCHEMISTRY RECD BY: Michelle Posada ENTERED: 10/25/23 10:57 SP TYPE: IMMUNO OTHR DR: Dr. Faustino Chow MD Tissues: Liver, NOS Procedures: RCC (add) NAPSIN A (add) CK20 (add) CK5-6 (add) CK7 (add) CK8 (add) HEP PAR (add) KI-67 (add) P53 (add) TTF1 (add) Pankeratin (initial) P40 (add) CDX2 (add) PSAP (add) MOC-31 (add) PHYSICIAN & [address] [address] SPECIMEN INFORMATION: Tissue Source: Liver biopsy Clinical Info: Liver lesion Specimen Number: [id number] CPT code: 49668, 95515 x14 METHODOLOGY: Deparaffinized sections of prefer/formalin-fixed tissue or PAP/DQ stained slides are incubated with monoclonal/polyclonal antibodies/oligonucleotide probes. Localization is made via biotin free immunoperoxidase method. Appropriate controls are performed and reacted as expected. Results on target cell population are indicated in the following table: RESULTS: ANTIBODY / CLONE RESULT AE1-3 (AE1/AE3/PCK26) positive CK7 (OV-TL12/30) positive, focal CK8 (11phzlM64) positive CK20 (KS20.8) positive CDX2 (ZIO6705U) positive MOC-31 (4561) positive TTF-1 (8G7G3/1) negative Napsin A (Rabbit Polyclonal) negative HepPar (OCh1E5) negative RCC (PN-15) negative PSAP (PASE/4LJ) negative CK5-6 (D5 & 1684) negative P40 (BC28) negative P53 (DO-7) positive, missense, mutation pattern Ki-67 (30-9) positive, high These tests were developed and their performance characteristics determined by [facility]. They may not have been cleared or approved by the U.S. Food and Drug Administration. The FDA has determined that such clearance or approval is not necessary. The above immunohistochemical/dualISH markers are ordered and reviewed by the Pathologist. INTERPRETATION: Liver, CT-guided core biopsy: Metastatic adenocarcinoma. See comment. SJ:kasia 10/26/2023 Comment: IHC profile is consistent with colonic primary.
[2023-10-24 08:07] LABS: Platelet Count 299 K/mm3 (150-450)
[2023-10-24 08:19] LABS: International Normalized Ratio 1.1; Partial Thromboplast Time 28.8 Seconds (24.1-36.2); Prothrombin Time (Protime)PT. 14.4 SECONDS (11.7-14.9)
[2023-10-24] MEDS: 0.9% Normal Saline (250mL Bag) 250 ML 15 ML IV (09:14)
[2023-10-24] MEDS: fentaNYL 100 MCG/2 ML Ampul IV (09:19)
[2023-10-24] MEDS: Midazolam 2 MG/2 ML Syringe IV ×2 (09:20→09:29)
[2023-10-24] MEDS: Lidocaine 2% (20 ml mdv) 20 ML Vial INFILT (09:32)
--- NOTE | 2023-10-24 09:35 | ASPIGT_PTH ---
PATIENT: SAMPLE,IRENE FINE LOC: CT U#:[id number] AGE/SX: 63/M ROOM: RE10/24/[address]: Dr. Henrietta Garrett MD : 1960 BED: DIS: 10/24/2023 SPEC #: [id number] RECD: 10/24/23 09:57 STATUS: ANUJ REJos #: [id number] KODY: 10/24/23 09:[address]: Henrietta Garrett DEPT: SURGICAL PATHOLOGY RECD BY: Michelle Posada ENTERED: 10/24/23 09:58 SP TYPE: ASP RAD OTHR DR: Dr. Faustino Chow MD Tissues: Liver, NOS Procedures: FNA Specimen Adequacy Special Stain Group II Surgery Specimen Level V Imprint (control) HEADER OPERATION: CT guided liver biopsy PRE-OP DIAGNOSIS: Liver lesion TISSUE SUBMITTED: Liver biopsy MICROSCOPIC DIAGNOSIS Liver, CT-guided core biopsy: Metastatic adenocarcinoma. Note: Immunohistochemistry ([id number]) supports the diagnosis of metastatic carcinoma, colon primary. See comment. SJ:rg 10/25/2023 COMMENT The specimen is evaluated at the time of biopsy by Dr. Mejia. Immediate Evaluation = Atypical cells suspicious for malignancy noted. Please make reference to previous specimen from [facility] ([id number]) dated 02/14/23, terminal ileum and right colon, partial colectomy with diagnosis of colonic adenocarcinoma, moderately differentiated with focal mucinous change. Molecular studies on the tumor can be performed if clinically indicated. Please notify the laboratory if they are needed. This case is discussed with Dr. Garrett on 10/26/2023. Case has been reviewed in consultation with Dr. Zamora who concurs with the above diagnosis. IDC:AM MICROSCOPIC DESCRIPTION Slides are reviewed. GROSS DESCRIPTION Received in fixative is one container labeled with the patient's name and designated liver biopsy. The specimen consists of multiple irregular fragments of light jenkins soft tissue that in aggregate measure 2.0 x 0.5 x 0.1 cm. The specimen is totally submitted in one cassette. Two touch imprints are prepared at the time of core biopsy. / SJ:rg 10/24/2023 TC:0 [facility]: 23225, 01248 ADDENDUM ADDENDUM ADDENDUM ADDENDUM ADDENDUM ADDENDUM ADDENDUM ADDENDUM ADDENDUM ADDENDUM ADDENDUM ADDENDUM ADDENDUM ADDENDUM ADDENDUM ADDENDUM ADDENDUM ADDENDUM ADDENDUM ADDENDUM ADDENDUM ADDENDUM ADDENDUM ADDENDUM ADDENDUM 11/09/2023 08:52 ADDENDUM 11/09/2023 08:52 ADDENDUM 11/09/2023 08:52 ADDENDUM 11/09/2023 08:52 ADDENDUM 01/09/2024 09:35 ADDENDUM 11/09/2023 08:52 [facility] ADVANCED COLORECTAL CANCER NGS REPORT FROM DEQ RESULT SUMMARY: Abnormal DETECTED GENOMIC ALTERATIONS: Tier I: Variants of Strong Clinical Significance KRAS p.([id number]) Tier II: Variants of Potential Clinical Significance APC p.([id number]) PIK3CA p.([id number]) TP53 p.(Bnb882Lfs) TERT C228T IMMUNOTHERAPY BIOMARKERS: Tumor Mutation [place]: Low (6.3 Mutations / MB) Microsatellite Instability: MSI Negative (1.63%) PERTINENT NEGATIVE RESULTS: The following genes are NEGATIVE for clinically relevant mutations. Mutational hotspots and surrounding exonic regions were interrogated for DNA level point mutations and indels (fusions not assayed). AKT1, ATR, BRAF, CHEK1, EGFR, EPCAM, ERBB2, ERBB3, ERBB4, FGFR1, FGFR2, FGFR3, FGFR4, HRAS, MAP2K1, MET, MLH1, MSH2, MSH6, NRAS, NTRK1, PMS2, POLD1, POLE, PTEN, SMAD4, STK11 Please see complete report in e-chart or EMR This addendum is added to incorporate an outside pathology consultation report. The case was examined at [facility] (#[id number]) and the following diagnosis was rendered. Liver, CT-guided core biopsy: Compatible with metastatic colonic adenocarcinoma. Please see complete above mentioned consultation report in EMR
[2023-10-24] MEDS: 0.9 % NaCl (Sterile) Posiflush 10 mL IV (10:50)
--- NOTE | 2023-10-24 12:28 | PCM.OP.PRO ---
Assessment & Plan Assessment/Plan (1) Liver lesion: PLAN: PROCEDURE: CT DIRECTED CORE LIVER LESION BIOPSY ORDERING PROVIDER: Dr. Garrett INDICATION: Male, 63 years old. Liver lesion. PROVIDER: JOSHUA Argueta CONSENT: Written informed consent was obtained having explained the risks, benefits and alternatives in detail with the patient who accepted the risks and agreed to proceed. Laboratory review and clinical assessment was performed. PRE-PROCEDURE SEDATION ASSESSMENT: Current history and physical dictated by referring provider and reviewed. No clinical changes since date of exam. Patient has an ASA Class of 2. PROCEDURAL SEDATION PROTOCOL: The Drugs used were: 2 mg Versed, IV, and 50 mcg Fentanyl, IV. The sedation time was: 25 minutes, starting at 9:19 AM and terminated at 9:44 AM. The procedural sedation protocol was independently monitored by the department nurse. RADIATION DOSAGE (If Supplied By Facility): CTDIvol = 33.45 mGy, DLP = 2157.23 mGycm Individualized dose optimization techniques were used for this CT. TECHNIQUE: The patient was placed in a supine position. Using CT image guidance with image documentation, the liver lesion was identified. The skin surface was prepped and draped in a sterile fashion. 2% lidocaine was used for local anesthesia. Using a lateral approach, puncture of the liver was uneventful with an 18-gauge core needle system. 5, 18-gauge core samples were obtained, and submitted in formalin to the pathologist for further assessment. The needles was removed. An occlusive sterile dressing was applied. Patient tolerated the procedure well, and returned to the holding bay for nursing monitoring. IMPRESSION: 1. CT directed core needle biopsy of liver lesion, using CT image guidance with image documentation as described. 2. Procedural Sedation protocol utilized with independent monitoring. Procedures Radiology Radiology CT Procedures: 45748 Biopsy Lung
== END | disposition home or self-care (01) ==
PROVIDERS: Nurse Practitioner Acute Care; PCP Family Medicine; Referring Provider Internal Medicine Hematology & Oncology; Visit Provider Internal Medicine Hematology & Oncology
DX: C78.7 Secondary malignant neoplasm of liver and intrahepatic bile duct (principal); C77.9 Secondary and unspecified malignant neoplasm of lymph node, unspecified; K76.9 Liver disease, unspecified; Z85.038 Personal history of other malignant neoplasm of large intestine
CPT/HCPCS: 47000; 36415; 77012; 81002; 85049; 85610; 85730; 88172; 88305; 88307; 88313; 88341; 88342; 99156; J7050; A4216

== ENCOUNTER 2024-01-11 19:58 | Emergency (ER) | payer MEDICARE, OTHER, SELFPAY ==
[2024-01-11 19:59] VITALS: BP 173/83; PULSE 76; RESP 15; TEMP 36.7; O2SAT 98; BMI 51.0
--- NOTE | 2024-01-11 20:44 | ED.RN ---
Addendum entered by Holly Rich 01/11/24 20:46: Dressing applied to site after de-accessed. Original Note: Proper PPE donned, port de-accessed and medication bag given to pharmacy stock clerk Kat.
--- NOTE | 2024-01-11 20:48 | EX.ED.DYSGE1 ---
HPI History of Present Illness Chief Complaint: Other, Pain/Inj Narrative Narrative: Patient presenting to get his chemotherapy pump the access. Apparently had an issue with this and it is partially deaccessed. Other than this he states he is at baseline. He has some nausea and does take Zofran and he believes Phenergan at home. He states he does not need any medication. He is just here to have his port be accessed [facility] Medical History Acute bronchitis Anxiety and depression BiPAP (biphasic positive airway pressure) dependence Body mass index (BMI) 35 or more Body mass index (BMI) greater than 50 BPH (benign prostatic hyperplasia) Cancer Cellulitis Chronic anticoagulation Chronic anticoagulation CINV (chemotherapy-induced nausea and vomiting) Colon cancer COPD (chronic obstructive pulmonary disease) Debility Diabetes mellitus Duodenal perforation DVT (deep venous thrombosis) Dysphagia Dysuria Edema of left lower extremity Edema of right lower extremity Encounter for chemotherapy management Encounter for education Former smoker GERD (gastroesophageal reflux disease) Prashanth filter in place Hemothorax on right High cholesterol History of Clostridium difficile infection History of colon cancer History of echocardiogram History of edema History of heart attack (~1993) History of stress test HLD (hyperlipidemia) HTN (hypertension) Iron deficiency anemia due to chronic blood loss Leg wound, left Lipodermatosclerosis of right lower extremity Low iron Metastasis to liver Non-pressure chronic ulcer of left ankle limited to breakdown of skin RAMU (obstructive sleep apnea) Pharyngeal dysphagia Pneumonia Prostate disorder Regional lymph node metastasis present Seizure disorder as sequela of cerebrovascular accident Shortness of breath on exertion Sleep apnea Stroke/cerebrovascular accident (~09/2021) Subarachnoid hemorrhage Super obese Swelling of left lower extremity Swelling of right lower extremity Tracheal stenosis UTI (urinary tract infection) Wears glasses Home Medications atorvastatin 80 mg tablet 80 mg NG QHS Check with primary doctor 01/14/21 [History Last Taken Unknown] metoprolol tartrate 50 mg tablet 50 mg PO BID BP 01/14/21 [History Last Taken 03/15/23] famotidine 20 mg tablet 40 mg (2 x 20 mg) PO 00,1999 #60 tabs 02/03/21 [Rx Last Taken 03/15/23] sertraline 50 mg tablet 50 mg PO DAILY@0800 #30 tabs 02/03/21 [Rx Last Taken Unknown] apixaban 2.5 mg tablet (Eliquis) 5 mg PO BID 03/03/23 [History Last Taken Unknown] dulaglutide 1.5 mg/0.5 mL subcutaneous pen injector (Trulicity) 1.5 mg subcut QWEEK 03/03/23 [History Last Taken Unknown] omeprazole 40 mg capsule,delayed release 40 mg PO DAILY 03/08/23 [History Last Taken 03/15/23] insulin glargine 100 unit/mL (3 mL) subcutaneous pen (Basaglar KwikPen U-100 Insulin) 60 unit subcut BID 03/15/23 [History Last Taken Unknown] potassium chloride 10 mEq tablet,extended release(part/cryst) 20 meq PO BID 04/25/23 [History Last Taken Unknown] insulin aspart U-100 100 unit/mL (3 mL) subcutaneous pen (Novolog FlexPen U-100 Insulin aspart) 26 unit subcut .QID 08/01/23 [History Last Taken Unknown] furosemide 80 mg tablet 80 mg PO BID 09/12/23 [History Last Taken Unknown] ondansetron 8 mg disintegrating tablet 8 mg PO Q8H PRN nausea and vomiting #30 tabs 12/27/23 [Rx Last Taken Unknown] prochlorperazine maleate 10 mg tablet 10 mg PO Q6H PRN nausea and vomiting #30 tabs 12/27/23 [Rx Last Taken Unknown] Allergy/AdvReac Type Severity Reaction Status Date / Time clindamycin AdvReac Intermediate Rash Verified 01/10/24 09:18 GRADY Inhibitors AdvReac Mild Other Verified 01/10/24 09:18 Surgical History History of bowel resection History of right hemicolectomy History of tracheostomy S/P percutaneous endoscopic gastrostomy (PEG) tube placement Social History Smoking Status: Former smoker how long ago did patient quit smokin ROS ROS ED Constitutional Constitutional ED: Denies chills, fever(s) or sweats Eyes Eyes: Denies blurry vision or change in vision ENT ENT ED: Denies ear pain or sore throat Cardiovascular Cardiovascular: Denies chest pain, palpitations or racing heartbeat Respiratory/Chest Respiratory/Chest: Denies cough, dyspnea or sputum Gastrointestinal Gastrointestinal: Reports nausea; Denies abdominal pain, constipation, diarrhea or vomiting Genitourinary Genitourinary ED: Denies dysuria, hematuria or urinary frequency Musculoskeletal Musculoskeletal: Reports myalgias; Denies arthralgias or neck pain Integumentary Denies abscess, Abrasions or rash Neurologic Neurologic: Denies headache(s), paresthesias or weakness Psychiatric Psychiatric: Denies anxiety, depression, suicidal ideation or suicidal thoughts Endocrine Endocrinology: Denies polydipsia or polyuria EXAM Physical Exam Const Vital Signs: 01/11/24 19:59 Temperature 98.1 F Temperature Source Oral Pulse Rate 76 Respiratory Rate 15 Blood Pressure 173/83 H Blood Pressure Mean 113 Pulse Ox 98 Oxygen Delivery Method Room Air Positive well nourished General Appearance ED: NAD; Negative for pallor HEENT Reports moist mucous membranes Eyes PERRL and EOMs intact bilaterally Resp normal respiratory effort Cardio regular rate and regular rhythm Neuro oriented x3 Sensorium / Orientation: alert Psych mental status grossly normal Skin General Skin Exam: Negative for jaundice or pallor MDM MDM MDM Narrative Medical decision making narrative: Patient's port was de accessed. Tolerated procedure well. Again he was offered something for nausea here and he declines. He states he has medications at home. Impression: 1. Nausea 2. Medication port access removed Discharge Plan Triage Chief Complaint: Other, Pain/Inj ED Provider: Fernando Valladares Dx/Rx/DC Orders Prescriptions: No Action Eliquis 2.5 mg tablet 5 mg PO BID Trulicity 1.5 mg/0.5 mL pen injector 1.5 mg subcut QWEEK potassium chloride 10 MEQ tablet,ER particles/crystals 20 meq PO BID ondansetron 8 mg tablet,disintegrating 8 mg PO Q8H PRN (Reason: nausea and vomiting) Qty: 30 2RF prochlorperazine maleate 10 mg tablet 10 mg PO Q6H PRN (Reason: nausea and vomiting) Qty: 30 2RF atorvastatin 80 MG tablet 80 mg NG QHS metoprolol tartrate 50 MG tablet 50 mg PO BID famotidine 20 MG tablet 40 mg PO 0800,2000 Qty: 60 0RF sertraline 50 MG tablet 50 mg PO DAILY@0800 Qty: 30 0RF omeprazole 40 mg Capsule,Delayed Release(Dr/Ec) 40 mg PO DAILY furosemide 80 mg tablet 80 mg PO BID Rx Instructions: take every other day insulin glargine [Basaglar KwikPen U-100 Insulin] 100 unit/mL (3 mL) insulin pen 60 unit SUBCUT BID Patient Comments: INJECT 60 UNITS SUBCUTANEOUSLY TWICE DAILY insulin aspart U-100 [Novolog FlexPen U-100 Insulin] 100 unit/mL (3 mL) insulin pen 26 unit SUBCUT .QID Primary Care Provider: Faustino Chow Referrals: Faustino Chow MD [Primary Care Provider] - Disposition Disposition: Home, Self Care
== END 2024-01-11 20:58 | disposition home or self-care (01) ==
LOC: ED 20:53
PROVIDERS: Emergency Provider Student in an Organized Health Care Education/Training Program; PCP Family Medicine; Visit Provider Student in an Organized Health Care Education/Training Program
DX: Z45.2 Encounter for adjustment and management of vascular access device (principal); J44.9 Chronic obstructive pulmonary disease, unspecified; G40.909 Epilepsy, unspecified, not intractable, without status epilepticus; E11.9 Type 2 diabetes mellitus without complications; Z79.4 Long term (current) use of insulin; R11.0 Nausea; I69.998 Other sequelae following unspecified cerebrovascular disease; Z79.01 Long term (current) use of anticoagulants; Z79.899 Other long term (current) drug therapy; Z79.85 Long-term (current) use of injectable non-insulin antidiabetic drugs; Z87.891 Personal history of nicotine dependence
CPT/HCPCS: 99282